=== PATIENT | male | born 1950 | race Caucasian/White ===

== ENCOUNTER 2017-10-10 12:25 | Outpatient (RCR) | payer MEDICARE, OTHER, SELFPAY | END 2017-10-27 23:59 | LOC: DC 12:25 | PROVIDERS: Family Provider Family Medicine; PCP Family Medicine; Visit Provider Family Medicine | DX: E11.9 Type 2 diabetes mellitus without complications (principal); R63.4 Abnormal weight loss; Z71.3 Dietary counseling and surveillance | CPT/HCPCS: 97802; G0108 ==

== ENCOUNTER 2017-10-11 15:00 | Outpatient (RCR) | payer OTHER, SELFPAY ==
--- NOTE | 2017-09-18 19:00 | HP.OTEVAL ---
Patient's Visit Information CRISTINO CHINCHILLA is a 66 year old M, referred to Occupational Therapy by Out of Town Doctor,VENTURA HUGO, with a diagnosis of Closed Colles Fx of L Radius. Date of Evaluation: 09/18/17 Occupational Therapist: Nighat Peres - Subjective Subjective: Pt seen for initial occupational therapy evaluation after accidental fall on cement tripping over bolt in floor while at work on 07/21/17. Pt has closed colles fx of left radius. Pt had sx 08/03/17 L wrist ORIF with 1 plate and 10 screws. Pt lives w/ spouse 1 story house with 12 steps to enter with handrail. Indep w/ BADL's/IADLs prior. Pt states he is still independent with all BADL's/IADLs and drives. 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 - Pain L wrist 2 Pain Intensity Range: 0, 5 - Objective Objective/Observation: decreased functional use of L hand/wrist, decreased L wrist ROM and strength. - ROM Shoulder: WFL Elbow: WFL Wrist: WFL CMC: WFL MP: WFL IP: WFL Radial Abduction: WFL Palmar Abduction: WFL Opposition: WFL MP: WFL PIP: WFL DIP: WFL ROM Comments: R Wrist AROM extension 75' flexion 85'. L Wrist AROM extension 10' flexion 50', PROM extension 15', flexion 55' - Strength Shoulder: R 4/5, L 4/5 Elbow: R 4/5, L 4/5 Director Of Student Affairs: R 60#, L 20# Tripod Pinch: R 14#, L 8# - Edema Other: No edema noted - Sensation Sensation Comments: Pt states burning at incision when takes brace off. No numbness/tingling noted. - DASH-Disabilities of Arm, Shoulder& Hand DASH Sum: 49 - Goals Goal:: Pt will progress w/ L yard spotter strength by 40# to increase independence with BADLs/IADLs. Goal:: Pt will progress w/ L wrist AROM flexion/extension 40 degrees to increase functional use of L wrist for IADLS and hobbies. Goal:: Pt will demo L wrist pain no greater than 1/10 by d/c with movement. Goal:: Pt will be educated on scar mngmt tech with good understanding and demo 100%x. Goal:: Pt will demo increased L hand pinch strength by 6# at d/c to assist w/ IADLs. Goal:: Pt will be educated on L UE HEP ROM and strengthening exercises to increase independence with IADLs and hobbies with good understanding and demo 100%x. - Rehabilitation General Assessment: Pt demo decreased L wrist strength and ROM after L wrist sx from accidental fall. Rehabilitation Potential: Good - Anticipated Interventions Anticipated Interventions: A/AAROM/PROM, Strengthening, Scar Care, Massage, Modalities, Fine Motor Coord/En, ADL Training, Caregiver Training, Home Program - Visit Plan Frequency: 2-3x /Week Duration: 4-6 Weeks General Plan: Increase L wrist ROM and strength. Decrease L wrist pain, educate on scar mngmt tech. TEXT: Thank you for the opportunity to evaluate your patient. For Medicare and Medicare HMO plans, please review the plan of care and approve it. It will need to be FAXED BACK to us at [phone] for Medicare purposes. Please let me know if there are questions or concerns regarding this plan of care. Physician Signature: Date:
--- NOTE | 2017-09-27 10:05 | HP.OTCOM ---
OT Communication Note 09/27/17 Dear VENTURA Graff Completing L wrist ROM and strengthening exercises . Educated pt on HEP for AROM/AAROM exercises at home and strengthening exercises for L wrist. Pt demonstrated 55 degress L wrist flexion and 30 degrees L wrist extension last session. Pt progressing with L wrist ROM at this time. Sincerely, Nighat Davis Viar Contact Information
--- NOTE | 2017-09-27 10:09 | HP.OTCOM_ITS ---
OT Communication Note 09/27/17 Dear VENTURA Graff Completing L wrist ROM and strengthening exercises . Educated pt on HEP for AROM /AAROM exercises at home and strengthening exercises for L wrist. Pt demonstrated 55 degress L wrist flexion and 30 degrees L wrist extension last session. Pt progressing with L wrist ROM at this time. Sincerely, Nighat Davis Viar Contact Information
--- NOTE | 2017-12-26 11:57 | HP.OT.NRP ---
HP - Discharge Summary - Patient Information CRISTINO CHINCHILLA was seen in my office for initial evaluation on 09/18/17. The following Plan of Care was established for this patient: Initial Frequency: 2-3x /Week Initial Duration: 4-6 Weeks Plan: cont POC - Anticipated Interventions Anticipated Interventions: A/AAROM/PROM, Strengthening, Scar Care, Massage, Modalities, Fine Motor Coord/En, ADL Training, Caregiver Training, Home Program This patient was last seen in our office 10/11/17. Pertinent comments regarding their Occupational therapy will appear below: D/C OT services secondary to pt non-returning. Pt was progressing with L wrist strength using 1# free weight, red flex bands and BTE machine. He was completing paraffin bath to decrease pain and stiffness of L wrist after exercises. Pt did not meet all goals secondary to non-returning. At this point I will be discontinuing this patient from occupational therapy. I would be happy to see this patient again in the future if found appropriate by the physician. Thank you! Nighat Peres
== END 2017-10-11 19:00 | disposition home or self-care (01) ==
LOC: OT 15:00
PROVIDERS: Family Provider Family Medicine; PCP Family Medicine
DX: S52.532D Colles' fracture of left radius, subsequent encounter for closed fracture with routine healing (principal)
CPT/HCPCS: 97110; 97165

== ENCOUNTER 2018-04-20 17:02 | Emergency (ER) | payer MEDICARE, OTHER, SELFPAY ==
[2018-04-20 17:03] VITALS: BP 168/76; PULSE 74; RESP 18; TEMP 37.1; O2SAT 99; BMI 20.8
--- NOTE | 2018-04-20 19:01 | EKG12_ITS ---
Test Reason : GENERAL ILLNESS Blood Pressure : / mmHG Vent. Rate : 068 BPM Atrial Rate : 068 BPM P-R Int : 148 ms QRS Dur : 080 ms QT Int : 392 ms P-R-T Axes : 063 014 043 degrees QTc Int : 416 ms Normal sinus rhythm Normal ECG Confirmed by DOMENICO SALAS MD ([id number]), editor & co founder JONATHAN MOORE ([id number]) on 04/24/2018 8:52:59 AM Referred By: Confirmed By:DOMENICO SALAS MD
--- NOTE | 2018-04-20 19:02 | CT_ITS ---
STUDY: CT BRAIN WITHOUT CONTRAST REASON FOR EXAM: Male, 67 years old. Headache, nausea and elevated blood pressure. RADIATION DOSAGE (If Supplied By Facility): CTDIvol = ( 44.99 ) mGy, DLP = ( 812.98 ) mGycm TECHNIQUE: Transaxial CT imaging of the brain was performed without administration of intravenous contrast material. Individualized dose optimization techniques were used for this CT. COMPARISON: None. FINDINGS: Normal soft tissue structures. Normal calvarium. Normal size ventricles and extra-axial spaces for the patient's age. Normal white matter tracts of the cerebral hemispheres. Normal basal ganglia and thalami. Normal brainstem. Normal cerebellum. There is no intracranial hemorrhage. There are no findings of an acute ischemic infarction. Normal visualized paranasal sinuses CT/Brain/Head without Contrast IMPRESSION: Normal unenhanced CT scan of the brain. Electronically Signed: Lisa Garcia MD at 19:47 EDT , Service support ,
[2018-04-20] MEDS: Ketorolac 30 MG/ML Syringe IV (19:09)
--- NOTE | 2018-04-20 19:42 | RAD_ITS ---
STUDY: X-RAY CHEST REASON FOR EXAM: Male, 67 years old. Dizziness, nausea and shortness of breath. TECHNIQUE: Frontal and lateral views of the chest. COMPARISON: July 24, 2016 FINDINGS: There is hyperexpansion unchanged. There is no demonstrated pleural abnormality. Normal size heart. Normal mediastinum and lisette. Normal visualized pulmonary arteries. Normal visualized aortic arch and descending thoracic aorta. Normal visualized thoracic spine. Normal visualized ribs, clavicles, and shoulders. There is no demonstrated abnormality of the visualized soft tissue structures of the upper abdomen. RAD/Chest PA and Lateral IMPRESSION: Stable hyperexpansion. No acute pathology. Electronically Signed: Fidel Stone MD at 20:14 EDT , Service support ,
[2018-04-20 20:21] VITALS: BP 151/74; BP 153/76; BP 168/71; PULSE 70; PULSE 72; PULSE 76
[2018-04-20 20:28] LABS: Bacteria 0 SEEN /hpf (None Seen); Squamous Epithelial Cells - UA 0 SEEN /hpf (0-5)
[2018-04-20 20:29] LABS: Color, Urine Yellow (Yellow); Glucose, Dipstick Normal (Normal); Ketone-Dipstick Negative (Negative); Leukocyte Esterase-Dipstick Negative /ul (Negative); Nitrite-Dipstick Negative (Negative); Occult Blood-Urine Negative /ul (Negative); Protein-Dipstick 15 mg/dl (Negative); Specific Gravity, Urine 1.015 (1.002-1.030); Urine Bilirubin Dipstick Negative (Negative); Urine Clarity Clear (Clear); Urine Urobilinogen 1 mg/dl (Normal); Urine pH 6.5 (5.0 - 8.0)
[2018-04-20 20:30] LABS: Absolute Neutrophil Count 4.3 X10^3/uL (2.0-7.7); Basophil# 0.02 X10^3/uL; Basophil% 0.3 % (0-1); Eosinophils% 1.5 % (0-5); Hematocrit 37.6 % (40-54); Hemoglobin 12.8 g/dl (13.0-16.5); Lymphocyte % 19.5 % (19-41); Mean Corpuscular Hgb 32.7 pg (27.0-32.0); Mean Corpuscular Volume 95.9 fL (80-94); Mean Platelet Vol. 9.7 fl (6.2-12.0); Monocyte# 0.95 X10^3/uL; Monocyte% 14.3 % (0-10); Neutrophil # 4.27 X10^3/uL (2.7-7.7); Neutrophil % 64.2 % (47-70); POSITIVE COUNT NO; POSITIVE DIFFERENTIAL NO; POSITIVE MORPHOLOGY NO; Platelet Count 337 K/mm3 (150-450); RBC Distribution Width CV 13.1 % (11.6-14.6); RBC Distribution Width SD 45.2 fl (35.1-43.9); Red Blood Count 3.92 M/mm3 (4.6-6.2); White Blood Count 6.7 K/mm3 (4.4-11.0)
[2018-04-20 20:38] LABS: Hyaline Cast 0-5 SEEN /lpf (0-5); Mucous, Urine RARE /hpf (<or=2+)
[2018-04-20 20:39] LABS: Red Blood Cells-Urine 0-5 SEEN /hpf (0-5); White Blood Cells 0-5 SEEN /hpf (0-5)
[2018-04-20 20:44] LABS: ALB/GLOB Ratio 1.1 RATIO (0.9-2.4); AST(SGOT) 25 U/L (15-37); Alanine Aminotransfer ALT/SGPT 29 U/L (16-61); Albumin, Serum 3.5 g/dL (3.2-5.0); Alkaline Phosphatase 75 U/L (45-117); Anion Gap 7 (5-15); BUN 12 mg/dL (7-18); BUN/Creat Ratio 12.4 RATIO (10-20); Calcium,Total 8.7 mg/dL (8.5-10.1); Chloride 100 mmol/L (98-107); Creatinine, Serum 0.97 mg/dL (0.70-1.30); EST Glomerular Filtration Rate 82 mL/min (>60); Est Glom Filt Rate - Afr Amer 99 mL/min (>60); Globulin 3.2 g/dL (2.2-4.2); Glucose 83 mg/dL (74-106); Lipase 222 U/L (73-393); Potassium 4.1 mmol/L (3.5-5.1); Protein, Total 6.7 g/dL (6.4-8.2); Sodium Level 132 mmol/L (136-145)
--- NOTE | 2018-04-20 21:10 | ED.VISSUMM ---
- ER Visit Summary Date of Service: 04/20/18 Chief Complaint: Headache and weakness History of Present Illness: The patient is a 67 M who states he is trying to quit smoking. He started 4 days ago. He is also started using a patch of nicotine 21 mg per 24hr. he states that he typically will have 7 or 8 pipes per day. He states that he has had nausea headache dizziness some chills and some arm pain earlier all these symptoms caused him to worry came to the hospital with his . He has a history of prior ME and that really concerned him with the arm pain. Physical Examination: Afebrile vital signs are stable orthostatics negative. Gen: Well-nourished well-developed Head: Normocephalic atraumatic Eyes: Perrl EOMI ENT: TMs clear no rhinorrhea moist mucous membranes Neck: Supple no lymphadenopathy no JVD nontender CVS: Regular rate rhythm no murmurs normal S1-S2 Respiratory: No distress clear to auscultation bilaterally chest nontender Abdomen: Soft nontender nondistended normal bowel sounds no masses Back: Nontender Extremity: Nontender no edema Skin: Normal color no rash Neuro: alert orientated ?3 CN II-XII intact normal strength sensation reflexes gait cerebellar Psych: Normal affect normal mood Test Results: CBC CMP lipase troponin negative EKG sinus at rate [address] concerning features. Chest x-ray negative. CT of the brain was negative. Emergency Department Course and Treatment: Ez received a dose of Toradol. I think the patient could be experiencing nicotine toxicity. Perhaps the 21 mg patch is too high for him. This would make sense with his headaches and nausea. He was instructed to either discontinue the patch or cut down to the 7 or 14 mg and see that helps. If he is not improving please follow-up with family doctor. Impression: 1. Nicotine side effects This note was generated with [employer] dictation software. It may contain incorrect words, spelling, and punctuation that were not noted in review of the chart prior to signing ED Disposition - Plan for ED Patient: Disposition: Home or Assisted Living Chief Complaint: General Illness Instructions: Nicotine Transdermal patch - 24 hour, ED Smoking Cessation Referrals: Alycia Valencia MD [Primary Care Provider] - 3-5 Days if not improving
[2018-04-20 21:21] VITALS: BP 166/70; PULSE 68; RESP 16; O2SAT 98
[2018-04-20 21:22] VITALS: BP 166/70; PULSE 67; RESP 17; O2SAT 99
== END 2018-04-20 21:30 | disposition home or self-care (01) ==
PROVIDERS: Emergency Provider Emergency Medicine; Family Provider Family Medicine; PCP Family Medicine
DX: T78.8XXA Other adverse effects, not elsewhere classified, initial encounter (principal); X58.XXXA Exposure to other specified factors, initial encounter; E11.9 Type 2 diabetes mellitus without complications; K21.9 Gastro-esophageal reflux disease without esophagitis; E78.00 Pure hypercholesterolemia, unspecified; I10 Essential (primary) hypertension; I25.2 Old myocardial infarction; Z72.0 Tobacco use
CPT/HCPCS: 70450; 71046; 80053; 81001; 83690; 84484; 85025; 93005; 96374; 99285; A4216

== ENCOUNTER → 2018-07-31 12:35 | Outpatient (CLI) | payer MEDICARE, OTHER, SELFPAY ==
--- NOTE | 2018-07-31 13:37 | NEURO ---
NCS and/or EMG Patient Report Ordering Doctor: Alycia Valencia DATE OF SERVICE: 07/31/18 Ez Ryan is a 67-year-old male presents for electrodiagnostic testing of the right upper limb. He reports numbness and tingling in the right hand for the past 2 months. Next Electrodiagnostic findings: Right median motor nerve demonstrates normal distal latency, amplitude and conduction velocity. Normal right ulnar motor response, including conduction across the elbow. Normal right median and ulnar F waves. Sensory responses are within normal limits. Needle EMG testing shows no evidence of denervation A muscles tested. Motor unit action potentials are of normal amplitude and duration. Electrodiagnostic impression: This is a normal electrodiagnostic study of the left upper limb. There is no electrodiagnostic evidence for peripheral neuropathy, including carpal tunnel or cubital tunnel syndrome. If any further questions, please not hesitate to contact me.
== END ==
PROVIDERS: Family Provider Family Medicine; PCP Family Medicine; Referring Provider Family Medicine; Visit Provider Family Medicine
DX: G56.91 Unspecified mononeuropathy of right upper limb (principal)
CPT/HCPCS: 95886; 95909; 95910

== ENCOUNTER → 2018-10-07 13:50 | Outpatient (CLI) | payer MEDICARE, OTHER, SELFPAY ==
--- NOTE | 2018-10-07 13:55 | CT_ITS ---
STUDY: CT ABDOMEN AND PELVIS WITH CONTRAST REASON FOR EXAM: Male, 67 years old. Right lower quadrant pain. History of prior hernia repair. RADIATION DOSAGE (If Supplied By Facility): CTDIvol = ( 9.19 ) mGy, DLP = ( 416.98 ) mGycm TECHNIQUE: Transaxial images were obtained from the dome of the diaphragm to the symphysis pubis with oral contrast. Isovue 300 100 IV/Oral was administered. Sagittal and coronal images were reconstructed. Individualized dose optimization techniques were used for this CT. COMPARISON: Comparison is made with prior study dated July 17, 2017. FINDINGS: The visualized lung bases are unremarkable. The visualized portions of the heart are within normal limits. There is decreased attenuation of the liver consistent with steatosis. Stable 1.2 cm cyst in the left lobe of the liver. Stable tiny subcentimeters cyst in the superior aspect of the left lobe of the liver. Normal gallbladder and extrahepatic biliary system. Arising from the inferior aspect of the spleen, there is a 3.6 cm x 4.4 cm hypodense nodule. This is unchanged from prior study may represent a complicated cyst. Correlation with ultrasound of the spleen is recommended for further evaluation. Normal pancreas. Normal bilateral adrenal glands. Stable 7.5 mm cyst in the upper pole of the right kidney. Stable 1 cm cyst in the mid anterior aspect of the right kidney as well as in the lower pole of the right kidney. Stable 2 cm cyst in the upper medial portion of the left kidney as well as a tiny cyst in the lower pole. Normal visualized stomach. Normal small intestine. Normal colon. The appendix is visualized and appears normal. There is diffuse atherosclerotic calcification of the abdominal aorta, without a demonstrated aneurysm. Normal inferior vena cava. Normal retroperitoneum. Normal urinary bladder. There are prostatic calcifications. Normal abdominal wall. There are diffuse degenerative changes of the visualized lumbar spine. Stable dextroscoliosis of the lumbar spine. Loss of the normal lumbar lordosis. CT/Abdomen/Pelvis WITH Contrast IMPRESSION: Fatty infiltration of the liver. Findings suggesting complicated cyst arising from the inferior aspect of the spleen. Correlation with ultrasound is recommended. Stable bilateral renal cysts are Electronically Signed: Jimmy Wilder, at 9:38 EDT , Service support ,
== END ==
PROVIDERS: Family Provider Family Medicine; PCP Family Medicine; Referring Provider Family Medicine; Visit Provider Family Medicine
DX: R10.31 Right lower quadrant pain (principal)
CPT/HCPCS: 74177; Q9967

== ENCOUNTER → 2020-03-04 12:54 | Outpatient (CLI) | payer MEDICARE, OTHER, SELFPAY ==
[2020-03-03 11:28] VITALS: BMI 17.5
--- NOTE | 2020-03-04 12:58 | ECHOCS_ITS ---
Reason For Study: CAD/ASHD, Preop Procedure This was a 2D Doppler, Color Flow transthoracic echocardiogram. The study was technically difficult. Contrast injection was performed. Exam performed in department. Left Ventricle Normal LV size. The estimated ejection fraction is 53 %. Left ventricular systolic function is lower limits of normal. No regional wall motion abnormalities noted. Right Ventricle Normal RV size. Normal systolic function. Atria Normal left atrium. Normal right atrium. Mitral Valve Mitral valve not well visualized. Tricuspid Valve The tricuspid valve is not well visualized. Mild (1+) tricuspid valve insufficiency. Pulmonary artery systolic pressure is 28 mmHg. Aortic Valve The aortic valve is not well visualized. Pulmonic Valve Normal pulmonic valve. Great Vessels Normal aortic root. The pulmonary artery is normal size. Normal inferior vena cava. Pericardium/Pleural No pericardial effusion. Medication 22 gauge I.V. with prn adaptor inserted into right arm. Diluted definity 3ml given slow IV push to enhance endocardial definition. MMode/2D Measurements & Calculations LVIDd: 3.4 cm IVSd: 1.00 cm Ao root diam: 2.8 cm LVIDs: 2.2 cm LVPWd: 0.98 cm FS: 35.1 % LAV(MOD-sp4): 6.8 ml LA A4 area: 5.0 cm2 RA A4 area: 6.6 cm2 Doppler Measurements & Calculations MV E max alin: 53.1 cm/sec Lat Peak E' Alin: 5.0 cm/sec Med Peak E' Alin: 6.2 cm/sec MV A max alin: 84.6 cm/sec E/E' lat: 10.5 E/E' med: 8.6 MV E/A: 0.63 Ao V2 max: 82.2 cm/sec LV V1 max: 74.2 cm/sec PA V2 max: 85.7 cm/sec Ao max P.7 mmHg LV V1 max P.2 mmHg Ao V2 mean: 57.6 cm/sec Ao mean P.4 mmHg Ao V2 VTI: 15.2 cm TR max alin: 249.9 cm/sec TR max P.0 mmHg Interpretation Summary Normal LV size. The estimated ejection fraction is 53 %. Left ventricular systolic function is lower limits of normal. The study was technically difficult. Contrast injection was performed. Ordering Physician: Daren Quinteros Referring Physician: Alycia Valencia Performed By: Feli Cole, SARA, RVT
== END ==
PROVIDERS: PCP Family Medicine; Referring Provider Internal Medicine Cardiovascular Disease; Visit Provider Internal Medicine Cardiovascular Disease
DX: I25.10 Atherosclerotic heart disease of native coronary artery without angina pectoris (principal); Z95.5 Presence of coronary angioplasty implant and graft; I10 Essential (primary) hypertension; R00.2 Palpitations; R06.00 Dyspnea, unspecified
CPT/HCPCS: 93306; Q9957; A4216; C8929

== ENCOUNTER 2020-03-17 14:30 | Outpatient (RCR) | payer MEDICARE, OTHER, SELFPAY ==
[2019-09-16 10:01] VITALS: BMI 19.1
[2020-03-03 11:28] VITALS: BMI 17.5
== END 2020-03-17 23:59 | disposition home or self-care (01) ==
LOC: DC 14:30
PROVIDERS: PCP Family Medicine; Visit Provider Nurse Practitioner Family
DX: Z71.3 Dietary counseling and surveillance (principal); E11.9 Type 2 diabetes mellitus without complications; E44.0 Moderate protein-calorie malnutrition; R63.4 Abnormal weight loss
CPT/HCPCS: 97802; G0108

== ENCOUNTER → 2020-04-21 14:10 | Outpatient (CLI) | payer MEDICARE, OTHER, SELFPAY ==
[2020-04-14 11:51] VITALS: BMI 17.5
--- NOTE | 2020-04-21 14:11 | MRI_ITS ---
STUDY: MRI LUMBAR SPINE WITHOUT CONTRAST REASON FOR EXAM: Male, 69 years old. low back and rt leg pain -- recent ablation lumbar TECHNIQUE: Standardized fat and water weighted pulse sequences were obtained in the sagittal and axial planes. COMPARISON: X-ray 04/14/2020. FINDINGS: T12-L1: Normal endplates. Normal disc height, hydration and morphology. Normal bilateral facet joints. Normal central canal and bilateral lateral recesses. Normal bilateral intervertebral neural foramina. There is straightening of the normal lumbar lordosis. Mild lumbar dextroscoliosis. Normal conus medullaris that terminates at the L1 level. L1-2: Normal endplates. Disc dehydration and moderate disc space narrowing, with vacuum phenomenon. Mild canal stenosis due to a mild spondylotic bar and short pedicles. Mild bilateral foraminal stenosis due to spurring. L2-3: Normal endplates. Marked disc space narrowing with fatty endplate changes. Borderline canal stenosis due to a mild spondylotic bar, greater on the left, and shortened pedicles. There is effacement of the left lateral recess due to spondylosis and mild facet hypertrophy. Moderate left foraminal stenosis due to spurring. L3-4: Normal endplates. Marked disc space narrowing. Mild canal stenosis due to a moderate spondylotic bar, shortened pedicles, and mild facet hypertrophy. There is effacement of the right lateral recess due to spurring and facet hypertrophy. Foraminal stenosis is moderate bilaterally due to spurring. L4-5: Normal endplates. Marked disc space narrowing. 4 mm degenerative retrolisthesis. Moderate spondylotic bar due to retrolisthesis, causing effacement of the right lateral recess and borderline canal stenosis. Foraminal stenosis is mild on the left and severe on the right due to spurring. L5-S1: Normal endplates. Marked disc space narrowing with vacuum phenomenon. Mild, noncompressive disc bulge. No canal stenosis. Mild facet hypertrophy. Severe bilateral foraminal stenosis due to spurring. Normal visualized sacral ala. Normal visualized paraspinous soft tissue structures. MRI/Spine Lumbar (Routine) IMPRESSION: 1. Mild canal stenosis at L1-L2 and L3-L4. Borderline stenosis at L2-L3 and L4-L5. 2. Noncompressive disc bulge at L5-S1. 3. Mild L4-L5 retrolisthesis. 4. Moderate to severe foraminal stenosis from L2-L3 through L5-S1. 5. Mild scoliosis. 6. Degenerative changes are detailed above. Electronically Signed: Mendy Limon MD at 23:51 EDT Tel , Service support ,
== END ==
PROVIDERS: PCP Family Medicine; Referring Provider Orthopaedic Surgery; Visit Provider Orthopaedic Surgery
DX: M54.5 Low back pain (principal)
CPT/HCPCS: 72148

== ENCOUNTER → 2020-05-25 14:36 | Outpatient (CLI) | payer MEDICARE, OTHER, SELFPAY ==
[2020-04-30 11:10] VITALS: BMI 17.5
[2020-05-25 18:07] LABS: AST(SGOT) 30 U/L (15-37); Alanine Aminotransfer ALT/SGPT 35 U/L (16-61); Albumin, Serum 3.6 g/dL (3.2-5.0); Alkaline Phosphatase 72 U/L (45-117); BUN 8 mg/dL (7-18); Bilirubin, Direct 0.31 mg/dL (0.00-0.30); Calcium,Total 8.6 mg/dL (8.5-10.1); Cholesterol 107 mg/dL (200); EST Glomerular Filtration Rate 79 mL/min (>60); Est Glom Filt Rate - Afr Amer 95 mL/min (>60); Glucose 101 mg/dL (74-106); Protein, Total 6.6 g/dL (6.4-8.2); Triglycerides 45 mg/dL
[2020-05-25 18:08] LABS: Anion Gap 7 (5-15); Chloride 97 mmol/L (98-107); High Density Lipoprotein 66 mg/dL; Potassium 3.8 mmol/L (3.5-5.1); Sodium Level 130 mmol/L (136-145); Very Low Density Lipoprotein 9 mg/dL (5-40)
[2020-05-25 18:30] LABS: Microalbumin,Random Urine 10.8 mg/L (NO RANGE EST.); Microalbumin:Creatinine Ratio 19.8 mg/g CRE (<30 mg/g CRE)
== END ==
PROVIDERS: PCP Family Medicine; Referring Provider Family Medicine; Visit Provider Family Medicine
DX: E11.9 Type 2 diabetes mellitus without complications (principal)
CPT/HCPCS: 36415; 80048; 80061; 80076; 82043; 82570

== ENCOUNTER 2020-08-10 10:17 | Outpatient (RCR) | payer MEDICARE, OTHER, SELFPAY ==
[2020-04-30 11:10] VITALS: BMI 17.5
--- NOTE | 2020-08-12 07:46 | HP.OTFCE_ITS ---
Floor (Occasional 1-33% of Day): 15# Floor (Frequent 34-66% of Day): 8# Floor (Constant 67-100% of Day): NA Floor PDL: Sedentary-Light Knee (Occasional 1-33% of Day): 15# Knee (Frequent 34-66% of Day): 8# Knee (Constant 67-100% of Day): NA Knee PDL: Sedentary-Light Waist (Occasional 1-33% of Day): 15# Waist (Frequent 34-66% of Day): 8# Waist (Constant 67-100% of Day): NA Waist PDL: Sedentary-Light Shoulder (Occasional 1-33% of Day): 15# Shoulder (Frequent 34-66% of Day): 8# Shoulder (Constant 67-100% of Day): NA Overhead (Occasional 1-33% of Day): 5# Overhead (Frequent 34-66% of Day): NA Overhead (Constant 67-100% of Day): NA Overhead PDL: Sedentary Comments: pt demo with ability to lift 15# maximally from the above listed levels. Pt had increase in low back pain to 5/10. Pt c/o light headedness throughout the session. Bending: Occasional Ability (1-33% of day) Comments: low occasional ability with use of external support Squatting: Occasional Ability (1-33% of day) Comments: low occasional ability with use of external support Kneeling: No Ablility (0% of day) Reaching out: Occasional Ability (1-33% of day) Comments: performed while sitting Reaching up: Occasional Ability (1-33% of day) Comments: performed while sitting Sitting: Occasional Ability (1-33% of day) Walking: Occasional Ability (1-33% of day) Standing: Occasional Ability (1-33% of day) Duration Sedentary Sedentary Light Light Light Medium Medium Medium Heavy Very Heavy Heavy Occasional (0-33% of day) Frequent (34-66% of day) Constant (67-100% of day) 10 # Negligible Negligible 15 # 8 # Negligible 20 # 10# Negli. 35 # 18 # 7 # 50 # 25 # 10 # 75 # 100 # >100 # 38 # 50 # >50 # 15 # 20 # >20 # Height: 1.7 m Weight:: 49.895 kg Hand Dominance: Right Medical History Including Restrictions: Pt states he has struggled with pain in is low back for some time. pt states he recalls in 1989' he began having back issues. pt states he was mtg his back pain on his own with prone position and h eating pad. Pt states he started seeing Pain mtg. over a year ago. Pt states he had three cortisone injections on bilateral sides x 3, ablations have been better result. pt states he did see a mass spectrometry specialist but did not feel sx was not good-. pt states he rec'd a back brace, but the one spine sx rec'd was to large. pt states he has found a shorter brace with good results. pt states his pain mtg is working on possible nerve stimulator. pt reports he is not on lifting restrictions. pt smokes cigarettes for 40+ years. pt does not exercise on a regular basis. Diagnoses: stents x2 2014. heart attack x 5. Degeneration of lumbosacral intervertebral Disc. dx 2018. Lumbosacral spondylosis. Lumbosacral stenosis. hx of left radius fx with ORIF. Arthropathy of lumbar facet. right knee arthritis. Diabetic. Depression dx in 2016 Symptoms: Decreased sleep pattern. Low back pain. right knee pain. Pain radiated down to right leg Pain: Pt reports his back pain is 3-4/10 currently. No pain medication taken today prior to apt. States he will use heat pack and lay down on his stomach to decrease his pain. Work History: PT states he works for [employer] and has worked for two years. 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 Pt states has been on furlough since pandemic last worked in September. Pt has concerns with increase back pain and issues that he will be unable to return to his position. 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 pt was career spent 20 years in [employer]. Behavioral: pt cooperative throughout session and demo good effort. ADLS: Pt lives with in ranch home with basement. (?s son lives on main floor -does not help with home mtg) Pt and his live in basement apt. Pt states he has a full flight 14 steps to main level. Pt states does have walk outdoor from basement level but doesn?t use it. Once in basement does not need to climb stairs again until he is leaving. Has bedrooms, bathroom, kitchen and laundry on one their living floor. pt states has walk in shower with a shower chair. pt states he does shower with shower chair. pt has cane but uses for balance due to pain level. pt states he does all the cleaning, cooking, and yard work. pt drives and does grocery shopping. Pt states they hope to get house ready to sell and move into an assisted living facility this year due to the difficulty pt has with the yard work and home mtg. tasks. Physical Examination: heart rate is 64. spO2 98 ROM: pt demo bilateral UE ROM. pt demo all ROM WFL. slight limitations with lumbar extension Strength: pt demo with BUE MMT at 4/5. pt demo bilateral hip flex at 4-/5. pt demo with quat/hamstrings at 4/5. pt demo with functional strength. pt demo with generalized weakness Right Felt Hat Pouncing Operator Hand Strength Average: 45.00 Right Felt Hat Pouncing Operator Hand Strength Percentile: do not have average percentile for pts age. norms are for ages 20-64 Left Felt Hat Pouncing Operator Hand Strength Average: 23.33 Left Felt Hat Pouncing Operator Hand Strength Percentile: do not have average percentile for pts age. norms are for ages 20-64 Right Lateral Pinch Average: 7.33 Right Lateral Pinch Percentile: <10% Left Lateral Pinch Average: 6.00 Left Lateral Pinch Percentile: <10% Right Tripod Pinch Average: 8.66 Right Tripod Pinch Percentile: <10% Left Tripod Pinch Average: 4.00 Left Tripod Pinch Percentile: <10% Comments: do not have average percentile for pts age. norms are for ages 20-64 Sensation: denies Fine Motor: 9 hole peg test. right 22.9 sec =75%. left 24.78 sec. = 75%. pt demo fine motor skills are WNL Balance: pt sit to stand reported light headedness. no loss of balanced noted during assessment. Bending: pt demo the ability to bend forward three times and 7 times with external support. pt reported light headedness and an increase in low back pain 5/10. pt unable to complete 10 times rapidly. pt can bend forward on a low occ asional ability. heart rate is 67 Squatting: pt demo the ability to squat with external support three times. pt reported back pain 5/10. pt can squat on a low occasional ability. heart rate 67 Kneeling: unable Reaching out/up: pt demo the ability to stand and reach up three time and ten times- pt stated he became lightheaded with task and sat. pt completed reaching up ten times fast while sitting. pt demo reaching out three times, ten times and ten times rapidly sitting. pt states he is struggling with little light headedness every now and then. heart rate 67. pt states back pain is 4/10. pt can reach out/up on a occasional ability when sitting Walking: Pt demonstrated the ability to ambulate for 7.5 min. pt reported low back pain at 5/10. Pt ambulates with a reciprocal gait pattern. Pt did not use assistive devices with ambulation but did states he will use a cane at times. Pt can ambulate on a occasional ability. Standing: Pt demo the ability to stand for 4.5 min with expressed weight shifting to limit low back pain. Pt can stand on a occasional ability with given the opportunity to shift his body weight. Sitting: pt demo the ability to sit for 40 min with shifting body weight and request to stand during this time. Pt can sit on an occasional ability. Climbing Stairs: pt demonstrated the ability to ascend and descend ten steps with a reciprocal step pattern and use of bilateral handrails. Floor Lift: Pt demo the ability to lift 15# maximally from this level with good lifting mechanics. Knee Lift: Pt demo the ability to lift 15# maximally from this level with good lifting mechanics. Waist Lift: Pt demo the ability to lift 15# maximally from this level with good lifting mechanics. Shoulder Lift: Pt demo the ability to lift 15# maximally from this level with good lifting mechanics. Overhead Lift: pt demo the ability to lift 5# at this level. A less than sedenta ry lift ability Carryin# for 25 feet with good ability pt keeping weight close to his body Comments: pt put good effort into assessment. pts pain and light headedness limited pts ability to perform tasks or required therapist to stop activity.
--- NOTE | 2020-11-08 16:45 | HP.OTFCE.D ---
FCE D/C Summary - Discharge CRISTINO Henry AMOR was seen for a one time visit for an FCE on 08/10/20 and is discharged.
== END 2020-08-10 19:00 | disposition home or self-care (01) ==
LOC: OT 10:17
PROVIDERS: PCP Family Medicine; Referring Provider Nurse Practitioner Family; Visit Provider Nurse Practitioner Family
DX: M51.17 Intervertebral disc disorders with radiculopathy, lumbosacral region (principal); M47.27 Other spondylosis with radiculopathy, lumbosacral region; M46.96 Unspecified inflammatory spondylopathy, lumbar region; M48.07 Spinal stenosis, lumbosacral region
CPT/HCPCS: 97750

== ENCOUNTER 2020-09-13 11:34 | Day surgery (SDC) | payer MEDICARE, OTHER, SELFPAY ==
[2020-04-30 11:10] VITALS: BMI 17.5
[2020-09-13] VITALS (8 sets, daily range): BP systolic 120–137; BP diastolic 55–64; PULSE 63–80; RESP 16–18; TEMP 36.3–36.8; O2SAT 96–100; BMI 17.3
[2020-09-13 12:25] LABS: Bedside Glucose 83 mg/dL (70-110)
--- NOTE | 2020-09-13 12:26 | RAD_ITS ---
PROCEDURE: Spinal cord stimulator placement. DATE OF EXAMINATION: 09/13/2020 INDICATION: Male, 69 years old. Chronic back pain. FLUOROSCOPY TIME (if supplied): (2 minutes and 29 seconds.) minutes/seconds. 9 intraoperative images were obtained. Intraoperative imaging provided for spinal cord stimulator placement. RAD/Lumbar Spine 2 or 3 Views IMPRESSION: Intraoperative imaging provided for spinal cord stimulator placement. Electronically Signed: Jimmy Wilder MD at 16:07 EST , Service support ,
[2020-09-13] MEDS: Cefazolin 2 GM in 0.9% Normal Saline 100 ML IV (12:46)
[2020-09-13] MEDS: Lidocaine 2% (20 ml mdv) 20 ML Vial OPERA.SITE (14:00)
[2020-09-13] MEDS: Bupivacaine 0.25% 30 ML Vial (14:01)
--- NOTE | 2020-09-13 16:19 | OP.PCM_ITS ---
Report of Operation Date of Procedure: 09/13/20 Description of Surgical Findings:: Pre-Operative Diagnosis: Lumbosacral radiculopathy, lumbosacral degenerative disc disease, lumbosacral spinal stenosis Post-Operative Diagnosis: Lumbosacral radiculopathy, lumbosacral degenerative disc disease, lumbosacral spinal stenosis Surgery/Procedure Performed:: 1. Spinal cord stimulator thoracolumbar sure scan MRI leads placement x2 #2 spinal cord stimulator Medtronic intellis adaptive stimulator generator placement #3 spinal cord stimulator generator pocket creation at the left gluteal region #4 spinal cord stimulator simple programming, 5-intraoperative fluoroscopic interpretation Description of Surgical Findings:: PROCEDURES: 1. Spinal cord stimulator thoracolumbar sure scan MRI leads placement x2 #2 spinal cord stimulator Medtronic intellis generator placement #3 spinal cord stimulator generator pocket creation at the left gluteal region #4 spinal cord stimulator simple programming 5-intraoperative fluoroscopic interpretation PREOPERATIVE DIAGNOSES: Lumbosacral radiculopathy, lumbosacral degenerative disc disease, lumbosacral spinal stenosis POSTOPERATIVE DIAGNOSES: Lumbosacral radiculopathy, lumbosacral degenerative disc disease, lumbosacral spinal stenosis ANESTHESIA: MAC COMPLICATIONS: None BLOOD LOSS: Minimal Implanted device: Spinal cord stimulator lead [id number] lot number [id number], lead #2 [id number] lot number [id number] Medtronic spinal cord stimulator generator intellis adaptive stim serial number [id number] PROCEDURE IN DETAIL: History and physical today was reviewed. Risks and benefits of procedure explained. The patient understood, agreed to procedure, informed consent was obtained. IV inserted per routine protocol. The patient was taken to the operating room, placed in the prone position with a pillow positioned underneath the abdomen. A 2 g of Ancef IV piggyback was infused per anesthesia. The lower back and right gluteal area was prepped and draped in a sterile fashion using iodine x3 Ioban was placed. The C-arm was brought in position for AP view at the L1-2 vertebral bodies under direct visualization fluoroscopy on a true AP view the L1-2 interlaminar space was identified skin and subcutaneous tissue and size approximately 10 cc of a mix of 2% lidocaine and 0.25% Marcaine using a 25-gauge regular needle followed by a 25-gauge 3-1/2 inch spinal needle towards the interlaminar space at L2-3, the skin and subcutaneous tissue were then anesthetized and using an 11-gauge blade was then taken down to the skin and subcutaneous tissue using a 14-gauge 3-1/2 inch Touhy needle provided by the [employer] kit the needle was passed through the skin towards the interlaminar space at L1-2 and a paramedian approach the needle was then advanced under direct visualization fluoroscopy towards the interlaminar space at L1-2 [id number] technique was then carried to air towards the interlaminar space at L1-2 once the tip of the needle was in the epidural space and loss of resistance was encountered to air and after confirmation of AP as well as oblique view of the spinal cord stimulator lead was then advanced under direct visualization fluoroscopy to be at the tip of the lead at top of T8 and the bottom of the lead around mid T10 after confirmation of AP as well as lateral view to confirm correct placement of the lead in the posterior compartment of the epidural space the previous procedure was then repeated to the right paraspinal area at T12-L1 interlaminar space the second lead was then inserted under direct visualization with fluoroscopy to be at the top of T8 and mid T10 area the leads were were then connected to the external neurostimulator and patient was then awakened to confirm satisfactory coverage of the painful area once satisfactory coverage was then achieved the stylette of each needle was then removed and the skin and subcutaneous tissue on to the left of the paramedian needles was then taken anesthetized with a total of 10 cc of the previous mixture of 0.25% Marcaine and 2% lidocaine using a 25-gauge regular needle the incision was then taken down through the skin and subcutaneous tissue towards the fascia making sure hemostasis was then maintained via cautery, the spinal cord stimulator leads were then passed through the above incision and secured using the anchor and sutured down with a 2-0 silk to the fascia at that level the spinal cord stimulator leads were then tunneled via a tunneler provided by the [employer] kit towards the previously incised spinal cord stimulator battery at the left gluteal region skin and subcutaneous tissue were anesthetized with approximately 10 cc of a mix of 2% lidocaine and 0.25% Marcaine using a 25 gauge regular needle, skin and subcutaneous tissue was then taken down with the 11-gauge blade hemostasis was maintained with Bovie and direct pressure the incision was then taken down to the fascia and the battery was then secured with the 2-0 silk sutures that were the spinal cord stimulator leads the upper lead was then marked the new until spinal cord stimulator battery was then provided Via [employer] kit the battery was then reattached of the spinal cord stimulator make ensure that the top lead is attached to the top position from 0-7 electrodes and the bottom from 8-15 electrodes once impedance was then checked to be in the proper average number the intellis adaptive stim battery was then inserted into the pocket and impedance with when checked again the pocket was then inspected to confirm hemostasis in place, the intellus battery was then secured to the fascia using a 2-0 silk to the upper eyes of the battery confirming an upward writing of the intellis facing posterior, once complete confirmation the battery was then placed in the position and the the mid paramedian and the gluteal incisions were then closed primarily through a 3- 0 Vicryl in a running fashion followed by a 4-0 Vicryl to the skin, hemostasis was then maintained during the procedure the skin was then covered with a Steri- Strips and bacitracin patient was then returned into the supine position in a stable condition and returned to recovery in a stable condition patient experienced no signs or symptoms of intrathecal or intravascular injection patient experienced no paresthesia the procedure was completed without any apparent difficulty any complication the patient appeared to tolerate well, motor as well as sensory function was unchanged from prior to the procedure ESTIMATED BLOOD LOSS: Minimal less than 25 mL ASSESSMENT AND PLAN: This is a 69-year-old male with lumbosacral radiculopathy lumbosacral degenerative disc disease lumbosacral spinal stenosis status post 1. Spinal cord stimulator thoracolumbar leads placement x2 #2 spinal cord stimulator Medtronic intellis adaptive stimulator generator placement #3 spinal cord stimulator generator pocket creation at the right gluteal region #4 spinal cord stimulator simple programming, 5-intraoperative fluoroscopic interpretation patient will continue his current medications, a prescription was provided to the patient Keflex 500 mg 1 p.o. every 8 hours for 7 days, postop instruction were given in writing to the patient and his as well as verbally and in writing, patient will follow approximately 1 week for reevaluation.
== END 2020-09-13 15:51 | disposition home or self-care (01) ==
LOC: SDC 11:35 → AC 11:37
PROVIDERS: PCP Family Medicine; Referring Provider Anesthesiology Pain Medicine; Visit Provider Anesthesiology Pain Medicine
PROC: (CPT 63685; principal; 2020-09-13 12:45)
DX: M51.17 Intervertebral disc disorders with radiculopathy, lumbosacral region (principal); M48.07 Spinal stenosis, lumbosacral region; I25.10 Atherosclerotic heart disease of native coronary artery without angina pectoris; E11.9 Type 2 diabetes mellitus without complications; I25.2 Old myocardial infarction; Z95.5 Presence of coronary angioplasty implant and graft; F17.210 Nicotine dependence, cigarettes, uncomplicated
CPT/HCPCS: 63650; 63685; 72100; 76000; 82962; 87426; C1778; C1820; C9803; J7120; J2405

== ENCOUNTER → 2020-10-22 10:53 | Outpatient (CLI) | payer MEDICARE, OTHER, SELFPAY ==
[2020-10-21 14:39] VITALS: BMI 16.7
--- NOTE | 2020-10-22 10:55 | RAD_ITS ---
INDICATION: abnormal breath sounds EXAMINATION/TECHNIQUE: X-RAY - XR Chest 2 Views COMPARISON: None. FINDINGS: Nerve stimulator in place. Hyperinflated lungs. The lungs are otherwise clear. Tortuous and calcified thoracic aorta. The heart is not enlarged. No pleural effusion or pneumothorax. No acute osseous abnormalities. RAD/Chest PA and Lateral IMPRESSION: No acute radiographic abnormalities. Hyperinflated lungs which can be seen in asthma or COPD. Electronically Signed: Chilango Talley MD at 19:24 EDT Tel , Service support ,
[2020-10-22 12:04] LABS: Absolute Lymphocyte Count 2.39 X10^3/uL (0.83-4.51); Absolute Neutrophil Count 2.3 X10^3/uL (2.0-7.7); Basophil# 0.03 X10^3/uL; Basophil% 0.5 % (0-1); Eosinophil# 0.22 X10^3/uL; Eosinophils% 3.8 % (0-5); Hematocrit 38.7 % (40-54); Hemoglobin 12.8 g/dL (13.0-16.5); Lymphocyte # 2.39 X10^3/ul (4.0); Lymphocyte % 41.6 % (19-41); Mean Corp Hgb Conc 33.1 g/dL (32-36); Mean Corpuscular Hgb 32.7 pg (27.0-32.0); Mean Platelet Vol. 9.6 fl (6.2-12.0); Monocyte# 0.81 X10^3/uL; Monocyte% 14.1 % (0-10); NRBC Flagged by Analyzer 0 % (0-5); Neutrophil # 2.28 X10^3/uL (2.7-7.7); Neutrophil % 39.8 % (47-70); Platelet Count 282 K/mm3 (150-450); RBC Distribution Width CV 12.9 % (11.6-14.6); RBC Distribution Width SD 47.3 fl (35.1-43.9); Red Blood Count 3.91 M/mm3 (4.6-6.2); White Blood Count 5.7 K/mm3 (4.4-11.0)
[2020-10-22 12:28] LABS: Hemoglobin A1c 5.4 % (3.8-5.6)
[2020-10-22 12:38] LABS: Vitamin D,25 Hydroxy 20.3 ng/mL
[2020-10-22 12:44] LABS: ALB/GLOB Ratio 1.2 RATIO (0.9-2.4); AST(SGOT) 23 U/L (15-37); Alanine Aminotransfer ALT/SGPT 31 U/L (16-61); Albumin, Serum 3.5 g/dL (3.2-5.0); Alkaline Phosphatase 77 U/L (45-117); Anion Gap 6 (5-15); BUN 14 mg/dL (7-18); BUN/Creat Ratio 12.5 RATIO (10-20); Calcium,Total 8.8 mg/dL (8.5-10.1); Chloride 96 mmol/L (98-107); Cholesterol 116 mg/dL (200); Creatinine, Serum 1.12 mg/dL (0.70-1.30); EST Glomerular Filtration Rate 69 mL/min (>60); Est Glom Filt Rate - Afr Amer 84 mL/min (>60); Glucose 109 mg/dL (74-106); High Density Lipoprotein 62 mg/dL; PSA,Total - Annual Screen 1.12 ng/mL (0.00-4.00); Potassium 3.6 mmol/L (3.5-5.1); Protein, Total 6.5 g/dL (6.4-8.2); Sodium Level 133 mmol/L (136-145); Thyroid Stim Hormone (TSH) 1.34 uIU/mL (0.358-3.74); Triglycerides 64 mg/dL; Very Low Density Lipoprotein 13 mg/dL (5-40)
== END ==
PROVIDERS: PCP Family Medicine; Referring Provider Internal Medicine; Visit Provider Internal Medicine
DX: E11.9 Type 2 diabetes mellitus without complications (principal); I10 Essential (primary) hypertension; N13.8 Other obstructive and reflux uropathy; N40.1 Benign prostatic hyperplasia with lower urinary tract symptoms; E78.5 Hyperlipidemia, unspecified; I25.2 Old myocardial infarction; E55.9 Vitamin D deficiency, unspecified; Z12.5 Encounter for screening for malignant neoplasm of prostate
CPT/HCPCS: 36415; 71046; 80053; 80061; 82306; 83036; 84153; 84443; 85025; G0103

== ENCOUNTER → 2020-11-01 14:50 | Outpatient (CLI) | payer MEDICARE, OTHER, SELFPAY ==
[2020-10-21 14:39] VITALS: BMI 16.7
[2020-10-28 11:38] VITALS: BMI 17.0
--- NOTE | 2020-11-01 14:52 | CT_ITS ---
INDICATION: Bilateral lower abd pain, weight loss EXAMINATION: CT Abdomen And Pelvis W/ Contrast Injection TECHNIQUE: Helically acquired images were obtained of the abdomen and pelvis after IV contrast. A radiation dose optimization technique was used for this scan. IV Contrast dosage and agent: 100 cc ISOVUE-300 Oral contrast: Yes. COMPARISON: 10/07/2018. FINDINGS: Visualized lung bases: Unremarkable Liver: Multiple small hypodense lesions, most likely cysts. Gallbladder: Unremarkable Spleen: Stable 3.6 cm complex cystic lesion inferior to the spleen . Pancreas: Unremarkable Adrenal Glands: Unremarkable Kidneys: Multiple bilateral renal cysts, stable. GI Tract: Most of the jejunum is mildly dilated and demonstrates increased wall thickening and enhancement. Vasculature: Severe aortoiliac atherosclerotic calcifications. Lymphadenopathy: None Peritoneum: No ascites. Bladder: Unremarkable Reproductive organs: The prostate is mildly enlarged. Bones/Soft tissues: Severe degenerative changes of the visualized spine. Nerve stimulator seen in the left buttocks. CT/Abdomen/Pelvis WITH Contrast IMPRESSION: Most of the jejunum is mildly dilated and demonstrates increased wall thickening and enhancement. This could represent enteritis. Mild prostatomegaly. Recommend correlation with PSA levels. Stable 3.6 cm complex cystic lesion inferior to the spleen. 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 Electronically Signed: Chilango Talley MD at 19:48 EDT Tel , Service support ,
== END ==
PROVIDERS: PCP Internal Medicine; Referring Provider Internal Medicine; Visit Provider Internal Medicine
DX: R10.32 Left lower quadrant pain (principal); R10.31 Right lower quadrant pain
CPT/HCPCS: 74177; Q9967

== ENCOUNTER → 2020-11-08 16:58 | Outpatient (CLI) | payer MEDICARE, OTHER, SELFPAY ==
[2020-11-02 14:07] VITALS: BMI 17.0
--- NOTE | 2020-11-08 16:59 | CT_ITS ---
STUDY: CTA OF THE ABDOMINAL AORTA AND BILATERAL LOWER EXTREMITIES REASON FOR EXAM: Male, 70 years old. Weight loss, sm bowel thickening, vascular ischemi RADIATION DOSAGE (If Supplied By Facility): CTDIvol = ( 20.7 ) mGy, DLP = ( 225.80 ) mGycm TECHNIQUE: Axial CT angiography multi-detector data acquisition was obtained from the lung bases to the iliac crest following intravenous administration of IV 100mL Isovue-300. Axial images and MIP images were reconstructed from the axial data set. Post-processing of the angiographic images was performed, with multiplanar reformation and 3D reconstruction. Individualized dose optimization techniques were used for this CT. TECHNICAL QUALITY: Good COMPARISON: None. Descriptors of Narrowing: None (0%) Mild (< 50%) Moderate (50-70%) Severe (70-90%) Subtotal/Total Occlusion (90-100%) Non-Evaluable (technically non-diagnostic FINDINGS: Abdominal aorta: Mild amount of peripheral calcified plaque and tortuosity but no aortic stenosis or abdominal aortic aneurysm. Celiac and superior mesenteric arteries: There is mild diffuse narrowing. Inferior mesenteric artery: No demonstrated narrowing. Right renal artery(arteries): There is mild diffuse narrowing. Left renal artery(arteries): There is moderate diffuse narrowing. Right common iliac artery: There is moderate diffuse narrowing. Right external iliac artery: No demonstrated narrowing. Right internal iliac artery: There is mild diffuse narrowing. Left common iliac artery: There is moderate diffuse narrowing. Left external iliac artery: No demonstrated narrowing. Left internal iliac artery: There is mild diffuse narrowing. CT/CTA Abdomen W/WO Contrast IMPRESSION: 1. No significant aortic stenosis or abdominal aortic aneurysm. 2. Mild amount calcified plaque in the origin of the superior mesenteric artery with a widely patent celiac axis and inferior mesenteric artery without evidence of chronic mesenteric ischemia. 3. Single right renal artery with a mild amount calcified plaque. Single left renal artery with a moderate amount calcified plaque proximally producing a moderate (60%) stenosis. 4. Moderate amount calcified plaque within the common iliac arteries producing a moderate (60%) stenosis bilaterally. Widely patent external iliac arteries. Electronically Signed: Mark Garcia MD at 10:55 EDT Tel , Service support ,
== END ==
PROVIDERS: PCP Internal Medicine; Referring Provider Internal Medicine; Visit Provider Internal Medicine
DX: K55.9 Vascular disorder of intestine, unspecified (principal)
CPT/HCPCS: 74175; Q9967

== ENCOUNTER → 2020-11-12 08:48 | Outpatient (CLI) | payer MEDICARE, OTHER, SELFPAY ==
[2020-11-02 14:07] VITALS: BMI 17.0
--- NOTE | 2020-11-12 08:49 | RAD_ITS ---
PROCEDURE: Upper GI with Small Bowel Follow Through DATE OF EXAMINATION: 11/12/2020. INDICATION: Male, 70 years old. Upper abdominal and epigastric pain. Weight loss. FLUOROSCOPY TIME (if supplied): (1:38) minutes/seconds. 19 images were obtained. TECHNIQUE: Radiographic and fluoroscopic images of the distal esophagus, stomach, and entire small intestine were obtained following the oral ingestion of barium. COMPARISON: None. FINDINGS: The nursing admin film of the abdomen demonstrates a normal bowel gas pattern. There are no abnormal calcifications or organomegaly demonstrated. The visualized osseous structures are normal. A TENS unit is seen. Multiple images of the esophagus were obtained. There is no evidence of esophageal obstruction. No evidence of gastroesophageal reflux. The stomach and duodenum are unremarkable. A single contrast small bowel follow through exam demonstrates the small bowel to have no evidence for stricture, ulceration or mass. The transit time is normal at 60 minutes. RAD/Upper GI/w Small Bowel IMPRESSION: 1. Normal double contrast upper GI and small bowel follow-through exam. Electronically Signed: Jimmy Wilder MD at 14:05 EDT , Service support , Fax
== END ==
PROVIDERS: PCP Internal Medicine; Referring Provider Internal Medicine; Visit Provider Internal Medicine
DX: R10.13 Epigastric pain (principal); R63.4 Abnormal weight loss
CPT/HCPCS: 74246; 74248

== ENCOUNTER → 2020-12-13 06:19 | Outpatient (CLI) | payer MEDICARE, OTHER, SELFPAY ==
[2020-10-28 11:38] VITALS: BMI 17.0
[2020-11-02 14:07] VITALS: BMI 17.0
--- NOTE | 2020-12-13 09:29 | STRESSREP ---
Stress Test Report Pharmacologic myocardial perfusion stress test. 70-year-old man with a history of stenting of the left anterior descending artery and paroxysmal atrial fibrillation. Stress protocol: Resting EKG demonstrates normal sinus rhythm with a rate of 60 bpm resting blood pressure is 146/68 mmHg. 0.4 mg of regadenoson was infused per usual protocol followed by rapid venous saline flush injection continuous EKG monitoring was performed. The maximum heart rate attained was 75 bpm which was 49% of maximum predicted heart rate the maximum workload was 1 metabolic equivalent. At rest and during peak infusion nonspecific ST changes were noted with did not meet the criteria for ischemia. Myocardial perfusion protocol. 11.1 mCi of technetium 99m sestamibi was injected at rest. 0.4 mg of regadenoson was infused per usual protocol. At peak infusion 33.4 mCi of technetium 99m sestamibi was injected stress images were obtained. Stress and rest images were reconstructed and compared in the short axis vertical long and horizontal long axis. Gated images were also obtained Perfusion SPECT analysis: Review of the stress images demonstrate normal uptake of tracer noted in all areas of the myocardium. The resting images similarly demonstrate normal uptake of tracer noted in all areas of the myocardium. No areas of reversibility are noted suggest ischemia no previous infarct is noted. Gated SPECT analysis: The gated ejection fraction is 64%. Conclusion: Normal pharmacologic myocardial perfusion stress test. Preserved ejection fraction.
== END ==
PROVIDERS: PCP Internal Medicine; Referring Provider Physician Assistant Medical; Visit Provider Physician Assistant Medical
DX: R07.9 Chest pain, unspecified (principal)
CPT/HCPCS: 78452; 93017; A9500; A4216; J2785

== ENCOUNTER 2021-01-27 23:01 | Emergency (ER) | payer MEDICARE, OTHER, SELFPAY ==
[2020-11-02 14:07] VITALS: BMI 17.0
[2021-01-27 23:02] VITALS: BP 144/80; PULSE 63; RESP 14; TEMP 36.6; O2SAT 98; BMI 17.9
[2021-01-27 23:43] LABS: Bacteria 0 SEEN /hpf (None Seen); Mucous, Urine 0 SEEN /hpf (<or=2+); Red Blood Cells-Urine 0 SEEN /hpf (0-5); Squamous Epithelial Cells - UA 0 SEEN /hpf (0-5); White Blood Cells 0 SEEN /hpf (0-5)
[2021-01-27 23:48] LABS: Color, Urine Yellow (Yellow); Glucose, Dipstick Normal (Normal); Ketone-Dipstick Negative (Negative); Leukocyte Esterase-Dipstick Negative /ul (Negative); Nitrite-Dipstick Negative (Negative); Occult Blood-Urine Negative /ul (Negative); Protein-Dipstick Negative (Negative); Urine Bilirubin Dipstick Negative (Negative); Urine Clarity Clear (Clear); Urine Urobilinogen 1 mg/dl (Normal); Urine pH 6.5 (5.0 - 8.0)
[2021-01-28 00:03] LABS: ALB/GLOB Ratio 1.2 RATIO (0.9-2.4); AST(SGOT) 25 U/L (15-37); Alanine Aminotransfer ALT/SGPT 30 U/L (16-61); Albumin, Serum 3.4 g/dL (3.2-5.0); Alkaline Phosphatase 69 U/L (45-117); Anion Gap 4 (5-15); BUN 11 mg/dL (7-18); BUN/Creat Ratio 10.9 RATIO (10-20); Calcium,Total 8.5 mg/dL (8.5-10.1); Chloride 99 mmol/L (98-107); Creatinine, Serum 1.01 mg/dL (0.70-1.30); EST Glomerular Filtration Rate 78 mL/min (>60); Est Glom Filt Rate - Afr Amer 94 mL/min (>60); Estimated Creatinine Clearance 47.83 ml/min; Globulin 2.8 g/dL (2.2-4.2); Glucose 71 mg/dL (74-106); Potassium 3.7 mmol/L (3.5-5.1); Protein, Total 6.2 g/dL (6.4-8.2); Sodium Level 131 mmol/L (136-145)
--- NOTE | 2021-01-28 00:05 | CT_ITS ---
STUDY: CT ABDOMEN AND PELVIS WITH CONTRAST REASON FOR EXAM: Male, 70 years old. abdominalpain RADIATION DOSAGE (If Supplied By Facility): CTDIvol = ( 11.52 ) mGy, DLP = ( 310.60 ) mGycm TECHNIQUE: Transaxial images were obtained from the dome of the diaphragm to the symphysis pubis without oral contrast. IV 100mL Isovue-370 was administered. Sagittal and coronal images were reconstructed. Individualized dose optimization techniques were used for this CT. COMPARISON: None. FINDINGS: The visualized lung bases are unremarkable. The visualized portions of the heart are within normal limits. Small low-attenuation lesions largest within the left liver lobe, measuring 1.2 x 1.1 cm and likely benign process such as cyst or hemangioma in the absence of known neoplasm. Otherwise normal liver. Normal gallbladder and extrahepatic biliary system. Normal spleen. Normal pancreas. Normal bilateral adrenal glands. Multiple low-attenuation structures within the right kidney largest measuring 1.1 cm most compatible with simple cysts, otherwise normal right kidney. Small left upper renal pole simple cyst measuring 4.2 x 2.2 cm, otherwise normal left kidney. Normal visualized stomach. Mild nonspecific distention of small bowel loops with borderline thickening of the wall, cannot exclude enteritis. Nonspecific fecal debris within the colon with mild distention of the rectosigmoid. There is non-visualization of the appendix. There is diffuse atherosclerotic calcification of the abdominal aorta, without a demonstrated aneurysm. Normal inferior vena cava. Normal retroperitoneum. Normal urinary bladder. Normal visualized prostate gland. Normal abdominal wall. There are diffuse degenerative changes of the visualized lumbar spine. CT/Abdomen/Pelvis W IV Cont ONLY IMPRESSION: Possible nonspecific enteritis. No distinct signs of bowel obstruction. A left renal cyst as described. Likely benign lesions like such as cyst or hemangioma within the liver in the absence of known neoplasm, clinical correlation recommended. Remainder of abdominal viscera are unremarkable. Electronically Signed: Vaishnavi Jaimes MD at 1:01 EDT , Service support ,
[2021-01-28 00:12] LABS: Absolute Lymphocyte Count 2.02 X10^3/uL (0.83-4.51); Absolute Neutrophil Count 2.7 X10^3/uL (2.0-7.7); Basophil# 0.05 X10^3/uL; Basophil% 0.8 % (0-1); Eosinophil# 0.14 X10^3/uL; Eosinophils% 2.3 % (0-5); Hematocrit 34.5 % (40-54); Hemoglobin 11.7 g/dL (13.0-16.5); Lymphocyte # 2.02 X10^3/ul (0.83-4.51); Lymphocyte % 33.7 % (19-41); Mean Corp Hgb Conc 33.9 g/dL (32-36); Mean Corpuscular Volume 97.2 fL (80-94); Mean Platelet Vol. 9.5 fl (6.2-12.0); Monocyte# 0.99 X10^3/uL; Monocyte% 16.5 % (0-10); NRBC Flagged by Analyzer 0 % (0-5); Neutrophil % 45.2 % (47-70); Platelet Count 305 K/mm3 (150-450); RBC Distribution Width CV 12.1 % (11.6-14.6); RBC Distribution Width SD 43.7 fl (35.1-43.9); Red Blood Count 3.55 M/mm3 (4.6-6.2)
--- NOTE | 2021-01-28 01:17 | EDS_ITS ---
HPI History of Present Illness Chief Complaint: Abd Pain Narrative Narrative: Patient presents with 1 week of right lower abdominal pain, no fever chills cough or congestion. Pain does not radiate to the back. He has no urinary symptoms. Pain is achy and constant. No flank pain. No left-sided abdominal pain. [facility] Medical History (Updated 01/28/21 @ 01:[address] Ivan Lewis MD) Acute bronchitis Anemia Arthritis Atherosclerosis of coronary artery of [place] heart without angina pectoris (05/25/14) Atrial flutter, paroxysmal COPD (chronic obstructive pulmonary disease) Depression with anxiety Diabetes Diabetes mellitus, type II Essential (primary) hypertension Fatigue Gastroenteritis H/o blood transfusion Hemorrhoids History of non-ST elevation myocardial infarction (NSTEMI) (05/23/14) Hyperlipidemia Knee pain Onychomycosis Orthostatic hypotension Osteoporosis Peripheral vascular occlusive disease Pre-syncope Scoliosis Seasonal allergies Weight loss Home Medications metoprolol succinate 25 mg PO DAILY 04/29/13 [History Last Taken 09/13/20 10:45 25 MG] aspirin 81 mg PO DAILY@0800 09/03/14 [History Last Taken 08/10/16] loratadine 10 mg PO DAILY 09/03/14 [History Last Taken 08/10/16] gabapentin 100 mg PO QHS 07/24/16 [History Last Taken 08/10/16] pantoprazole 40 mg PO BID #60 tab 07/26/16 [Rx Last Taken 09/13/20 10:45 40 MG] atorvastatin 80 mg tablet 80 mg PO QHS tab 03/03/20 [History Last Taken Unknown] buspirone 15 mg tablet 15 mg PO BID 03/03/20 [History Last Taken Unknown] tramadol 50 mg tablet 50 mg PO Q6H PRN tab 03/03/20 [History Last Taken Unknown] [facility] 10/21/20 [History Last Taken Unknown] lidocaine-prilocaine 2.5 %-2.5 % topical cream 1 applic TOPICAL ONCE #5 gm 10/25/20 [Rx Last Taken Unknown] metformin 1,000 mg tablet 1,000 mg PO DAILY tablet 10/28/20 [History Last Taken Unknown] citalopram 20 mg tablet 20 mg PO DAILY #90 tablet 11/04/20 [Rx Last Taken Unknown] albuterol sulfate 90 mcg/actuation aerosol inhaler 2 puff INHALATION Q6H PRN #18 gm 11/09/20 [Rx Last Taken Unknown] tiotropium bromide 2.5 mcg/actuation mist for inhalation 2 inh INHALATION QAM #4 gm 11/09/20 [Rx Last Taken Unknown] ramipril 5 mg capsule 5 mg PO DAILY #90 cap 01/27/21 [Rx Last Taken Unknown] Allergy/AdvReac Type Severity Reaction Status Date / Time Penicillins [PCN] Allergy Hives Verified 01/27/21 23:22 typhoid vaccine Allergy Other Verified 01/27/21 23:22 [Typhoid Vaccine] bupropion HCl AdvReac Other Verified 01/27/21 23:22 [From Wellbutrin] sildenafil [From Viagra] AdvReac Other Verified 01/27/21 23:22 Family History Father Cancer Mother Kidney failure Other Kidney disease Surgical History (Updated 10/28/20 @ 13:49 by Ekaterina PATEL, PA) History of coronary artery stent placement History of hernia repair History of left heart catheterization History of open reduction and internal fixation (ORIF) procedure (2018) History of surgery on left wrist Social History (Updated 11/02/20 @ 15:[address] Demetra Serrano MD) household members: spouse housing: house Smoking Status: Current every day smoker tobacco type: pipe other: 1 q2hrs Tobacco: How many years used: 40 alcohol intake: never what type of physical activity do you participate in: other details: house work, and yard work. do you feel safe at home: Yes ROS ROS ED ROS Narrative Past medical history: Reviewed Medications: Reviewed Social history: Noncontributory Review of systems: All systems negative except as indicated General: No fever Eyes: No visual changes ENT: No upper airway congestion, normal voice Neck: No neck pain Cardiovascular: No chest pain Respiratory: No shortness of breath or cough Gastrointestinal: Abdominal pain as in HPI Genitourinary: No dysuria Musculoskeletal: Denies myalgias no difficulty with ambulation Skin: No rash Neurological: No memory loss, confusion or any focal weakness Psych: No recent behavioral changes Hematologic: No easy bleeding or easy bruising EXAM Physical Exam Narrative Exam Narrative: Physical exam General: Well nourished, Well developed, No Acute Distress Head: Normocephalic, Atraumatic Eyes: Conjunctiva not pale ENT: Moist mucous membranes Neck: Supple, Nontender, No lymphadenopathy Cardiovascular: Regular rate, Regular rhythm Respiratory: No distress, CTA bilaterally Abdomen: Soft, Nontender, Nondistended Back: Nontender, Normal Inspection. Negative for: CVA tenderness Extremities: Nontender, No edema Skin: Normal color, No rash Neurological: Alert, Normal Strength, Normal Sensation Psychological: Normal affect Const Vital Signs: 01/27/21 23:02 Temperature 97.9 F Temperature Source Temporal Pulse Rate 63 Respiratory Rate 14 Blood Pressure 144/80 H Blood Pressure Mean 101 Pulse Ox 98 Oxygen Delivery Method Room Air MDM MDM MDM Narrative Medical decision making narrative: Patient has an unremarkable work-up, white count is normal he may have some slight enteritis, I will follow him up with GI otherwise patient appears well and I will discharge in stable condition. Lab Data Labs: Laboratory Results - last 24 hr 01/27/21 01/27/21 01/27/21 23:30 23:30 23:40 WBC 6.0 RBC 3.55 L Hgb 11.7 L Hct 34.5 L MCV 97.2 H MCH 33.0 H MCHC 33.9 RDW Std Deviation 43.7 RDW Coeff of Randa 12.1 Plt Count 305 MPV 9.5 Immature Gran % (Auto) 1.500 H Neut % (Auto) 45.2 L Lymph % (Auto) 33.7 [place] % (Auto) 16.5 H Eos % (Auto) 2.3 Baso % (Auto) 0.8 Absolute Neuts (auto) 2.7 Absolute Lymphs (auto) 2.02 Nucleated RBC % 0 Sodium 131 L Potassium 3.7 Chloride 99 Carbon Dioxide 28.0 Anion Gap 4 L BUN 11 Creatinine 1.01 Estim Creat Clear Calc 47.83 Est GFR (MDRD) Af Amer 94 Est GFR (MDRD) Non-Af 78 BUN/Creatinine Ratio 10.9 Glucose 71 L Calcium 8.5 Total Bilirubin 0.60 AST 25 ALT 30 Alkaline Phosphatase 69 Total Protein 6.2 L Albumin 3.4 Globulin 2.8 Albumin/Globulin Ratio 1.2 Urine Color Yellow Urine Clarity Clear Urine pH 6.5 Ur Specific [place] 1.010 Urine Protein Negative Urine Glucose (UA) Normal Urine Ketones Negative Urine Occult Blood Negative Urine Nitrite Negative Urine Bilirubin Negative Urine Urobilinogen 1 H Ur Leukocyte Esterase Negative Urine RBC 0 SEEN Urine WBC 0 SEEN Ur Squamous Epith Cells 0 SEEN Urine Bacteria 0 SEEN Urine Mucus 0 SEEN Radiography Diagnostic Testing: Radiology Impression Abdomen/Pelvis CT 01/28/21 00:05 IMPRESSION: Possible nonspecific enteritis. No distinct signs of bowel obstruction. A left renal cyst as described. Likely benign lesions like such as cyst or hemangioma within the liver in the absence of known neoplasm, clinical correlation recommended. Remainder of abdominal viscera are unremarkable. Electronically Signed: Vaishnavi Jaimes MD at 1:01 EDT , Service support , Discharge Plan Triage Chief Complaint: Abd Pain ED Provider: Ivan Lewis Dx/Rx/DC Orders Clinical Impression: Abdominal pain Instructions: Abdominal Pain Prescriptions: No Action buspirone 15 mg tablet 15 mg PO BID RF: 0 atorvastatin 80 mg tablet 80 mg PO QHS RF: 0 tramadol 50 mg tablet 50 mg PO Q6H PRN (Reason: Pain Score 1-10) RF: 0 metformin 1,000 mg tablet 1,000 mg PO DAILY RF: 0 [employer] RF: 0 metoprolol succinate 25 MG tablet 25 mg PO DAILY RF: 0 aspirin 81 MG tablet,chewable 81 mg PO DAILY@0800 RF: 0 loratadine 10 MG tablet 10 mg PO DAILY RF: 0 gabapentin 100 MG capsule 100 mg PO QHS RF: 0 pantoprazole 40 MG tablet 40 mg PO BID Qty: 60 RF: 0 lidocaine-prilocaine 2.5-2.5 % cream 1 applic TOPICAL ONCE Qty: 5 RF: 1 citalopram 20 mg tablet 20 mg PO DAILY Qty: 90 RF: 1 Spiriva Respimat 2.5 mcg/actuation mist 2 inh INHALATION QAM Qty: 4 RF: 3 albuterol sulfate 90 mcg/actuation HFA aerosol inhaler 2 puff INHALATION Q6H PRN (Reason: shortness of breath or wheezing) Qty: 18 RF: 1 ramipril 5 mg capsule 5 mg PO DAILY Qty: 90 RF: 0 Primary Care Provider: Demetra Serrano Referrals: Demetra Serrano MD [Primary Care Provider] - Girish Nair MD [NON-STAFF] - 2 Days Disposition Disposition: Home, Self Care
[2021-01-28 01:24] VITALS: BP 136/72; PULSE 68; RESP 16; O2SAT 99
== END 2021-01-28 01:25 | disposition home or self-care (01) ==
PROVIDERS: Emergency Provider Emergency Medicine; PCP Internal Medicine
DX: R10.9 Unspecified abdominal pain (principal); N28.1 Cyst of kidney, acquired; I25.10 Atherosclerotic heart disease of native coronary artery without angina pectoris; J44.9 Chronic obstructive pulmonary disease, unspecified; E11.9 Type 2 diabetes mellitus without complications; I10 Essential (primary) hypertension; I25.2 Old myocardial infarction; D64.9 Anemia, unspecified; E78.5 Hyperlipidemia, unspecified; F17.200 Nicotine dependence, unspecified, uncomplicated; Z79.82 Long term (current) use of aspirin; Z79.84 Long term (current) use of oral hypoglycemic drugs; Z79.899 Other long term (current) drug therapy; Z95.5 Presence of coronary angioplasty implant and graft
CPT/HCPCS: 74177; 80053; 81001; 85025; 99283; Q9967; A4216

== ENCOUNTER → 2021-04-01 12:36 | Outpatient (CLI) | payer MEDICARE, OTHER, SELFPAY ==
[2021-04-01 15:00] LABS: Absolute Lymphocyte Count 1.36 X10^3/uL (0.83-4.51); Absolute Neutrophil Count 2.3 X10^3/uL (2.0-7.7); Basophil# 0.03 X10^3/uL; Basophil% 0.7 % (0-1); Eosinophil# 0.15 X10^3/uL; Eosinophils% 3.3 % (0-5); Hematocrit 36.4 % (40-54); Hemoglobin 12.3 g/dL (13.0-16.5); Lymphocyte # 1.36 X10^3/ul (0.83-4.51); Lymphocyte % 29.5 % (19-41); Mean Corp Hgb Conc 33.8 g/dL (32-36); Mean Corpuscular Hgb 32.4 pg (27.0-32.0); Mean Corpuscular Volume 95.8 fL (80-94); Mean Platelet Vol. 9.6 fl (6.2-12.0); Monocyte# 0.72 X10^3/uL; Monocyte% 15.6 % (0-10); NRBC Flagged by Analyzer 0 % (0-5); Neutrophil # 2.33 X10^3/uL (2.7-7.7); Neutrophil % 50.5 % (47-70); Platelet Count 287 K/mm3 (150-450); RBC Distribution Width CV 12.6 % (11.6-14.6); RBC Distribution Width SD 44.6 fl (35.1-43.9); White Blood Count 4.6 K/mm3 (4.4-11.0)
[2021-04-01 15:02] LABS: Erythrocyte Sedimentation Rate < 1 mm/hr (0-20)
[2021-04-01 15:52] LABS: Hepatitis B Surface Antibody Non-Reactive; Hepatitis B Surface Antigen Non-Reactive (Nonreactive); Hepatitis C Antibody Non-Reactive (Nonreactive)
[2021-04-01 16:03] LABS: ALB/GLOB Ratio 1.3 RATIO (0.9-2.4); AST(SGOT) 25 U/L (15-37); Alanine Aminotransfer ALT/SGPT 34 U/L (16-61); Albumin, Serum 3.8 g/dL (3.2-5.0); Alkaline Phosphatase 68 U/L (45-117); Anion Gap 7 (5-15); BUN 12 mg/dL (7-18); BUN/Creat Ratio 9.9 RATIO (10-20); CRP < 2.90 mg/L (0.0-3.0); Calcium,Total 8.8 mg/dL (8.5-10.1); Chloride 100 mmol/L (98-107); Creatinine, Serum 1.21 mg/dL (0.70-1.30); EST Glomerular Filtration Rate 63 mL/min (>60); Est Glom Filt Rate - Afr Amer 76 mL/min (>60); Globulin 2.9 g/dL (2.2-4.2); Glucose 105 mg/dL (74-106); Potassium 4.1 mmol/L (3.5-5.1); Protein, Total 6.7 g/dL (6.4-8.2); Rheumatoid Factor < 10.0 IU/mL (<15); Sodium Level 131 mmol/L (136-145)
[2021-04-05 13:00] LABS: ANTINUCLEAR ANTIBODIES DIRECT Negative (Negative)
[2021-04-06 08:15] LABS: CCP IgG Antibodies 5 units (0-19)
== END ==
PROVIDERS: PCP Internal Medicine; Referring Provider Internal Medicine Rheumatology; Visit Provider Internal Medicine Rheumatology
DX: M06.4 Inflammatory polyarthropathy (principal); M19.041 Primary osteoarthritis, right hand; M47.897 Other spondylosis, lumbosacral region; M48.061 Spinal stenosis, lumbar region without neurogenic claudication; M41.9 Scoliosis, unspecified; I10 Essential (primary) hypertension; E11.9 Type 2 diabetes mellitus without complications; I25.10 Atherosclerotic heart disease of native coronary artery without angina pectoris
CPT/HCPCS: 36415; 80053; 85025; 85652; 86038; 86140; 86200; 86431; 86706; 86803; 87340

== ENCOUNTER → 2021-06-02 15:03 | Outpatient (CLI) | payer MEDICARE, OTHER, SELFPAY | PROVIDERS: PCP Internal Medicine; Visit Provider Physician Assistant | DX: J06.9 Acute upper respiratory infection, unspecified (principal); Z20.822 Contact with and (suspected) exposure to COVID-19 | CPT/HCPCS: 87635; U0005; U0003 ==

== ENCOUNTER 2022-03-08 15:07 | Emergency (ER) | payer MEDICARE, OTHER, SELFPAY ==
[2022-03-08 15:08] VITALS: PULSE 65; RESP 17; TEMP 36.6; O2SAT 99; BMI 17.4
--- NOTE | 2022-03-08 15:17 | EKG12_ITS ---
Test Reason : CHEST PAIN Blood Pressure : / mmHG Vent. Rate : 061 BPM Atrial Rate : 061 BPM P-R Int : 142 ms QRS Dur : 082 ms QT Int : 416 ms P-R-T Axes : -22 047 -04 degrees QTc Int : 418 ms Normal sinus rhythm Possible Inferior infarct , age undetermined Abnormal ECG Confirmed by CHRISTIANO HOLDER, ELAINE ([id number]), acquisitions editor CHRISTIANNE LOGAN ([id number]) on 03/10/2022 2:28:49 PM Referred By: TEAGAN Confirmed By:SONYA ALVARADO MD
--- NOTE | 2022-03-08 15:19 | EDS_ITS ---
HPI History of Present Illness Chief Complaint: Chest Pain Informant: patient and EMS Narrative Narrative: Brought in by EMS from home sudden sharp chest pain awakening him from a nap half an hour ago. Symptoms lasted approximate 10 minutes subsided upon EMS arri major. Denies radicular symptoms denies nausea shortness of breath or diaphoresis. History of MA with 2 stents in 2013. He states that in [place]. He does not currently follow cardiology. History of COPD with tobacco history. History of diabetes. Records no history of paroxysmal atrial flutter, he does not take any anticoagulation medicines. Denies previous similar in the past. He states his heart attack was burning pressure sensation. Currently symptom- free status post 324 aspirin by EMS. Prior Similar Symptoms: No CVD Risk Factors: Positive for Diabetes, Hypercholesterolemia and Smoking [facility] Medical History Acute bronchitis Anemia Arthritis Atherosclerosis of coronary artery of [place] heart without angina pectoris (05/25/14) Atrial flutter, paroxysmal COPD (chronic obstructive pulmonary disease) Depression with anxiety Diabetes Diabetes mellitus, type II Essential (primary) hypertension Fatigue Gastroenteritis H/o blood transfusion Hemorrhoids History of non-ST elevation myocardial infarction (NSTEMI) (05/23/14) Hyperlipidemia Knee pain Onychomycosis Orthostatic hypotension Osteoporosis Peripheral vascular occlusive disease Pipe smoker Pre-syncope Scoliosis Seasonal allergies Weight loss Home Medications aspirin 81 mg chewable tablet 81 mg PO DAILY@0800 09/03/14 [History Last Taken 08/10/16] loratadine 10 mg tablet 10 mg PO DAILY 09/03/14 [History Last Taken 08/10/16] tramadol 50 mg tablet 50 mg PO Q6H PRN Pain Score 1-10 03/03/20 [History Last Taken Unknown] [employer] miscellaneous 10/21/20 [History Last Taken Unknown] albuterol sulfate 90 mcg/actuation aerosol inhaler 2 puff inhalation Q6H PRN shortness of breath or wheezing #18 grams 11/09/20 [Rx Last Taken Unknown] citalopram 20 mg tablet 20 mg PO DAILY #90 tabs 05/23/21 [Rx Last Taken Unknown] pantoprazole 40 mg tablet,delayed release 40 mg PO BID #180 tabs 06/13/21 [Rx Last Taken Unknown] gabapentin 100 mg capsule 100 mg PO QHS #30 caps 08/01/21 [Rx Last Taken Unknown] atorvastatin 80 mg tablet 80 mg PO QHS #90 tabs 10/05/21 [Rx Last Taken Unknown] metoprolol succinate 25 mg tablet,extended release 24 hr 25 mg PO DAILY #90 tabs 10/05/21 [Rx Last Taken Unknown] metformin 500 mg tablet 500 mg PO DAILY #90 tabs 11/15/21 [Rx Last Taken Unknown] buspirone 15 mg tablet 15 mg PO BID #180 tabs 12/30/21 [Rx Last Taken Unknown] ramipril 5 mg capsule 5 mg PO DAILY #90 caps 12/30/21 [Rx Last Taken Unknown] tiotropium bromide 2.5 mcg/actuation mist for inhalation (Spiriva Respimat) 2 inh inhalation QAM #12 grams 01/10/22 [Rx Last Taken Unknown] Allergy/AdvReac Type Severity Reaction Status Date / Time Penicillins [PCN] Allergy Hives Verified 03/08/22 15:50 typhoid vaccine Allergy Other Verified 03/08/22 15:50 [Typhoid Vaccine] bupropion HCl AdvReac Other Verified 03/08/22 15:50 [From Wellbutrin] sildenafil [From Viagra] AdvReac Other Verified 03/08/22 15:50 Family History Father Cancer Mother Kidney failure Other Kidney disease Surgical History History of coronary artery stent placement History of hernia repair History of left heart catheterization History of open reduction and internal fixation (ORIF) procedure (2018) History of surgery on left wrist Social History household members: spouse housing: house Smoking Status: Current every day smoker tobacco type: pipe other: 1 q2hrs Tobacco: How many years used: 40 alcohol intake: never what type of physical activity do you participate in: other details: house work, and yard work. do you feel safe at home: Yes ROS ROS ED Constitutional Constitutional ED: Denies chills, fever(s) or sweats Eyes Eyes: Denies change in vision ENT ENT ED: Denies dysphagia or sore throat Cardiovascular Cardiovascular: Reports chest pain; Denies leg edema, palpitations or racing heartbeat Respiratory/Chest Respiratory/Chest: Denies cough, dyspnea or dyspnea on exertion Gastrointestinal Gastrointestinal: Denies abdominal pain, diarrhea, nausea or vomiting Genitourinary Genitourinary ED: Denies dysuria, hematuria or urinary frequency Musculoskeletal Musculoskeletal: Denies back pain, extremity pain or neck pain Integumentary Denies rash or wounds Neurologic Neurologic: Denies headache(s), paresthesias or weakness EXAM Physical Exam Const Vital Signs: 03/08/22 15:08 03/08/22 15:52 03/08/22 15:53 Temperature 97.8 F Temperature Source Oral Pulse Rate 65 58 L Respiratory Rate 17 18 Blood Pressure 165/66 H Blood Pressure Mean 99 Pulse Ox 99 99 98 Oxygen Delivery Method Room Air Room Air Room Air 03/08/22 17:00 03/08/22 18:00 03/08/22 19:32 Temperature Temperature Source Pulse Rate 57 L 59 L 55 L Respiratory Rate 13 17 17 Blood Pressure 162/68 H 163/73 H 169/74 H Blood Pressure Mean 99 103 Pulse Ox 99 99 Oxygen Delivery Method Room Air Room Air Positive well nourished and well developed General Appearance ED: well developed and NAD HEENT Reports moist mucous membranes normocephalic and atraumatic Eyes PERRL, EOMs intact bilaterally and conjunctivae normal General Eye ED: Yes normal appearance of both eyes Neck no lymphadenopathy and supple General: Negative for tenderness Chest Wall Chest: Negative for tenderness Resp normal respiratory effort and normal air movement Effort and Inspection: symmetric chest movement; Negative for respiratory distress Cardio regular rate, regular rhythm and no murmurs Peripheral Pulses: pulses 2+ throughout GI normal to inspection, nondistended, normoactive bowel sounds and non-tender Palpation: Negative for guarding or rebound tenderness present Back/Spine no CVA tenderness and no thoracic nor lumbar tenderness Extremity normal to inspection General Extremety ED: Negative for edema or tenderness General Extremity: Negative for edema Neuro oriented x3 and no sensory deficits noted Sensorium / Orientation: awake and alert Skin no rashes or lesions noted and no wounds Heart Score History: Slightly/Non-Suspicious ECG: Normal Age: >/= 65 years Risk Factors: >/= 3 Risk Factors or History of CAD Troponin: </= Normal Limit Score: 4 MDM MDM MDM Narrative Medical decision making narrative: Patient symptom-free on evaluation. EKG nonspecific findings. Work-up initiated to high since troponins were negative. Sodium 130. He is asymptomatic from this. Hemoglobin 13.1. Chest x-ray 2 views obtained reviewed by myself and read by radiology shows no acute process. Remained symptom-free on reevaluation. Discharged with outpatient follow-up with return precautions. All questions were answered. Lab Data Attestation: I reviewed the patient's lab results. Labs: Laboratory Results - last 24 hr 03/08/22 03/08/22 03/08/22 15:23 15:23 17:41 WBC 6.9 RBC 3.83 L Hgb 13.1 Hct 38.4 L MCV 100.3 H MCH 34.2 H MCHC 34.1 RDW Std Deviation 46.5 H RDW Coeff of Randa 12.5 Plt Count 259 MPV 9.6 Immature Gran % (Auto) 0.400 Neut % (Auto) 60.8 Lymph % (Auto) 17.8 L [place] % (Auto) 19.1 H Eos % (Auto) 1.5 Baso % (Auto) 0.4 Absolute Neuts (auto) 4.2 Absolute Lymphs (auto) 1.22 Nucleated RBC % 0 Sodium 130 L Potassium 4.1 Chloride 96 L Carbon Dioxide 29.0 Anion Gap 5 BUN 11 Creatinine 1.01 Estim Creat Clear Calc 45.72 Est GFR (MDRD) Af Amer 94 Est GFR (MDRD) Non-Af 78 BUN/Creatinine Ratio 10.9 Glucose 98 Calcium 9.3 Troponin I High Sens 14 15 Radiography Diagnostic Testing: Clinical Impression(s) from Imaging Studies Chest X-Ray 03/08/22 15:42 IMPRESSION: Mild hyperinflation. No acute cardiopulmonary pathology Electronically Signed: Miguel Flowers MD at 16:55 EDT , EKG Initial EKG: Attestation: I personally reviewed and interpreted this EKG as follows: Comments: Sinus rate of 61, no ST changes isolated T wave version leads III. Nonspecific. Discharge Plan Triage Chief Complaint: Chest Pain ED Provider: Vaughn Louis Dx/Rx/DC Orders Clinical Impression: Chest pain, History of coronary artery stent placement, Diabetes mellitus, type II Instructions: ED Chest Pain, Uncertain Cause Prescriptions: No Action tramadol 50 mg tablet 50 mg PO Q6H PRN (Reason: Pain Score 1-10) Label Comments: take 1 to 2 tablets by mouth every 6 hours if needed for pain [employer] Rx Instructions: for back pain citalopram 20 mg tablet 20 mg PO DAILY Qty: 90 3RF aspirin 81 MG tablet,chewable 81 mg PO DAILY@0800 Label Comments: blood thinner loratadine 10 MG tablet 10 mg PO DAILY Label Comments: allergies albuterol sulfate 90 mcg/actuation HFA aerosol inhaler 2 puff INHALATION Q6H PRN (Reason: shortness of breath or wheezing) Qty: 18 1RF Rx Instructions: With spacer pantoprazole 40 mg tablet,delayed release (DR/EC) 40 mg PO BID Qty: 180 1RF gabapentin 100 mg capsule 100 mg PO QHS Qty: 30 1RF atorvastatin 80 mg tablet 80 mg PO QHS Qty: 90 3RF metoprolol succinate 25 mg tablet extended release 24 hr 25 mg PO DAILY Qty: 90 3RF metformin 500 mg tablet 500 mg PO DAILY Qty: 90 3RF buspirone 15 mg tablet 15 mg PO BID Qty: 180 1RF ramipril 5 mg capsule 5 mg PO DAILY Qty: 90 1RF Spiriva Respimat 2.5 mcg/actuation mist 2 inh INHALATION QAM Qty: 12 3RF Primary Care Provider: Demetra Serrano Referrals: Demetra Serrano MD [Primary Care Provider] - 3-5 Days Activity Restrictions/Additional Instructions: Cardiac work-up negative today. Follow-up with your doctor for further testing as an outpatient. Return if any worsening symptoms. Disposition Disposition: Home, Self Care Discharge Date/Time: 03/08/22 19:33
[2022-03-08 15:35] LABS: Absolute Lymphocyte Count 1.22 X10^3/uL (0.83-4.51); Absolute Neutrophil Count 4.2 X10^3/uL (2.0-7.7); Basophil# 0.03 X10^3/uL; Basophil% 0.4 % (0-1); Eosinophils% 1.5 % (0-5); Hematocrit 38.4 % (40-54); Hemoglobin 13.1 g/dL (13.0-16.5); Lymphocyte # 1.22 X10^3/ul (0.83-4.51); Lymphocyte % 17.8 % (19-41); Mean Corp Hgb Conc 34.1 g/dL (32-36); Mean Corpuscular Hgb 34.2 pg (27.0-32.0); Mean Corpuscular Volume 100.3 fL (80-94); Mean Platelet Vol. 9.6 fl (6.2-12.0); Monocyte# 1.31 X10^3/uL; Monocyte% 19.1 % (0-10); NRBC Flagged by Analyzer 0 % (0-5); Neutrophil # 4.17 X10^3/uL (2.7-7.7); Neutrophil % 60.8 % (47-70); Platelet Count 259 K/mm3 (150-450); RBC Distribution Width CV 12.5 % (11.6-14.6); RBC Distribution Width SD 46.5 fl (35.1-43.9); Red Blood Count 3.83 M/mm3 (4.6-6.2); White Blood Count 6.9 K/mm3 (4.4-11.0)
--- NOTE | 2022-03-08 15:42 | RAD_ITS ---
STUDY: X-RAY CHEST REASON FOR EXAM: Male, 71 years old. chest pain TECHNIQUE: PA and lateral COMPARISON: 10/22/2020 FINDINGS: Lungs are mildly hyperinflated but clear.. There is no demonstrated pleural abnormality. Normal size heart. Normal mediastinum and lisette. Normal visualized pulmonary arteries. Mildly calcified aortic arch and descending thoracic aorta. Normal visualized thoracic spine. Normal visualized ribs, clavicles, and shoulders. Dorsal stimulator noted within the spinal canal There is no demonstrated abnormality of the visualized soft tissue structures of the upper abdomen. No significant change since prior exam RAD/Chest PA and Lateral IMPRESSION: Mild hyperinflation. No acute cardiopulmonary pathology Electronically Signed: Miguel Flowers MD at 16:55 EDT ,
[2022-03-08 15:51] LABS: Anion Gap 5 (5-15); BUN 11 mg/dL (7-18); BUN/Creat Ratio 10.9 RATIO (10-20); Calcium,Total 9.3 mg/dL (8.5-10.1); Chloride 96 mmol/L (98-107); Creatinine, Serum 1.01 mg/dL (0.70-1.30); EST Glomerular Filtration Rate 78 mL/min (>60); Est Glom Filt Rate - Afr Amer 94 mL/min (>60); Estimated Creatinine Clearance 45.72 ml/min; Glucose 98 mg/dL (74-106); Potassium 4.1 mmol/L (3.5-5.1); Sodium Level 130 mmol/L (136-145); Troponin-I HS (w/2H Reflex) 14 pg/mL (3.0-78.0)
[2022-03-08 15:52] VITALS: BP 165/66; PULSE 58; RESP 18; O2SAT 99
[2022-03-08 15:53] VITALS: O2SAT 98
[2022-03-08 17:00] VITALS: BP 162/68; PULSE 57; RESP 13; O2SAT 99
[2022-03-08 17:31] LABS: Reflex Troponin-HS? (from REC) Y
[2022-03-08 18:00] VITALS: BP 163/73; PULSE 59; RESP 17; O2SAT 99
[2022-03-08 18:09] LABS: Troponin-I HS 15 pg/mL (3.0-78.0)
[2022-03-08 19:32] VITALS: BP 169/74; PULSE 55; RESP 17
== END 2022-03-08 19:33 | disposition home or self-care (01) ==
PROVIDERS: Emergency Provider Emergency Medicine; PCP Internal Medicine; Visit Provider Emergency Medicine
DX: R07.9 Chest pain, unspecified (principal); J44.9 Chronic obstructive pulmonary disease, unspecified; E11.9 Type 2 diabetes mellitus without complications; I25.10 Atherosclerotic heart disease of native coronary artery without angina pectoris; E78.00 Pure hypercholesterolemia, unspecified; E78.5 Hyperlipidemia, unspecified; F17.200 Nicotine dependence, unspecified, uncomplicated; I10 Essential (primary) hypertension; Z95.5 Presence of coronary angioplasty implant and graft
CPT/HCPCS: 71046; 80048; 84484; 85025; 93005; 99285; A4216

== ENCOUNTER 2022-03-16 18:12 | Emergency (ER) | payer MEDICARE, OTHER, SELFPAY ==
[2022-03-16] VITALS (8 sets, daily range): BP systolic 151–171; BP diastolic 62–84; PULSE 92–110; RESP 15–20; TEMP 36.9–37.2; O2SAT 95–98; BMI 14.8
--- NOTE | 2022-03-16 18:31 | EKG12_ITS ---
Test Reason : SOB Blood Pressure : / mmHG Vent. Rate : 090 BPM Atrial Rate : 090 BPM P-R Int : 124 ms QRS Dur : 082 ms QT Int : 340 ms P-R-T Axes : 079 -03 071 degrees QTc Int : 415 ms Normal sinus rhythm Normal ECG Confirmed by LD HOLDER, DULCE ([id number]), newspaper editor managing CHRISTIANNE LOGAN ([id number]) on 03/17/2022 9:48:35 AM Referred By: Confirmed By:DULCE JAFFE MD
--- NOTE | 2022-03-16 18:33 | EDS_ITS ---
HPI History of Present Illness Chief Complaint: Shortness of Breath Informant: patient Narrative Narrative: Sent in from PCP office today. Nonproductive cough headaches myalgias starting yesterday. No sick contacts. She history of COPD no home oxygen, tobacco h istory. Nonvaccinated for COVID. Taking Tylenol or tramadol still has myalgias and headaches. Denies fevers. Reports wheezing at home. PCP office did not do any work-up, symptom here for concerns of COVID. Pulse ox 90% on room air on arrival. History of coronary disease, of note seen by myself 8 days for chest pains, has been chest pain-free since then. Patient is a diabetic, states sugars well controlled. Prior similar symptoms: Yes [facility] Medical History Acute bronchitis Anemia Arthritis Atherosclerosis of coronary artery of [place] heart without angina pectoris (05/25/14) Atrial flutter, paroxysmal COPD (chronic obstructive pulmonary disease) Depression with anxiety Diabetes Diabetes mellitus, type II Essential (primary) hypertension Fatigue Gastroenteritis H/o blood transfusion Hemorrhoids History of non-ST elevation myocardial infarction (NSTEMI) (05/23/14) Hyperlipidemia Knee pain Onychomycosis Orthostatic hypotension Osteoporosis Peripheral vascular occlusive disease Pipe smoker Pre-syncope Scoliosis Seasonal allergies Weight loss Home Medications loratadine 10 mg tablet 10 mg PO BID ALLERGIES 09/03/14 [History Last Taken 03/16/22] tramadol 50 mg tablet 50 mg PO Q6H PRN Pain Score 1-10 03/03/20 [History Last Taken 03/15/22] albuterol sulfate 90 mcg/actuation aerosol inhaler 2 puff inhalation Q6H PRN shortness of breath or wheezing #18 grams 11/09/20 [Rx Last Taken Unknown] citalopram 20 mg tablet 20 mg PO DAILY #90 tabs 05/23/21 [Rx Last Taken 1 Week Ago ~03/09/22] pantoprazole 40 mg tablet,delayed release 40 mg PO BID #180 tabs 06/13/21 [Rx Last Taken 03/15/22] metoprolol succinate 25 mg tablet,extended release 24 hr 25 mg PO DAILY #90 tabs 10/05/21 [Rx Last Taken 03/15/22] metformin 500 mg tablet 500 mg PO DAILY #90 tabs 11/15/21 [Rx Last Taken 02/27 02/17] buspirone 15 mg tablet 15 mg PO BID #180 tabs 12/30/21 [Rx Last Taken 03/16/22] ramipril 5 mg capsule 5 mg PO DAILY #90 caps 12/30/21 [Rx Last Taken 03/15/22] tiotropium bromide 2.5 mcg/actuation mist for inhalation (Spiriva Respimat) 2 inh inhalation QAM #12 grams 01/10/22 [Rx Last Taken 03/15/22] gabapentin 100 mg capsule 100 mg PO QHS #90 caps 03/10/22 [Rx Last Taken 03/15/22] acetaminophen 500 mg tablet 1,000 mg PO Q6H PRN Pain 03/16/22 [History Last Taken 03/15/22] albuterol sulfate 2.5 mg/3 mL (0.083 %) solution for nebulization 2.5 mg (3 mL) inhalation Q4H PRN #25 vials 03/16/22 [Rx Last Taken Unknown] atorvastatin 80 mg tablet 80 mg PO QHS CHOLESTEROL 03/16/22 [History Last Taken 03/15/22] prednisone 20 mg tablet 60 mg PO DAILY #15 tabs 03/16/22 [Rx Last Taken Unknown] Allergy/AdvReac Type Severity Reaction Status Date / Time Penicillins [PCN] Allergy Hives Verified 03/08/22 15:50 typhoid vaccine Allergy Other Verified 03/08/22 15:50 [Typhoid Vaccine] bupropion HCl AdvReac Other Verified 03/08/22 15:50 [From Wellbutrin] sildenafil [From Viagra] AdvReac Other Verified 03/08/22 15:50 Family History Father Cancer Mother Kidney failure Other Kidney disease Surgical History History of coronary artery stent placement History of hernia repair History of left heart catheterization History of open reduction and internal fixation (ORIF) procedure (2018) History of surgery on left wrist Social History household members: spouse housing: house Smoking Status: Current every day smoker tobacco type: pipe other: 1 q2hrs Tobacco: How many years used: 40 alcohol intake: never what type of physical activity do you participate in: other details: house work, and yard work. do you feel safe at home: Yes ROS ROS ED Constitutional Constitutional ED: Denies chills, fever(s) or sweats Eyes Eyes: Denies change in vision ENT ENT ED: Denies dysphagia or sore throat Cardiovascular Cardiovascular: Denies chest pain, leg edema, palpitations or racing heartbeat Respiratory/Chest Respiratory/Chest: Reports cough, dyspnea and dyspnea on exertion Gastrointestinal Gastrointestinal: Denies abdominal pain, diarrhea, nausea or vomiting Genitourinary Genitourinary ED: Denies dysuria, hematuria or urinary frequency Musculoskeletal Musculoskeletal: Reports myalgias; Denies back pain, extremity pain or neck pain Integumentary Denies rash or wounds Neurologic Neurologic: Reports headache(s); Denies paresthesias or weakness EXAM Physical Exam Const Vital Signs: 03/16/22 18:13 03/16/22 18:16 03/16/22 18:24 Temperature 98.9 F 98.9 F Temperature Source Temporal Temporal Pulse Rate 99 110 H Respiratory Rate 20 H 20 H Respiratory Effort Normal Respiratory Depth Normal Respiratory Pattern Normal Blood Pressure 151/84 H 151/84 H Blood Pressure Mean 106 106 Pulse Ox 98 98 Oxygen Delivery Method Room Air Room Air Room Air 03/16/22 18:47 03/16/22 18:15 03/16/22 19:15 Temperature 98.6 F 98.4 F Temperature Source Temporal Temporal Pulse Rate 94 97 94 Respiratory Rate 19 H 20 H 20 H Respiratory Effort Respiratory Depth Respiratory Pattern Blood Pressure 171/75 H 170/62 H Blood Pressure Mean 107 98 Pulse Ox 97 95 Oxygen Delivery Method Room Air Room Air 03/16/22 20:31 03/16/22 22:08 Temperature Temperature Source Pulse Rate 95 92 Respiratory Rate 18 15 Respiratory Effort Respiratory Depth Respiratory Pattern Blood Pressure 152/81 H 169/80 H Blood Pressure Mean 104 Pulse Ox 98 98 Oxygen Delivery Method Room Air Positive well nourished and well developed General Appearance ED: well developed and NAD HEENT Reports moist mucous membranes normocephalic and atraumatic Eyes PERRL, EOMs intact bilaterally and conjunctivae normal General Eye ED: Yes normal appearance of both eyes Neck no lymphadenopathy and supple General: Negative for tenderness Chest Wall Chest: Negative for tenderness Resp Resp Narrative: Expiratory wheezing lower lobes, no accessory muscle use. Effort and Inspection: symmetric chest movement; Negative for respiratory distress Cardio regular rhythm and no murmurs Rate: tachycardic Peripheral Pulses: pulses 2+ throughout GI normal to inspection, nondistended, normoactive bowel sounds and non-tender Palpation: Negative for guarding or rebound tenderness present Back/Spine no CVA tenderness and no thoracic nor lumbar tenderness Extremity normal to inspection General Extremety ED: Negative for edema or tenderness General Extremity: Negative for edema Neuro oriented x3 and no sensory deficits noted Sensorium / Orientation: awake and alert Skin no rashes or lesions noted and no wounds MDM MDM MDM Narrative Medical decision making narrative: Patient afebrile in the ED slight tachypnea on arrival. Was not hypoxic. Wheezing on exam no distress. Aerosol treatment steroids were given. Labs were obtained for evaluation White count returned at 21.78 days ago was normal. Sepsis labs a lactic acid blood cultures were obtained urine also obtained which was negative. Lactic acid 1.1. Sodium 128. His rapid COVID and influenza returned negative. Ordered for PCR along with respiratory panel. Chest x-ray 1 view reviewed by myself and read by radiology shows no infiltrates. Initial plan was for admission with his leukocytosis, however on rediscussion with the patient, he states he would like to go home. He is wheezing improved. He was ambulated with pulse ox down to 92% no respiratory distress. PCR respiratory panel still pending. With his COPD he will be placed on steroids. We will follow-up closely with his PCP with strict return precautions. He has nebulizer at home and medications were sent to his pharmacy. All questions were answered. Lab Data Attestation: I reviewed the patient's lab results. Labs: Laboratory Results - last 24 hr 03/16/22 03/16/22 03/16/22 18:50 18:50 19:45 WBC 21.7 H RBC 3.72 L Hgb 13.1 Hct 37.3 L MCV 100.3 H MCH 35.2 H MCHC 35.1 RDW Std Deviation 46.5 H RDW Coeff of Randa 12.5 Plt Count 241 MPV 9.0 Immature Gran % (Auto) 0.500 Neut % (Auto) 87.3 H Lymph % (Auto) 4.7 L Bryan % (Auto) 7.2 Eos % (Auto) 0.1 Baso % (Auto) 0.2 Absolute Neuts (auto) 19.0 H Absolute Lymphs (auto) 1.02 Nucleated RBC % 0 Differential Comment SEE COMMENT Diff Path Review May foll Platelet Estimate ADEQUATE RBC Morphology N CHROM Anisocytosis 1+ Macrocytosis 1+ Sodium 128 L Potassium 4.8 Chloride 97 L Carbon Dioxide 26.0 Anion Gap 5 BUN 13 Creatinine 1.05 Estim Creat Clear Calc 41.11 Est GFR (MDRD) Af Amer 90 Est GFR (MDRD) Non-Af 74 BUN/Creatinine Ratio 12.4 Glucose 95 Lactic Acid Calcium 9.3 Urine Color Urine Clarity Urine pH Ur Specific [place] Urine Protein Urine Glucose (UA) Urine Ketones Urine Occult Blood Urine Nitrite Urine Bilirubin Urine Urobilinogen Ur Leukocyte Esterase Urine RBC Urine WBC Ur Squamous Epith Cells Urine Bacteria Urine Mucus COVID-19 (PINO) Not Detected 03/16/22 03/16/22 20:00 20:28 WBC RBC Hgb Hct MCV MCH MCHC RDW Std Deviation RDW Coeff of Randa Plt Count MPV Immature Gran % (Auto) Neut % (Auto) Lymph % (Auto) Bryan % (Auto) Eos % (Auto) Baso % (Auto) Absolute Neuts (auto) Absolute Lymphs (auto) Nucleated RBC % Differential Comment Diff Path Review Platelet Estimate RBC Morphology Anisocytosis Macrocytosis Sodium Potassium Chloride Carbon Dioxide Anion Gap BUN Creatinine Estim Creat Clear Calc Est GFR (MDRD) Af Amer Est GFR (MDRD) Non-Af BUN/Creatinine Ratio Glucose Lactic Acid 1.1 Calcium Urine Color Yellow Urine Clarity Clear Urine pH 6.0 Ur Specific [place] 1.010 Urine Protein 15 H Urine Glucose (UA) Normal Urine Ketones Negative Urine Occult Blood 10 H Urine Nitrite Negative Urine Bilirubin Negative Urine Urobilinogen Normal Ur Leukocyte Esterase Negative Urine RBC 0-5 SEEN Urine WBC 0 SEEN Ur Squamous Epith Cells 0-5 SEEN Urine Bacteria RARE Urine Mucus 0 SEEN COVID-19 (PINO) Radiography Diagnostic Testing: Clinical Impression(s) from Imaging Studies Chest X-Ray 03/16/22 18:36 IMPRESSION: No acute cardiopulmonary disease. Mild over aeration consistent with strong inspiratory effort and/or mild COPD. Electronically Signed: Saturnino Duong MD, ROCKY at 18:53 EDT , EKG Initial EKG: Attestation: I personally reviewed and interpreted this EKG as follows: Comments: Sinus rate of 90, no ST or T wave changes Discharge Plan Triage Chief Complaint: Shortness of Breath ED Provider: Vaughn Louis Dx/Rx/DC Orders Clinical Impression: COPD exacerbation, Leukocytosis, Myalgia, Headache, Acute viral syndrome, Acute hyponatremia Instructions: ED COPD Flare, ED Viral Syndrome (Adult) Prescriptions: New albuterol sulfate 2.5 mg /3 mL (0.083 %) solution for nebulization 2.5 mg inhalation Q4H PRN Qty: 25 0RF Rx Instructions: Use q4 hours and PRN for wheezing prednisone 20 mg tablet 60 mg PO DAILY Qty: 15 0RF No Action tramadol 50 mg tablet 50 mg PO Q6H PRN (Reason: Pain Score 1-10) Label Comments: take 1 to 2 tablets by mouth every 6 hours if needed for pain citalopram 20 mg tablet 20 mg PO DAILY Qty: 90 3RF loratadine 10 MG tablet 10 mg PO BID Label Comments: allergies acetaminophen 500 mg Tablet 1,000 mg PO Q6H PRN (Reason: Pain) atorvastatin 80 mg tablet 80 mg PO QHS albuterol sulfate 90 mcg/actuation HFA aerosol inhaler 2 puff INHALATION Q6H PRN (Reason: shortness of breath or wheezing) Qty: 18 1RF Rx Instructions: With spacer pantoprazole 40 mg tablet,delayed release (DR/EC) 40 mg PO BID Qty: 180 1RF metoprolol succinate 25 mg tablet extended release 24 hr 25 mg PO DAILY Qty: 90 3RF metformin 500 mg tablet 500 mg PO DAILY Qty: 90 3RF buspirone 15 mg tablet 15 mg PO BID Qty: 180 1RF ramipril 5 mg capsule 5 mg PO DAILY Qty: 90 1RF Spiriva Respimat 2.5 mcg/actuation mist 2 inh INHALATION QAM Qty: 12 3RF gabapentin 100 mg capsule 100 mg PO QHS Qty: 90 3RF Primary Care Provider: Demetra Serrano Referrals: Demetra Serrano MD [Primary Care Provider] - 3-5 Days Activity Restrictions/Additional Instructions: Your rapid COVID-negative PCR sent and pending along with respiratory panel. Lab work noted white cells of 21,000. Blood culture sent. Chest x-ray urine negative for infection. Take steroids as provided for your COPD flare. Aerosol treatments as needed. Return if any worsening symptoms. Disposition Disposition: Home, Self Care Discharge Date/Time: 03/16/22 22:10
--- NOTE | 2022-03-16 18:36 | RAD_ITS ---
STUDY: X-RAY CHEST REASON FOR EXAM: Male, 71 years old. cough TECHNIQUE: Chest single view AP portable COMPARISON: 03/08/2022 FINDINGS: Spinal stimulator projects over the thoracic vertebral column with its upper aspect projecting at the T6-7 disc space. The lungs are clear and expanded. There is mild over aeration which could be due to strong inspiratory effort or mild COPD. There is no demonstrated pleural abnormality. Normal size heart. Normal mediastinum and lisette. Normal visualized pulmonary arteries. Normal visualized aortic arch and descending thoracic aorta. Normal visualized thoracic spine. Normal visualized ribs, clavicles, and shoulders. There is no demonstrated abnormality of the visualized soft tissue structures of the upper abdomen. RAD/Chest 1 View (Portable) IMPRESSION: No acute cardiopulmonary disease. Mild over aeration consistent with strong inspiratory effort and/or mild COPD. Electronically Signed: Saturnino Duong MD, ROCKY at 18:53 EDT ,
[2022-03-16] MEDS: Ipratropium/Albuterol Sulfate 3 ML AMPUL.NEB INHALATION (18:45)
[2022-03-16 18:55] LABS: Absolute Lymphocyte Count 1.02 X10^3/uL (0.83-4.51); Basophil# 0.04 X10^3/uL; Basophil% 0.2 % (0-1); Eosinophil# 0.02 X10^3/uL; Eosinophils% 0.1 % (0-5); Hematocrit 37.3 % (40-54); Hemoglobin 13.1 g/dL (13.0-16.5); Lymphocyte # 1.02 X10^3/ul (0.83-4.51); Lymphocyte % 4.7 % (19-41); Mean Corp Hgb Conc 35.1 g/dL (32-36); Mean Corpuscular Hgb 35.2 pg (27.0-32.0); Mean Corpuscular Volume 100.3 fL (80-94); Monocyte# 1.56 X10^3/uL; Monocyte% 7.2 % (0-10); NRBC Flagged by Analyzer 0 % (0-5); Neutrophil # 18.98 X10^3/uL (2.7-7.7); Neutrophil % 87.3 % (47-70); POSITIVE DIFFERENTIAL YES; Platelet Count 241 K/mm3 (150-450); RBC Distribution Width CV 12.5 % (11.6-14.6); RBC Distribution Width SD 46.5 fl (35.1-43.9); Red Blood Count 3.72 M/mm3 (4.6-6.2); White Blood Count 21.7 K/mm3 (4.4-11.0)
[2022-03-16 18:57] LABS: Differential Indicated SCAN CRITERIA MET
[2022-03-16] MEDS: Ketorolac 15 MG/ML Vial IV (18:58)
[2022-03-16] MEDS: MethylPREDNISolone 125 MG/2 ML Vial 60 MG IV (18:58)
[2022-03-16 19:12] LABS: Anion Gap 5 (5-15); BUN 13 mg/dL (7-18); BUN/Creat Ratio 12.4 RATIO (10-20); Calcium,Total 9.3 mg/dL (8.5-10.1); Chloride 97 mmol/L (98-107); Creatinine, Serum 1.05 mg/dL (0.70-1.30); EST Glomerular Filtration Rate 74 mL/min (>60); Est Glom Filt Rate - Afr Amer 90 mL/min (>60); Estimated Creatinine Clearance 41.11 ml/min; Glucose 95 mg/dL (74-106); Potassium 4.8 mmol/L (3.5-5.1); Sodium Level 128 mmol/L (136-145)
[2022-03-16 19:23] LABS: Platelet Estimate ADEQUATE (ADEQ); Red Cell Morphology N CHROM NORMAL (NORM C&C)
[2022-03-16 19:24] LABS: Anisocytosis 1+; Macrocytosis 1+
[2022-03-16 20:34] LABS: Mucous, Urine 0 SEEN /hpf (<or=2+); White Blood Cells 0 SEEN /hpf (0-5)
[2022-03-16 20:58] LABS: Lactic Acid 1.1 mmol/L (0.4-1.9)
[2022-03-16 21:10] LABS: Color, Urine Yellow (Yellow); Glucose, Dipstick Normal (Normal); Ketone-Dipstick Negative (Negative); Leukocyte Esterase-Dipstick Negative /ul (Negative); Nitrite-Dipstick Negative (Negative); Occult Blood-Urine 10 /ul (Negative); Protein-Dipstick 15 mg/dl (Negative); Urine Bilirubin Dipstick Negative (Negative); Urine Clarity Clear (Clear); Urine Urobilinogen Normal (Normal)
[2022-03-16 21:25] LABS: Red Blood Cells-Urine 0-5 SEEN /hpf (0-5)
[2022-03-16 21:26] LABS: Bacteria RARE /hpf (None Seen); Squamous Epithelial Cells - UA 0-5 SEEN /hpf (0-5)
[2022-03-17 14:18] LABS: Pathologist Review Reviewed
== END 2022-03-16 22:10 | disposition home or self-care (01) ==
PROVIDERS: Emergency Provider Emergency Medicine; PCP Internal Medicine; Visit Provider Emergency Medicine
DX: J44.1 Chronic obstructive pulmonary disease with (acute) exacerbation (principal); E11.51 Type 2 diabetes mellitus with diabetic peripheral angiopathy without gangrene; M79.10 Myalgia, unspecified site; B34.9 Viral infection, unspecified; I25.10 Atherosclerotic heart disease of native coronary artery without angina pectoris; F17.200 Nicotine dependence, unspecified, uncomplicated; R51.9 Headache, unspecified; I10 Essential (primary) hypertension; E87.1 Hypo-osmolality and hyponatremia; D72.829 Elevated white blood cell count, unspecified; E78.5 Hyperlipidemia, unspecified; R06.2 Wheezing; Z28.310 Unvaccinated for COVID-19; I25.2 Old myocardial infarction; Z95.5 Presence of coronary angioplasty implant and graft; Z79.899 Other long term (current) drug therapy; Z99.81 Dependence on supplemental oxygen
CPT/HCPCS: 71045; 80048; 81001; 83605; 85025; 87040; 87086; 87428; 87633; 87635; 93005; 94640; 96374; 96375; 99284; A4216; U0003; U0005

== ENCOUNTER → 2022-05-10 | Outpatient (CLI) | payer MEDICARE, OTHER, SELFPAY ==
--- NOTE | 2022-05-10 16:17 | CT_ITS ---
STUDY: CT ABDOMEN AND PELVIS WITH CONTRAST REASON FOR EXAM: Male, 71 years old. unintended weight loss, abd pain -- oral and iv RADIATION DOSAGE (If Supplied By Facility): CTDIvol = ( 11.11 ) mGy, DLP = ( 261.39 ) mGycm TECHNIQUE: Transaxial images were obtained from the dome of the diaphragm to the symphysis pubis without oral contrast. Oral and amp; IV Readi-CAT and amp; 100mL Isovue-300 was administered. Sagittal and coronal images were reconstructed. Individualized dose optimization techniques were used for this CT. COMPARISON: None. FINDINGS: The visualized lung bases are unremarkable. The visualized portions of the heart are within normal limits. Multiple simple cysts within the left lobe of the liver measuring up to 7 mm in diameter. Simple cyst anterior segment right lobe of liver 1.2 cm. Normal gallbladder and extrahepatic biliary system. Normal spleen. Normal pancreas. Normal bilateral adrenal glands. Nonsimple cyst extending off of the lateral midpole of the left kidney 3.3 cm and transverse dimension. This demonstrates attenuation coefficient of 57 Hounsfield units of calcification at its posterior aspect. This is most consistent with a Bosniak type II cyst. There are simple cysts seen within both kidneys. These are seen measuring up to 2.2 cm and the left upper pole, 0.9 cm in the posterior left mid pole and in the anterior right mid pole 7 and 5 mm. There is prompt bilateral renal function and excretion. Normal visualized stomach. There is mild small bladder distention in the mid abdomen extending into the upper pelvis consistent with mild ileus. Early or partial small bowel obstruction considered less likely. Moderate stool throughout the entire colon consistent with fecal stasis. The appendix is visualized and appears normal. Moderate atherosclerotic vascular calcification. There is aneurysm of the abdominal aorta at the level of the renal arteries 2.3 cm transverse by 2.6 cm AP. Normal inferior vena cava. Normal retroperitoneum. Normal urinary bladder. Mild enlargement of the prostate. Normal abdominal wall. Straightened of lumbar lordosis with severe degenerative disc disease L2-S1 moderate L1-2. Spinal stimulator is seen within the subcutaneous tissues of the buttock on the left with lead extending into the spinal canal at the T12-L1 level. CT/Abdomen/Pelvis WITH Contrast IMPRESSION: Multiple simple cysts within the liver and kidneys. 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 Fecal stasis. Small bowel ileus lower abdomen and upper pelvis. Mild enlargement of the prostate. Aneurysm of the abdominal aorta level of renal arteries 2.3 cm transverse by 2.6 cm AP. Straightening of lumbar lordosis with degenerative disc disease. Spinal stimulator. Electronically Signed: Saturnino Duong MD, ROCKY at 17:51 EDT ,
[2022-05-10 16:20] LABS: Absolute Lymphocyte Count 1.65 X10^3/uL (0.83-4.51); Absolute Neutrophil Count 3.6 X10^3/uL (2.0-7.7); Basophil# 0.06 X10^3/uL; Eosinophil# 0.09 X10^3/uL; Eosinophils% 1.5 % (0-5); Hematocrit 35.1 % (40-54); Hemoglobin 11.6 g/dL (13.0-16.5); Lymphocyte # 1.65 X10^3/ul (0.83-4.51); Lymphocyte % 26.7 % (19-41); Mean Corpuscular Hgb 33.1 pg (27.0-32.0); Mean Corpuscular Volume 100.3 fL (80-94); Mean Platelet Vol. 8.9 fl (6.2-12.0); Monocyte# 0.77 X10^3/uL; Monocyte% 12.5 % (0-10); NRBC Flagged by Analyzer 0 % (0-5); Neutrophil # 3.58 X10^3/uL (2.7-7.7); Platelet Count 394 K/mm3 (150-450); RBC Distribution Width CV 12.4 % (11.6-14.6); RBC Distribution Width SD 45.9 fl (35.1-43.9); White Blood Count 6.2 K/mm3 (4.4-11.0)
[2022-05-10 16:30] LABS: Erythrocyte Sedimentation Rate 3 mm/hr (0-20)
[2022-05-10 16:43] LABS: AST(SGOT) 21 U/L (15-37); Alanine Aminotransfer ALT/SGPT 24 U/L (16-61); Albumin, Serum 3.4 g/dL (3.2-5.0); Alkaline Phosphatase 67 U/L (45-117); Anion Gap 5 (5-15); BUN 19 mg/dL (7-18); BUN/Creat Ratio 17.3 RATIO (10-20); CRP < 2.90 mg/L (0.0-3.0); Calcium,Total 9.3 mg/dL (8.5-10.1); Chloride 100 mmol/L (98-107); EST Glomerular Filtration Rate 70 mL/min (>60); Est Glom Filt Rate - Afr Amer 85 mL/min (>60); Globulin 3.3 g/dL (2.2-4.2); Glucose 76 mg/dL (74-106); LDH 98 U/L (87-241); Potassium 3.6 mmol/L (3.5-5.1); Protein, Total 6.7 g/dL (6.4-8.2); Sodium Level 133 mmol/L (136-145)
[2022-05-14 11:51] LABS: Carbohydrate Ag 19-9 2261 22 U/mL (0-35); Gastrin, Serum 67 pg/mL (0-115)
== END | disposition home or self-care (01) ==
LOC: CT 15:55
PROVIDERS: PCP Internal Medicine; Visit Provider Nurse Practitioner Adult Health
DX: R63.4 Abnormal weight loss (principal); R10.9 Unspecified abdominal pain; R10.816 Epigastric abdominal tenderness; K21.9 Gastro-esophageal reflux disease without esophagitis; R13.10 Dysphagia, unspecified
CPT/HCPCS: 74177; 80053; 82941; 83615; 85025; 85652; 86140; 86301; Q9967

== ENCOUNTER 2022-07-11 12:49 | Day surgery (SDC) | payer MEDICARE, OTHER, SELFPAY ==
[2022-07-05 13:26] LABS: Absolute Lymphocyte Count 1.62 X10^3/uL (0.83-4.51); Absolute Neutrophil Count 1.8 X10^3/uL (2.0-7.7); Basophil# 0.04 X10^3/uL; Eosinophil# 0.17 X10^3/uL; Eosinophils% 4.1 % (0-5); Hematocrit 35.1 % (40-54); Lymphocyte # 1.62 X10^3/ul (0.83-4.51); Lymphocyte % 38.8 % (19-41); Mean Corp Hgb Conc 34.2 g/dL (32-36); Mean Corpuscular Hgb 34.1 pg (27.0-32.0); Mean Corpuscular Volume 99.7 fL (80-94); Mean Platelet Vol. 9.2 fl (6.2-12.0); Monocyte# 0.58 X10^3/uL; Monocyte% 13.9 % (0-10); NRBC Flagged by Analyzer 0 % (0-5); Neutrophil # 1.75 X10^3/uL (2.7-7.7); Platelet Count 291 K/mm3 (150-450); RBC Distribution Width CV 12.6 % (11.6-14.6); RBC Distribution Width SD 46.5 fl (35.1-43.9); Red Blood Count 3.52 M/mm3 (4.6-6.2); White Blood Count 4.2 K/mm3 (4.4-11.0)
[2022-07-05 13:54] LABS: Vitamin D,25 Hydroxy 20.5 ng/mL
[2022-07-05 13:56] LABS: Ferritin 20 ng/mL (26-388); Iron 83 ug/dL (65-175); Iron Binding Capacity,Total 344 ug/dL (250-450); PERCENT IRON SATURATION 24.1 % (15.0-55.0)
[2022-07-05 14:43] LABS: ALB/GLOB Ratio 1.2 RATIO (0.9-2.4); AST(SGOT) 26 U/L (15-37); Alanine Aminotransfer ALT/SGPT 25 U/L (16-61); Albumin, Serum 3.3 g/dL (3.2-5.0); Alkaline Phosphatase 60 U/L (45-117); Anion Gap 4 (5-15); BUN 15 mg/dL (7-18); BUN/Creat Ratio 13.5 RATIO (10-20); Calcium,Total 8.6 mg/dL (8.5-10.1); Chloride 102 mmol/L (98-107); Creatinine, Serum 1.11 mg/dL (0.70-1.30); EST Glomerular Filtration Rate 70 mL/min (>60); Est Glom Filt Rate - Afr Amer 84 mL/min (>60); Globulin 2.7 g/dL (2.2-4.2); Glucose 125 mg/dL (74-106); PSA,Total - Annual Screen 1.52 ng/mL (0.00-4.00); Potassium 3.4 mmol/L (3.5-5.1); Sodium Level 133 mmol/L (136-145); Thyroid Stim Hormone (TSH) 1.25 uIU/mL (0.358-3.74)
[2022-07-06 15:07] LABS: Endomysial Antibody IgA Negative (Negative)
[2022-07-06 16:08] LABS: Immunoglobulin A 156 mg/dL (61-437); t-Transglutaminase IgA <2 U/mL (0-3)
[2022-07-11] VITALS (7 sets, daily range): BP systolic 93–170; BP diastolic 47–69; PULSE 52–64; RESP 15–16; TEMP 36.3–36.6; O2SAT 96–100; BMI 15.7
--- NOTE | 2022-07-11 13:39 | PCM.HP.BLA ---
History and Physical Date of Admission: 07/11/22 CRISTINO CHINCHILLA, is a 71 M who presents to the office today accompanied by his for unintentional weight loss--normal weight for him is 130 lbs, today's weight is 99 lbs. He reports a poor appetite for over a year now.? He has to force himself to eat.? notes that he drinks coffee and smokes pipe all day.? It is not so much that he has early satiety, rather that he has no appetite.? He occasionally has some mild nausea, no vomiting.? He does have some acid reflux despite taking pantoprazole 40 mg twice daily.? He reports being on twice daily dose since having anemia several years ago.? Prior EGDs have shown gastritis.? He does have some difficulty swallowing.? He thinks he has adapted so that he cuts his food up small and chews it up very well. Pills have gotten stuck in his oropharynx--but notes he doesn't drink any fluids when taking pills. No difficulty with swallowing liquids. He gets what he calls gas pains, but says he does not have actual abdominal pain (he is quite tender on exam). BM once every 2-3 days, some burning from hemorrhoids.? He is on tramadol for back pain.? No hematochezia or melena. Review of records shows he had EGD by Dr Nair in 06/2019--reactive gastropathy on bx. EGD and colonoscopy done 08/[address] Reynoso--gastritis; hyperplastic rectal polyp. Had anemia. Has been on PPI BID since then. He sees Dr Vazquez for back pain, on tramadol prn, has spinal stimulator, and also gets injections and RL.? Comorbidities also include COPD, depression, diabetes, hypertension, hyperlipidemia, peripheral vascular disease, atrial fibrillation, coronary artery disease, scoliosis, osteoporosis His brother just from pancreatic cancer. 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 His will be having a knee replacement soon. ROS Const Constitutional: Positive for fatigue and weight change ENT ENT: Positive for difficulty swallowing Gastro GI: Positive for bloating, diarrhea, heartburn, difficulty swallowing and excessive flatus; No abdominal pain, belching, change in bowel habits, change in stool character, coffee ground emesis, constipation, cramping, feeling full early, incontinent of stools, Vomiting blood/hematemesis, Blood in stool, loose stools, Black,tarry stools, nausea/dyspepsia, pain with swallowing, vomiting or other Musc Musculoskeletal: Positive for joint pain, back pain, stiffness and Arthritis Skin Skin: No yellowing of the eye or itchy eyes Psych Psychiatric: No anxiety, Positive for depression and Positive for Temper Tantrums Endo Endocrine: Positive for fatigue and weight change Aller/Imm Allergy/Immunologic: No itchy eyes Eric/Lymp Hematologic/Lymphatic: No easy bleeding or easy bruising Exam Const General: cooperative and no acute distress Nutritional Appearance: underweight Orientation: alert, awake and oriented x3 Eyes General: appearance normal, both eyes and all related structures Resp Effort & Inspection: normal respiratory effort GI Inspection: normal to inspection Palpation: soft, no hepatosplenomegaly, no masses and tender in the epigastrum and in the RLQ Skin General: no jaundice Quality Reporting Tobacco Screening ([facility]) Smoking Status: Current every day smoker Assessment and Plan Assessment and Plan (1) Chronic GERD: ?Status:?Chronic ?Plan: 71-year-old male with poor appetite, weight loss, acid reflux, dysphagia, constipation exacerbated by therapeutic opioid use, abdominal tenderness He is scheduled for EGD and colonoscopy, with follow-up 2 weeks later in the office to review findings We will get a video swallowing study with [employer] He will try miralax daily to help with the bowels, notes they have MiraLAX at home Labs today to include insurance-allowed tumor markers CT abd pel w/ oral and IV contrast Consider gastric emptying study (2) Weight loss: ?Status:?Chronic ?Plan: See above (3) Constipation: ?Status:?Acute ?Plan: See above (4) Dysphagia: ?Status:?Acute ?Plan: See above (5) Epigastric abdominal tenderness: ?Status:?Acute ?Plan: See above ? ? ? Orders: Orders CA 19-9 Serial Monitor Today R10.816 - Epigastric abdominal tenderness, R63.4 - Abnormal weight loss ? Gastrin, Serum Today R10.816 - Epigastric abdominal tenderness, R63.4 - Abnormal weight loss ? LDH Today R10.816 - Epigastric abdominal tenderness, R63.4 - Abnormal weight loss ? Abdomen/Pelvis WITH Contrast Today R10.9 - Unspecified abdominal pain ? Comprehensive Metabolic Profil Today K21.9 - Gastro-esophageal reflux disease without esophagitis, R10.816 - Epigastric abdominal tenderness, R13.10 - Dysphagia, unspecified, R63.4 - Abnormal weight loss ? CBC W/Diff, Automated Today K21.9 - Gastro-esophageal reflux disease without esophagitis, R10.816 - Epigastric abdominal tenderness, R10.9 - Unspecified abdominal pain, R13.10 - Dysphagia, unspecified, R63.4 - Abnormal weight loss ? CRP Today K21.9 - Gastro-esophageal reflux disease without esophagitis, R10.816 - Epigastric abdominal tenderness, R63.4 - Abnormal weight loss ? Erythrocyte Sed Rate Today K21.9 - Gastro-esophageal reflux disease without esophagitis, R10.816 - Epigastric abdominal tenderness, R63.4 - Abnormal weight loss ? Referrals Speech Therapy Referral ? R13.10 - Dysphagia, unspecified ? I have examined the patient and the H&P has been reviewed. There are no clinical changes since date of exam.
[2022-07-11] MEDS: Lactated Ringers 1,000 ML 15 ML IV (13:56)
--- NOTE | 2022-07-11 14:00 | EGD_PTH ---
PATIENT: CRISTINO CHINCHILLA LOC: [facility] U#:[id number] AGE/SX: 71/M ROOM: RE07/11/[address]: Dr. Freedom Leyva DO : 1950 BED: DIS: 07/11/2022 SPEC #: [id number] RECD: 07/11/22 15:43 STATUS: NADEGE REKandy #: [id number] TRINIDAD: 07/11/22 14:[address]: Freedom Leyva DEPT: SURGICAL PATHOLOGY RECD BY: Treva Glass ENTERED: 07/12/22 10:15 SP TYPE: EGD BIOPSY JÚNIOR DR: Dr. Demetra Serrano, MD Nadira Coto, [employer] DEVELOPER-C Tissues: A - Duodenum, NOS B - Esophagus, NOS Procedures: Surgery Specimen Level IV HEADER OPERATION: EGD ([facility] [place]), biopsy, electrohemostasis PRE-OP DIAGNOSIS: Chronic GERD, constipation, weight loss, dysphagia, epigastric abdominal tenderness TISSUE SUBMITTED: A ? Duodenum biopsy, B ? Random esophagus biopsy MICROSCOPIC DIAGNOSIS A. Duodenum, biopsy: Fragments of duodenal mucosa, no pathologic diagnosis. B. Esophagus, random biopsy: Fragments of benign squamous mucosa with mild chronic inflammation. LUIS:lalo 07/13/2022 COMMENT Correlation with clinical, endoscopic findings and appropriate follow up are necessary. MICROSCOPIC DESCRIPTION Slides are reviewed. GROSS DESCRIPTION A - Received in fixative is one container labeled with the patient's name and designated duodenum biopsy. The specimen consists of multiple irregular fragments of light field soft tissue that in aggregate measure 0.6 x 0.6 x 0.1 cm. The specimen is totally submitted in one cassette. B - Received in fixative is one container labeled with the patient's name and designated random esophagus biopsy. The specimen consists of two irregular fragments of light field soft tissue that in aggregate measure 0.8 x 0.5 x <0.1 cm. The specimen is totally submitted in one cassette. / AM:lalo 07/12/2022 TC:3 CPT: 40944 x2
[2022-07-11 14:16] LABS: Bedside Glucose 75 mg/dL (74-106)
--- NOTE | 2022-07-11 14:35 | OP.CCLET_ITS ---
07/11/2022 Demetra Serrano [facility] [address] [place] [address] Re : Upper GI endoscopy procedure for Ez Ryan Dear Dr. Serrano This procedure was performed on Monday, July 11, 2022. My impressions and recommendations are as follows: Impressions : - Esophageal plaques were found, consistent with candidiasis. Biopsied. - Benign-appearing esophageal stenosis. Dilated. 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 Treated with a heater probe. - Flattened mucosa was found in the duodenum, suspicious for celiac disease. Biopsied. Recommendations : - Discharge patient to home. - Resume previous diet. - Diflucan (fluconazole) 100 mg PO daily for 2 weeks. - Continue present medications. My findings are described in the full procedure note, which is enclosed. If I can be of further assistance, please feel free to contact me at . Sincerely, Freedom Leyva, 07/11/2022 2:34:33 PM This report has been signed electronically.
--- NOTE | 2022-07-11 14:35 | OP.EGD_ITS ---
Patient Name: Ez Ryan Procedure Date: 07/11/2022 2:06 PM Date of : 1950 Age: 71 Procedure: Upper GI endoscopy Indications: Dysphagia, Heartburn, Failure to respond to medical treatment Providers: Freedom Leyva DO Referring MD: Freedom Leyva DO Medicines: Monitored Anesthesia Care Patient Profile: This is a 71 year old male. Refer to note in patient chart for documentation of history and physical. Patient has symptoms of chronic epigastric abdominal pain, acute dysphagia, chronic heartburn and chronic nausea. Complications: No immediate complications. Procedure: Pre-Anesthesia Assessment: - Prior to the procedure, a History and Physical was performed, and patient medications and allergies were reviewed. The risks and benefits of the procedure and the sedation options and risks were discussed with the patient. All questions were answered and informed consent was obtained. Patient identification and proposed procedure were verified by the physician. Mental Status Examination: normal. Prophylactic Antibiotics: The patient does not require prophylactic antibiotics. Prior Anticoagulants: The patient has taken no previous anticoagulant or antiplatelet agents. After reviewing the risks and benefits, the patient was deemed in satisfactory condition to undergo the procedure. The anesthesia plan was to use monitored anesthesia care (MAC). Immediately prior to administration of medications, the patient was re-assessed for adequacy to receive sedatives. The heart rate, respiratory rate, oxygen saturations, blood pressure, adequacy of pulmonary ventilation, and response to care were monitored throughout the procedure. The physical status of the patient was re-assessed after the procedure. After obtaining informed consent, the endoscope was passed under direct vision. Throughout the procedure, the patient's blood pressure, pulse, and oxygen saturations were monitored continuously. The Endoscope was introduced through the mouth, and advanced to the second part of duodenum. The upper GI endoscopy was accomplished without difficulty. The patient tolerated the procedure well. Scope In: 2:13:53 PM Scope Out: 2:19:44 PM Total Procedure Duration Time 0 hours 5 minutes 51 seconds Findings: Diffuse, yellow plaques were found in the entire esophagus. Biopsies were taken with a cold forceps for histology. Verification of patient identification for the specimen was done. Estimated blood loss was minimal. One benign-appearing, intrinsic stenosis was found 20 to 22 cm from the incisors. This stenosis was moderately severe and. The stenosis was traversed. A guidewire was placed and the scope was withdrawn. Dilation was performed with a Savary dilator with no resistance at 42 Fr. The dilation site was examined following endoscope reinsertion and showed moderate improvement in luminal narrowing. Estimated blood loss was minimal. A single 5 mm bleeding angiodysplastic lesion was found in the gastric antrum. Coagulation for hemostasis using heater probe was successful. Estimated blood loss was minimal. Mucosal flattening was found in the duodenal bulb, in the first portion of the duodenum and in the second portion of the duodenum. Biopsies were taken with a cold forceps for histology. Verification of patient identification for the specimen was done. Estimated blood loss was minimal. Impression: - Esophageal plaques were found, consistent with candidiasis. Biopsied. - Benign-appearing esophageal stenosis. Dilated. 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 Treated with a heater probe. - Flattened mucosa was found in the duodenum, suspicious for celiac disease. Biopsied. Recommendation: - Discharge patient to home. - Resume previous diet. - Diflucan (fluconazole) 100 mg PO daily for 2 weeks. - Continue present medications. Procedure Code(s): --- Professional --- 70472, 59, Esophagogastroduodenoscopy, flexible, transoral; with control of bleeding, any method 27323, 51, Esophagogastroduodenoscopy, flexible, transoral; with insertion of guide wire followed by passage of dilator(s) through esophagus over guide wire [id number], 59, Esophagogastroduodenoscopy, flexible, transoral; with biopsy, single or multiple CPT copyright 2017 [employer]. All rights reserved. The codes documented in this report are preliminary and upon java application developer review may be revised to meet current compliance requirements. Freedom Leyva DO 07/11/2022 2:34:33 PM This report has been signed electronically. Number of Addenda: 0 Note Initiated On: 07/11/2022 2:06 PM
== END 2022-07-11 15:15 | disposition home or self-care (01) ==
LOC: EN 12:50 → AC 12:52
PROVIDERS: Nurse Practitioner Adult Health; PCP Internal Medicine; Referring Provider Internal Medicine Gastroenterology; Visit Provider Internal Medicine Gastroenterology
PROC: 0DJD8ZZ Inspection of Lower Intestinal Tract, Via Natural or Artificial Opening Endoscopic (ICD-10-PCS; CPT 45378; principal; 2022-07-11 13:55)
DX: K21.00 Gastro-esophageal reflux disease with esophagitis, without bleeding (principal); E11.51 Type 2 diabetes mellitus with diabetic peripheral angiopathy without gangrene; J44.9 Chronic obstructive pulmonary disease, unspecified; I73.9 Peripheral vascular disease, unspecified; K22.2 Esophageal obstruction; R63.4 Abnormal weight loss; F17.200 Nicotine dependence, unspecified, uncomplicated; I25.2 Old myocardial infarction; E55.9 Vitamin D deficiency, unspecified; I25.10 Atherosclerotic heart disease of native coronary artery without angina pectoris; I10 Essential (primary) hypertension; E78.5 Hyperlipidemia, unspecified; F32.A Depression, unspecified; F41.9 Anxiety disorder, unspecified; Z79.899 Other long term (current) drug therapy; Z79.84 Long term (current) use of oral hypoglycemic drugs; Z12.5 Encounter for screening for malignant neoplasm of prostate; Z95.5 Presence of coronary angioplasty implant and graft; Z68.1 Body mass index [BMI] 19.9 or less, adult
CPT/HCPCS: 43248; 43239; 43255; 36415; 80053; 82306; 82728; 82784; 82962; 83516; 83540; 83550; 84153; 84443; 85025; 86255; 88305; J7120; G0103; J2405

== ENCOUNTER → 2022-08-04 | Outpatient (CLI) | payer MEDICARE, OTHER, SELFPAY ==
--- NOTE | 2022-08-04 12:50 | ST.MBS ---
Modified Barium Swallow - Patient Information Study Date: 08/04/22 Study Time: 13:00 Direct Billable Minutes: 75 Total Minutes procedure & reportin Diagnosis: dysphagia Referring Physician: Nadira Coto NP Reason for Referral: Patient reports an unintentional weight loss of ~39lbs over the past 2.5 years. Reports sensation of food sticking/not going down. Medical History: Acute bronchitis, Anemia, Arthritis, Atherosclerosis of coronary artery of [place] heart without angina pectoris (05/25/14), Atrial flutter, paroxysmal, COPD (chronic obstructive pulmonary disease), Depression with anxiety, Diabetes, Diabetes mellitus, type II, Essential (primary) hypertension, Fatigue, Gastroenteritis, H/o blood transfusion, Hemorrhoids, History of non-ST elevation myocardial infarction (NSTEMI) (05/23/14), Hyperlipidemia, Knee pain, Onychomycosis, Orthostatic hypotension, Osteoporosis, Peripheral vascular occlusive disease, Pipe smoker, Pre-syncope, Scoliosis, Seasonal allergies, Weight loss Dentition: Natural Teeth Respiratory Status: Oxygenating on Room Air - Penetration-Aspiration Scale Penetration-Aspiration Scale: OBJECTIVE ASSESSMENT OF SWALLOW FUNCTION (QUANTITATIVE ? PER TRIAL): PENETRATION / ASPIRATION SCALE (MUNGUIA): 1 = does not enter airway 2 = enters airway/above vocal folds/ejected 3 = enters airway/above vocal folds/not ejected 4 = enters airway/contacts vocal folds/ejected 5 = enters airway/contacts vocal folds/not ejected 6 = enters airway/below vocal folds/ejected 7 = enters airway/below vocal folds/not ejected despite effort 8 = enters airway/below vocal folds/no effort VIDEOFLOROSCOPIC SCALE SCORE (MUNGUIA): Grade I = aspiration of material that has penetrated into the laryngeal vestibule, intact cough reflex Grade II = aspiration < 10 % of the bolus, intact cough reflex Grade III = aspiration of < 10 % of the bolus, reduced cough reflex or aspiration of > 10 % of the bolus, intact cough reflex Grade IV = aspiration of > 10 % of the bolus, reduced cough reflex - Penetration-Aspiration Scale Score Thin Liquid via teaspoon Result: 1= does not enter airway Thin Liquid via teaspoon Trial 2 Result: 1= does not enter airway Thin Liquid via small single sip from cup Result: 1= does not enter airway Thin Liquid via sequential sips from cup Result: 2= enter airway/above vocal folds/ejected Thin Liquid via single sip from straw Result: 1= does not enter airway Pudding Result: 1= does not enter airway Cookie Result: 1= does not enter airway Thin Liquid via small single sip from cup Trial 2 Result: 1= does not enter airway - Oral Phase Labial Seal: Interlabial escape, no progression to anterior lip Tongue Control During Bolus Hold: Cohesive bolus between tongue to palatal seal Bolus Preparation/Mastication: Slow prolonged chewing/mashing with complete recollection Bolus Transport/Lingual Motion: Slowed tongue motion Oral Residue: Trace residue lining oral structures - Pharyngeal Phase Initiation of Pharyngeal Swallow: Bolus head at posterior angle of ramus at first hyoid excursion Soft Palate Elevation: No bolus between soft palate and pharyngeal wall Laryngeal Elevation: Comp. Superior move thyroid cart w/comp. apprx arytenoid cart-epig pet Anterior Hyoid Excursion: Partial anterior movement Epiglottic Movement: Partial inversion Laryngeal Vestibule Closure at Height of Swallow: Incomplete; narrow column of air/contrast in laryngeal vestibule Pharyngeal Stripping Wave: Present - diminished Pharyngoesophageal Segment Opening: Complete distension and complete duration; no obstruction of flow Tongue Base Retraction: No contrast between tongue base and posterior pharyngeal wall Pharyngeal Residue: Trace residue within or on pharyngeal structures - Esophageal Phase Esophageal Clearance: Esophageal retention w/ retrograde flow below pharyngoesophageal seg. - Diagnosis/Impression Diagnosis: mild pharyngeal dysphagia; significant esophageal dysphagia Impression: Oral phase is characterized by: -mildly prolonged mastication -slowed lingual motion for A-P transit Pharyngeal phase is characterized by: -timely swallow onset -mildly reduced anterior hyoid movement -incomplete epiglottic inversion resulting in trace-mild residue retention w/in the valleculae along the epiglottic surface -laryngeal vestibule penetration occurred w/ sequential swallows of thin liquid only, complete ejection w/ swallow completion -reduced lower 1/2 pharyngeal stripping wave, no impact on pharyngeal clearance -adequate pharyngoesophageal segment (PES) distention/duration Esophageal phase is characterized by: -CP bar/prominence noted at the C4-5 level -significant esophageal retention w/ retrograde bolus flow below the PES Oropharyngeal swallow was functional. Esophageal retention is likely to be the contributing factor to weight loss and discomfort w/ PO intake. - Recommendations Diet: Regular Textures, Thin Liquids Compensatory Strategies: Small Sips, Slow Rate, Remain sitting upright for 30 minutes after PO intake Recommend Repeat Modified Barium Swallow: No Need for Skilled Speech Therapy Services: No - Comment: ?Patient able to comprehend and express recommended intake precautions detailed above with sufficient detail to suggest high likelihood of compliance. No further dysphagia intervention recommended. Further GI follow up recommended. Recommended Referrals: GI Consult Education Completed: 1. Described result of evaluation., 2. Pt understands evaluation & agrees with goals and treatment plan. - Status Active ST Patient: Active - Contact Information [facility] Speech Therapy:: Vero Houser M.A., CCC-OPHTHALMIC TECHNICIAN APPRENTICE [facility] [address] [place] [address] [phone] [email or web address]
== END | disposition home or self-care (01) ==
LOC: RAD 12:55
PROVIDERS: PCP Internal Medicine; Referring Provider Nurse Practitioner Adult Health; Visit Provider Nurse Practitioner Adult Health
DX: K52.9 Noninfective gastroenteritis and colitis, unspecified (principal); E11.51 Type 2 diabetes mellitus with diabetic peripheral angiopathy without gangrene; J44.9 Chronic obstructive pulmonary disease, unspecified; B35.1 Tinea unguium; R13.13 Dysphagia, pharyngeal phase; J20.9 Acute bronchitis, unspecified; J30.2 Other seasonal allergic rhinitis; I25.10 Atherosclerotic heart disease of native coronary artery without angina pectoris; I95.1 Orthostatic hypotension; M25.569 Pain in unspecified knee; D63.8 Anemia in other chronic diseases classified elsewhere; M81.0 Age-related osteoporosis without current pathological fracture; M41.9 Scoliosis, unspecified; E78.5 Hyperlipidemia, unspecified; I10 Essential (primary) hypertension
CPT/HCPCS: 74230; 92611

== ENCOUNTER → 2022-08-09 | Outpatient (CLI) | payer MEDICARE, OTHER, SELFPAY ==
--- NOTE | 2022-08-09 09:50 | RAD_ITS ---
INDICATION: STENOSIS EXAMINATION/TECHNIQUE: X-RAY - XR Spine Thoracic 3 Views COMPARISON: March 16, 2022 AP chest FINDINGS: VERTEBRAE: Preserved vertebral body height. No fracture. No spondylolisthesis. Preservation of the normal thoracic kyphosis. No significant facet arthropathy. DISCS: Disc spaces are maintained. Previously noted spinal cord stimulator again demonstrated with the lead unchanged in position since previous exam INCLUDED CHEST/ABDOMEN: No acute abnormalities. RAD/Thoracic Spine 3 Views IMPRESSION: No evidence of thoracic spinal fracture or spondylolisthesis. Stimulator noted with lead unchanged in position since previous study Electronically Signed: Miguel Flowers MD at 17:45 EST ,
== END | disposition home or self-care (01) ==
PROVIDERS: PCP Internal Medicine; Visit Provider Nurse Practitioner Family
DX: M46.96 Unspecified inflammatory spondylopathy, lumbar region (principal); M51.37 Other intervertebral disc degeneration, lumbosacral region; M54.17 Radiculopathy, lumbosacral region; M47.817 Spondylosis without myelopathy or radiculopathy, lumbosacral region; M48.07 Spinal stenosis, lumbosacral region
CPT/HCPCS: 72072

== ENCOUNTER 2022-09-04 15:42 | Emergency (ER) | payer MEDICARE, OTHER, SELFPAY ==
[2022-09-04 15:44] VITALS: BP 159/63; PULSE 69; RESP 14; TEMP 36.1; O2SAT 99; BMI 17.1
== END 2022-09-04 17:42 | disposition left against medical advice (07) ==
LOC: ED 17:42
PROVIDERS: PCP Internal Medicine
DX: T14.8XXA Other injury of unspecified body region, initial encounter (principal); W55.01XA Bitten by cat, initial encounter; Z53.21 Procedure and treatment not carried out due to patient leaving prior to being seen by health care provider

== ENCOUNTER 2022-09-30 02:01 | Emergency (ER) | payer MEDICARE, OTHER, SELFPAY ==
[2022-09-30 02:02] VITALS: O2SAT 97
[2022-09-30 02:03] VITALS: BP 180/90; PULSE 95; RESP 18; TEMP 36.1; O2SAT 97; BMI 15.5
--- NOTE | 2022-09-30 02:07 | CT_ITS ---
STUDY: CTA CHEST REASON FOR EXAM: Male, 71 years old. Left pleuritic chest pain RADIATION DOSAGE (If Supplied By Facility): CTDIvol = ( 2.86 ) mGy, DLP = ( 121.50 ) mGycm TECHNIQUE: The examination was performed with the intravenous administration of IV 100mL Isovue-370. Post-processing of the angiographic images was performed, with multiplanar reformation and 3D reconstruction. Individualized dose optimization techniques were used for this CT. COMPARISON: None. FINDINGS: Normal enhancement of the main pulmonary artery and right and left pulmonary arteries. Normal enhancement of the bilateral peripheral pulmonary arteries. There is no demonstrated pulmonary embolism. Normal thoracic aorta and visualized great vessels. There is no demonstrated aortic dissection. Normal heart and pericardium. Normal mediastinum. Normal hilar regions. Normal visualized trachea and bronchi. Hyperinflation and centrilobular emphysema in both lungs more prominent in the upper lobes. Subpleural wedge-shaped opacity in the left upper lobes suggesting pneumonia. Nonspecific nodules in the left lung lower lobe, the largest measures 7 mm in the superior segment of the left lower lobe axial image #138, may represent metastatic lesion. Normal chest wall structures. Normal osseous structures. Normal visualized upper abdomen. CT/CTA Chest W/WO Contrast IMPRESSION: Left upper lobe pneumonia. Nonspecific nodules in the left lung lower lobe, the largest measures 7 mm in the superior segment of the left lower lobe axial image #138, may represent metastatic lesion. No demonstrated pulmonary embolism or arterial dissection. Electronically Signed: Jigar Cleaning MD at 3:52 EST ,
--- NOTE | 2022-09-30 02:07 | EKG12_ITS ---
Test Reason : DYSRHYTHMIA Blood Pressure : / mmHG Vent. Rate : 086 BPM Atrial Rate : 086 BPM P-R Int : 124 ms QRS Dur : 078 ms QT Int : 364 ms P-R-T Axes : 077 007 054 degrees QTc Int : 435 ms Sinus rhythm with occasional Premature ventricular complexes and Premature atrial complexes Otherwise normal ECG Confirmed by LD HOLDER, DULCE ([id number]), material expeditor CHRISTIANNE LOGAN ([id number]) on 10/02/2022 11:25:04 AM Referred By: SELINA Confirmed By:DULCE JAFFE MD
--- NOTE | 2022-09-30 02:09 | ED.VIS.CHEST ---
HPI History of Present Illness Chief Complaint: Chest Pain Narrative Narrative: 71-year-old male past medical history of COPD, atrial flutter, depression, smokes a pipe, presents with left pleuritic chest pain that he has had for approximately 1 week. Was reported by EMS that his has been sick with COVID for the last 2 weeks. He complains of left-sided pleuritic chest pain that began approximately 1 week ago. He started not feeling well 2 weeks ago, about the same time that his became ill. He states he does not want to be tested for COVID. He presents to the emergency department today because he states he went with his to her breast examination yesterday morning. They came home and he went right to bed at around 2 PM. He slept for 8 hours until 10 PM and got up and his left-sided chest pain became worse. He denies any nausea or vomiting. No diaphoresis. He takes for his chronic pain. He presents because of the left-sided pleuritic chest pain because he feels like he cannot take a deep breath without it hurting. [facility] Medical History Acute bronchitis Anemia Anxiety Arthritis Atherosclerosis of coronary artery of [place] heart without angina pectoris (05/25/14) Atrial flutter, paroxysmal Back pain Cardiology follow-up encounter COPD (chronic obstructive pulmonary disease) Depression Depression with anxiety Diabetes Diabetes mellitus, type II Dietary restriction Essential (primary) hypertension Fatigue Gastric reflux Gastroenteritis H/o blood transfusion Hemorrhoids History of echocardiogram History of hiatal hernia History of non-ST elevation myocardial infarction (NSTEMI) (05/23/14) History of stress test Hyperlipidemia Hypertension Knee pain Loss of hearing Onychomycosis Orthostatic hypotension Osteoporosis Peripheral vascular occlusive disease Pipe smoker Pre-syncope Scoliosis Seasonal allergies Smoker Wears dentures Wears glasses Weight loss Home Medications loratadine 10 mg tablet 10 mg PO BID ALLERGIES 09/03/14 [History Last Taken 03/16/22] tramadol 50 mg tablet 50 mg PO Q6H PRN Pain Score 1-10 03/03/20 [History Last Taken 03/15/22] albuterol sulfate 90 mcg/actuation aerosol inhaler 2 puff inhalation Q6H PRN shortness of breath or wheezing #18 grams 11/09/20 [Rx Last Taken Unknown] metoprolol succinate 25 mg tablet,extended release 24 hr 25 mg PO DAILY #90 tabs 10/05/21 [Rx Last Taken 07/11/22] tiotropium bromide 2.5 mcg/actuation mist for inhalation (Spiriva Respimat) 2 inh inhalation QAM #12 grams 01/10/22 [Rx Last Taken 03/15/22] acetaminophen 500 mg tablet 1,000 mg PO Q6H PRN Pain 03/16/22 [History Last Taken 03/15/22] atorvastatin 80 mg tablet 80 mg PO QHS CHOLESTEROL 03/16/22 [History Last Taken 03/15/22] benzonatate 200 mg capsule 200 mg PO TID PRN cough #60 caps 03/24/22 [Rx Last Taken Unknown] pantoprazole 40 mg tablet,delayed release 40 mg PO BID #180 tabs 04/10/22 [Rx Last Taken 07/11/22] gabapentin 100 mg capsule 100 mg PO QHS #90 caps 04/26/22 [Rx Last Taken Unknown] metformin 500 mg tablet 500 mg PO DAILY #90 tabs 04/26/22 [Rx Last Taken Unknown] albuterol sulfate 2.5 mg/3 mL (0.083 %) solution for nebulization 2.5 mg inhalation PRN PRN SOB 05/18/22 [History Last Taken Unknown] citalopram 20 mg tablet 20 mg PO DAILY #90 tabs 07/12/22 [Rx Last Taken Unknown] buspirone 15 mg tablet 15 mg PO BID #180 tabs 08/09/22 [Rx Last Taken Unknown] peg 3350-electrolytes 236 gram-22.74 gram-6.74 gram-5.86 gram solution (Golytely) 240 ml PO Q10M #4,000 mL 08/17/22 [Rx Last Taken Unknown] naloxegol 25 mg tablet (Movantik) 25 mg PO QAM #30 tabs 08/23/22 [Rx Last Taken Unknown] ramipril 5 mg capsule 5 mg PO DAILY #90 caps 09/08/22 [Rx Last Taken Unknown] albuterol sulfate 90 mcg/actuation aerosol inhaler (Ventolin HFA) 1 - 2 puff inhalation Q4H PRN PRN Wheezing #1 ea 09/30/22 [Rx Last Taken Unknown] levofloxacin 750 mg tablet 750 mg PO DAILY 7 days #7 tabs 09/30/22 [Rx Last Taken Unknown] Allergy/AdvReac Type Severity Reaction Status Date / Time Penicillins [PCN] Allergy Hives Verified 09/30/22 02:06 typhoid vaccine Allergy Other Verified 09/30/22 02:06 [Typhoid Vaccine] bupropion HCl AdvReac Other Verified 09/30/22 02:06 [From Wellbutrin] sildenafil [From Viagra] AdvReac Other Verified 09/30/22 02:06 Family History Father Cancer Mother Kidney failure Other Kidney disease Surgical History History of coronary artery stent placement History of hernia repair History of left heart catheterization History of open reduction and internal fixation (ORIF) procedure (2018) History of radiofrequency ablation (RFA) of nerve of cervical spine History of surgery on left wrist Hx of spinal surgery Social History household members: spouse housing: house Smoking Status: Current every day smoker tobacco type: pipe other: 1 q2hrs Tobacco: How many years used: 40 alcohol intake: never what type of physical activity do you participate in: other details: house work, and yard work. do you feel safe at home: Yes ROS ROS ED ROS Narrative Constitutional: No fever, no chills. HEENT: No sore throat. No neck pain. No loss of vision. No rhinorrhea. Cardiovascular: Left-sided, pleuritic chest pain. No palpitations. No pedal edema. Respiratory: Positive cough, no shortness of breath. Abdominal: No abdominal pain. No nausea. No vomiting. Genitourinary: No dysuria. No hematuria. Musculoskeletal: No myalgias. No arthralgias. Neurologic: No headaches. No dizziness. No lightheadedness. Skin: No rash. No change in color. Psychiatric: No depression. No anxiety. EXAM Physical Exam Narrative Exam Narrative: Afebrile. Vital signs noted. Mild cachexia. HEENT: Normocephalic. Atraumatic. PERRL, EOMI. Neck soft and supple. No point tenderness or step off. Cardiovascular: Regular rate and rhythm. No murmurs, rubs, or gallops appreciated. Respiratory: No tachypnea. Occasional rhonchi lateral bases. Gastrointestinal: Abdomen soft, nontender, with normoactive bowel sounds. No rebound or guarding. Neurological: Awake. Alert. Nonfocal, nonlateralizing. Skin: No rash. Normal color. No pallor. Musculoskeletal: No pedal edema. Full range of motion extremities. Const Vital Signs: 09/30/22 02:02 09/30/22 02:03 09/30/22 02:26 Temperature 97.0 F L Temperature Source Temporal Pulse Rate 95 Respiratory Rate 18 Blood Pressure 180/90 H Blood Pressure Mean 120 Pulse Ox 97 97 99 Oxygen Delivery Method Room Air Room Air Room Air 09/30/22 04:24 Temperature Temperature Source Pulse Rate 68 Respiratory Rate 18 Blood Pressure 168/69 H Blood Pressure Mean 102 Pulse Ox 94 Oxygen Delivery Method Room Air Heart Score History: Slightly/Non-Suspicious ECG: Normal Age: >/= 65 years Risk Factors: 1 or 2 Risk Factors Score: 3 MDM MDM MDM Narrative Medical decision making narrative: Given his pleuritic chest pain, concern is for pulmonary embolism. Additionally, in the differential diagnosis is COVID-pneumonia versus pleurisy versus bacterial pneumonia. Patient refuses swab for COVID-19 currently. EKG was obtained and interpreted by myself. It demonstrates normal sinus rhythm with PVCs and occasional PACs at [address] changes. No STEMI. I reviewed his laboratory work. His initial high-sensitivity troponin is 11. In review of his other laboratory work, he has a normal white count of 6.4, hemoglobin stable at 12.2, hematocrit 36.7. Platelet count normal at 232. Sodium slightly low at 130 with chloride 96 consistent with mild dehydration. He was bolused normal saline 1 L intravenously. Potassium is normal at 4.4. He has a BUN of 15 and a normal creatinine of 1.06. Given his pleuritic chest pain, I reviewed his CTA results of his chest. I thought this would be a better option to rule out pulmonary embolism given his left pleuritic chest pain. He does have a left upper lobe pneumonia, and various pulmonary nodules in the left lower lung lobe, the largest being 7 mm. There is no evidence of pulmonary embolism or aortic dissection. I will repeat his troponin to make sure that the delta is not increasing. In discussion with the patient, he would like to be treated as an outpatient. I do feel that Levaquin would be a better choice than azithromycin, and he does have a penicillin allergy that is severe (hives). He will continue his pain medications of Tylenol and tramadol. He does have a low curb 65 score. I had discussed admission with him, and he prefers outpatient treatment. However, he will be ambulated on pulse ox to ensure that he does not become hypoxic. He was able to pass his ambulatory pulse ox check. While he did dip down to 90% on room air, I do feel that this may be his baseline on exertion as he has past medical history of COPD and smokes a pipe. He was written a prescription for an albuterol inhaler to use 1 to 2 puffs every 4-6 hours as needed for shortness of breath, and additionally a prescription for Levaquin. He was warned of the risk of tendon rupture. He acknowledged an understanding. He will follow-up with his primary care physician regarding the pulmonary nodules. I feel he can be discharged safely home with follow-up. Return instructions to the emergency department were reviewed. I did review his repeat troponin and it is 14 for a delta less than 7. Disposition is discharged home in stable condition. History & Record Review Discussion w/independent historian: Patient Lab Data Attestation: I reviewed the patient's lab results. Labs: Laboratory Results - last 24 hr 09/30/22 09/30/22 09/30/22 02:20 02:20 04:50 WBC 6.4 RBC 3.75 L Hgb 12.2 L Hct 36.7 L MCV 97.9 H MCH 32.5 H MCHC 33.2 RDW Std Deviation 46.9 H RDW Coeff of [place]anda 13.0 Plt Count 232 MPV 9.0 Immature Gran % (Auto) 0.800 Neut % (Auto) 66.0 Lymph % (Auto) 14.8 L [place] % (Auto) 17.9 H Eos % (Auto) 0.3 Baso % (Auto) 0.2 Absolute Neuts (auto) 4.2 Absolute Lymphs (auto) 0.94 Nucleated RBC % 0 Sodium 130 L Potassium 4.4 Chloride 96 L Carbon Dioxide 26.0 Anion Gap 8 BUN 15 Creatinine 1.03 Estim Creat Clear Calc 42.48 Est GFR (MDRD) Af Amer 92 Est GFR (MDRD) Non-Af 76 BUN/Creatinine Ratio 14.6 Glucose 119 H Calcium 9.1 Troponin I High Sens 11 14 Radiography Diagnostic Testing: Clinical Impression(s) from Imaging Studies Chest CTA 09/30/22 02:07 IMPRESSION: Left upper lobe pneumonia. Nonspecific nodules in the left lung lower lobe, the largest measures 7 mm in the superior segment of the left lower lobe axial image #138, may represent metastatic lesion. No demonstrated pulmonary embolism or arterial dissection. Electronically Signed: Jigar Cleaning MD at 3:52 EST , Discharge Plan Triage Chief Complaint: Chest Pain ED Provider: Shawn Valdez Dx/Rx/DC Orders Clinical Impression: Left upper lobe pneumonia, Pleuritic chest pain, Multiple pulmonary nodules, Dehydration Instructions: ED Chest Pain, Noncardiac, ED Dehydration (Adult), ED Pneumonia (Adult) Prescriptions: New albuterol sulfate [Ventolin HFA] 90 mcg/actuation HFA aerosol inhaler 1 - 2 puff inhalation Q4H PRN PRN (Reason: Wheezing) Qty: 1 0RF levofloxacin 750 mg tablet 750 mg PO DAILY 7 Days Qty: 7 0RF No Action tramadol 50 mg tablet 50 mg PO Q6H PRN (Reason: Pain Score 1-10) Label Comments: take 1 to 2 tablets by mouth every 6 hours if needed for pain benzonatate 200 mg capsule 200 mg PO TID PRN (Reason: cough) Qty: 60 1RF peg 3350-electrolytes [Golytely] 236-22.74-6.74 -5.86 gram recon soln 240 ml PO Q10M Qty: 4000 0RF Rx Instructions: until fecal effluent is clear loratadine 10 MG tablet 10 mg PO BID Label Comments: allergies acetaminophen 500 mg Tablet 1,000 mg PO Q6H PRN (Reason: Pain) atorvastatin 80 mg tablet 80 mg PO QHS albuterol sulfate 2.5 mg /3 mL (0.083 %) solution for nebulization 2.5 mg inhalation PRN PRN (Reason: SOB) Rx Instructions: Use q4 hours and PRN for wheezing albuterol sulfate 90 mcg/actuation HFA aerosol inhaler 2 puff INHALATION Q6H PRN (Reason: shortness of breath or wheezing) Qty: 18 1RF Rx Instructions: With spacer metoprolol succinate 25 mg tablet extended release 24 hr 25 mg PO DAILY Qty: 90 3RF Spiriva Respimat 2.5 mcg/actuation mist 2 inh INHALATION QAM Qty: 12 3RF Hold Instructions: Home Medication placed on hold at Doctor's office pantoprazole 40 mg tablet,delayed release (DR/EC) 40 mg PO BID Qty: 180 1RF gabapentin 100 mg capsule 100 mg PO QHS Qty: 90 3RF metformin 500 mg tablet 500 mg PO DAILY Qty: 90 3RF citalopram 20 mg tablet 20 mg PO DAILY Qty: 90 3RF buspirone 15 mg tablet 15 mg PO BID Qty: 180 1RF Movantik 25 mg tablet 25 mg PO QAM Qty: 30 5RF Rx Instructions: must be taken on empty stomach; no food 1 hr after or 2-3 hrs before dose ramipril 5 mg capsule 5 mg PO DAILY Qty: 90 1RF Primary Care Provider: Demetra Serrano Referrals: Demetra Serrano MD [Primary Care Provider] - 3-5 Days Activity Restrictions/Additional Instructions: Take your antibiotics as directed. Return with increased difficulty breathing, new or worsening symptoms. You did have an abnormal CT scan where there were pulmonary nodules found in the left lower lobe of your lung. You need to follow-up with your primary care physician regarding this for further work-up. Disposition Disposition: Home, Self Care
[2022-09-30 02:26] VITALS: O2SAT 99
[2022-09-30 02:26] LABS: Absolute Lymphocyte Count 0.94 X10^3/uL (0.83-4.51); Absolute Neutrophil Count 4.2 X10^3/uL (2.0-7.7); Basophil# 0.01 X10^3/uL; Basophil% 0.2 % (0-1); Eosinophil# 0.02 X10^3/uL; Eosinophils% 0.3 % (0-5); Hematocrit 36.7 % (40-54); Hemoglobin 12.2 g/dL (13.0-16.5); Lymphocyte # 0.94 X10^3/ul (0.83-4.51); Lymphocyte % 14.8 % (19-41); Mean Corp Hgb Conc 33.2 g/dL (32-36); Mean Corpuscular Hgb 32.5 pg (27.0-32.0); Mean Corpuscular Volume 97.9 fL (80-94); Monocyte# 1.14 X10^3/uL; Monocyte% 17.9 % (0-10); NRBC Flagged by Analyzer 0 % (0-5); Platelet Count 232 K/mm3 (150-450); RBC Distribution Width SD 46.9 fl (35.1-43.9); Red Blood Count 3.75 M/mm3 (4.6-6.2); White Blood Count 6.4 K/mm3 (4.4-11.0)
[2022-09-30] MEDS: 0.9% Normal Saline 1,000 ML 1000 ML IV (02:56)
[2022-09-30] MEDS: Aspirin 81 MG TAB.CHEW 324 MG PO (02:56)
[2022-09-30 02:57] LABS: Anion Gap 8 (5-15); BUN 15 mg/dL (7-18); BUN/Creat Ratio 14.6 RATIO (10-20); Calcium,Total 9.1 mg/dL (8.5-10.1); Chloride 96 mmol/L (98-107); Creatinine, Serum 1.03 mg/dL (0.70-1.30); EST Glomerular Filtration Rate 76 mL/min (>60); Est Glom Filt Rate - Afr Amer 92 mL/min (>60); Estimated Creatinine Clearance 42.48 ml/min; Glucose 119 mg/dL (74-106); Potassium 4.4 mmol/L (3.5-5.1); Sodium Level 130 mmol/L (136-145); Troponin-I HS (w/2H Reflex) 11 pg/mL (3.0-78.0)
[2022-09-30 04:23] LABS: Reflex Troponin-HS? (from REC) Y
[2022-09-30 04:24] VITALS: BP 168/69; PULSE 68; RESP 18; O2SAT 94
[2022-09-30] MEDS: levoFLOXacin 750 MG Tablet PO (04:33)
[2022-09-30 04:42] VITALS: O2SAT 97
[2022-09-30 05:11] LABS: Troponin-I HS 14 pg/mL (3.0-78.0)
== END 2022-09-30 06:06 | disposition home or self-care (01) ==
PROVIDERS: Emergency Provider Emergency Medicine; PCP Internal Medicine; Visit Provider Emergency Medicine
DX: J18.9 Pneumonia, unspecified organism (principal); J44.9 Chronic obstructive pulmonary disease, unspecified; E11.9 Type 2 diabetes mellitus without complications; F17.200 Nicotine dependence, unspecified, uncomplicated; E86.0 Dehydration; G89.29 Other chronic pain; I10 Essential (primary) hypertension; I49.3 Ventricular premature depolarization; E78.5 Hyperlipidemia, unspecified; I25.10 Atherosclerotic heart disease of native coronary artery without angina pectoris; Z20.822 Contact with and (suspected) exposure to COVID-19; R07.81 Pleurodynia; R91.8 Other nonspecific abnormal finding of lung field; I25.2 Old myocardial infarction
CPT/HCPCS: 71275; 80048; 84484; 85025; 93005; 96374; 99285; J7030; Q9967; A4216

== ENCOUNTER 2023-04-22 15:17 | Emergency (ER) | payer MEDICARE, OTHER, SELFPAY ==
[2023-04-22 15:18] VITALS: BP 138/78; PULSE 92; RESP 14; TEMP 36.4; O2SAT 96; BMI 16.5
--- NOTE | 2023-04-22 15:56 | EX.ED.DYSGE1 ---
HPI History of Present Illness Chief Complaint: Weakness Informant: patient Onset/Context/Timing Onset: Days Context: Gradual Onset Timing: Continuous Current Severity: Mild Maximum Severity: Mild Narrative Narrative: 72-year-old male complaining of dysuria and generalized weakness. Had chills today. Denies vomiting or diarrhea. No cough or shortness of breath. No abdominal or chest pain. Lives at home with his . Prior similar symptoms: Yes Recent Illness/Hospitalization: No PFSH PFSH Medical History Acute bronchitis Anemia Anxiety Arthritis Atherosclerosis of coronary artery of [place] heart without angina pectoris (05/25/14) Atrial flutter, paroxysmal Back pain Cardiology follow-up encounter COPD (chronic obstructive pulmonary disease) Depression Depression with anxiety Diabetes Diabetes mellitus, type II Dietary restriction Essential (primary) hypertension Fatigue Gastric reflux Gastroenteritis H/o blood transfusion Hemorrhoids History of echocardiogram History of hiatal hernia History of non-ST elevation myocardial infarction (NSTEMI) (05/23/14) History of stress test Hyperlipidemia Hypertension Knee pain Loss of hearing Onychomycosis Orthostatic hypotension Osteoporosis Peripheral vascular occlusive disease Pipe smoker Pre-syncope Scoliosis Seasonal allergies Smoker Wears dentures Wears glasses Weight loss Home Medications loratadine 10 mg tablet 10 mg PO BID ALLERGIES 09/03/14 [History Last Taken 03/16/22] tramadol 50 mg tablet 50 mg PO Q6H PRN Pain Score 1-10 03/03/20 [History Last Taken 03/15/22] acetaminophen 500 mg tablet 1,000 mg PO Q6H PRN Pain 03/16/22 [History Last Taken 03/15/22] benzonatate 200 mg capsule 200 mg PO TID PRN cough #60 caps 03/24/22 [Rx Last Taken Unknown] gabapentin 100 mg capsule 100 mg PO QHS #90 caps 04/26/22 [Rx Last Taken Unknown] citalopram 20 mg tablet 20 mg PO DAILY #90 tabs 07/12/22 [Rx Last Taken Unknown] peg 3350-electrolytes 236 gram-22.74 gram-6.74 gram-5.86 gram solution (Golytely) 240 ml PO Q10M #4,000 mL 08/17/22 [Rx Last Taken Unknown] naloxegol 25 mg tablet (Movantik) 25 mg PO QAM #30 tabs 08/23/22 [Rx Last Taken Unknown] albuterol sulfate 90 mcg/actuation aerosol inhaler (Ventolin HFA) 1 - 2 puff inhalation Q4H PRN PRN Wheezing #1 ea 09/30/22 [Rx Last Taken Unknown] albuterol sulfate 2.5 mg/3 mL (0.083 %) solution for nebulization 2.5 mg (3 mL) inhalation Q6H PRN SOB #180 mL 10/30/22 [Rx Last Taken Unknown] nebulizer tubing and masks 10/31/22 [History Last Taken Unknown] lidocaine-prilocaine 2.5 %-2.5 % topical cream 1 applic topical ONCE #30 grams 11/13/22 [Rx Last Taken Unknown] atorvastatin 80 mg tablet 80 mg PO QHS CHOLESTEROL #90 tabs 11/22/22 [Rx Last Taken Unknown] buspirone 15 mg tablet 15 mg PO BID #180 tabs 11/22/22 [Rx Last Taken Unknown] metformin 500 mg tablet 500 mg PO DAILY #90 tabs 11/22/22 [Rx Last Taken Unknown] metoprolol succinate 25 mg tablet,extended release 24 hr 25 mg PO DAILY #90 tabs 11/22/22 [Rx Last Taken Unknown] pantoprazole 40 mg tablet,delayed release 40 mg PO BID #180 tabs 03/26/23 [Rx Last Taken Unknown] ramipril 5 mg capsule 5 mg PO DAILY #90 caps 03/26/23 [Rx Last Taken Unknown] tiotropium bromide 2.5 mcg/actuation mist for inhalation (Spiriva Respimat) 2 inh inhalation QAM #12 grams 03/26/23 [Rx Last Taken Unknown] ciprofloxacin HCl 500 mg tablet (Cipro) 500 mg PO BID 10 days #20 tabs 04/22/23 [Rx Last Taken Unknown] Allergy/AdvReac Type Severity Reaction Status Date / Time Penicillins [PCN] Allergy Hives Verified 04/22/23 15:18 typhoid vaccine Allergy Other Verified 04/22/23 15:18 [Typhoid Vaccine] bupropion HCl AdvReac Other Verified 04/22/23 15:18 [From Wellbutrin] sildenafil [From Viagra] AdvReac Other Verified 04/22/23 15:18 Family History Father Cancer Mother Kidney failure Other Kidney disease Surgical History History of coronary artery stent placement History of hernia repair History of left heart catheterization History of open reduction and internal fixation (ORIF) procedure (2018) History of radiofrequency ablation (RFA) of nerve of cervical spine History of surgery on left wrist Hx of spinal surgery Social History household members: spouse housing: house Smoking Status: Current every day smoker tobacco type: pipe other: 1 q2hrs Tobacco: How many years used: 40 alcohol intake: never what type of physical activity do you participate in: other details: house work, and yard work. do you feel safe at home: Yes ROS ROS ED ROS Narrative Dysuria. Chills. Review of Systems ROS Unobtainable: Denies due to encephalopathy Constitutional Constitutional ED: Reports chills; Denies fever(s) Eyes Eyes: Denies blurry vision ENT ENT ED: Denies ear pain Cardiovascular Cardiovascular: Denies chest pain Respiratory/Chest Respiratory/Chest: Denies cough or dyspnea Gastrointestinal Gastrointestinal: Denies abdominal pain, constipation, diarrhea, melena, nausea or vomiting Genitourinary Genitourinary ED: Reports dysuria; Denies hematuria Musculoskeletal Musculoskeletal: Denies arthralgias or back pain Integumentary Denies abscess or Abrasions Neurologic Neurologic: Denies headache(s) Psychiatric Psychiatric: Denies anxiety or depression Endocrine Endocrinology: Denies cold intolerance Hematologic/Lymphatic Hematologic/Lymphatic: Denies systems reviewed and no addt'l complaints, except as documented Allergic/Immunologic Allergic/Immunologic ED: Denies mouth swelling, tongue swelling or urticaria EXAM Physical Exam Narrative Exam Narrative: 72-year-old male no acute distress. Vital signs stable afebrile. HEENT exam unremarkable. Neck nontender. Lungs clear to auscultation bilateral. Heart regular rhythm rate about 90 no murmur. Chest wall and ribs nontender. Abdomen soft nontender. Moving all 4 extremities. Nontender no edema. Normal production control pegboard clerk strength. Normal dorsi plantarflexion. Neurologically he is awake alert with no focal motor deficits. Const Vital Signs: 04/22/23 15:18 04/22/23 15:18 04/22/23 17:18 Temperature 97.6 F L Temperature Source Temporal Pulse Rate 92 70 Respiratory Rate 14 14 Respiratory Effort Normal Non-Labored Respiratory Pattern Normal Blood Pressure 138/78 H 100/72 Blood Pressure Mean 98 81 Pulse Ox 96 96 Oxygen Delivery Method Room Air Room Air Positive well nourished and well developed; Negative for obese, cachectic, contractures or unkempt General Appearance ED: well developed and NAD; Negative for unkempt, cachectic, contractures, cyanotic, diaphoretic or pallor Nutritional Appearance: Negative for cachectic or obese HEENT Reports moist mucous membranes Negative for trauma or tenderness Eyes PERRL and EOMs intact bilaterally General Eye ED: Negative for pale conjunctiva or scleral icterus Neck no lymphadenopathy, supple and no JVD General: Negative for tenderness Lymph Lymphatic: Negative for other Chest Wall inspection of chest normal and palpation of chest normal Chest: Negative for other Resp normal respiratory effort and clear to auscultation bilaterally Effort and Inspection: Negative for retractions Auscultation: Negative for rales, rhonchi or wheezes Cardio regular rate, regular rhythm, S1 normal heart sound, S2 normal heart sound and no murmurs Palpation: Negative for palpable S3 or palpable S4 Rate: Negative for bradycardia Rhythm: Negative for abnormal rhythm GI normal to inspection, nondistended, normoactive bowel sounds, non-tender, non-distended and no masses Inspection: Negative for abdominal distention Auscultation: normoactive bowel sounds Palpation: soft; Negative for tender or guarding Back/Spine no CVA tenderness General Back: Negative for CVA tenderness Cervical Spine: Negative for cervical spine tenderness Thoracic Spine / Upper Back: Negative for thoracic spinal tenderness Lumbar Spine / Lower Back: Negative for lumbar spinal tenderness Extremity normal to inspection General Extremety ED: Negative for edema or tenderness General Extremity: Negative for edema Neuro oriented x3 and CN's II-XII intact bilaterally Sensorium / Orientation: alert; Negative for orientation impaired Motor Exam: strength 5/5 throughout Psych mental status grossly normal Appearance: Negative for unkempt Attitude: No agitated Mood & Affect: Negative for depressed, anxious or tearful Skin no rashes or lesions noted, no wounds and skin turgor normal General Skin Exam: Negative for jaundice or pallor Lesions: No lesion noted Rashes: No rashes noted Trauma: Negative for abrasion Wounds: Negative for wounds noted MDM MDM MDM Narrative Medical decision making narrative: 72-year-old male with generalized weakness and dysuria. Screening labs, urinalysis and IV fluids. Repeat exam patient is doing well at 8:10 PM. He feels comfortable being discharged home. He will be started on Cipro given first dose here. 500 twice daily for 10 days 20 no refill. Urine culture sent. Follow-up with his primary care physician. Lab Data Attestation: I reviewed the patient's lab results. Lab results narrative: CBC shows a white count of 7. H&H 11.2 and 34.2 and the patient has a history of chronic anemia. This is his baseline. Platelets 193. Lites show sodium of 130. Gap of 7. BUN and creatinine 22 and 1.2. Glucose 94. History also of chronic hyponatremia. Alysis is consistent with a UTI with 25-50 white cells, positive nitrates and 2+ bacteria. A culture will be sent. Labs: Laboratory Results - last 24 hr 04/22/23 04/22/23 15:28 17:20 WBC 7.0 RBC 3.35 L Hgb 11.2 L Hct 34.2 L MCV 102.1 H MCH 33.4 H MCHC 32.7 RDW Std Deviation 47.7 H RDW Coeff of Randa 12.7 Plt Count 193 MPV 9.9 Immature Gran % (Auto) 0.300 Neut % (Auto) 91.6 H Lymph % (Auto) 4.5 L [place] % (Auto) 2.7 Eos % (Auto) 0.6 Baso % (Auto) 0.3 Absolute Neuts (auto) 6.4 Absolute Lymphs (auto) 0.31 L Nucleated RBC % 0 Differential Comment SCANNED Sodium 130 L Potassium 4.2 Chloride 97 L Carbon Dioxide 26.0 Anion Gap 7 BUN 22 H Creatinine 1.24 Estim Creat Clear Calc 36.94 Est GFR (MDRD) Af Amer 74 Est GFR (MDRD) Non-Af 61 BUN/Creatinine Ratio 17.7 Glucose 94 Calcium 8.6 Urine Color Yellow Urine Clarity Sl. Cloudy Urine pH 5.0 Ur Specific New Site 1.020 Urine Protein 30 H Urine Glucose (UA) Normal Urine Ketones 5 H Urine Occult Blood 50 H Urine Nitrite Positive H Urine Bilirubin Negative Urine Urobilinogen 4 H Ur Leukocyte Esterase 500 H Urine RBC 0-5 SEEN Urine WBC 25-50 SEEN Ur Squamous Epith Cells 0 SEEN Ur Transition Epith Cell 0-5 SEEN Urine Bacteria 2+ Urine Mucus 0 SEEN Discharge Plan Triage Chief Complaint: Weakness ED Provider: Wiliam Carmen Dx/Rx/DC Orders Clinical Impression: Urinary tract infection, History of COPD, History of atrial flutter Instructions: ED Bladder Infection, Male (Adult) Prescriptions: New ciprofloxacin HCl [Cipro] 500 mg tablet 500 mg PO BID 10 Days Qty: 20 0RF No Action tramadol 50 mg tablet 50 mg PO Q6H PRN (Reason: Pain Score 1-10) Patient Comments: take 1 to 2 tablets by mouth every 6 hours if needed for pain benzonatate 200 mg capsule 200 mg PO TID PRN (Reason: cough) Qty: 60 1RF peg 3350-electrolytes [Golytely] 236-22.74-6.74 -5.86 gram recon soln 240 ml PO Q10M Qty: 4000 0RF Rx Instructions: until fecal effluent is clear albuterol sulfate 2.5 mg /3 mL (0.083 %) solution for nebulization 2.5 mg inhalation Q6H PRN (Reason: SOB) Qty: 180 1RF Rx Instructions: Use q4 hours and PRN for wheezing (DME) nebulizer tubing and masks See Rx Instructions .Route .MEDSUPPLY Rx Instructions: use as directed loratadine 10 MG tablet 10 mg PO BID Patient Comments: allergies acetaminophen 500 mg Tablet 1,000 mg PO Q6H PRN (Reason: Pain) albuterol sulfate [Ventolin HFA] 90 mcg/actuation HFA aerosol inhaler 1 - 2 puff inhalation Q4H PRN PRN (Reason: Wheezing) Qty: 1 0RF gabapentin 100 mg capsule 100 mg PO QHS Qty: 90 3RF citalopram 20 mg tablet 20 mg PO DAILY Qty: 90 3RF Movantik 25 mg tablet 25 mg PO QAM Qty: 30 5RF Rx Instructions: must be taken on empty stomach; no food 1 hr after or 2-3 hrs before dose lidocaine-prilocaine 2.5-2.5 % cream 1 applic topical ONCE Qty: 30 0RF Rx Instructions: Apply small amount to skin, prior to blood draw or IV. atorvastatin 80 mg tablet 80 mg PO QHS Qty: 90 3RF buspirone 15 mg tablet 15 mg PO BID Qty: 180 3RF metformin 500 mg tablet 500 mg PO DAILY Qty: 90 3RF metoprolol succinate 25 mg tablet extended release 24 hr 25 mg PO DAILY Qty: 90 3RF ramipril 5 mg capsule 5 mg PO DAILY Qty: 90 3RF pantoprazole 40 mg tablet,delayed release (DR/EC) 40 mg PO BID Qty: 180 3RF Spiriva Respimat 2.5 mcg/actuation mist 2 inh INHALATION QAM Qty: 12 3RF Hold Instructions: Home Medication placed on hold at Doctor's office Primary Care Provider: Demetra Serrano Referrals: Demetra Serrano MD [Primary Care Provider] - 3-5 Days Activity Restrictions/Additional Instructions: You have a urinary tract infection. You will be started on antibiotics Cipro 1 pill twice a day for 10 days. We sent a urine culture if that does not match your antibiotic we will call you. Call and follow-up with your primary care physician to ensure you are improving. Return if feeling worse. Disposition Disposition: Home, Self Care
[2023-04-22 16:11] LABS: Absolute Lymphocyte Count 0.31 X10^3/uL (0.83-4.51); Absolute Neutrophil Count 6.4 X10^3/uL (2.0-7.7); Basophil# 0.02 X10^3/uL; Basophil% 0.3 % (0-1); Eosinophil# 0.04 X10^3/uL; Eosinophils% 0.6 % (0-5); Hematocrit 34.2 % (40-54); Hemoglobin 11.2 g/dL (13.0-16.5); Lymphocyte # 0.31 X10^3/ul (0.83-4.51); Lymphocyte % 4.5 % (19-41); Mean Corp Hgb Conc 32.7 g/dL (32-36); Mean Corpuscular Hgb 33.4 pg (27.0-32.0); Mean Corpuscular Volume 102.1 fL (80-94); Mean Platelet Vol. 9.9 fl (6.2-12.0); Monocyte# 0.19 X10^3/uL; Monocyte% 2.7 % (0-10); NRBC Flagged by Analyzer 0 % (0-5); Neutrophil # 6.37 X10^3/uL (2.7-7.7); Neutrophil % 91.6 % (47-70); POSITIVE DIFFERENTIAL YES; Platelet Count 193 K/mm3 (150-450); RBC Distribution Width CV 12.7 % (11.6-14.6); RBC Distribution Width SD 47.7 fl (35.1-43.9); Red Blood Count 3.35 M/mm3 (4.6-6.2)
[2023-04-22 16:14] LABS: Differential Indicated SCAN CRITERIA MET
[2023-04-22] MEDS: 0.9% Normal Saline (1000mL) 1,000 ML 1000 ML IV (16:21)
[2023-04-22 16:28] LABS: Anion Gap 7 (5-15); BUN 22 mg/dL (7-18); BUN/Creat Ratio 17.7 RATIO (10-20); Calcium,Total 8.6 mg/dL (8.5-10.1); Chloride 97 mmol/L (98-107); Creatinine, Serum 1.24 mg/dL (0.70-1.30); EST Glomerular Filtration Rate 61 mL/min (>60); Est Glom Filt Rate - Afr Amer 74 mL/min (>60); Estimated Creatinine Clearance 36.94 ml/min; Glucose 94 mg/dL (74-106); Potassium 4.2 mmol/L (3.5-5.1); Sodium Level 130 mmol/L (136-145)
[2023-04-22 16:36] LABS: Differential Comment SCANNED
[2023-04-22 17:18] VITALS: BP 100/72; PULSE 70; RESP 14; O2SAT 96
[2023-04-22 17:37] LABS: Mucous, Urine 0 SEEN /hpf (<or=2+); Squamous Epithelial Cells - UA 0 SEEN /hpf (0-5)
[2023-04-22 17:42] LABS: Color, Urine Yellow (Yellow); Glucose, Dipstick Normal (Normal); Ketone-Dipstick 5 mg/dl (Negative); Leukocyte Esterase-Dipstick 500 /ul (Negative); Nitrite-Dipstick Positive (Negative); Occult Blood-Urine 50 /ul (Negative); Protein-Dipstick 30 mg/dl (Negative); Urine Bilirubin Dipstick Negative (Negative); Urine Clarity Sl. Cloudy (Clear); Urine Urobilinogen 4 mg/dl (Normal)
[2023-04-22 18:21] LABS: Bacteria 2+ /hpf (None Seen); Red Blood Cells-Urine 0-5 SEEN /hpf (0-5); Transitional Epithelial - Ur 0-5 SEEN /hpf (0-5); White Blood Cells 25-50 SEEN /hpf (0-5)
[2023-04-22] MEDS: Ciprofloxacin 500 MG Tablet PO (20:50)
[2023-04-22 20:52] VITALS: BP 124/68; PULSE 74; RESP 16; O2SAT 97
== END 2023-04-22 20:55 | disposition home or self-care (01) ==
PROVIDERS: Emergency Provider Emergency Medicine; PCP Internal Medicine; Visit Provider Emergency Medicine
DX: R53.1 Weakness (principal); J44.9 Chronic obstructive pulmonary disease, unspecified; I48.92 Unspecified atrial flutter; E11.9 Type 2 diabetes mellitus without complications; N39.0 Urinary tract infection, site not specified; I25.10 Atherosclerotic heart disease of native coronary artery without angina pectoris; F17.200 Nicotine dependence, unspecified, uncomplicated; I10 Essential (primary) hypertension; E78.5 Hyperlipidemia, unspecified; I25.2 Old myocardial infarction; I5A Non-ischemic myocardial injury (non-traumatic); F41.8 Other specified anxiety disorders; K21.9 Gastro-esophageal reflux disease without esophagitis; Z79.899 Other long term (current) drug therapy; Z95.5 Presence of coronary angioplasty implant and graft
CPT/HCPCS: 80048; 81001; 85025; 96360; 96361; 99285; J7030; A4216

== ENCOUNTER → 2023-05-28 | Outpatient (CLI) | payer MEDICARE, OTHER, SELFPAY ==
[2023-05-28 08:17] LABS: Mucous, Urine 0 SEEN /hpf (<or=2+); Squamous Epithelial Cells - UA 0 SEEN /hpf (0-5)
[2023-05-28 08:46] LABS: Color, Urine Yellow (Yellow); Glucose, Dipstick Normal (Normal); Ketone-Dipstick 5 mg/dl (Negative); Leukocyte Esterase-Dipstick 500 /ul (Negative); Nitrite-Dipstick Negative (Negative); Occult Blood-Urine 50 /ul (Negative); Protein-Dipstick 30 mg/dl (Negative); Specific Gravity, Urine 1.015 (1.002-1.030); Urine Bilirubin Dipstick Negative (Negative); Urine Clarity Sl. Cloudy (Clear); Urine Urobilinogen 4 mg/dl (Normal)
[2023-05-28 08:52] LABS: Red Blood Cells-Urine 0-5 SEEN /hpf (0-5)
[2023-05-28 08:53] LABS: Bacteria 3+ /hpf (None Seen); White Blood Cells 25-50 SEEN /hpf (0-5)
== END | disposition home or self-care (01) ==
LOC: LAB 08:14
PROVIDERS: PCP Internal Medicine; Referring Provider Internal Medicine; Visit Provider Internal Medicine
DX: R31.9 Hematuria, unspecified (principal); N39.0 Urinary tract infection, site not specified
CPT/HCPCS: 81001; 87077; 87086; 87088; 87186

== ENCOUNTER 2023-07-13 05:26 | Day surgery (SDC) | payer MEDICARE, OTHER, SELFPAY ==
[2023-07-13] MEDS: Lactated Ringers 1,000 ML 15 ML IV (05:57)
[2023-07-13 05:59] VITALS: BP 160/67; PULSE 65; RESP 18; TEMP 36; O2SAT 100; BMI 14.1
--- NOTE | 2023-07-13 06:30 | IMM_PTH ---
PATIENT: CRISTINO CHINCHILLA LOC: EN U#:[id number] AGE/SX: 72/M ROOM: RE07/13/[address]: Dr. Freedom Leyva DO : 1950 BED: DIS: 07/13/2023 SPEC #: [id number] RECD: 07/13/23 13:46 STATUS: NADEGE REQ #: [id number] TRINIDAD: 07/13/23 06:[address]: Freedom Leyva DEPT: IMMUNOHISTOCHEMISTRY RECD BY: Lili Hawk ENTERED: 07/13/23 13:47 SP TYPE: IMMUNO OTHR DR: Dr. Demetra Serrano MD Tissues: B - Stomach, NOS Procedures: H Pylori (initial) PHYSICIAN & INSTITUTION [place] [id number] SPECIMEN INFORMATION: Tissue Source: B - Antral ulcer Clinical Info: Anemia, constipation Specimen Number: [id number] Rk CPT code: 41614 METHODOLOGY: Deparaffinized sections of prefer/formalin-fixed tissue or PAP/DQ stained slides are incubated with monoclonal/polyclonal antibodies/oligonucleotide probes. Localization is made via biotin free immunoperoxidase method. Appropriate controls are performed and reacted as expected. Results on target cell population are indicated in the following table: RESULTS: ANTIBODY / CLONE RESULT Block B H Pylori (polyclonal) negative These tests were developed and their performance characteristics determined by [facility]. They may not have been cleared or approved by the U.S. Food and Drug Administration. The FDA has determined that such clearance or approval is not necessary. The above immunohistochemical/dualISH markers are ordered and reviewed by the Pathologist. INTERPRETATION: B. Antral ulcer, biopsy: Negative for H pylori organisms. LUIS/clayton 07/16/2023
--- NOTE | 2023-07-13 06:30 | EGD_PTH ---
PATIENT: CRISTINO CHINCHILLA LOC: EN U#:[id number] AGE/SX: 72/M ROOM: RE07/13/[address]: Dr. Freedom Leyva DO : 1950 BED: DIS: 07/13/2023 SPEC #: [id number] RECD: 07/13/23 11:06 STATUS: NADEGE REKandy #: [id number] TRINIDAD: 07/13/23 06:[address]: Freedom Leyva DEPT: SURGICAL PATHOLOGY RECD BY: Keena Cope ENTERED: 07/13/23 11:51 SP TYPE: EGD BIOPSY TREE DR: Dr. Demetra Serrano MD Tissues: A - Duodenum, NOS B - Gastric mucous membrane Procedures: Surgery Specimen Level IV HEADER OPERATION: Colonoscopy, EGD with biopsy PRE-OP DIAGNOSIS: Anemia, constipation TISSUE SUBMITTED: A - Duodenum, B - Antral ulcer MICROSCOPIC DIAGNOSIS A. Duodenum, biopsy: Fragments of duodenal mucosa, no pathologic diagnosis. B. Antral ulcer, biopsy: Fragments of gastric mucosa with ulceration, fibrinous exudation and chronic inflammation. See comment. LUIS:lalo 07/18/2023 COMMENT B. The results of immunohistochemistry for Helicobacter pylori will be reported separately ([id number]). MICROSCOPIC DESCRIPTION Slides are reviewed. GROSS DESCRIPTION A - Received in fixative is one container labeled with the patient's name and designated duodenum biopsy. The specimen consists of multiple irregular fragments of light field soft tissue that in aggregate measure 1.0 x 0.5 x 0.1 cm. The specimen is totally submitted in one cassette. B - Received in fixative is one container labeled with the patient's name and designated antrum biopsy. The specimen consists of multiple irregular fragments of light field soft tissue that in aggregate measure 0.6 x 0.3 x 0.1 cm. The specimen is totally submitted in one cassette. / AM:lalo 07/13/2023 TC:2 CPT: 87266 x2
[2023-07-13 06:32] LABS: Bedside Glucose 103 mg/dL (74-106)
--- NOTE | 2023-07-13 06:44 | HP.PCM_ITS ---
History and Physical Date of Admission: 07/13/23 71 M who presents to the office today for poor appetite, weight loss, acid reflux, dysphagia, constipation exacerbated by therapeutic opioid use, abdominal tenderness. He is here today to review EGD findings. Colonoscopy had to be rescheduled since prep was ineffective, it is scheduled for 09/25/2022. EGD revealed esophageal plaques consistent with candidiasis, treated with Diflucan. Benign-appearing esophageal stenosis was dilated, biopsies from the esophagus showed mild chronic inflammation. There was a single bleeding angiodysplastic lesion in the stomach which was treated with a heater probe. Flattened mucosa in the duodenum was suspicious for celiac disease, biopsies found no pathologic diagnosis. On 07/05/22 his celiac disease panel was negative. Constipation -- no relief with miralax. GERD --on twice daily dosing of PPI therapy since at least 2016. Anemia -- hgb in the 12 range, low ferritin, normal iron, negative celiac. Bleeding angiodysplastic lesion in the stomach was treated in June 2022. In August 2022 he will be evaluated for any lower GI bleeding with colonoscopy. 04/2022 gastrin normal, Ca 19-9 negative I mean he was suffering was a cantankerous gianfranco it sounds like 08/04/2022 modified barium swallow study: Esophageal retention 05/10/2022 CT abd pel w/ oral and IV contrast: Small bowel ileus, fecal stasis He established with us on 05/04/2022 for unintentional weight loss--normal weight for him is 130 lbs, weight at that visit was 99 pounds. He reports a poor appetite for over a year now.? He has to force himself to eat.? notes that he drinks coffee and smokes pipe all day.? It is not so much that he has early satiety, rather that he has no appetite.? He occasionally has some mild nausea, no vomiting.? He does have some acid reflux despite taking pantoprazole 40 mg twice daily.? He reports being on twice daily dose since having anemia several years ago.? Prior EGDs have shown gastritis.? He does have some difficulty swallowing.? He thinks he has adapted so that he cuts his food up small and chews it up very well. Pills have gotten stuck in his oropharynx--but notes he doesn't drink any fluids when taking pills. No difficulty with swallowing liquids. He gets what he calls gas pains, but says he does not have actual abdominal pain (he is quite tender on exam). BM once every 2-3 days, some burning from hemorrhoids.? He is on tramadol for back pain.? No hematochezia or melena. Comorbidities include chronic back pain, COPD, depression, diabetes, hypertension, hyperlipidemia, peripheral vascular disease, atrial fibrillation, coronary artery disease, scoliosis, osteoporosis 07/11/22 EGD Impression: ? - Esophageal plaques were found, consistent ? with candidiasis. Biopsied. ? - Benign-appearing esophageal stenosis. Dilated. ? - A single bleeding angiodysplastic lesion in ? the stomach. Treated with a heater probe. ? - Flattened mucosa was found in the duodenum, ? suspicious for celiac disease. Biopsied. MICROSCOPIC DIAGNOSIS A. Duodenum, biopsy: Fragments of duodenal mucosa, no pathologic diagnosis. B. Esophagus, random biopsy: Fragments of benign squamous mucosa with mild chronic inflammation ROS Const Constitutional: Positive for fatigue, headache(s) and weight change ENT ENT: Positive for headache(s); No difficulty swallowing Gastro GI: Positive for bloating and excessive flatus; No abdominal pain, belching, change in bowel habits, change in stool character, coffee ground emesis, constipation, cramping, diarrhea, heartburn, difficulty swallowing, feeling full early, incontinent of stools, Vomiting blood/hematemesis, Blood in stool, loose stools, Black,tarry stools, nausea/dyspepsia, pain with swallowing, vomiting or other Musc Musculoskeletal: Positive for back pain; No joint pain Skin Skin: No yellowing of the eye or itchy eyes Neuro Neurology: Positive for headache(s) Psych Psychiatric: No anxiety and No depression Endo Endocrine: Positive for fatigue and weight change Aller/Imm Allergy/Immunologic: No itchy eyes Eric/Lymp Hematologic/Lymphatic: No easy bleeding or easy bruising Exam Const General: cooperative and no acute distress Nutritional Appearance: thin Orientation: alert, awake and oriented x3 Quality Reporting Tobacco Screening ([facility] 138) Smoking Status: Current every day smoker Assessment and Plan Assessment and Plan (1) Anemia: Status: Chronic Plan: We reviewed findings from his EGD. He was treated for candidiasis in the esophagus with Diflucan. There was a single bleeding angiodysplastic lesion in the stomach which was treated with heater probe. Flat mucosa in the duodenum was suspicious for celiac disease however biopsies were benign, and blood test was negative for celiac disease. Colon prep was ineffective therefore he has been rescheduled for colonoscopy with a different prep. He will have follow-up in the office after that to review results. (2) Constipation: Status: Chronic Plan: Exacerbated by chronic therapeutic opioid use. Samples today of Linzess 72 mcg QAM, may need higher dose or different prescription medication. Medications: New I have examined the patient and the H&P has been reviewed. There are no clinical changes since date of exam.
[2023-07-13 07:11] VITALS: BP 103/57; BP 160/67; PULSE 54; RESP 14; TEMP 35.6; O2SAT 100
[2023-07-13 07:15] VITALS: BP 103/51; BP 160/67; PULSE 52; RESP 14; O2SAT 100
[2023-07-13 07:21] VITALS: BP 126/59; BP 160/67; PULSE 59; RESP 14; O2SAT 100
--- NOTE | 2023-07-13 07:22 | OP.CCLET_ITS ---
07/13/2023 Demetra Serrano [facility] [address] [place] [address] Re : Upper GI endoscopy procedure for Ez Rayn Dear Dr. Serrano This procedure was performed on Thursday, July 13, 2023. My impressions and recommendations are as follows: Impressions : - Benign-appearing esophageal stenosis. Dilated. - Non-bleeding gastric ulcers with no stigmata of bleeding. Biopsied. - Erythematous duodenopathy. Biopsied. Recommendations : - Discharge patient to home. - Resume previous diet. - Continue present medications. - Await pathology results. - Repeat upper endoscopy in 3 months to check healing. My findings are described in the full procedure note, which is enclosed. If I can be of further assistance, please feel free to contact me at . Sincerely, Freedom Leyva, 07/13/2023 7:21:16 AM This report has been signed electronically.
--- NOTE | 2023-07-13 07:22 | OP.EGD_ITS ---
Patient Name: Ez Ryan Procedure Date: 07/13/2023 6:19 AM Date of : 1950 Age: 72 Procedure: Upper GI endoscopy Indications: Epigastric abdominal pain, Dysphagia Providers: Freedom Leyva DO Referring MD: Freedom Leyva DO Medicines: Monitored Anesthesia Care Patient Profile: This is a 72 year old male. Refer to note in patient chart for documentation of history and physical. Patient has symptoms. Patient has symptoms of chronic epigastric abdominal pain and chronic dysphagia. Complications: No immediate complications. Procedure: Pre-Anesthesia Assessment: - Prior to the procedure, a History and Physical was performed, and patient medications and allergies were reviewed. The risks and benefits of the procedure and the sedation options and risks were discussed with the patient. All questions were answered and informed consent was obtained. Patient identification and proposed procedure were verified by the physician in the pre-procedure area. Mental Status Examination: alert and oriented. Airway Examination: normal oropharyngeal airway and neck mobility. Respiratory Examination: clear to auscultation. CV Examination: normal. Prophylactic Antibiotics: The patient does not require prophylactic antibiotics. Prior Anticoagulants: The patient has taken no anticoagulant or antiplatelet agents. After reviewing the risks and benefits, the patient was deemed in satisfactory condition to undergo the procedure. The anesthesia plan was to use monitored anesthesia care (MAC). Immediately prior to administration of medications, the patient was re-assessed for adequacy to receive sedatives. The heart rate, respiratory rate, oxygen saturations, blood pressure, adequacy of pulmonary ventilation, and response to care were monitored throughout the procedure. The physical status of the patient was re-assessed after the procedure. After obtaining informed consent, the endoscope was passed under direct vision. Throughout the procedure, the patient's blood pressure, pulse, and oxygen saturations were monitored continuously. The Colonoscope was introduced through the mouth, and advanced to the second part of duodenum. The upper GI endoscopy was accomplished without difficulty. The patient tolerated the procedure well. Scope In: 6:48:45 AM Scope Out: 6:52:59 AM Total Procedure Duration Time 0 hours 4 minutes 14 seconds Findings: One benign-appearing, intrinsic moderate (circumferential scarring or stenosis; an endoscope may pass) stenosis was found 19 to 22 cm from the incisors. The stenosis was traversed. A guidewire was placed and the scope was withdrawn. Dilation was performed with a Savary dilator with no resistance at 42 Fr. The dilation site was examined and showed mild mucosal disruption. Estimated blood loss was minimal. Two non-bleeding cratered gastric ulcers with no stigmata of bleeding were found in the gastric antrum. The largest lesion was 6 mm in largest dimension. Biopsies were taken with a cold forceps for histology. Verification of patient identification for the specimen was done. Estimated blood loss was minimal. Biopsies were taken with a cold forceps for Helicobacter pylori testing. Verification of patient identification for the specimen was done. Estimated blood loss was minimal. Patchy mildly erythematous mucosa without active bleeding and with no stigmata of bleeding was found in the duodenal bulb and in the first portion of the duodenum. Biopsies were taken with a cold forceps for histology. Verification of patient identification for the specimen was done. Estimated blood loss was minimal. Impression: - Benign-appearing esophageal stenosis. Dilated. - Non-bleeding gastric ulcers with no stigmata of bleeding. Biopsied. - Erythematous duodenopathy. Biopsied. Recommendation: - Discharge patient to home. - Resume previous diet. - Continue present medications. - Await pathology results. - Repeat upper endoscopy in 3 months to check healing. Procedure Code(s): --- Professional --- 09972, Esophagogastroduodenoscopy, flexible, transoral; with insertion of guide wire followed by passage of dilator(s) through esophagus over guide wire 10691, 59,51, Esophagogastroduodenoscopy, flexible, transoral; with biopsy, single or multiple CPT copyright 2021 [employer]. All rights reserved. The codes documented in this report are preliminary and upon front counter clerk review may be revised to meet current compliance requirements. Freedom Leyva DO 07/13/2023 7:21:16 AM This report has been signed electronically. Number of Addenda: 0 Note Initiated On: 07/13/2023 6:19 AM
--- NOTE | 2023-07-13 07:24 | OP.COLON_ITS ---
Patient Name: Ez Ryan Procedure Date: 07/13/2023 6:53 AM Date of : 1950 Age: 72 Procedure: Colonoscopy Indications: Screening for colorectal malignant neoplasm Providers: Freedom Leyva DO Referring MD: Freedom Leyva DO Medicines: Monitored Anesthesia Care Patient Profile: This is a 72 year old male. Refer to note in patient chart for documentation of history and physical. Patient has symptoms. Patient has symptoms of chronic epigastric abdominal pain and chronic dysphagia. Last Colonoscopy: date unknown. Unable to locate last colonoscopy report. Complications: No immediate complications. Procedure: Pre-Anesthesia Assessment: - Prior to the procedure, a History and Physical was performed, and patient medications and allergies were reviewed. The risks and benefits of the procedure and the sedation options and risks were discussed with the patient. All questions were answered and informed consent was obtained. Patient identification and proposed procedure were verified by the physician in the pre-procedure area. Mental Status Examination: alert and oriented. Airway Examination: normal oropharyngeal airway and neck mobility. Respiratory Examination: clear to auscultation. CV Examination: normal. Prophylactic Antibiotics: The patient does not require prophylactic antibiotics. Prior Anticoagulants: The patient has taken no anticoagulant or antiplatelet agents. After reviewing the risks and benefits, the patient was deemed in satisfactory condition to undergo the procedure. The anesthesia plan was to use monitored anesthesia care (MAC). Immediately prior to administration of medications, the patient was re-assessed for adequacy to receive sedatives. The heart rate, respiratory rate, oxygen saturations, blood pressure, adequacy of pulmonary ventilation, and response to care were monitored throughout the procedure. The physical status of the patient was re-assessed after the procedure. After I obtained informed consent, the scope was passed under direct vision. Throughout the procedure, the patient's blood pressure, pulse, and oxygen saturations were monitored continuously. The Colonoscope was introduced through the anus and advanced to the transverse colon. The colonoscopy was performed without difficulty. The patient tolerated the procedure well. The quality of the bowel preparation was unsatisfactory. The rectum was photographed. Scope In: 6:54:58 AM Scope Out: 7:06:12 AM Total Procedure Duration Time 0 hours 11 minutes 14 seconds Findings: The perianal and digital rectal examinations were normal. Extensive amounts of stool was found in the entire colon, precluding visualization. Lavage of the area was performed using copious amounts of sterile water, resulting in incomplete clearance with continued poor visualization. Impression: - Preparation of the colon was unsatisfactory. - Stool in the entire examined colon. - No specimens collected. Recommendation: - Discharge patient to home. - Resume previous diet. - Continue present medications. - Repeat colonoscopy because the bowel preparation was poor. Procedure Code(s): --- Professional --- 22371, 53, Colonoscopy, flexible; diagnostic, including collection of specimen(s) by brushing or washing, when performed (separate procedure) CPT copyright 2021 [employer]. All rights reserved. The codes documented in this report are preliminary and upon air control electronics operator review may be revised to meet current compliance requirements. Freedom Leyva DO 07/13/2023 7:24:10 AM This report has been signed electronically. Number of Addenda: 0 Note Initiated On: 07/13/2023 6:53 AM
--- NOTE | 2023-07-13 07:25 | OP.CCLET_ITS ---
07/13/2023 Demetra Serrano [facility] [address] [place] [address] Re : Colonoscopy procedure for Ez Ryan Dear Dr. Serrano This procedure was performed on Thursday, July 13, 2023. My impressions and recommendations are as follows: Impressions : - Preparation of the colon was unsatisfactory. - Stool in the entire examined colon. - No specimens collected. Recommendations : - Discharge patient to home. - Resume previous diet. - Continue present medications. - Repeat colonoscopy because the bowel preparation was poor. My findings are described in the full procedure note, which is enclosed. If I can be of further assistance, please feel free to contact me at . Sincerely, Freedom Leyva, 07/13/2023 7:24:10 AM This report has been signed electronically.
[2023-07-13 07:30] VITALS: BP 139/60; BP 160/67; PULSE 66; RESP 14; TEMP 36.1; O2SAT 100
[2023-07-13 07:58] VITALS: BP 160/67
--- NOTE | 2023-07-13 09:56 | SUR.PHASEII ---
pt called into hospital stating he has been trying to contacat dr cohen's office. He is concerned because he tried to eat and feels like it's getting stuck like i have an obstruction. I instructed pt that i will contact dr cohen's office and have them contact him. Pt is okay with that and will wait to hear from them. I then called dr cohen's office and spoke with his office staff informing them of pt's complaint and they will contact pt.
--- NOTE | 2023-07-13 10:01 | SUR.PHASEII ---
phone call to pt- dr cohen's office did call him and gave him instructions for today to help with his swallowing issue. I reassured pt and encouraged him to give us a call if anything changes or he has no relief in the next 2 days. He stated understanding
== END 2023-07-13 08:22 | disposition home or self-care (01) ==
LOC: EN 05:26 → AC 05:27
PROVIDERS: PCP Internal Medicine; Referring Provider Internal Medicine Gastroenterology; Visit Provider Internal Medicine Gastroenterology
PROC: 0DJD8ZZ Inspection of Lower Intestinal Tract, Via Natural or Artificial Opening Endoscopic (ICD-10-PCS; CPT 45378; principal; 2023-07-13 06:25)
DX: Z12.11 Encounter for screening for malignant neoplasm of colon (principal); E11.51 Type 2 diabetes mellitus with diabetic peripheral angiopathy without gangrene; J44.9 Chronic obstructive pulmonary disease, unspecified; I48.91 Unspecified atrial fibrillation; K25.7 Chronic gastric ulcer without hemorrhage or perforation; K59.03 Drug induced constipation; T40.2X5A Adverse effect of other opioids, initial encounter; K22.2 Esophageal obstruction; I25.10 Atherosclerotic heart disease of native coronary artery without angina pectoris; I10 Essential (primary) hypertension; E78.5 Hyperlipidemia, unspecified; G89.29 Other chronic pain; M54.9 Dorsalgia, unspecified; F32.A Depression, unspecified; M41.9 Scoliosis, unspecified; M81.0 Age-related osteoporosis without current pathological fracture; F17.210 Nicotine dependence, cigarettes, uncomplicated; Z79.899 Other long term (current) drug therapy; Z79.84 Long term (current) use of oral hypoglycemic drugs
CPT/HCPCS: G0121; 43248; 43239; 82962; 88305; 88342; J7120; J2405

== ENCOUNTER 2024-02-05 12:06 | Day surgery (SDC) | payer MEDICARE, OTHER, SELFPAY ==
[2024-02-05] VITALS (8 sets, daily range): BP systolic 89–153; BP diastolic 45–73; PULSE 57–75; RESP 16; TEMP 36.2–36.3; O2SAT 95–100; BMI 14.3
[2024-02-05] MEDS: Lactated Ringers 1,000 ML 15 ML IV (12:36)
[2024-02-05 12:55] LABS: Bedside Glucose 81 mg/dL (74-106)
--- NOTE | 2024-02-05 13:15 | COLBX_PTH ---
PATIENT: CRISTINO CHINCHILLA LOC: EN U#:[id number] AGE/SX: 73/M ROOM: RE02/05/[address]: Dr. Freedom Leyva DO : 1950 BED: DIS: 02/05/2024 SPEC #: [id number] RECD: 02/05/24 16:10 STATUS: NADEGE DONNA #: [id number] TRINIDAD: 02/05/24 13:[address]: Freedom Leyva DEPT: SURGICAL PATHOLOGY RECD BY: Treva Glass ENTERED: 02/06/24 09:30 SP TYPE: COLON BX OT DR: Dr. Demetra Serrano MD Tissues: A - Esophagus, NOS B - Duodenum, NOS Procedures: Surgery Specimen Level IV HEADER OPERATION: Colonoscopy, EGD with biopsy PRE-OP DIAGNOSIS: Anemia, constipation TISSUE SUBMITTED: A- Random esophagus biopsy, B- Duodenum biopsy MICROSCOPIC DIAGNOSIS A. Esophagus, random biopsy: Fragments of squamous of epithelium with acute inflammation. See comment. B. Duodenum, biopsy: Fragments of duodenal mucosa, no pathologic diagnosis. [facility] 02/07/2024 COMMENT A. Extensive superficial bacterial colonization is noted. Special stain for fungi is positive for numerous organisms (yeast and pseudohyphae) consists of a Jeni species; matched control is appropriate. Clinical correlation and appropriate follow up are necessary. MICROSCOPIC DESCRIPTION Slides are reviewed. GROSS DESCRIPTION A. Received in fixative is one container labeled with the patient's name and designated Random esophagus biopsy. The specimen consists of multiple irregular fragments of light field soft tissue that in aggregate measure 0.6 x 0.3 x 0.1 cm. The specimen is totally submitted in one cassette. B. Received in fixative is one container labeled with the patient's name and designated Duodenum biopsy. The specimen consists of multiple irregular fragments of light field soft tissue that in aggregate measure 0.6 x 0.3 x 0.1 cm. The specimen is totally submitted in one cassette. [facility] 02/06/2024 TC:2 CPT:41649m1,68138
--- NOTE | 2024-02-05 13:25 | PCM.PRE.AN2 ---
ASA Classification* ASA Classification ASA Classification: 3 Assessment & Plan Anesthesia* Anesthesia Assessment Anesthesia Assessment: Discussed sedation and/or anesthesia options, risks, benefits, and alternatives with patient/parents/legal guardian/POA. Questions invited. The patient/parents/legal guardian/POA seems to understand and agrees to proceed with anesthesia plan. Reviewed the physical assessment, medical history, allergy history and patient home medications list prior to surgery/procedure/anesthetic and documented any changes. Performed airway and anesthesia risk assessments. Anesthesia Type Anesthesia Type: MAC History Source History Obtained from:: Patient and Chart Anesthesia Focused Assessment* Temperature: 97.2 F Pulse Rate: 75 Blood Pressure: 153/73 Respiratory Rate: 16 Pulse Ox: 100 Oxygen Delivery Method: Room Air Airway Assessment Mouth opens: >3 cm Mallampati Score: I Teeth Condition: Dentures and Full Neck Range of motion (ROM): Full ROM Pertinent Findings EKG Pertinent Findings:: September 30, 2022. Sinus rhythm with occasional PVCs and PACs. Stress Test Pertinent Findings:: December 13, 2021. Ejection fraction is 64%. ECHO Pertinent Findings:: March 04, 2020. Ejection fraction is 53%. Consults Pertinent Findings:: February 17, 2021. Seen by Dr. Quinteros Coronary artery disease - status post stent in 2013. Currently stable. Focused Labs Anesthesia Preop lab: CBC WBC 7.0 K/mm3 (4.4-11.0) 04/22/23 15:28 RBC 3.35 M/mm3 (4.6-6.2) L 04/22/23 15:28 Hgb 11.2 g/dL (13.0-16.5) L 04/22/23 15:28 Hct 34.2 % (40-54) L 04/22/23 15:28 Plt Count 193 K/mm3 (150-450) 04/22/23 15:28 CHEMISTRY Potassium 4.2 mmol/L (3.5-5.1) 04/22/23 15:28 Sodium 130 mmol/L (136-145) L 04/22/23 15:28 BUN 22 mg/dL (7-18) H 04/22/23 15:28 Creatinine 1.24 mg/dL (0.70-1.30) 04/22/23 15:28 Glucose 94 mg/dL (74-106) 04/22/23 15:28 POC Glucose 81 mg/dL (74-106) 02/05/24 12:31 TSH 1.25 uIU/mL (0.358-3.74) 07/05/22 12:50 COAG PT 14.0 SECONDS (11.7-14.9) 07/24/16 13:30 Pre-Assessment Diagnosis/Proposed Procedure Planned Operative Procedure(s): EGD and Colonoscopy Anesthesia History 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 When Was Last Pacemaker Check QUESTION #4 FULL TEXT: You/Your Family Experience fever (hyperthermia) with Anesthesia Last Oral Intake Last Oral intake: Last Oral Intake NPO since 04:00 02/05/24 12:25 Meds taken in AM with sips of Yes 02/05/24 12:25 water? Meds patient instructed to see mar 02/05/24 12:25 take am of surgery PONV PONV - house carpenter helper: PONV - house carpenter helper Female HX of Motion Sickness HX of N/V After Surgery Non-Smoker Duration of Surgery greater than 60 minutes Number of Risk Factors PONV Score Height & Weight Height & Weight: Anesthesia: Height & Weight Height 5 ft 8 in 02/05/24 12:25 Weight: 42.638 kg 02/05/24 12:25 Body Mass Index (BMI) 14.3 02/05/24 12:25 Respiratory Assessment Respiratory Assessment - house carpenter helper: Respiratory Tract Infection Hx - house carpenter helper Hx Respiratory Tract Infection No 07/09/23 09:42 STOP Sleep Apnea STOP Sleep Apnea - house carpenter helper: STOP Sleep Apnea - house carpenter helper Hx Hypertension Yes 07/09/23 09:42 Hx Sleep Apnea No 07/13/23 07:30 CPAP No 07/13/23 07:11 BIPAP No 07/10/22 12:26 Do you snore loudly (louder than talking or can be heard Do you often feel tired/ fatigued/ sleepy during daytime? Has anyone observed you stop breathing during sleep? STOP Results QUESTION #5 FULL TEXT : Do you snore loudly (louder than talking or can be heard through closed doors)? 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 Specify any problems Hx of Preganancy in last 3 Months Nurse Filling Out Transfusion & Questions: Date: Time: Patient unable to answer at this time (ie. confused, unrespo /Reproduction History /Reproductive History - house carpenter helper: /Reproductive Hx- house carpenter helper Hx Now Gestational Age (in weeks): EDC: Hx Hx Para Hx Section SAB No 07/10/22 12:26 Active Medications Active Medications: Current Medications Generic Name Dose Route Start Last Admin Trade Name Freq PRN Reason Stop Dose Admin Lactated Ringer's 1,000 mls @ 15 mls/hr 02/05/24 12:15 02/05/24 12:36 IV 15 mls/hr .Q48H JUDSON Administration PFSH Medical History History of edema Loss of hearing Wears glasses Wears dentures Depression Anxiety Back pain Dietary restriction History of hiatal hernia Gastric reflux Smoker Hypertension History of echocardiogram History of stress test Cardiology follow-up encounter Pipe smoker COPD (chronic obstructive pulmonary disease) Osteoporosis Diabetes Seasonal allergies H/o blood transfusion Peripheral vascular occlusive disease History of non-ST elevation myocardial infarction (NSTEMI) (05/23/14) Onychomycosis Atherosclerosis of coronary artery of [place] heart without angina pectoris (05/25/14) Essential (primary) hypertension Gastroenteritis Acute bronchitis Scoliosis Knee pain Fatigue Hemorrhoids Weight loss Arthritis Anemia Orthostatic hypotension Pre-syncope Hyperlipidemia Diabetes mellitus, type II Depression with anxiety Atrial flutter, paroxysmal Home Medications ?Medication ?Instructions ?Recorded ?Last Taken ?Type loratadine 10 mg tablet 10 mg PO DAILY ALLERGIES 09/03/14 03/16/22 History tramadol 50 mg tablet 50 mg PO Q6H PRN Pain Score 1-10 03/03/20 02/05/24 04:00 History acetaminophen 500 mg tablet 1,000 mg PO Q6H PRN Pain 03/16/22 03/15/22 History albuterol sulfate 2.5 mg/3 mL 2.5 mg (3 mL) inhalation Q6H PRN 10/30/22 Unknown Rx (0.083 %) solution for nebulization SOB #180 mL nebulizer tubing and masks 10/31/22 Unknown History lidocaine-prilocaine 2.5 %-2.5 % 1 applic topical ONCE #30 grams 11/13/22 Unknown Rx topical cream atorvastatin 80 mg tablet 80 mg PO QHS CHOLESTEROL #90 tabs 11/22/22 Unknown Rx pantoprazole 40 mg tablet,delayed 40 mg PO BID #180 tabs 03/26/23 02/05/24 10:00 Rx release gabapentin 100 mg capsule 100 mg PO QHS #90 caps 06/05/23 Unknown Rx citalopram 20 mg tablet 20 mg PO DAILY #90 tabs 08/20/23 Unknown Rx albuterol sulfate 90 mcg/actuation 1 - 2 puff inhalation Q4H PRN PRN 09/12/23 Unknown Rx aerosol inhaler (Ventolin HFA) Wheezing #1 ea metformin 500 mg tablet 500 mg PO DAILY #90 tabs 09/12/23 Unknown Rx fluticasone fur. 100 mcg-umeclid 1 inh inhalation DAILY #28 ea 09/19/23 02/05/24 10:00 Rx 62.5 mcg-vilant 25 mcg inhalat.powder (Trelegy Ellipta) buspirone 15 mg tablet 15 mg PO BID #180 tabs 12/20/23 02/05/24 10:00 Rx metoprolol succinate 25 mg 25 mg PO DAILY #90 tabs 12/20/23 02/05/24 10:00 Rx tablet,extended release 24 hr peg 3350-electrolytes 236 240 ml PO Q10M #4,000 mL 01/18/24 Unknown Rx gram-22.74 gram-6.74 gram-5.86 gram solution (Golytely) ramipril 5 mg capsule 5 mg PO QHS 02/01/24 Unknown History Allergy/AdvReac Type Severity Reaction Status Date / Time Penicillins (PCN) Allergy Hives Verified 02/05/24 12:23 typhoid vaccine (Typhoid Allergy Other Verified 02/05/24 12:23 Vaccine) bupropion HCl (From AdvReac Other Verified 02/05/24 12:23 Wellbutrin) sildenafil (From Viagra) AdvReac Other Verified 02/05/24 12:23 Family History Father Cancer Mother Kidney failure Other Kidney disease Surgical History Hx of spinal surgery History of radiofrequency ablation (RFA) of nerve of cervical spine History of surgery on left wrist History of hernia repair History of open reduction and internal fixation (ORIF) procedure (2018) History of left heart catheterization History of coronary artery stent placement Social History household members: spouse housing: house Smoking Status: Current every day smoker tobacco type: pipe other: 1 q2hrs Tobacco: How many years used: 40 alcohol intake: never what type of physical activity do you participate in: other details: house work, and yard work. do you feel safe at home: Yes Review of Systems (Anesthesia) ROS Narrative System reviewed and no additional complaints, except as documented.
--- NOTE | 2024-02-05 13:39 | PCM.HP.BLA ---
History and Physical Date of Admission: 02/05/24 73 M who presents to the office today for follow up. EGD and Colonoscopy 07.13.23 EGD Benign-appearing esophageal stenosis. Dilated. Non-bleeding gastric ulcers with no stigmata of bleeding. Biopsied. Erythematous duodenopathy. Biopsied. Colonoscopy Preparation of the colon was unsatisfactory. Stool in the entire examined colon. No specimens collected. OV 01.18.24 pt reports that he is doing well overall. Notes that he has a bm everyday, sometimes hard to pass; denies blood in the stool. ROS Const Constitutional: Positive for fatigue, headache(s) and weight change (weight loss); No fever(s) ENT ENT: Positive for headache(s); No difficulty swallowing Gastro GI: Positive for bloating and excessive flatus; No abdominal pain, belching, change in bowel habits, change in stool character, coffee ground emesis, constipation, cramping, diarrhea, heartburn, difficulty swallowing, feeling full early, incontinent of stools, Vomiting blood/hematemesis, Blood in stool, loose stools, Black,tarry stools, nausea/dyspepsia, pain with swallowing, vomiting or other Musc Musculoskeletal: Positive for joint pain and Arthritis Skin Skin: No yellowing of the eye or itchy eyes Neuro Neurology: Positive for headache(s) Psych Psychiatric: No anxiety and No depression Endo Endocrine: Positive for fatigue and weight change (weight loss) Aller/Imm Allergy/Immunologic: No itchy eyes Eric/Lymp Hematologic/Lymphatic: No easy bleeding or easy bruising Exam Const General: cooperative and no acute distress Nutritional Appearance: thin Orientation: alert, awake and oriented x3 Assessment and Plan Assessment and Plan (1) Anemia: Status: Chronic Plan: We reviewed findings from his EGD. He was treated for candidiasis in the esophagus with Diflucan. There was a single bleeding angiodysplastic lesion in the stomach which was treated with heater probe. Flat mucosa in the duodenum was suspicious for celiac disease however biopsies were benign, and blood test was negative for celiac disease. Colon prep was ineffective therefore he has been rescheduled for colonoscopy with a different prep. He will have follow-up in the office after that to review results. (2) Constipation: Status: Chronic Plan: Exacerbated by chronic therapeutic opioid use. Samples today of Linzess 72 mcg QAM, may need higher dose or different prescription medication. Since he had a really poor prep during his last colonoscopy we will reschedule his colonoscopy. We will also repeat his upper endoscopy due to his persistent anemia. Orders: Orders EGD 02/05/24 K21.9 - Gastro-esophageal reflux disease without esophagitis Colonoscopy 02/05/24 K59.00 - Constipation, unspecified I have examined the patient and the H&P has been reviewed. There are no clinical changes since date of exam.
--- NOTE | 2024-02-05 14:04 | OP.COLON_ITS ---
Patient Name: Ez Ryan Procedure Date: 02/05/2024 1:54 PM Date of : 1950 Age: 73 Procedure: Colonoscopy Indications: Screening for colorectal malignant neoplasm Providers: Freedom Leyva DO Medicines: Monitored Anesthesia Care Patient Profile: This is a 73 year old male. Refer to note in patient chart for documentation of history and physical. Last Colonoscopy: date unknown. Unable to locate last colonoscopy report. Complications: No immediate complications. Procedure: Pre-Anesthesia Assessment: - Prior to the procedure, a History and Physical was performed, and patient medications and allergies were reviewed. The patient is competent. The risks and benefits of the procedure and the sedation options and risks were discussed with the patient. All questions were answered and informed consent was obtained. Patient identification and proposed procedure were verified by the physician in the pre-procedure area. Mental Status Examination: alert and oriented. Airway Examination: normal oropharyngeal airway and neck mobility. Respiratory Examination: clear to auscultation. CV Examination: normal. Prophylactic Antibiotics: The patient does not require prophylactic antibiotics. Prior Anticoagulants: The patient has taken no anticoagulant or antiplatelet agents except for NSAID medication. ASA Grade Assessment: II - A patient with mild systemic disease. After reviewing the risks and benefits, the patient was deemed in satisfactory condition to undergo the procedure. The anesthesia plan was to use monitored anesthesia care (MAC). Immediately prior to administration of medications, the patient was re-assessed for adequacy to receive sedatives. The heart rate, respiratory rate, oxygen saturations, blood pressure, adequacy of pulmonary ventilation, and response to care were monitored throughout the procedure. The physical status of the patient was re-assessed after the procedure. After I obtained informed consent, the scope was passed under direct vision. Throughout the procedure, the patient's blood pressure, pulse, and oxygen saturations were monitored continuously. The Colonoscope was introduced through the anus and advanced to the hepatic flexure. The colonoscopy was performed without difficulty. The patient tolerated the procedure well. The quality of the bowel preparation was poor. Scope In: 1:56:55 PM Scope Out: 1:59:55 PM Total Procedure Duration Time 0 hours 3 minutes 0 seconds Findings: The perianal and digital rectal examinations were normal. Extensive amounts of stool was found in the entire colon, interfering with visualization. Impression: - Preparation of the colon was poor. - Stool in the entire examined colon. - No specimens collected. Recommendation: - Discharge patient to home. - Resume previous diet. - Continue present medications. - Repeat colonoscopy in 3 months because the bowel preparation was suboptimal. Procedure Code(s): --- Professional --- 89901, 53, Colonoscopy, flexible; diagnostic, including collection of specimen(s) by brushing or washing, when performed (separate procedure) CPT copyright 2021 [employer]. All rights reserved. The codes documented in this report are preliminary and upon field service technician review may be revised to meet current compliance requirements. Freedom Leyva DO 02/05/2024 2:04:32 PM This report has been signed electronically. Number of Addenda: 0 Note Initiated On: 02/05/2024 1:54 PM
--- NOTE | 2024-02-05 14:05 | PCM.POST.ANE ---
Anesthesia: Postop Eval I Current Vital Signs Temperature: 97.1 F Pulse Rate: 59 Blood Pressure: 89/48 Respiratory Rate: 16 Pulse Ox: 95 Oxygen Delivery Method: Room Air Assessment Airway patent: Yes Spontaneous unlabored respirations: Yes Mental status: Awake and Calm nausea: No Vomiting: No Anesthesia Complication: No Fluid Hydration Crystalloid volume administer (ml): 600 Total IV fluid infused: 600 Progress Note Anesthesia document: Postop Eval 1 completed: Yes
--- NOTE | 2024-02-05 14:05 | OP.CCLET_ITS ---
02/05/2024 Demetra Serrano [facility] [address] [place] [address] Re : Colonoscopy procedure for Ez Ryan Dear Dr. Serrano This procedure was performed on Monday, February 05, 2024. My impressions and recommendations are as follows: Impressions : - Preparation of the colon was poor. - Stool in the entire examined colon. - No specimens collected. Recommendations : - Discharge patient to home. - Resume previous diet. - Continue present medications. - Repeat colonoscopy in 3 months because the bowel preparation was suboptimal. My findings are described in the full procedure note, which is enclosed. If I can be of further assistance, please feel free to contact me at . Sincerely, Freedom Friend, 02/05/2024 2:04:32 PM This report has been signed electronically.
--- NOTE | 2024-02-05 14:08 | OP.EGD_ITS ---
Patient Name: Ez Ryan Procedure Date: 02/05/2024 1:37 PM Date of : 1950 Age: 73 Procedure: Upper GI endoscopy Indications: Odynophagia Providers: Freedom Leyva DO Medicines: Monitored Anesthesia Care Patient Profile: This is a 73 year old male. Refer to note in patient chart for documentation of history and physical. Patient has symptoms of chronic dysphagia and acute heartburn. Complications: No immediate complications. Procedure: Pre-Anesthesia Assessment: - Prior to the procedure, a History and Physical was performed, and patient medications and allergies were reviewed. The patient is competent. The risks and benefits of the procedure and the sedation options and risks were discussed with the patient. All questions were answered and informed consent was obtained. Patient identification and proposed procedure were verified by the physician in the pre-procedure area. Mental Status Examination: alert and oriented. Airway Examination: normal oropharyngeal airway and neck mobility. Respiratory Examination: clear to auscultation. CV Examination: normal. Prophylactic Antibiotics: The patient does not require prophylactic antibiotics. Prior Anticoagulants: The patient has taken no anticoagulant or antiplatelet agents except for NSAID medication. ASA Grade Assessment: III - A patient with severe systemic disease. After reviewing the risks and benefits, the patient was deemed in satisfactory condition to undergo the procedure. The anesthesia plan was to use monitored anesthesia care (MAC). Immediately prior to administration of medications, the patient was re-assessed for adequacy to receive sedatives. The heart rate, respiratory rate, oxygen saturations, blood pressure, adequacy of pulmonary ventilation, and response to care were monitored throughout the procedure. The physical status of the patient was re-assessed after the procedure. After obtaining informed consent, the endoscope was passed under direct vision. Throughout the procedure, the patient's blood pressure, pulse, and oxygen saturations were monitored continuously. The Colonoscope was introduced through the mouth, and advanced to the second part of duodenum. The upper GI endoscopy was accomplished without difficulty. The patient tolerated the procedure well. Scope In: 1:50:14 PM Scope Out: 1:54:32 PM Total Procedure Duration Time 0 hours 4 minutes 18 seconds Findings: Patchy, white plaques were found in the entire esophagus. Biopsies were taken with a cold forceps for histology. Verification of patient identification for the specimen was done. Estimated blood loss was minimal. The entire examined stomach was normal. Localized mild inflammation characterized by congestion (edema) and erosions was found in the duodenal bulb. Biopsies were taken with a cold forceps for histology. Verification of patient identification for the specimen was done. Estimated blood loss was minimal. Impression: - Esophageal plaques were found, consistent with candidiasis. Biopsied. - Normal stomach. - Duodenitis. Biopsied. Recommendation: - Discharge patient to home. - Resume previous diet. - Continue present medications. - Await pathology results. - Nystatin suspension 100,000 units PO QID for 1 week. Procedure Code(s): --- Professional --- 25170, Esophagogastroduodenoscopy, flexible, transoral; with biopsy, single or multiple CPT copyright 2021 [employer]. All rights reserved. The codes documented in this report are preliminary and upon welfare analyst review may be revised to meet current compliance requirements. Freedom Leyva DO 02/05/2024 2:08:15 PM This report has been signed electronically. Number of Addenda: 0 Note Initiated On: 02/05/2024 1:37 PM
--- NOTE | 2024-02-05 14:08 | OP.CCLET_ITS ---
02/05/2024 Demetra Serrano [facility] [address] [place] [address] Re : Upper GI endoscopy procedure for Ez Ryan Dear Dr. Serrano This procedure was performed on Monday, February 05, 2024. My impressions and recommendations are as follows: Impressions : - Esophageal plaques were found, consistent with candidiasis. Biopsied. - Normal stomach. - Duodenitis. Biopsied. Recommendations : - Discharge patient to home. - Resume previous diet. - Continue present medications. - Await pathology results. - Nystatin suspension 100,000 units PO QID for 1 week. My findings are described in the full procedure note, which is enclosed. If I can be of further assistance, please feel free to contact me at . Sincerely, Freedom Leyva, 02/05/2024 2:08:15 PM This report has been signed electronically.
--- NOTE | 2024-02-05 15:12 | POSTOPAN2_ITS ---
Anesthesia Postop Eval I Sum Postop Eval Completion status Anesthesia document: Postop Eval 1 completed: Yes Anesthesia Postop Eval I Summary Anesthesia Postop Eval I Summary: Anesthesia Postop Eval I: Assessment Summary Airway patent Yes 02/05/24 14:14 [email or web address] Spontaneous unlabored Yes 02/05/24 14:14 [email or web address] [email or web address] respirations Mental status Awake,Calm 02/05/24 14:14 [email or web address] [email or web address] nausea No 02/05/24 14:14 [email or web address] Vomiting No 02/05/24 14:14 [email or web address] Anesthesia Postop Eval I: Fluid Summary Crystalloid volume administer 600 02/05/24 14:14 [email or web address] (ml) Colloids volume administered ( ml) Blood Product volume administered (ml) Total IV fluid infused 600 02/05/24 14:14 [email or web address] Anesthesia Postop Eval I: Summary Notes Anesthesia Complication No 02/05/24 14:14 [email or web address] Anesthesia Complication Comment: Post-operative progress note Anesthesia: Postop Eval II Evaluation Mental status: Awake and Calm Pain Level: 0 nausea: No Vomiting: No Complications Anesthesia Complication: No
--- NOTE | 2024-02-05 15:12 | PCM.POSTANE2 ---
Anesthesia Postop Eval I Sum Postop Eval Completion status Anesthesia document: Postop Eval 1 completed: Yes Anesthesia Postop Eval I Summary Anesthesia Postop Eval I Summary: Anesthesia Postop Eval I: Assessment Summary Airway patent Yes 02/05/24 14:14 SLAB LIFTING [email or web address] Spontaneous unlabored Yes 02/05/24 14:14 SLAB LIFTING [email or web address] respirations Mental status Awake,Calm 02/05/24 14:14 SLAB LIFTING [email or web address] nausea No 02/05/24 14:14 SLAB LIFTING SUPERVISOR.[email or web address] Vomiting No 02/05/24 14:14 SLAB LIFTING [email or web address] Anesthesia Postop Eval I: Fluid Summary Crystalloid volume administer 600 02/05/24 14:14 SLAB LIFTING [email or web address] (ml) Colloids volume administered ( ml) Blood Product volume administered (ml) Total IV fluid infused 600 02/05/24 14:14 SLAB LIFTING [email or web address] Anesthesia Postop Eval I: Summary Notes Anesthesia Complication No 02/05/24 14:14 SLAB LIFTING [email or web address] Anesthesia Complication Comment: Post-operative progress note Anesthesia: Postop Eval II Evaluation Mental status: Awake and Calm Pain Level: 0 nausea: No Vomiting: No Complications Anesthesia Complication: No
== END 2024-02-05 15:10 | disposition home or self-care (01) ==
LOC: EN 12:06 → AC 12:08
PROVIDERS: PCP Internal Medicine; Referring Provider Internal Medicine; Visit Provider Internal Medicine Gastroenterology
PROC: 0DJD8ZZ Inspection of Lower Intestinal Tract, Via Natural or Artificial Opening Endoscopic (ICD-10-PCS; CPT 45378; principal; 2024-02-05 13:10)
DX: D64.9 Anemia, unspecified (principal); E11.9 Type 2 diabetes mellitus without complications; K29.80 Duodenitis without bleeding; K59.00 Constipation, unspecified; K22.89 Other specified disease of esophagus
CPT/HCPCS: 43239; 45378; 82962; 88305; J7120

== ENCOUNTER 2024-10-09 09:43 | Outpatient (CLI) | payer MEDICARE, OTHER, SELFPAY ==
--- NOTE | 2024-10-09 09:55 | CT_ITS ---
PROCEDURE: CHEST WITHOUT CONTRAST REASON FOR EXAM: RIGHT SIDED LOWER LATERAL CHEST WALL PAIN TECHNIQUE: Chest CT without contrast. COMPARISON: Comparison is made with prior study dated September 30, 2022. FINDINGS: Hardware: None. Lymph nodes: Small mediastinal lymph nodes. Heart and Vasculature: Normal heart size. No pericardial effusion. Atherosclerotic calcifications of the thoracic aorta. Thoracic aorta and pulmonary arteries have normal contours; noncontrast technique limits evaluation. Coronary Artery Calcifications: Present Lungs and Airways: Mild emphysematous changes are present. There is a 2.5 cm x 1.8 cm irregular cavitated mass in the lateral aspect of the right lower lobe. A neoplastic process should be ruled out. There is also evidence of scarring in the right lower lobe. Pleura: No pleural effusion. No pneumothorax. Upper Abdomen: There is a 1 cm cyst in the anterior aspect of the left lobe of the liver. Small cysts also seen in the inferior aspect of the right lobe of the liver. Bilateral renal cysts. Questionable 3.6 cm 4.3 cm solid mass in the lateral aspect of the right kidney. Correlation with ultrasound recommended. Bones: Degenerative changes of the thoracic spine. CT/Chest without Contrast IMPRESSION: 2.5 cm x 1.8 cm irregular cavitated mass in the lateral aspect of the right low er lobe. A neoplastic process should be ruled out although an infectious process may have a similar appearance. Findings suggestive of a solid mass in the lateral aspect of the left kidney. Correlation with ultrasound recommended. One or more dose reduction techniques were used (e.g., Automated exposure contr ol, adjustment of the mA and/or kV according to patient size, use of iterative reconstruction technique). Reading Location: [id number]
[2024-10-09 10:41] LABS: Absolute Lymphocyte Count 1.47 X10^3/uL (0.83-4.51); Absolute Neutrophil Count 3.8 X10^3/uL (2.0-7.7); Basophil# 0.04 X10^3/uL; Basophil% 0.6 % (0-1); Eosinophil# 0.19 X10^3/uL; Eosinophils% 2.9 % (0-5); Hematocrit 34.6 % (40-54); Hemoglobin 11.9 g/dL (13.0-16.5); Lymphocyte # 1.47 X10^3/ul (0.83-4.51); Lymphocyte % 22.5 % (19-41); Mean Corp Hgb Conc 34.4 g/dL (32-36); Mean Corpuscular Volume 95.8 fL (80-94); Mean Platelet Vol. 8.5 fl (6.2-12.0); Monocyte# 0.94 X10^3/uL; Monocyte% 14.4 % (0-10); NRBC Flagged by Analyzer 0 % (0-5); Neutrophil % 58.4 % (47-70); Platelet Count 474 K/mm3 (150-450); RBC Distribution Width CV 12.5 % (11.6-14.6); RBC Distribution Width SD 44.2 fl (35.1-43.9); Red Blood Count 3.61 M/mm3 (4.6-6.2); White Blood Count 6.5 K/mm3 (4.4-11.0)
[2024-10-09 11:08] LABS: D-Dimer Quantitative (DVT/PE) 3.95 FEU/ug/m (0.27-0.49)
[2024-10-09 11:18] LABS: Hemoglobin A1c 5.6 % (<=5.6)
[2024-10-09 12:32] LABS: ALB/GLOB Ratio 1.2 RATIO (0.9-2.4); AST(SGOT) 17 U/L (<=37); Alanine Aminotransfer ALT/SGPT 9 U/L (<=46); Albumin, Serum 3.6 g/dL (3.4-4.8); Alkaline Phosphatase 81 U/L (40-129); Anion Gap 11 (5-15); BUN 12 mg/dL (4-19); BUN/Creat Ratio 12.4 RATIO (10-20); Calcium,Total 9.6 mg/dL (7.6-11.0); Carbon Dioxide 24.9 mmol/L (21.0-32.0); Chloride 93 mmol/L (98-108); Cholesterol 141 mg/dL (<=200); Creatinine, Serum 0.94 mg/dL (0.70-1.20); EST Glomerular Filtration Rate 86 (>60); Glucose 102 mg/dL (70-99); High Density Lipoprotein 43 mg/dL; Low Density Lipoprotein Calc. 81 mg/dL; Magnesium 1.9 mg/dL (1.5-2.2); Potassium 4.2 mmol/L (3.3-5.1); Protein, Total 6.7 g/dL (5.9-8.4); Sodium Level 128 mmol/L (133-145); Total Bilirubin 0.26 mg/dL (0.00-1.30); Triglycerides 81 mg/dL; Very Low Density Lipoprotein 16 mg/dL (5-40); cholesterol:hdl ratio screen 3.25
[2024-10-09 12:38] LABS: PSA,Total - Annual Screen 0.93 ng/mL (0.02-4.00); Vitamin B12 613 pg/mL (180-914); Vitamin D,25 Hydroxy 30.4 ng/mL (30-100)
== END 2024-10-09 23:59 | disposition home or self-care (01) ==
PROVIDERS: PCP Internal Medicine; Referring Provider Internal Medicine; Visit Provider Internal Medicine
DX: R07.9 Chest pain, unspecified (principal); J44.9 Chronic obstructive pulmonary disease, unspecified; E11.9 Type 2 diabetes mellitus without complications; I25.10 Atherosclerotic heart disease of native coronary artery without angina pectoris; R63.4 Abnormal weight loss; I73.9 Peripheral vascular disease, unspecified; E78.5 Hyperlipidemia, unspecified; I10 Essential (primary) hypertension; Z12.5 Encounter for screening for malignant neoplasm of prostate; Z13.220 Encounter for screening for lipoid disorders; E55.9 Vitamin D deficiency, unspecified
CPT/HCPCS: 71250; 80053; 80061; 82306; 82607; 83036; 83735; 84153; 84443; 85025; 85379; G0103

== ENCOUNTER → 2024-11-11 | Outpatient (CLI) | payer MEDICARE, OTHER, SELFPAY ==
--- NOTE | 2024-11-11 10:30 | PET_ITS ---
PROCEDURE: PET/CT TUMOR BASE -THIGH INIT 11/11/2024 REASON FOR EXAM: 74 y/o M with LUNG MASS TECHNIQUE: Following the intravenous administration of radionucleotide, image acquisition on a dedicated PET/CT unit was performed at one hour post injection. A preliminary CT study encompassing the Skull base, neck, chest, abdomen, pelvis, and proximal thighs was performed for purposes of attenuation correction and anatomic localization. The proximal thighs were also included. The patient's blood glucose level was 83 mg/dL (allowable range: 50-180 mg/dL). RADIOPHARMACEUTICAL: 14.586 mCi 18F-FDG (Fluorodeoxyglucose F18) IV was injected into he patient. RADIATION DOSE SUMMARY: Effective Dose: Approximately 7 mSv for a standard whole-body PET scan Organ Doses: Varies by organ, with higher doses typically to the bladder, liver, and brain COMPARISON: COMPARISON FROM CT, PET OR OTHER PERTINENT EXAMS: Chest CT of 10/09/2024.. FINDINGS: Physiologic uptake: There may be expected metabolic uptake within the brain, tongue and floor of the mouth and larynx/vocal cords, heart, lisette (many normal individuals have hilar uptake in less than 3 nodes with mildly avid hilar nodes less than 2.7 SUV), liver and spleen, system, and GI tract and symmetric muscle uptake. FDG AVID AND NON-AVID LESIONS. Reported avid SUV values (g/mL*) are maximum SUV. NECK: There are no significant neck abnormalities. CHEST: Chest wall- There are no significant chest wall abnormalities. Axilla- There are no significant axillary abnormalities. Lung parenchyma- Numerous bilateral pulmonary parenchymal hypermetabolic nodules are seen, concerning for the presence of malignancy. SUV max values are obtained for some: Lateral right lower lobe SUV max 4.9; Lateral right upper lobe SUV max 6.5; Left inferior major fissure area SUV max 4.6; Central left upper lobe SUV max 5.1 Mediastinum- There is no significant hilar or mediastinal adenopathy. Pleura- There are no significant pleural abnormalities. ABDOMEN: Stomach- No significant abnormalities. Liver- No significant abnormalities. Spleen- No significant abnormalities. Pancrease- No significant abnormalities. Kidneys- No significant abnormalities. Bowel- Normal bowel activity. Spine- No significant abnormalities. A calcified and tortuous aorta is noted PELVIS: An area of uptake extending from the anterior bladder is seen, most probably representing a urachal cyst. Nevertheless, additional areas of irregular defects in the urinary bladder activity periphery, are concerning for the presence of malignancy; recommend urology consultation at this time, if not already performed. Bowel- Normal physiologic bowel activity is identified. LOWER EXTREMITIES: Bones- With the use of bone window settings, there are no osteolytic or osteoblastic lesions. There are no FDG avid lesions within the visualized portion of the axial skeleton. Prominent degenerative changes of the lower thoracic and lumbar spine, also lumbar dextroscoliosis. PET/PET/CT Tumor Base -Thigh Init IMPRESSION: FDG avid- Multiple hypermetabolic bilateral lung nodules are seen, highly concerning for malignancy, and probably metastatic disease, given the extensive nature. Suspicious- Areas of irregular defects in the urinary bladder activity periphery are seen, at least somewhat concerning for the presence of malignancy; recommend urology consultation at this time, if not already perform ed. Please note the low-dose CT scan was performed to facilitate PET image reconstr uction and anatomic localization and does not replace a diagnostic CT. Any diagnostic CT requested and performed at the time of the PET will be reported separately. Reading Location: [id number]
== END | disposition home or self-care (01) ==
LOC: ONC 09:46
PROVIDERS: PCP Internal Medicine; Referring Provider Nurse Practitioner Acute Care; Visit Provider Nurse Practitioner Acute Care
DX: R91.8 Other nonspecific abnormal finding of lung field (principal)
CPT/HCPCS: 78815; A9552

== ENCOUNTER 2024-12-05 07:51 | Outpatient (CLI) | payer MEDICARE, OTHER, SELFPAY ==
[2024-11-27 14:23] LABS: Platelet Count 337 K/mm3 (150-450)
[2024-11-27 15:01] LABS: Prothrombin Time (Protime)PT. 13.3 SECONDS (11.7-14.9)
[2024-11-27 15:02] LABS: Partial Thromboplast Time 29.3 Seconds (24.1-36.2)
[2024-12-05] VITALS (14 sets, daily range): BP systolic 77–178; BP diastolic 46–75; PULSE 38–72; RESP 13–21; TEMP 36.2; O2SAT 77–99; BMI 14.8
--- NOTE | 2024-12-05 | ASPIGT_PTH ---
PATIENT: CRISTINO CHINCHILLA LOC: [place] U#:[id number] AGE/SX: 74/M ROOM: RE12/05/[address]: NAZARIO Diaz : 1950 BED: DIS: 12/05/2024 SPEC #: [id number] RECD: 12/05/24 09:15 STATUS: NADEGE REKandy #: [id number] TRINIDAD: 12/05/24 00:[address]: Ashley Jeong NP DEPT: SURGICAL PATHOLOGY RECD BY: Nawaf Argueta ENTERED: 12/05/24 10:26 SP TYPE: ASP RAD OTHR DR: Dr. Demetra Serrano MD Tissues: A - Lung, NOS Procedures: FNA Specimen Adequacy Special Stain Group II Surgery Specimen Level IV Imprint (control) HEADER OPERATION: CT guided lung biopsy - right PRE-OP DIAGNOSIS: Nodules TISSUE SUBMITTED: A- Right lung biopsy - 5 cores MICROSCOPIC DIAGNOSIS A. 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 Tobias. Immediate Evaluation = 1. Adequate. 2. Adequate. MICROSCOPIC DESCRIPTION Slides are reviewed. GROSS DESCRIPTION A. Received in formalin in a container labeled with the patient's name, date of , and lung biopsy R are multiple red-brown, tiny and wispy fragments of soft tissue measuring 0.4 x 0.3 x 0.1 cm in aggregate. Submitted in toto in A1. SMB 12-05-2024 CPT:13962,47892
--- NOTE | 2024-12-05 07:53 | CT_ITS ---
PROCEDURE: BIOPSY/INJ OR NEEDLE PLACEMENT 12/05/2024 REASON FOR EXAM: MULTIPLE PET POSITIVE NODULES TECHNIQUE: Procedure: Following informed consent, and using standard sterile technique, a CT-guided biopsy a hypermetabolic superior segment right lower lobe nodule was performed. 2% lidocaine local anesthesia was followed by placement of a CorVocet 20 gauge 10 cm core biopsy set under CT guidance. 5 samples were then obtained. Postprocedure images show the presence of a small right pneumothorax. Following this, the patient developed hypotension and bradycardia, with heart rate as low as 40 noted. The patient was then transferred to the emergency department, for further evaluation and treatment. One or more dose reduction techniques were used (e.g., Automated exposure control, adjustment of the mA and/or kV according to patient size, use of iterative reconstruction technique). RADIATION DOSE SUMMARY: DLP: 1947.85 mGycm COMPARISON: PET-CT examination of 11/11/2024. CT/Biopsy/Inj or Needle Placement IMPRESSION: 1. Successful core biopsy a superior segment right lower lobe hypermetabolic no dule. 2. Small pneumothorax seen initially on the right. 3. Following the procedure, the patient developed hypotension and bradycardia, with heart rate as low as 40 noted. The patient was then transferred to the emergency department, for further evaluation and tr eatment. Reading Location: [place] [id number]
[2024-12-05] MEDS: 0.9% Saline Lock 10 ML Syringe IV (08:30)
[2024-12-05] MEDS: Midazolam 2 MG/2 ML Syringe IV ×2 (09:12→09:35)
[2024-12-05] MEDS: fentaNYL 100 MCG/2 ML Ampul IV ×2 (09:14→09:35)
[2024-12-05] MEDS: 0.9% Normal Saline 250 ML IV.SOLN. (09:18)
[2024-12-05] MEDS: Lidocaine 2% (20 ml mdv) 20 ML Vial INFILT (09:42)
--- NOTE | 2024-12-05 10:51 | NURSING ---
pts brother, monster, aware pt in rm 1 in ed
== END 2024-12-05 23:59 | disposition home or self-care (01) ==
LOC: CT 07:52
PROVIDERS: PCP Internal Medicine; Referring Provider Nurse Practitioner Acute Care; Visit Provider Nurse Practitioner Acute Care
DX: R91.8 Other nonspecific abnormal finding of lung field (principal); I48.91 Unspecified atrial fibrillation; D64.9 Anemia, unspecified; R06.00 Dyspnea, unspecified; R94.2 Abnormal results of pulmonary function studies
CPT/HCPCS: 32408; 36415; 77012; 85049; 85610; 85730; 88172; 88305; 88313; 99156; 99157; A4216

== ENCOUNTER 2024-12-05 10:16 | Emergency (ER) | payer MEDICARE, OTHER, SELFPAY ==
[2024-12-05] VITALS (9 sets, daily range): BP systolic 127–176; BP diastolic 53–114; PULSE 52–92; RESP 16–22; TEMP 36.6; O2SAT 95–100; BMI 14.9
--- NOTE | 2024-12-05 10:27 | EX.ED.DYSGE1 ---
HPI History of Present Illness Chief Complaint: Chest Other Informant: patient Narrative Narrative: Patient is 74-year-old male with history of COPD (3 days of oxygen at baseline (proximal atrial flutter, hypertension, coronary artery disease status post stent placement who was a CODE BLUE from IR after he became bradycardic and hypotensive. Patient received 1 mg Versed and fentanyl prior to his procedure. He had a successful right-sided biopsy with did have a small pneumothorax. Was noted to have change in vital signs and CODE BLUE was called. I immediately went over to radiology and evaluated the patient. He is somnolent but answering questions appropriately. Able to tell me his name. Initial blood pressure in the 60s to 70s systolic with a heart rate in the 40s. Patient transferred over to the ER. Chart review shows pulmonology note which is reviewed from 11/13/2024. He had a positive PET scan with bilateral lung nodules and bladder activity. Plan is for lung biopsy. He is not on any anticoagulation. [facility] Medical History Left renal mass Right-sided chest pain Chronic back pain History of edema Loss of hearing Wears glasses Wears dentures Depression Anxiety Back pain Dietary restriction History of hiatal hernia Gastric reflux Smoker Hypertension History of echocardiogram History of stress test Cardiology follow-up encounter Pipe smoker COPD (chronic obstructive pulmonary disease) Osteoporosis Diabetes Seasonal allergies H/o blood transfusion Peripheral vascular occlusive disease History of non-ST elevation myocardial infarction (NSTEMI) (05/23/14) Onychomycosis Atherosclerosis of coronary artery of [place] heart without angina pectoris (05/25/14) Essential (primary) hypertension Gastroenteritis Acute bronchitis Scoliosis Knee pain Fatigue Hemorrhoids Weight loss Arthritis Anemia Orthostatic hypotension Pre-syncope Hyperlipidemia Diabetes mellitus, type II Depression with anxiety Atrial flutter, paroxysmal Home Medications ?Medication ?Instructions ?Recorded ?Last Taken ?Type loratadine 10 mg tablet 10 mg PO DAILY ALLERGIES 09/03/14 03/16/22 History acetaminophen 500 mg tablet 1,000 mg PO Q6H PRN Pain 03/16/22 03/15/22 History albuterol sulfate 2.5 mg/3 mL 2.5 mg (3 mL) inhalation Q6H PRN 10/30/22 Unknown Rx (0.083 %) solution for nebulization SOB #180 mL nebulizer tubing and masks 10/31/22 Unknown History lidocaine-prilocaine 2.5 %-2.5 % 1 applic topical ONCE #30 grams 11/13/22 Unknown Rx topical cream atorvastatin 80 mg tablet 80 mg PO QHS CHOLESTEROL #90 tabs 11/22/22 Unknown Rx pantoprazole 40 mg tablet,delayed 40 mg PO BID #180 tabs 03/26/23 02/05/24 10:00 Rx release metoprolol succinate 25 mg 25 mg PO DAILY #90 tabs 12/20/23 02/05/24 10:00 Rx tablet,extended release 24 hr ketoconazole 2 % shampoo 1 applic topical 07/07/24 Unknown History oxycodone-acetaminophen 5 mg-325 1 tab PO BID PRN pain 07/07/24 Unknown History mg tablet gabapentin 100 mg capsule 100 mg PO QHS #90 caps 08/15/24 Unknown Rx citalopram 20 mg tablet 20 mg PO DAILY #90 tabs 09/29/24 Unknown Rx fluticasone fur. 100 mcg-umeclid 1 inh inhalation DAILY #120 ea 09/29/24 Unknown Rx 62.5 mcg-vilant 25 mcg inhalat.powder (Trelegy Ellipta) albuterol sulfate 90 mcg/actuation 1 - 2 puff inhalation Q4H PRN PRN 10/08/24 Unknown Rx aerosol inhaler (Ventolin HFA) Wheezing #1 ea buspirone 15 mg tablet 15 mg PO BID #180 tabs 10/27/24 Unknown Rx metformin 500 mg tablet 500 mg PO DAILY #90 tabs 10/27/24 Unknown Rx ramipril 5 mg capsule 5 mg PO QHS #90 caps 11/18/24 Unknown Rx Allergy/AdvReac Type Severity Reaction Status Date / Time Penicillins (PCN) Allergy Hives Verified 12/05/24 10:17 typhoid vaccine (Typhoid Allergy Other Verified 12/05/24 10:17 Vaccine) bupropion HCl (From AdvReac Other Verified 12/05/24 10:17 Wellbutrin) sildenafil (From Viagra) AdvReac Other Verified 12/05/24 10:17 Family History Father Cancer Mother Kidney failure Other Kidney disease Surgical History Hx of spinal surgery History of radiofrequency ablation (RFA) of nerve of cervical spine History of surgery on left wrist History of hernia repair History of open reduction and internal fixation (ORIF) procedure (2018) History of left heart catheterization History of coronary artery stent placement Social History household members: spouse housing: house Smoking Status: Current every day smoker tobacco type: pipe other: 1 q2hrs Tobacco: How many years used: 40 alcohol intake: never what type of physical activity do you participate in: other details: house work, and yard work. do you feel safe at home: Yes ROS ROS ED Review of Systems ROS Unobtainable: due to mental status EXAM Physical Exam Const Vital Signs: 12/05/24 10:17 12/05/24 10:32 12/05/24 10:38 Temperature 97.8 F Temperature Source Temporal Pulse Rate 52 L 61 Respiratory Rate 22 H 16 Respiratory Pattern Normal Blood Pressure 176/114 H 127/53 H Blood Pressure Mean 134 77 Pulse Ox 95 100 Oxygen Delivery Method Room Air Non-Rebreather Oxygen Flow Rate (L/min) 15 12/05/24 11:17 12/05/24 11:46 12/05/24 12:00 Temperature Temperature Source Pulse Rate 61 92 58 L Respiratory Rate 18 16 18 Respiratory Pattern Blood Pressure 146/71 H 140/64 H 144/66 H Blood Pressure Mean 96 89 92 Pulse Ox 100 100 100 Oxygen Delivery Method Non-Rebreather Non-Rebreather Non-Rebreather Oxygen Flow Rate (L/min) 15 15 15 12/05/24 12:30 12/05/24 13:30 12/05/24 14:03 Temperature 97.9 F Temperature Source Pulse Rate 64 57 L 57 L Respiratory Rate 18 18 18 Respiratory Pattern Blood Pressure 138/65 H 153/62 H 153/62 H Blood Pressure Mean 89 92 92 Pulse Ox 95 98 98 Oxygen Delivery Method Room Air Room Air Oxygen Flow Rate (L/min) Positive cachectic General Appearance ED: cachectic, NAD and pallor Nutritional Appearance: cachectic HEENT Reports dry mucous membranes Mouth ED: Yes dry mucous membranes Mouth: dry mucous membranes Eyes PERRL Neck supple Neck Narrative: Subtle JVD present Chest Wall inspection of chest normal Chest Narrative: Mild chest wall crepitus appreciated of the right anterior chest wall Resp normal respiratory effort Resp Narrative: Diminished breath sounds on the right Cardio no murmurs Rate: bradycardia GI normal to inspection, nondistended, normoactive bowel sounds and non-tender Extremity normal to inspection General Extremety ED: Negative for edema or tenderness General Extremity: Negative for edema Neuro Neuro Narrative: Somnolent but arousable to his name. Generally weak. Oriented to self, location and situation Psych mental status grossly normal Skin no rashes or lesions noted and no wounds General Skin Exam: pallor MDM MDM MDM Narrative Medical decision making narrative: Patient is evaluated for episode of hypotension and bradycardia as well as decreased responsiveness will be transferred/rolled over after IR guided right sided lung biopsy. Per radiologist he does have a small pneumothorax from the procedure. Differential includes tension pneumothorax, hemorrhagic shock, vasovagal episode, medication reaction and hypoglycemia. Patient given a fluid bolus with improvement of his blood pressure. While in the ER his vital signs slowly normalized. He returns to his baseline. He is complaining of continued pain of his right back and is given a dose of fentanyl which he tolerates well. Lab including CBC, CMP and delta high-sensitivity troponin is obtained which is all largely normal. He is a mild anemia which is stable with hemoglobin 11.0. Initial chest x-ray does show right lung pneumothorax approximately 20%. This does not explain hypotension is not big enough to cause attention. Physiologically this is not a tension pneumothorax either. EKG shows sinus bradycardia. Patient is placed on nonrebreather to hopefully help reinflation of his lungs. His workup comes back negative. He is ambulated on room air and goes from 97 to 94%. He is stable in the emergency room and is quite anxious to go home. A repeat inspiratory/expiratory x-ray is obtained and initially was read as no pneumothorax. On my review there does appear to still be pneumothorax however it does not seem to be worsening. I did contact radiology for correction of this read. I then also spoke to interventional radiology perform the procedure, Dr. Wiley. He states that that of the patient is asymptomatic without a worsening pneumothorax patient can be discharged home associated on oxygen. Should have a very low threshold to return to the emergency room. I am in agreement and patient is quite eager to be discharged home. He is counseled that he needs to wear his oxygen continuously for the next 24 hours which he is agreeable with. We discussed not smoking while on oxygen. I did offer him admission for monitoring given he still has a pneumothorax but he declined. Shared medical decision making is made. He is counseled that if he feels more short of breath at all he needs to immediately return to the emergency room. Given his largely negative workup I suspect he had an exaggerated vasovagal episode that caused his presentation today. Discharged home in stable and improved condition. Lab Data Attestation: I reviewed the patient's lab results. Labs: Laboratory Results - last 24 hr 12/05/24 12/05/24 10:20 12:18 WBC 5.7 RBC 3.31 L Hgb 11.0 L Hct 31.9 L MCV 96.4 H MCH 33.2 H MCHC 34.5 RDW Std Deviation 47.8 H RDW Coeff of Randa 13.4 Plt Count 304 MPV 8.7 Immature Gran % (Auto) 0.500 Neut % (Auto) 52.6 Lymph % (Auto) 31.3 [place] % (Auto) 12.8 H Eos % (Auto) 2.1 Baso % (Auto) 0.7 Absolute Neuts (auto) 3.0 Absolute Lymphs (auto) 1.78 Nucleated RBC % 0 Sodium 129 L Potassium 4.3 Chloride 97 L Carbon Dioxide 24.0 Anion Gap 8 BUN 14 Creatinine 0.95 Estim Creat Clear Calc 42.21 L Est GFR (MDRD) Non-Af 84 BUN/Creatinine Ratio 14.9 Glucose 93 Calcium 8.9 Total Bilirubin 0.40 AST 17 ALT 7 Alkaline Phosphatase 54 Troponin T High Sens 11 Troponin T Hi Sens 2 Hr 9 Total Protein 5.9 Albumin 3.6 Globulin 2.3 Albumin/Globulin Ratio 1.6 Radiography Diagnostic Testing: Clinical Impression(s) from Imaging Studies Chest X-Ray 12/05/24 10:30 IMPRESSION: Right lung pneumothorax of approximately 20%. Reading Location: [facility] Chest X-Ray 12/05/24 12:40 IMPRESSION: No pneumothorax. Reading Location: [facility] Rhythm Strip Rhythm Strip: Sinus Rhythm Rate: 48 Ectopy: None EKG Initial EKG: Attestation: I personally reviewed and interpreted this EKG as follows: Interpretation: Sinus Bradycardia Comments: Sinus bradycardia at a rate of 48 bpm Normal axis Normal ST segments There is nonspecific T wave abnormalities Compared to prior EKG on 09/30/2022, patient now bradycardic with no other acute changes Management Discussion w/another healthcare provider: Radiologist Discharge Plan Triage Chief Complaint: Chest Other ED Provider: Brittney Ortiz Dx/Rx/DC Orders Clinical Impression: Vaso vagal episode, Pneumothorax, postprocedural Instructions: Pneumothorax (Collapsed Lung), ED Fainting, Vagal Reaction Prescriptions: No Action albuterol sulfate 2.5 mg /3 mL (0.083 %) solution for nebulization 2.5 mg inhalation Q6H PRN (Reason: SOB) Qty: 180 1RF Rx Instructions: Use q4 hours and PRN for wheezing (DME) nebulizer tubing and masks See Rx Instructions .Route .MEDSUPPLY Rx Instructions: use as directed ketoconazole 2 % shampoo 1 applic topical oxycodone-acetaminophen 5-325 mg tablet 1 tab PO BID PRN (Reason: pain) albuterol sulfate [Ventolin HFA] 90 mcg/actuation HFA aerosol inhaler 1 - 2 puff inhalation Q4H PRN PRN (Reason: Wheezing) Qty: 1 2RF loratadine 10 MG tablet 10 mg PO DAILY Patient Comments: allergies acetaminophen 500 mg Tablet 1,000 mg PO Q6H PRN (Reason: Pain) lidocaine-prilocaine 2.5-2.5 % cream 1 applic topical ONCE Qty: 30 0RF Rx Instructions: Apply small amount to skin, prior to blood draw or IV. atorvastatin 80 mg tablet 80 mg PO QHS Qty: 90 3RF pantoprazole 40 mg tablet,delayed release (DR/EC) 40 mg PO BID Qty: 180 3RF metoprolol succinate 25 mg tablet extended release 24 hr 25 mg PO DAILY Qty: 90 3RF gabapentin 100 mg capsule 100 mg PO QHS Qty: 90 3RF citalopram 20 mg tablet 20 mg PO DAILY Qty: 90 3RF Trelegy Ellipta 100-62.5-25 mcg blister with device 1 inh inhalation DAILY Qty: 120 3RF buspirone 15 mg tablet 15 mg PO BID Qty: 180 3RF metformin 500 mg tablet 500 mg PO DAILY Qty: 90 3RF ramipril 5 mg capsule 5 mg PO QHS Qty: 90 1RF Primary Care Provider: Demetra Serrano Referrals: Demetra Serrano MD [Primary Care Provider] - Activity Restrictions/Additional Instructions: You have an episode of low heart rate and blood pressure at the end of your procedure. I suspect it was an exaggerated vasovagal response. Possibly from combination of the medications and the discomfort from the procedure. You do still have a small pneumothorax which is this partial collapse lung on the right. Please wear your oxygen for the next 24 hours. Make sure you turn your oxygen off if you choose to smoke. If it anytime you feel like your breathing is worsening please return immediately to the emergency room as you pneumothorax could be worsening. Print Language: Thai Disposition Disposition: Home, Self Care Discharge Date/Time: 12/05/24 14:09
--- NOTE | 2024-12-05 10:30 | RAD_ITS ---
PROCEDURE: CHEST 1 VIEW (PORTABLE) 12/05/2024 REASON FOR EXAM: S/P LUNG BIOPSY TECHNIQUE: Frontal view of the chest. COMPARISON: 03/16/2022 FINDINGS: Lungs: A right lung pneumothorax of approximately 20%. Pleura: No pleural effusions, thickening, or pneumothorax. Heart: Normal in size and configuration. Mediastinum/Odilia: Unremarkable. Great vessels: Unremarkable. Bones/soft tissues: Unremarkable. RAD/Chest 1 View (Portable) IMPRESSION: Right lung pneumothorax of approximately 20%. Reading Location: [facility]
[2024-12-05 10:31] LABS: Absolute Lymphocyte Count 1.78 X10^3/uL (0.83-4.51); Basophil# 0.04 X10^3/uL; Basophil% 0.7 % (0-1); Eosinophil# 0.12 X10^3/uL; Eosinophils% 2.1 % (0-5); Hematocrit 31.9 % (40-54); Lymphocyte # 1.78 X10^3/ul (0.83-4.51); Lymphocyte % 31.3 % (19-41); Mean Corp Hgb Conc 34.5 g/dL (32-36); Mean Corpuscular Hgb 33.2 pg (27.0-32.0); Mean Corpuscular Volume 96.4 fL (80-94); Mean Platelet Vol. 8.7 fl (6.2-12.0); Monocyte# 0.73 X10^3/uL; Monocyte% 12.8 % (0-10); NRBC Flagged by Analyzer 0 % (0-5); Neutrophil # 2.99 X10^3/uL (2.7-7.7); Neutrophil % 52.6 % (47-70); Platelet Count 304 K/mm3 (150-450); RBC Distribution Width CV 13.4 % (11.6-14.6); RBC Distribution Width SD 47.8 fl (35.1-43.9); Red Blood Count 3.31 M/mm3 (4.6-6.2); White Blood Count 5.7 K/mm3 (4.4-11.0)
[2024-12-05 10:52] LABS: ALB/GLOB Ratio 1.6 RATIO (0.9-2.4); AST(SGOT) 17 U/L (<=37); Alanine Aminotransfer ALT/SGPT 7 U/L (<=46); Albumin, Serum 3.6 g/dL (3.4-4.8); Alkaline Phosphatase 54 U/L (40-129); Anion Gap 8 (5-15); BUN 14 mg/dL (4-19); BUN/Creat Ratio 14.9 RATIO (10-20); Calcium,Total 8.9 mg/dL (7.6-11.0); Chloride 97 mmol/L (98-108); Creatinine, Serum 0.95 mg/dL (0.70-1.20); EST Glomerular Filtration Rate 84 (>60); Estimated Creatinine Clearance 42.21 ml/min (50-250); Globulin 2.3 g/dL (2.2-4.2); Glucose 93 mg/dL (70-99); Potassium 4.3 mmol/L (3.3-5.1); Protein, Total 5.9 g/dL (5.9-8.4); Sodium Level 129 mmol/L (133-145); Troponin T High Sensitivity 11 ng/L (<=22)
[2024-12-05] MEDS: fentaNYL 100 MCG/2 ML Ampul 25 MCG IV (11:44)
--- NOTE | 2024-12-05 12:40 | RAD_ITS ---
EXAM: XR Chest, 1 View CLINICAL INDICATION: POST PNEUMOTHORAX INSPIRATORY/EXPIRATORY TECHNIQUE: Frontal view of the chest was performed with and without inspiration. COMPARISON: No relevant prior studies available. FINDINGS: LUNGS AND PLEURAL SPACES: Unremarkable. No pneumothorax. HEART: Unremarkable. No cardiomegaly. MEDIASTINUM: Unremarkable. Normal mediastinal contour. BONES/JOINTS: Unremarkable. No acute fracture. RAD/Chest Insp/Exp 2 View IMPRESSION: No pneumothorax. Reading Location: [id number]
[2024-12-05 13:17] LABS: Troponin T High Sens 2 HR 9 ng/L (<=22)
--- NOTE | 2024-12-05 13:45 | ED.RN ---
patient sitting on side of bed removed vital signs monitor and dressed himself. stating I want to go home Doctor updated.
[2024-12-08 08:05] LABS: Bedside Glucose 94 mg/dL (74-106)
== END 2024-12-05 14:09 | disposition home or self-care (01) ==
PROVIDERS: Emergency Provider Emergency Medicine; PCP Internal Medicine; Visit Provider Emergency Medicine
DX: J95.811 Postprocedural pneumothorax (principal); J44.9 Chronic obstructive pulmonary disease, unspecified; E11.9 Type 2 diabetes mellitus without complications; I25.10 Atherosclerotic heart disease of native coronary artery without angina pectoris; M54.9 Dorsalgia, unspecified; E78.5 Hyperlipidemia, unspecified; Z79.891 Long term (current) use of opiate analgesic; R00.1 Bradycardia, unspecified; I10 Essential (primary) hypertension; D64.9 Anemia, unspecified; I95.9 Hypotension, unspecified; R55 Syncope and collapse; Z95.5 Presence of coronary angioplasty implant and graft; F17.290 Nicotine dependence, other tobacco product, uncomplicated; Y84.8 Other medical procedures as the cause of abnormal reaction of the patient, or of later complication, without mention of misadventure at the time of the procedure
CPT/HCPCS: 71045; 71046; 80053; 82962; 84484; 85025; 93005; 96374; 99284; A4216

== ENCOUNTER → 2025-01-28 | Outpatient (CLI) | payer MEDICARE, OTHER, SELFPAY ==
--- NOTE | 2025-01-28 15:22 | CT_ITS ---
PROCEDURE: ABDOMEN/PELVIS WITH CONTRAST 01/28/2025 REASON FOR EXAM: BPH W/ URINARY SX TECHNIQUE: ABDOMEN/PELVIS WITH CONTRAST Coronal and Sagittal reconstruction series were provided. CONTRAST: Isovue 370 VOLUME: 100 mL One or more dose reduction techniques were used (e.g., Automated exposure control, adjustment of the mA and/or kV according to patient size, use of iterative reconstruction technique. RADIATION DOSE SUMMARY: CTDlvol: 25.07 mGy DLPS: 362.26 mGycm COMPARISON: 2021 FINDINGS: Lung bases: Chronic interstitial changes in the lung bases with underlying emphysema, no superimposed acute process Liver: Liver is unremarkable aside from a stable simple cyst. Gallbladder: Unremarkable Spleen: Normal size. Pancreas: Normal size without evidence of mass surrounding inflammation or ductal dilation. Adrenals: Unremarkable Kidneys: No obstructive uropathy or suspicious solid renal lesion, stable simple renal cysts, stable punctate nonobstructing right renal stone. Bladder: Unremarkable Bowel: Nondistended fluid-filled small bowel loops are noted consistent with ileus this is likely due to retained stool throughout the colon which I suspect is impacted. There is retained stool noted in the sigmoid and distended rectum. Appendix: Not visualized No free intraperitoneal fluid, air, or suspicious adenopathy Dense atherosclerotic calcifications noted in the abdominal aorta and its branches without aneurysm. Bones: Bony structures show degenerative change CT/Abdomen/Pelvis WITH Contrast IMPRESSION: No suspicious solid organ abnormality, stable simple hepatic and renal cysts, n o specific follow-up needed Small-bowel ileus likely due to retained stool throughout the entirety of the c olon which is likely impacted. Degenerative bony changes Dense atherosclerotic calcifications Reading Location: [id number]
[2025-01-28 16:07] LABS: CREATININE FINGERSTICK < 1.0 mg/dL (0.70-1.30); EGFR FINGERSTICK > 60.0000 mL/min (>60)
== END | disposition home or self-care (01) ==
PROVIDERS: PCP Internal Medicine; Referring Provider Urology; Visit Provider Urology
DX: D41.4 Neoplasm of uncertain behavior of bladder (principal); N40.1 Benign prostatic hyperplasia with lower urinary tract symptoms
CPT/HCPCS: 74177; Q9967

== ENCOUNTER → 2025-02-27 | Outpatient (CLI) | payer MEDICARE, OTHER, SELFPAY ==
--- NOTE | 2025-02-27 14:40 | CT_ITS ---
PROCEDURE: CHEST WITHOUT CONTRAST 02/27/2025 REASON FOR EXAM: LUNG NODULES IN HIGH RISK PATIENT, SMOKER Patient has smoked 1 pack per day for 50+ years TECHNIQUE: Chest CT without contrast. Coronal and Sagittal reconstruction series were provided. One or more dose reduction techniques were used (e.g., Automated exposure control, adjustment of the mA and/or kV according to patient size, use of iterative reconstruction technique RADIATION DOSE SUMMARY: CTDlvol: 0 4 mGy DLP: 246.21 mGycm COMPARISON: Prior study dated October 09, 2024. FINDINGS: Hardware: None Lymph nodes: None Heart and Vasculature: The heart is not enlarged Coronary Artery Calcifications: Present Lungs and Airways: Mild emphysematous changes are present. Stable 1 cm linear density in the medial aspect of the left lung apex as well as a nodular density mid measuring 6.5 mm in the right minor fissure. The previously seen irregular infiltration at the right lung base has cleared. Minimal residual scarring is seen. Pleura: No pleural effusion. Upper Abdomen: Stable small cyst in the right lobe of the liver. Stable 2.4 cm cyst/hypodensity in the medial aspect of the upper pole of the left kidney. Bones: Degenerative changes of the thoracic spine. CT/Chest without Contrast IMPRESSION: Coronary artery calcification (CAC) is is present Interval resolution with residual scarring of the previously seen cavitated mas s in the right lower lobe. Reading Location: [id number]
== END | disposition home or self-care (01) ==
LOC: CT 14:35
PROVIDERS: PCP Internal Medicine; Referring Provider Nurse Practitioner Acute Care; Visit Provider Nurse Practitioner Acute Care
DX: R91.8 Other nonspecific abnormal finding of lung field (principal)
CPT/HCPCS: 71250

== ENCOUNTER 2025-06-09 15:11 | Emergency (ER) | payer MEDICARE, OTHER, SELFPAY ==
[2025-06-09 15:12] VITALS: BP 176/75; PULSE 70; RESP 16; TEMP 36.6; O2SAT 100; BMI 14.0
== END 2025-06-09 16:00 | disposition left against medical advice (07) ==
LOC: ED 16:05
PROVIDERS: PCP Internal Medicine
DX: R52 Pain, unspecified (principal)

== ENCOUNTER 2025-07-07 06:37 | Emergency (ER) | payer MEDICARE, OTHER, SELFPAY ==
[2025-07-07 06:39] VITALS: BP 197/81; PULSE 98; RESP 16; TEMP 37; O2SAT 100; BMI 31.2
--- NOTE | 2025-07-07 06:57 | EX.ED.DYSGE1 ---
HPI History of Present Illness Chief Complaint: Back Informant: patient Narrative Narrative: Patient is a 74-year-old male with history of hypertension hyperlipidemia COPD and chronic back pain. He follows with pain management regarding his back pain. He has a spinal stimulator in place and is currently prescribed Percocet. He states that he has been taking his medication to help control further exacerbations of his back pain and contacted his pain management office for a refill. However they state that he is 2 weeks early for his prescription indicating he has been taking his medication more often than directed. The patient states that there has been no recent trauma or excessive activity causing worsening of his pain. He also denies any loss of bowel or bladder control or IV drug use. As he does not have any more pain medication at home and his pain management doctor will not refill his prescription at this time he presents to the ER for pain control. 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 (05/25/14) History of non-ST elevation myocardial infarction (NSTEMI) (05/23/14) Diabetes mellitus, type II Painful swallowing History of hiatal hernia Lightheadedness Protein calorie malnutrition Orthostatic hypotension Left renal mass Right-sided chest pain Chronic back pain History of edema Loss of hearing Wears glasses Wears dentures Depression Anxiety Back pain Dietary restriction Gastric reflux Smoker History of echocardiogram History of stress test Cardiology follow-up encounter Pipe smoker COPD (chronic obstructive pulmonary disease) Osteoporosis Diabetes Seasonal allergies H/o blood transfusion Peripheral vascular occlusive disease Onychomycosis Gastroenteritis Acute bronchitis Scoliosis Knee pain Fatigue Hemorrhoids Weight loss Arthritis Anemia Pre-syncope Depression with anxiety Home Medications ?Medication ?Instructions ?Recorded ?Last Taken ?Type loratadine 10 mg tablet 10 mg PO DAILY ALLERGIES 09/03/14 03/16/22 History albuterol sulfate 2.5 mg/3 mL 2.5 mg (3 mL) inhalation Q6H PRN 10/30/22 Unknown Rx (0.083 %) solution for nebulization SOB #180 mL nebulizer tubing and masks 10/31/22 Unknown History lidocaine-prilocaine 2.5 %-2.5 % 1 applic topical ONCE #30 grams 11/13/22 Unknown Rx topical cream atorvastatin 80 mg tablet 80 mg PO QHS CHOLESTEROL #90 tabs 11/22/22 Unknown Rx ketoconazole 2 % shampoo 1 applic topical 07/07/24 Unknown History oxycodone-acetaminophen 5 mg-325 1 tab PO BID PRN pain 07/07/24 Unknown History mg tablet citalopram 20 mg tablet 20 mg PO DAILY #90 tabs 09/29/24 Unknown Rx metformin 500 mg tablet 500 mg PO DAILY #90 tabs 10/27/24 Unknown Rx pantoprazole 40 mg tablet,delayed 40 mg PO BID #180 tabs 12/12/24 Unknown Rx release stool softener OTC PO PRN 12/23/24 Unknown History metoprolol succinate 25 mg 25 mg PO DAILY #90 tabs 01/27/25 Unknown Rx tablet,extended release 24 hr loperamide 2 mg tablet 2 mg PO Q6H PRN 04/03/25 Unknown History nutritional supplements 0.09 See Rx Instructions PO .COMPLEX 04/06/25 Unknown Rx gram-0.5 kcal/mL oral liquid #19,500 mL (Boost Max) albuterol sulfate 90 mcg/actuation 1 - 2 puff inhalation Q4H PRN PRN 05/29/25 Unknown Rx aerosol inhaler (Ventolin HFA) Wheezing #1 ea fluticasone fur. 100 mcg-umeclid 1 inh inhalation DAILY #120 ea 05/29/25 Unknown Rx 62.5 mcg-vilant 25 mcg inhalat.powder (Trelegy Ellipta) buspirone 15 mg tablet 15 mg PO BID #180 tabs 06/11/25 Unknown Rx gabapentin 100 mg capsule 100 mg PO QHS #90 caps 06/11/25 Unknown Rx ramipril 5 mg capsule 5 mg PO QHS #90 caps 06/11/25 Unknown Rx Allergy/AdvReac Type Severity Reaction Status Date / Time Penicillins (PCN) Allergy Hives Verified 07/07/25 06:39 typhoid vaccine (Typhoid Allergy Other Verified 07/07/25 06:39 Vaccine) bupropion HCl (From AdvReac Other Verified 07/07/25 06:39 Wellbutrin) sildenafil (From Viagra) AdvReac Other Verified 07/07/25 06:39 Family History Father Cancer Mother Kidney failure Other Kidney disease Surgical History Hx of spinal surgery History of radiofrequency ablation (RFA) of nerve of cervical spine History of surgery on left wrist History of hernia repair History of open reduction and internal fixation (ORIF) procedure (2018) History of left heart catheterization History of coronary artery stent placement Social History household members: spouse housing: house Smoking Status: Current every day smoker tobacco type: cigarettes Tobacco: How many years used: 40 alcohol intake: never substance use type: does not use caffeine: Yes Type: coffee Number of servings: 6 what type of physical activity do you participate in: other details: house work, and yard work. do you feel safe at home: Yes ROS ROS ED Constitutional Constitutional ED: Denies chills or fever(s) Cardiovascular Cardiovascular: Denies chest pain Respiratory/Chest Respiratory/Chest: Denies cough or dyspnea Gastrointestinal Gastrointestinal: Denies abdominal pain, diarrhea, nausea or vomiting Genitourinary Genitourinary ED: Denies dysuria or hematuria Musculoskeletal Musculoskeletal: Reports back pain Integumentary Denies rash Neurologic Neurologic: Denies headache(s) Hematologic/Lymphatic Hematologic/Lymphatic: Denies easy bleeding or easy bruising EXAM Physical Exam Const Vital Signs: 07/07/25 06:39 07/07/25 07:08 Temperature 98.6 F 97.5 F L Temperature Source Oral Pulse Rate 98 58 L Respiratory Rate 16 16 Blood Pressure 197/81 H 165/72 H Blood Pressure Mean 119 103 Pulse Ox 100 100 Oxygen Delivery Method Room Air Positive well developed and cachectic General Appearance ED: well developed and cachectic; Negative for pallor Nutritional Appearance: cachectic HEENT HEENT Narrative: Normocephalic atraumatic Eyes PERRL and EOMs intact bilaterally General Eye ED: Negative for scleral icterus Neck supple Resp normal respiratory effort Resp Narrative: Breath sounds are diminished throughout with diffuse expiratory wheeze consistent with history of COPD but no signs of respiratory distress Cardio regular rate and regular rhythm Rate: other Other Details: Radial and carotid pulses are equal and symmetric GI non-tender, non-distended and no masses GI Narrative: Soft nontender and nondistended with hypoactive bowel sounds No voluntary guarding or rigidity or pulsatile mass Auscultation: hypoactive bowel sounds Palpation: soft Back/Spine no CVA tenderness Back/Spine Narrative: There is dextroscoliosis of the thoracic spine noted otherwise no midline pain with palpation No CVA pain No overlying soft tissue changes to suggest trauma or infection No saddle anesthesia. Negative straight leg raise. No clonus or Babinski. Patellar reflexes are plus 1 out of 4 bilaterally Extremity normal to inspection Neuro oriented x3, CN's II-XII intact bilaterally and no sensory deficits noted Sensorium / Orientation: alert Motor Exam: strength 5/5 throughout Psych mental status grossly normal Skin no rashes or lesions noted and no wounds General Skin Exam: Negative for jaundice or pallor MDM MDM MDM Narrative Medical decision making narrative: Patient arrived to the ER hypertensive but has a past medical history of this and otherwise with stable vitals. He denied any recent trauma or excessive activity and he has no midline back pain going against compression fracture or spondylolisthesis. He denies loss of bowel or bladder control going against cauda equina and he denies IV drug use going against epidural abscess. He also denies any recent procedures to his back which would go against discitis or osteomyelitis. At this time he states that he has chronic back pain and it is simply worse because he has not had any of his Percocet for the last few days. I informed the patient that as he is in pain management and he has been taking his medication more frequently than directed by his pain management doctor and is out of the medication I cannot prescribe anything further. At this time I will give him 1 10 mg oxycodone to help with pain relief for the next few hours but as there is no signs of trauma or secondary infection or neurovascular compromise there is no need for further intervention and he is otherwise safe for discharge History & Record Review Discussion w/independent historian: Patient Discharge Plan Triage Chief Complaint: Back ED Provider: Julio Tello Dx/Rx/DC Orders Clinical Impression: Acute exacerbation of chronic low back pain, Hypertension, Hyperlipidemia, COPD (chronic obstructive pulmonary disease), Depression with anxiety Instructions: ED Back Pain (Acute or Chronic) Prescriptions: No Action albuterol sulfate 2.5 mg /3 mL (0.083 %) solution for nebulization 2.5 mg inhalation Q6H PRN (Reason: SOB) Qty: 180 1RF Rx Instructions: Use q4 hours and PRN for wheezing (DME) nebulizer tubing and masks See Rx Instructions .Route .MEDSUPPLY Rx Instructions: use as directed ketoconazole 2 % shampoo 1 applic topical oxycodone-acetaminophen 5-325 mg tablet 1 tab PO BID PRN (Reason: pain) stool softener OTC PO PRN Boost Max 0.09 gram- 0.5 kcal/mL liquid See Rx Instructions PO .COMPLEX Qty: 66897 3RF Rx Instructions: 1 bottle twice daily orally; loratadine 10 MG tablet 10 mg PO DAILY Patient Comments: allergies lidocaine-prilocaine 2.5-2.5 % cream 1 applic topical ONCE Qty: 30 0RF Rx Instructions: Apply small amount to skin, prior to blood draw or IV. atorvastatin 80 mg tablet 80 mg PO QHS Qty: 90 3RF citalopram 20 mg tablet 20 mg PO DAILY Qty: 90 3RF metformin 500 mg tablet 500 mg PO DAILY Qty: 90 3RF pantoprazole 40 mg tablet,delayed release (DR/EC) 40 mg PO BID Qty: 180 3RF metoprolol succinate 25 mg tablet extended release 24 hr 25 mg PO DAILY Qty: 90 3RF loperamide 2 mg tablet 2 mg PO Q6H PRN Trelegy Ellipta 100-62.5-25 mcg blister with device 1 inh inhalation DAILY Qty: 120 3RF albuterol sulfate [Ventolin HFA] 90 mcg/actuation HFA aerosol inhaler 1 - 2 puff inhalation Q4H PRN PRN (Reason: Wheezing) Qty: 1 2RF buspirone 15 mg tablet 15 mg PO BID Qty: 180 3RF gabapentin 100 mg capsule 100 mg PO QHS Qty: 90 3RF ramipril 5 mg capsule 5 mg PO QHS Qty: 90 1RF Primary Care Provider: Demetra Serrano Referrals: Demetra Serrano MD [Primary Care Provider, Internal Medicine - [facility]] Activity Restrictions/Additional Instructions: Unfortunately since you are in pain management I cannot provide further narcotic medication for home. Continue all of your home medications as directed by your doctor and reach out to your pain management physician to discuss a refill of your chronic pain prescription. Return to the ER should you have any further concerns Print Language: Yoruba Disposition Disposition: Home, Self Care Discharge Date/Time: 07/07/25 07:29
[2025-07-07 07:08] VITALS: BP 165/72; PULSE 58; RESP 16; TEMP 36.4; O2SAT 100
--- OUTSIDE RECORDS SUMMARY | 2025-07-07 07:26 | XMS RPT_ITS | CCD ---
Author Organization [facility] CliniSyil Care Team Providers Care Laborer Yard Name Role Phone ILIA PIERSON Unavailable Unavaila ble REID SABILLON Unavailable Unavailable TIFFANY MONDRAGON ([place]) Unavailable Unavailable REID SABILLON Unavailable Unavailable REID SABILLON Unavailable Unavailable Dr. Demetra Serrano Primary Care Provider Dr. Demetra Serrano Attending Provider 1(330) Dr. Demetra Serrano Referring Provider 1(330) Dr. Alycia Knight Attending Provider 1(330) Dr. Demetra Serrano Primary Care Provider Dr. Demetra Serrano Referring Provider 1(330) Neyda PROCESS CONTROL ENGINEER, PROCESS CONTROL ENGINEER-C Saturnino Attending Provider 1(330) JORGE Garcia Attending Provider Unavail Dr. Demetra Suarez Attending Provider 1(330) [place] PROCESS CONTROL ENGINEER, PROCESS CONTROL ENGINEER-C Nadira Alejandra Attending Provider 1( 30) Dr. Demetra Serrano Primary Care Provider Dr. Demetra Serrano Attending Provider 1(330) Dr. Demetra Serrano Referring Provider 1(330) [place] PROCESS CONTROL ENGINEER, PROCESS CONTROL ENGINEER-C Nadira Alejandra Attending Provider 1([phone]) FriendDr. Loja Attending Provider 1(330) Dr. Freedom Leyva Referring Provider 1(330) Dr. Freedom Leyva Other Provider 1(330) [place] PROCESS CONTROL ENGINEER, PROCESS CONTROL ENGINEER-C Nadira Alejandra Other Provider Dr. Demetra Serrano Primary Care Provider Dr. Demetra Serrano Primary Care Provider Dr. Demetra Serrano Referring Provider [phone] [place] PROCESS CONTROL ENGINEER, PROCESS CONTROL ENGINEER-C Nadira Alejandra Attending Provider [phone] Dr. Demetra Serrano Primary Care Provider Dr. Demetra Serrano Attending Provider Dr. Demetra Serrano Primary Care Provider Dr. Demetra Serrano Attending Provider Dr. Freedom Leyva Attending Provider [phone] Dr. Freedom Leyva Referring Provider [phone] Dr. Freedom Leyva Other Provider [phone] Zach HOLDER, Dr. Mccrary Primary Care Provider Dr. Demetra Serrano MD Attending Provider Dr. Demetra Serrano MD Referring Provider Jean-Paul PROCESS CONTROL ENGINEER-CAshley Attending Provider Zach HOLDER, Dr. Mccrary Primary Care Provider [phone] Dr. Demetra Serrano MD Attending Provider Jean-Paul MACIEL-CAshley Referring Provider Dr. Brittney Ortiz DO Emergency Provider Dr. Brittney Ortiz DO Attending Provider Amy HOLDER, Dr. Silverio Simental Attending Provider [phone] Amy HOLDER, Dr. Silverio Simental Referring Provider Zach HOLDER, Dr. Mccrary Primary Care Provider [phone] Jean-Paul MACIEL-C, Ashley Attending Provider Zach HOLDER, Dr. Mccrary Referring Provider Zach HOLDER, Dr. Mccrary Primary Care Provider Dr. Demetra Serrano MD Referring Provider Jeong PROCESS CONTROL ENGINEER-C, Ashley Attending Provider Jeong PROCESS CONTROL ENGINEER-C, Ashley Referring Provider Dr. Demetra Serrano MD Attending Provider Zach, Demetra Primary Care Unavailable Jeong PROCESS CONTROL ENGINEER, Ashley Referring Unavailable Jeong PROCESS CONTROL ENGINEER, Ashley Attending Unavailable Zach, Demetra Primary Care Unavailable Zach, Demetra Attending Unavailable Zach, Demetra Referring Unavailable Provider, Ed Physician Attending Unavailab le Zach, Demetra Primary Care Unavailable AmySilverioRafael Referring Unavailable AmySilverio Attending Unavailable Zach, Demetra Primary Care Unavailable Zach, Demetra Primary Care Unavailable Jeong PROCESS CONTROL ENGINEER, Ashley Attending Unavailable Zach, Demetra Referring Unavailable Jeong PROCESS CONTROL ENGINEER, Ashley Attending Unavailable Zach, Demetra Referring Unavailable Zach, Demetra Primary Care Unavailable Zach, Demetra Attending Unavailable Zach, Demerta Primary Care Unavailable Zach, Demetra Attending Unavailable Zach, Demetra Primary Care Unavailable Zach, Demetra Primary Care Unavailable Zcah, Demetra Attending Unavailable Zach, Demetra Primary Care Unavailable Zach, Demetra Attending Unavailable Jeong PROCESS CONTROL ENGINEER, Ashley Referring Unavailable Jeong PROCESS CONTROL ENGINEER, Ashley Attending Unavailable Zach, Demetra Primary Care Unavailable Jeong PROCESS CONTROL ENGINEER, Ashley Attending Unavailable Zach, Demetra Referring Unavailable Zach, Demetra Primary Care Unavailable Jeong PROCESS CONTROL ENGINEER, Ashley Referring Unavailable Jeong PROCESS CONTROL ENGINEER, Ashley Attending Unavailable Zach, Demetra Primary Care Unavailable Brittney Ortiz Attending Unavailable Zach, Demetra Primary Care Unavailable Zach, Demetra Primary Care Unavailable Zach, Demetra Attending Unavailable Zach, Demetra Referring Unavailable Allergies Allergy Classification Reported Allergen(s) Allergy Type Date of Onset Reaction(s) Facility (19 sources) buPROPion; Translations: [BUPROPION HCL] Drug Allergy 5 AOF, Other [facility] Repository (1 source) penicillin; Translations: [PENICILLIN] Drug Allergy 5 AOF [facility] Repository (1 source) sildenafil; Translations: [SILDENAFIL CITRATE] Drug Allergy 5 AOF [facility] Repository (1 source) vardenafil; Translations: [VARDENAFIL HCL] Drug Allergy 5 AOF [facility] Repository (19 sources) TYPHOID VACCINE; Translations: [TYPHOID VACCINE] Propensity to adverse reactions to drug (disorder) 7 AOF, Other [facility] Repository (18 sources) Penicillins; Translations: [Penicillins] Allergy to substance 2 Hives [facility] (17 sources) sildenafil Drug Allergy 2 Other [facility] (1 source) sildenafil Drug Allergy 5 [facility] Repository Medications Current Medications Medication Drug Class(es) Dates Sig (Normalized) Sig (Original) acetaminophen 325 mg / oxyCODONE hydrochloride 5 mg oral tablet (20 sources) Opioid Agonist Start: 07-07-2024 Oxycodone-Acetamin ophen 5-325 mg tablet Active 1 {tbl} PO TWICE A DAY as needed for pain 0 July 07, 2024 1:00am Start: 08-04-2017 End: 09-16-2019 Oxycodone-Acetaminophen 1 TA BLET tablet Discontinued 1 {tbl} PO EVERY 6 HOURS NEEDED as needed for Pain 12 0 August 04, 2017 1:00am September 16, 2019 10:58am Fracture of wrist Start: 08-04-2017 End: 09-16-2019 take 1 tablet by mouth every six hours as needed Oxycodone-Acetaminophen Discontinued 1 TABLET PO EVERY 6 HOURS NEEDED August 04, 2017 12:00am September 16, 2019 9:58am Albuterol Sulfate 2.5 mg /3 mL (0.083 %) solution for nebulization (8 sources) Start: 10-30-2022 take 2.5 mg by inhalation every four hours as needed for wheezing Albuterol Sulfate 2.5 mg /3 mL (0.083 %) solution for nebulization Active 2.5 mg INHALATION EVERY 6 HOURS as needed for SOB 180 1 October 30, 2022 12:07pm Use q4 hours and PRN for wheezing Start: 10-30-2022 take 2.5 mg by inhal ation every four hours as needed for wheezing Albuterol Sulfate 2.5 mg /3 mL (0.083 %) solution for nebulization Active 2.5 mg INHALATION EVERY 6 HOURS as needed for SOB 180 October 30, 2022 12:07pm Use q4 hours and PRN for wheezing aspirin 81 mg chewable tablet (1 source) Platelet Aggregation Inhibitor, Nonsteroidal Anti-inflammatory Drug Start: 09-03-2014 take 81 mg by mouth once daily Aspirin Active 81 MG PO DAILY@0800 September 03, 2014 1:00am Fluticasone-Ume clidin-Vilanter (20 sources) Anticholinergic, Corticosteroid, beta2-Adrenergic Agonist Start: 09-29-2024 Fluticasone-Ume cl idin-Vilanter (Trelegy Ellipta) 100-62.5-25 mcg blister with device Active 1 NMA INHALATION DAILY 120 3 September 29, 2024 2:32pm Start: 09-29-2024 Fluticasone-Um eclidin-Vilanter (Trelegy Ellipta) 100-62.5-25 mcg blister with device Active 1 NMA INHALATION DAILY 120 September 29, 2024 2:32pm Start: 06-13-2024 End: 09-29-2024 Ojgjtjitexm-Axdqitlfp-Lqinmn er (Trelegy Ellipta) 100-62.5-25 mcg blister with device Discontinued 1 NMA INHALATION DAILY 60 June 13, 2024 5:26pm September 29, 2024 2:35pm Start: 06-13-2024 End: 09-29-2024 Zmbvtwkeglw-Opjyiewlz-Vshmkg er (Trelegy Ellipta) 100-62.5-25 mcg blister with device Discontinued 1 NMA INHALATION DAILY 60 June 13, 2024 5:26pm September 29, 2024 2:35pm Start: 09-19-2023 End: 06-13-2024 Sygewvgkxbm-Ohxirjjuz-Vhcuob er (Trelegy Ellipta) 100-62.5-25 mcg blister with device Discontinued 1 NMA INHALATION DAILY 24 12September 19, 2023 2:05pm June 13, 2024 5:30pm Start: 09-19-2023 End: 06-13-2024 Ardoqvkwufb-Kamotuuyq-Duadls er (Trelegy Ellipta) 100-62.5-25 mcg blister with device Discontinued 1 NMA INHALATION DAILY September 19, 2023 2:05pm June 13, 2024 5:30pm Start: 09-13-2023 End: 09-19-2023 Guzkyllkgtu-Essttfugh-Oitsod er (Trelegy Ellipta) 100-62.5-25 mcg blister with device Discontinued 1 NMA INHALATION DAILY 24 12September 13, 2023 1:16pm September 19, 2023 2:05pm Start: 09-13-2023 End: 09-19-2023 Cjohgutnijr-Qqdezmohm-Mxzsvl er (Trelegy Ellipta) 100-62.5-25 mcg blister with device Discontinued 1 NMA INHALATION DAILY September 13, 2023 1:16pm September 19, 2023 2:05pm Start: 04-11-2022 End: 05-04-2022 Brfecrzrtdv-Waiupffdv-Sirepg er (Trelegy Ellipta) 100-62.5-25 mcg blister with device Discontinued 1 NMA INHALATION DAILY 24 12April 11, 2022 4:26pm May 04, 2022 8:34am Start: 04-11-2022 End: 05-04-2022 Gccyjrblgeh-Psgakukgd-Mjfhme er (Trelegy Ellipta) 100-62.5-25 mcg blister with device Discontinued 1 NMA INHALATION DAILY April 11, 2022 4:26pm May 04, 2022 8:34am Start: 04-11-2022 End: 05-04-2022 Hvujrxoozop-Otigvodhv-Pafbif er (Trelegy Ellipta) 100-62.5-25 mcg blister with device Discontinued 1 INH INHALATION DAILY April 11, 2022 3:26pm May 04, 2022 7:34am Start: 04-11-2022 End: 05-04-2022 Uovtkpvzpcv-Bxlqoxnis-Bdsegs er (Trelegy Ellipta) 100-62.5-25 mcg blister with device Discontinued 1 INH INHALATION DAILY April 11, 2022 4:26pm May 04, 2022 8:34am Start: 04-10-2022 End: 04-11-2022 Witkehczahy-Emguyfsdi-Kjywui er (Trelegy Ellipta) 100-62.5-25 mcg blister with device Discontinued 1 NMA INHALATION DAILY 24 12April 10, 2022 1:56pm April 11, 2022 4:26pm Start: 04-10-2022 End: 04-11-2022 Sjobphetuqh-Xfszyrays-Afinve er (Trelegy Ellipta) 100-62.5-25 mcg blister with device Discontinued 1 NMA INHALATION DAILY April 10, 2022 1:56pm April 11, 2022 4:26pm Start: 04-10-2022 End: 04-11-2022 Lamxuuddrwj-Ofntirxeh-Kddhij er (Trelegy Ellipta) 100-62.5-25 mcg blister with device Discontinued 1 INH INHALATION DAILY April 10, 2022 12:56pm April 11, 2022 3:26pm Start: 04-10-2022 End: 04-11-2022 Gvvsxueulty-Otbsxiftw-Ykaqns er (Trelegy Ellipta) 100-62.5-25 mcg blister with device Discontinued 1 INH INHALATION DAILY April 10, 2022 1:56pm April 11, 2022 4:26pm Start: 03-24-2022 End: 04-10-2022 Xgikmwxwyrz-Huhkqqrmq-Xmxojf er (Trelegy Ellipta) 100-62.5-25 mcg blister with device Discontinued 1 NMA INHALATION DAILY March 24, 2022 12:00am April 10, 2022 1:56pm Start: 03-24-2022 End: 04-10-2022 Teatmofbdtk-Asmqseuns-Pqybio er (Trelegy Ellipta) 100-62.5-25 mcg blister with device Discontinued 1 INH INHALATION DAILY March 23, 2022 11:00pm April 10, 2022 12:56pm ketoconazole 20 mg/ml medicated shampoo (8 sources) Azole Antifungal Start: 07-07-2024 Ketoconazole 2 % shampoo Active 1 NMA TOPICAL July 07, 2024 1:00am lidocaine 25 mg/ml / prilocaine 25 mg/ml topical cream (20 sources) Antiarrhythmic, Amide Local Anesthetic Start: 11-13-2022 Lidocaine-Prilocaine 2.5-2.5 % cream Active 1 NMA TOPICAL ONCE 30 November 13, 2022 12:00am Apply small amount to skin, prior to blood draw or IV. Start: 11-13-2022 Lidocaine-Pril ocaine Active 1 APPLIC TOPICAL ONCE 30 November 12, 2022 11:00pm Apply small amount to skin, prior to blood draw or IV. Start: 2020 End: 01-24-2022 Lidocaine-Prilocaine 2.5-2.5 % cream Discontinued 1 NMA TOPICAL ONCE 5 2020 12:00am January 24, 2022 4:29pm Start: 2020 End: 01-24-2022 Lidocaine-Prilocaine Discont inued 1 APPLIC TOPICAL ONCE October 24, 2020 11:00pm January 24, 2022 3:29pm loperamide hydrochloride 2 mg oral tablet (18 sources) Opioid Agonist Start: 04-03-2025 take 1 tablet by mouth every six hours as needed Loperamide 2 mg tablet Active 2 mg PO EVERY 6 HOURS as needed April 03, 2025 12:00am Start: 09-16-2019 End: 03-03-2020 Loperamide (Imodium A-D) 2 m g tablet Discontinued 2 mg PO Q4H as needed for loose stool 14 0 September 16, 2019 1:00am March 03, 2020 11:36am after each loose stool until symptoms controlled;do not exceed 16 mg total dose in 24 hrs loratadine 10 mg oral tablet (17 sources) Start: 09-03-2014 take 1 tablet by mouth once daily Loratadine 10 MG tablet Active 10 mg PO DAILY September 03, 2014 1:00am ALLERGIES Start: 09-03-2014 take 10 mg by mouth twice contreras y Loratadine Active 10 MG PO TWICE A DAY September 03, 2014 12:00am medtronic (1 source) Start: 10-21-2020 medtronic Acti ve MC October 21, 2020 12:00am for back pain nebulizer tubing and masks (10 sources) Start: 10-31-2022 nebulizer tubi ng and masks Active 0 .Route .MEDSUPPLY October 31, 2022 12:00am Chronic obstructive pulmonary disease Chronic obstructive pulmonary disease, unspecified use as directed Start: 10-31-2022 nebulizer tubi ng and masks Active 0 .Route .MEDSUPPLY October 30, 2022 11:00pm use as directed Start: 10-31-2022 nebulizer tubi ng and masks Active 0 .Route .MEDSUPPLY October 31, 2022 12:00am use as directed Nutritional Supplements (Trevino st Max) 0.09 gram- 0.5 kcal/mL liquid (1 source) Start: 04-06-2025 Nutritional Torres pplements (Boost Max) 0.09 gram- 0.5 kcal/mL liquid Active 0 PO .COMPLEX 3 April 06, 2025 12:00am 1 bottle twice daily orally; stool softener OTC (4 sources) Start: 12-23-2024 stool softener OTC Active PO as needed December 23, 2024 12:00am Completed/Discontinued Medications Medication Drug Class(es) Dates Sig (Normalized) Sig (Original) acetaminophen 500 mg oral tablet (16 sources) Start: 03-16-2022 End: 04-06-2025 take 2 tablets by mouth every six hours as needed for pain Acetaminophen 500 mg Tablet Discontinued 1000 mg PO EVERY 6 HOURS as needed for Pain March 16, 2022 12:00am April 06, 2025 9:27am Start: 03-16-2022 take 1000 mg by mout h every six hours Acetaminophen Active 1000 MG PO EVERY 6 HOURS March 15, 2022 11:00pm acetaminophen 325 mg / HYDROcodone bitartrate 5 mg oral tablet (17 sources) Opioid Agonist Start: 07-24-2017 End: 09-16-2019 Hydrocodone-Acetaminophen 1 EACH tablet Discontinued 1 NMA PO EVERY 4 HOURS NEEDED as needed for Pain July 24, 2017 1:00am September 16, 2019 10:59am Start: 07-24-2017 End: 09-16-2019 Hydrocodone-Acetaminophen Di scontinued 1 EACH PO EVERY 4 HOURS NEEDED July 24, 2017 12:00am September 16, 2019 9:59am [id number] 200 actuat albuterol 0.09 mg/actuat metered dose inhaler (20 sources) beta2-Adrenergic Agonist Start: 10-30-2022 take 2.5 mg by inhalation every four hours as needed for wheezing Albuterol Sulfate Active 2.5 MG INHALATION EVERY 6 HOURS 180 October 30, 2022 11:07am Use q4 hours and PRN for wheezing Start: 10-30-2022 take 2.5 mg by inhal ation every four hours as needed for wheezing Albuterol Sulfate Active 2.5 MG INHALATION EVERY 6 HOURS October 30, 2022 12:07pm Use q4 hours and PRN for wheezing Start: 09-30-2022 End: 10-08-2024 Albuterol Sulfate (Ventolin Hfa) 90 mcg/actuation HFA aerosol inhaler Discontinued 1 - 2 NMA INHALATION EVERY 4 HOURS NEEDED as needed for Wheezing 07 31September 12, 2023 10:01am October 08, 2024 9:20pm Start: 09-30-2022 take 1 puff(s) by in halation every four hours as needed Albuterol Sulfate (Ventolin Hfa) 90 mcg/actuation HFA aerosol inhaler Active 1 - 2 PUFF INHALATION EVERY 4 HOURS NEEDED September 30, 2022 12:00am Start: 03-16-2022 End: 10-30-2022 take 2.5 mg by inhalation every four hours as needed for wheezing Albuterol Sulfate 2.5 mg /3 mL (0.083 %) solution for nebulization Discontinued 2.5 mg INHALATION NEEDED as needed for SOB May 18, 2022 12:21pm October 30, 2022 12:09pm Use q4 hours and PRN for wheezing Start: 11-09-2020 End: 10-30-2022 Albuterol Sulfate 90 mcg/act uation HFA aerosol inhaler Discontinued 2 NMA INHALATION EVERY 6 HOURS as needed for shortness of breath or wheezing 18 November 09, 2020 12:01pm October 30, 2022 11:47am With spacer Start: 11-09-2020 End: 10-30-2022 take 1 puff(s) by inhalation every six hours Albuterol Sulfate Discontinued 2 PUFF INHALATION EVERY 6 HOURS November 09, 2020 11:01am October 30, 2022 10:47am With spacer atorvastatin 80 mg oral tablet (20 sources) HMG-CoA Reductase Inhibitor Start: 03-03-2020 End: 11-22-2022 take 1 tablet by mouth at bedtime Atorvastatin 80 mg tablet Discontinued 80 mg PO AT BEDTIME 90 October 05, 2021 1:28pm March 16, 2022 8:10pm azithromycin 250 mg oral tablet (17 sources) Macrolide Antimicrobial Start: 06-02-2021 End: 11-14-2021 take 2-5 tablets by mouth once daily Azithromycin (Zithromax Z-Miky) 250 mg tablet Discontinued 0 PO .COMPLEX 6 0 June 02, 2021 12:00am November 14, 2021 9:54am take 500 mg today (day 1), then 250 mg for 4 days (days 2-5) PO benzonatate 200 mg oral capsule (20 sources) Non-narcotic Antitussive Start: 03-24-2022 End: 07-09-2023 take 1 capsule by mouth three times daily as needed for cough Benzonatate 200 mg capsule Discontinued 200 mg PO THREE TIMES A DAY as needed for cough 60 March 24, 2022 12:00am July 09, 2023 10:39am Start: 06-02-2021 End: 11-14-2021 take 1 capsule by mouth twice daily as needed for cough Benzonatate 100 mg capsule Discontinued 100 mg PO TWICE A DAY as needed for cough 14 June 02, 2021 12:00am November 14, 2021 9:54am Start: 06-27-2019 End: 09-16-2019 take 2 capsules by mouth three times daily as needed for cough Benzonatate 100 mg capsule Discontinued 200 mg PO THREE TIMES A DAY as needed for cough 30 0 June 27, 2019 1:00am September 16, 2019 10:58am Start: 06-27-2019 End: 09-16-2019 take 200 mg by mouth three times daily Benzonatate Discontinued 200 MG PO THREE TIMES A DAY 30 June 27, 2019 12:00am September 16, 2019 9:58am busPIRone hydrochloride 15 mg oral tablet (20 sources) Start: 03-03-2020 End: 10-27-2024 take 1 tablet by mouth twice daily Buspirone 15 mg tablet Discontinued 15 mg PO TWICE A DAY 180 3 December 20, 2023 2:11pm October 27, 2024 3:57pm Start: 04-29-2013 End: 03-03-2020 take 3 tablets by mouth twice daily Buspirone 5 MG tablet Discontinued 15 mg PO TWICE A DAY April 29, 2013 12:00am March 03, 2020 7:26am Start: 04-29-2013 End: 03-03-2020 take 15 mg by mouth twice daily Buspirone Discontinued 15 MG PO TWICE A DAY April 28, 2013 11:00pm March 03, 2020 6:26am cholecalciferol 0.025 mg oral capsule (17 sources) Vitamin D Start: 03-03-2020 End: 03-03-2020 take 1 capsule by mouth once daily Cholecalciferol (Vitamin D3) 25 mcg (1,000 unit) capsule Discontinued 25 ug PO DAILY March 03, 2020 12:00am March 03, 2020 11:36am ciprofloxacin 500 mg oral tablet (20 sources) Quinolone Antimicrobial Start: 04-22-2023 End: 07-09-2023 take 1 tablet by mouth twice daily Ciprofloxacin Hcl 500 mg tablet Discontinued 500 mg PO TWICE A DAY 14 0 May 28, 2023 12:00am July 09, 2023 10:39am citalopram 20 mg oral tablet (20 sources) Serotonin Reuptake Inhibitor Start: 03-03-2020 End: 09-29-2024 take 1 tablet by mouth once daily Citalopram 20 mg tablet Discontinued 20 mg PO DAILY 90 3 August 20, 2023 8:29am September 29, 2024 2:31pm Start: 05-23-2014 End: 03-03-2020 take 4 tablets by mouth once daily Citalopram 10 MG tablet Discontinued 40 mg PO DAILY May 23, 2014 12:00am March 03, 2020 7:27am Start: 05-23-2014 End: 03-03-2020 take 40 mg by mouth once daily Citalopram Discontinued 40 MG PO DAILY May 22, 2014 11:00pm March 03, 2020 6:27am cyclobenzaprine hydrochloride 10 mg oral tablet (17 sources) Muscle Relaxant Start: 04-30-2020 End: 10-21-2020 take 1 tablet by mouth twice daily Cyclobenzaprine 10 mg tablet Discontinued 10 mg PO TWICE A DAY April 30, 2020 12:00am October 21, 2020 2:52pm doxycycline hyclate 100 mg oral capsule (17 sources) Tetracycline-cla ss Drug Start: 06-27-2019 End: 07-07-2019 take 1 capsule by mouth twice daily Doxycycline Hyclate 100 mg capsule Discontinued 100 mg PO TWICE A DAY 20 10 0 June 27, 2019 1:00am July 06, 2019 1:00am July 07, 2019 1:09am Acute sinusitis, unspecified ferrous gluconate 256 mg oral tablet (17 sources) Start: 03-03-2020 End: 03-03-2020 take 1 tablet by mouth once daily Ferrous Gluconate 256 mg (28 mg iron) tablet Discontinued 256 mg PO DAILY March 03, 2020 12:00am March 03, 2020 11:36am fluconazole 100 mg oral tablet (14 sources) Azole Antifungal Start: 07-11-2022 End: 08-23-2022 take 1 tablet by mouth once daily Fluconazole 100 mg tablet Discontinued 100 mg PO DAILY 10 July 11, 2022 1:00am August 23, 2022 10:39am gabapentin 100 mg oral capsule (20 sources) Anti-epileptic Agent Start: 07-24-2016 End: 08-15-2024 take 1 capsule by mouth at bedtime Gabapentin 100 mg capsule Discontinued 100 mg PO AT BEDTIME June 05, 2023 7:23pm August 15, 2024 4:43pm Ginkgo Biloba (17 sources) Start: 03-03-2020 End: 03-03-2020 take 1 tablet by mouth once daily Ginkgo Biloba 120 mg tablet Discontinued 120 mg PO DAILY March 03, 2020 12:00am March 03, 2020 11:36am give with meal/snack Start: 03-03-2020 End: 03-03-2020 take 120 mg by mouth once daily Ginkgo Biloba Discontinued 120 MG PO DAILY March 02, 2020 11:00pm March 03, 2020 10:36am give with meal/snack Start: 03-03-2020 End: 03-03-2020 take 120 mg by mouth once daily Ginkgo Biloba Discontinued 120 MG PO DAILY March 03, 2020 12:00am March 03, 2020 11:36am give with meal/snack Ginseng (17 sources) Start: 03-03-2020 End: 03-03-2020 take 1 capsule by mouth once daily Ginseng 100 mg capsule Discontinued 100 mg PO DAILY March 03, 2020 12:00am March 03, 2020 11:36am Start: 03-03-2020 End: 03-03-2020 take 100 mg by mouth once daily Ginseng Discontinued 100 MG PO DAILY March 02, 2020 11:00pm March 03, 2020 10:36am Start: 03-03-2020 End: 03-03-2020 take 100 mg by mouth once daily Ginseng Discontinued 100 MG PO DAILY March 03, 2020 12:00am March 03, 2020 11:36am hydrocortisone 25 mg/ml topical solution (17 sources) Corticosteroid Start: 01-24-2022 End: 02-07-2022 Hydrocortisone 2.5 % solution Discontinued 1 NMA TOPICAL TWICE A DAY 30 14 0 January 24, 2022 12:00am February 06, 2022 12:00am February 07, 2022 12:03am Itching of ear Pruritus, unspecified itching levoFLOXacin 500 mg oral tablet (19 sources) Quinolone Antimicrobial Start: 10-09-2024 End: 10-20-2024 take 1 tablet by mouth every twenty-four hours Levofloxacin 500 mg tablet Discontinued 500 mg PO Q24H 7 0 October 09, 2024 12:00am October 20, 2024 8:11am Start: 09-30-2022 End: 10-30-2022 take 1 tablet by mouth once daily Levofloxacin 750 mg tablet Discontinued 750 mg PO DAILY 7 7 0 September 30, 2022 1:00am October 30, 2022 11:47am megestrol acetate 40 mg/ml oral suspension (17 sources) Progestin Start: 12-15-2021 End: 01-24-2022 take 400 mg by mouth once daily Megestrol 400 mg/10 mL (40 mg/mL) suspension Discontinued 400 mg PO DAILY 240 0 December 15, 2021 12:00am January 24, 2022 4:30pm metFORMIN hydrochloride 500 mg oral tablet (20 sources) Biguanide Start: 02-17-2021 End: 10-27-2024 take 1 tablet by mouth once daily Metformin 500 mg tablet Discontinued 500 mg PO DAILY 90 3 September 12, 2023 10:01am October 27, 2024 3:57pm Start: 10-28-2020 End: 02-17-2021 take 1 tablet by mouth once daily Metformin 1,000 mg tablet Discontinued 1000 mg PO DAILY October 28, 2020 11:39am February 17, 2021 9:45am Start: 03-03-2020 End: 10-28-2020 Metformin 1,000 mg tablet Discontinued 500 mg PO DAILY March 03, 2020 12:00am October 28, 2020 11:40am Start: 03-03-2020 End: 10-28-2020 take 500 mg by mouth once daily Metformin Discontinued 500 MG PO DAILY March 02, 2020 11:00pm October 28, 2020 10:40am Start: 04-29-2013 End: 03-03-2020 take 2 tablets by mouth once daily Metformin 500 MG tablet Discontinued 1000 mg PO DAILY April 29, 2013 12:00am March 03, 2020 7:30am Start: 04-29-2013 End: 03-03-2020 take 1000 mg by mouth once daily Metformin Discontinued 1000 MG PO DAILY April 28, 2013 11:00pm March 03, 2020 6:30am 24 hr metoprolol succinate 25 mg extended release oral tablet (20 sources) beta-Adrenergic Clary Start: 04-29-2013 End: 01-27-2025 take 1 tablet by mouth once daily Metoprolol Succinate 25 mg tablet extended release 24 hr Discontinued 25 mg PO DAILY 90 3 December 20, 2023 2:11pm January 27, 2025 5:06pm naloxegol 25 mg oral tablet (20 sources) Opioid Antagonist Start: 08-22-2022 End: 07-09-2023 take 1 tablet by mouth once daily in the morning Naloxegol (Movantik) 25 mg tablet Discontinued 25 mg PO EVERY MORNING 30 August 23, 2022 1:00am July 09, 2023 10:41am must be taken on empty stomach; no food 1 hr after or 2-3 hrs before dose nystatin [id number] unt/ml oral suspension (20 sources) Polyene Antifungal Start: 02-05-2024 End: 02-12-2024 take 1 mL by mouth three times daily Nystatin 100,000 unit/mL suspension Discontinued 1 mL PO THREE TIMES A DAY 21 7 0 February 05, 2024 12:00am February 11, 2024 12:00am February 12, 2024 12:05am swish and swallow Start: 07-11-2022 End: 07-18-2022 take 1 mL by mouth three times daily Nystatin 100,000 unit/mL suspension Discontinued 1 mL PO THREE TIMES A DAY 21 7 0 July 11, 2022 1:00am July 17, 2022 1:00am July 18, 2022 1:03am swish and swallow Start: 07-11-2022 End: 07-18-2022 take 1 mL by mouth three times daily Nystatin Discontinued 1 ML PO THREE TIMES A DAY 21 7 July 11, 2022 12:00am July 18, 2022 12:03am swish and swallow Start: 03-24-2022 End: 04-03-2022 take 1 mL by mouth every six hours Nystatin 100,000 unit/mL suspension Discontinued 5 mL PO EVERY 6 HOURS 200 10 0 March 24, 2022 12:00am April 02, 2022 12:00am April 03, 2022 12:03am swish and swallow Start: 03-24-2022 End: 04-03-2022 take 1 mL by mouth every six hours Nystatin Discontinued 5 ML PO EVERY 6 HOURS 200 10 March 23, 2022 11:00pm April 02, 2022 11:03pm swish and swallow pantoprazole 40 mg delayed release oral tablet (20 sources) Proton Pump Inhibitor Start: 07-26-2016 End: 12-12-2024 take 1 tablet by mouth twice daily Pantoprazole 40 mg tablet,delayed release (DR/EC) Discontinued 40 mg PO TWICE A DAY 180 3 March 26, 2023 4:35pm December 12, 2024 3:10pm Start: 02-10-2015 End: 07-26-2016 take 1 tablet by mouth once daily Pantoprazole 40 MG tablet Discontinued 40 mg PO DAILY February 10, 2015 12:00am July 26, 2016 11:58am polyethylene glycol 3350 [id number] mg / potassium chloride 2970 mg / sodium bicarbonate 6740 mg / sodium chloride 5860 mg / sodium sulfate 90427 mg powder for oral solution (20 sources) Osmotic Laxative Start: 01-18-2024 End: 07-07-2024 Peg 3350-Electrolytes (Golytely) 236-22.74-6.74 -5.86 gram recon soln Discontinued 240 mL PO Q10M 4000 0 January 18, 2024 9:55am July 07, 2024 2:04pm until fecal effluent is clear Start: 08-17-2022 End: 05-02-2023 Peg 3350-Electrolytes (Golyt sudhir) 236-22.74-6.74 -5.86 gram recon soln Discontinued 240 mL PO Q10M 4000 0 August 17, 2022 1:00am May 02, 2023 2:40pm until fecal effluent is clear Start: 08-17-2022 End: 05-02-2023 Peg 3350-Electrolytes (Golyt sudhir) 236-22.74-6.74 -5.86 gram recon soln Discontinued 240 ML PO Q10M 4000 August 17, 2022 12:00am May 02, 2023 1:40pm until fecal effluent is clear predniSONE 20 mg oral tablet (20 sources) Start: 03-16-2022 End: 03-24-2022 take 3 tablets by mouth once daily Prednisone 20 mg tablet Discontinued 60 mg PO DAILY 15 March 16, 2022 12:00am March 24, 2022 4:23pm Start: 03-16-2022 End: 03-24-2022 take 60 mg by mouth once daily Prednisone Discontinued 60 MG PO DAILY March 15, 2022 11:00pm March 24, 2022 3:23pm Start: 06-02-2021 End: 11-14-2021 take 2 tablets by mouth once daily Prednisone 20 mg tablet Discontinued 40 mg PO DAILY 10 June 02, 2021 12:00am November 14, 2021 9:55am Start: 06-02-2021 End: 11-14-2021 take 40 mg by mouth once daily Prednisone Discontinued 40 MG PO DAILY June 01, 2021 11:00pm November 14, 2021 8:55am promethazine hydrochloride 25 mg oral tablet (17 sources) Phenothiazine Start: 09-16-2019 End: 03-03-2020 take 1 tablet by mouth three times daily as needed for nausea and vomiting Promethazine 25 mg tablet Discontinued 25 mg PO THREE TIMES A DAY as needed for nausea and vomiting 14 September 16, 2019 1:00am March 03, 2020 11:36am ramipril 5 mg oral capsule (20 sources) Angiotensin Converting Enzyme Inhibitor Start: 03-03-2020 End: 11-18-2024 take 1 capsule by mouth at bedtime Ramipril 5 mg capsule Discontinued 5 mg PO AT BEDTIME April 30, 2024 7:48am November 18, 2024 10:51am Start: 04-29-2013 End: 03-03-2020 take 2 capsules by mouth at bedtime Ramipril 2.5 MG capsule Discontinued 5 mg PO AT BEDTIME April 29, 2013 12:00am March 03, 2020 7:30am Start: 04-29-2013 End: 03-03-2020 take 5 mg by mouth at bedtime Ramipril Discontinued 5 MG PO AT BEDTIME April 28, 2013 11:00pm March 03, 2020 6:30am Red Beet-Sour Ponce Extract 250-0.5 mg tablet,chewable (8 sources) Start: 01-18-2024 End: 02-01-2024 Red Beet-Sour Ponce Extract 250-0.5 mg tablet,chewable Discontinued 1 {tbl} PO DAILY January 18, 2024 12:00am February 01, 2024 2:28pm sucralfate 100 mg/ml oral suspension (16 sources) Aluminum Complex Start: 10-16-2023 End: 01-18-2024 take 1 mL by mouth three times daily 1 hour(s) before mealtime Sucralfate 100 mg/mL suspension Discontinued 10 mL PO THREE TIMES A DAY 900 30 1 October 16, 2023 11:12am January 18, 2024 8:38am take one hour before meals Start: 08-21-2023 End: 09-20-2023 take 1 mL by mouth three times daily 1 hour(s) before mealtime Sucralfate 100 mg/mL suspension Discontinued 10 mL PO THREE TIMES A DAY 900 30 0 August 21, 2023 1:00am September 19, 2023 1:00am September 20, 2023 1:04am take one hour before meals for 30 days ticagrelor 90 mg oral tablet (17 sources) Start: 09-03-2014 End: 07-26-2016 take 1 tablet by mouth at bedtime Ticagrelor (Brilinta) 90 MG tablet Discontinued 90 mg PO AT BEDTIME September 03, 2014 1:00am July 26, 2016 11:56am 60 actuat tiotropium 0.0025 mg/actuat inhalation spray (20 sources) Anticholinergic Start: 03-23-2021 End: 09-13-2023 take 2.5 ug by inhalation once daily in the morning Tiotropium [place] (Spiriva Respimat) 2.5 mcg/actuation mist Discontinued 2 NMA INHALATION EVERY MORNING 12 August 09, 2023 1:06pm September 13, 2023 1:16pm Start: 11-09-2020 End: 03-23-2021 take 2.5 ug by inhalation once daily in the morning Tiotropium [place] (Spiriva Respimat) 2.5 mcg/actuation mist Discontinued 2 NMA INHALATION EVERY MORNING 4 November 09, 2020 12:00am March 23, 2021 12:03pm Start: 11-09-2020 End: 03-23-2021 take 2.5 ug by inhalation once daily in the morning Tiotropium [place] (Spiriva Respimat) 2.5 mcg/actuation mist Discontinued 2 NMA INHALATION EVERY MORNING November 09, 2020 12:00am March 23, 2021 12:03pm Start: 11-09-2020 End: 03-23-2021 take 2.5 ug by inhalation once daily in the morning Tiotropium [place] (Spiriva Respimat) 2.5 mcg/actuation mist Discontinued 2 INH INHALATION EVERY MORNING November 08, 2020 11:00pm March 23, 2021 11:03am Start: 11-09-2020 End: 03-23-2021 take 2.5 ug by inhalation once daily in the morning Tiotropium [place] (Spiriva Respimat) 2.5 mcg/actuation mist Discontinued 2 INH INHALATION EVERY MORNING November 09, 2020 12:00am March 23, 2021 12:03pm traMADol hydrochloride 50 mg oral tablet (17 sources) Opioid Agonist Start: 03-03-2020 End: 07-07-2024 take 1 tablet by mouth every six hours as needed for pain Tramadol 50 mg tablet Discontinued 50 mg PO EVERY 6 HOURS as needed for Pain Score 1-10 March 03, 2020 12:00am July 07, 2024 2:04pm Problems Active Problems Problem Classification Problem Date Documented Da te Episodic/Chronic Abdominal pain (20 sources) Abdominal pain; Translations: [Unspecified abdominal pain] Episodic Acute bronchitis (17 sources) Acute bronchitis; Translations: [Acute bronchitis, unspecified] 03-03-2020 Episodic Anxiety disorders (20 sources) Anxiety disorder, unspecified; Translations: [Mixed anxiety and depressive disorder] Onset: 03-04-2015 Chronic Cardiac dysrhythmias (18 sources) Paroxysmal atrial flutter; Translations: [Unspecified atrial flutter] Onset: 11-13-2024 09-13-2020 Chronic Chronic obstructive pulmonary disease and bronchiectasis (20 sources) Chronic obstructive lung disease; Translations: [Chronic obstructive pulmonary disease, unspecified] Onset: 04-06-2025 Chronic Comment on above: INHALERS Trelegy Complications of surgical procedures or medical care (6 sources) Postprocedural respiratory disorders; Translations: [Postprocedural pneumothorax] 12-05-2024 Episodic Coronary atherosclerosis and other heart disease (20 sources) Atherosclerotic heart disease of [place] coronary artery without angina pectoris; Translations: [History of non-ST segment elevation myocardial infarction] Onset: 05-23-2014 Chronic Coronary atherosclerosis and other heart disease (1 source) Presence of coronary angioplasty implant and graft; Translations: [Percutaneous transluminal coronary angioplasty status] Episodic Deficiency and other anemia (20 sources) Anemia; Translations: [Anemia, unspecified] 06-09-2022 Episodic Deficiency and other anemia (5 sources) Anemia, unspecified; Translations: [Anemia, unspecified] Episodic Diabetes mellitus with complications (1 source) Type 2 diabetes mellitus with other diabetic neurological complication; Translations: [Type 2 diabetes mellitus with other diabetic neurological complication] Onset: 08-02-2017 Diabetes mellitus without complication (20 sources) Type 2 diabetes mellitus; Translations: [Type 2 diabetes mellitus without complications] Onset: 04-06-2025 Chronic Diseases of white blood cells (16 sources) Leukocytosis; Translations: [Elevated white blood cell count, unspecified] 03-24-2022 Chronic Disorders of lipid metabolism (20 sources) Hyperlipidemia; Translations: [Hyperlipidemia, unspecified] Onset: 04-06-2025 Chronic Esophageal disorders (20 sources) Gastro-esophageal reflux disease without esophagitis; Translations: [Gastroesophageal reflux disease] Onset: 03-04-2015 Chronic Essential hypertension (20 sources) Essential (primary) hypertension; Translations: [Essential hypertension] Onset: 03-04-2015 Chronic Fluid and electrolyte disorders (20 sources) Acute hyponatremia; Translations: [Hypo-osmolality and hyponatremia] 03-24-2022 Episodic Genitourinary symptoms and ill-defined conditions (10 sources) Blood in urine; Translations: [Hematuria, unspecified] 05-02-2023 Episodic Headache; including migraine (16 sources) Headache; Translations: [Headache] 03-24-2022 Episodic Mycoses (1 source) Candidal stomatitis; Translations: [Candidiasis of mouth] Episodic Nutritional deficiencies (1 source) Vitamin D deficiency, unspecified; Translations: [Vitamin D deficiency, unspecified] Onset: 04-06-2025 Chronic Other circulatory disease (17 sources) Orthostatic hypotension; Translations: [Orthostatic hypotension] 09-13-2020 Episodic Other circulatory disease (10 sources) History of atrial flutter; Translations: [Personal history of other diseases of the circulatory system] 04-30-2023 Episodic Other connective tissue disease (16 sources) Muscle pain; Translations: [Myalgia, unspecified site] 03-24-2022 Episodic Other diseases of kidney and ureters (14 sources) Renal mass; Translations: [Other specified disorders of kidney and ureter] 10-09-2024 Chronic Other diseases of kidney and ureters (1 source) Other specified disorders of kidney and ureter; Translations: [Other specified disorders of kidney and ureter] Onset: 10-21-2024 Chronic Other ear and sense organ disorders (17 sources) Tinnitus; Translations: [Tinnitus, unspecified ear] 11-14-2021 Episodic Other ear and sense organ disorders (1 source) Tinnitus, unspecified ear; Translations: [Tinnitus, unspecified] Episodic Other gastrointestinal disorders (15 sources) Dysphagia; Translations: [Dysphagia, unspecified] 05-04-2022 Episodic Other gastrointestinal disorders (15 sources) Constipation; Translations: [Constipation, unspecified] 05-04-2022 Episodic Other gastrointestinal disorders (6 sources) Constipation, unspecified; Translations: [Constipation, unspecified] Episodic Other gastrointestinal disorders (3 sources) Dysphagia, unspecified; Translations: [Dysphagia, unspecified] Episodic Other inflammatory condition of skin (3 sources) Pruritus, unspecified; Translations: [Unspecified pruritic disorder] Episodic Other inflammatory condition of skin (3 sources) Pruritic scalp dermatosis; Translations: [Pruritus, unspecified] 04-17-2023 Episodic Other inflammatory condition of skin (7 sources) Scalp itchy; Translations: [Pruritus, unspecified] 04-17-2023 Episodic Other lower respiratory disease (11 sources) Pleuritic pain; Translations: [Pleurodynia] 09-30-2022 Episodic Other lower respiratory disease (20 sources) Multiple nodules of lung; Translations: [Other nonspecific abnormal finding of lung field] 09-30-2022 Episodic Other lower respiratory disease (10 sources) History of chronic obstructive airway disease; Translations: [Personal history of other diseases of the respiratory system] 04-30-2023 Episodic Other nutritional; endocrine; and metabolic disorders (10 sources) Abnormal weight loss; Translations: [Loss of weight] Onset: 04-06-2025 Episodic Other nutritional; endocrine; and metabolic disorders (8 sources) Weight decreased; Translations: [Abnormal weight loss] 11-14-2021 Episodic Other skin disorders (15 sources) Ingrowing nail; Translations: [Ingrowing nail] 04-05-2022 Episodic Other upper respiratory disease (17 sources) Seasonal allergy; Translations: [Other seasonal allergic rhinitis] 10-21-2020 Chronic Other upper respiratory infections (3 sources) Acute upper respiratory infection, unspecified; Translations: [Acute upper respiratory infections of unspecified site] Episodic Peripheral and visceral atherosclerosis (20 sources) Peripheral vascular disease; Translations: [Peripheral vascular disease, unspecified] Chronic Pneumonia (except that caused by tuberculosis or sexually transmitted disease) (11 sources) Left upper zone pneumonia; Translations: [Pneumonia, unspecified organism] 09-30-2022 Episodic Residual codes; unclassified (2 sources) Tobacco use; Translations: [Tobacco use disorder] Onset: 04-06-2025 Episodic Residual codes; unclassified (20 sources) Tobacco user; Translations: [Tobacco use] 10-20-2024 Episodic Spondylosis; intervertebral disc disorders; other back problems (9 sources) Chronic back pain ; Translations: [Dorsalgia, unspecified] 07-07-2024 Episodic Substance-related disorders (20 sources) Pipe smoker; Translations: [Nicotine dependence, other tobacco product, uncomplicated] Chronic Unclassified (1 source) Pure hypercholesterolemia, unspecified; Translations: [Pure hypercholesterolemia, unspecified] Onset: 03-04-2015 Unclassified (11 sources) Abnormal positron emission tomography (PET) scan; Translations: [R94.8 - Abnormal results of function studies of other organs and systems] Urinary tract infections (10 sources) Urinary tract infectious disease; Translations: [Urinary tract infection, site not specified] 04-30-2023 Episodic Viral infection (16 sources) Acute viral disease; Translations: [Viral infection, unspecified] 03-24-2022 Episodic Past or Other Problems Problem Classification Problem Date Documented Date Episodic/Chronic Fracture of upper limb (4 sources) Colles' fracture of left radius, subsequent encounter for closed fracture with routine healing; Translations: [Unspecified fracture of the lower end of left radius, initial encounter for closed fracture] Onset: 07-22-2017 Episodic Medical examination/evaluatio n (1 source) Encounter for other preprocedural examination; Translations: [Encounter for other preprocedural examination] Onset: 08-02-2017 Episodic Neoplasms of unspecified nature or uncertain behavior (1 source) Neoplasm of uncertain behavior of bladder; Translations: [Neoplasm of uncertain behavior of bladder] Onset: 02-04-2025 Episodic Nonspecific chest pain (20 sources) Chest pain; Translations: [Chest pain, unspecified] Onset: 10-27-2024 11-14-2021 Episodic Other lower respiratory disease (3 sources) Dyspnea, unspecified; Translations: [Other respiratory abnormalities] Onset: 11-13-2024 Episodic Other lower respiratory disease (1 source) Other nonspecific abnormal finding of lung field; Translations: [Other nonspecific abnormal finding of lung field] Onset: 03-09-2025 Episodic Other nutritional; endocrine; and metabolic disorders (9 sources) Weight loss; Translations: [Abnormal weight loss] 11-14-2021 Episodic Other screening for suspected conditions (not mental disorders or infectious disease) (16 sources) Imaging of lung abnormal ; Translations: [Abnormal results of pulmonary function studies] Onset: 12-23-2024 11-13-2024 Episodic Comment on above: multiple lesions, RL L largest bladder positive Syncope (20 sources) Near syncope; Translations: [Syncope and collapse] Onset: 12-10-2024 09-13-2020 Episodic Results Test Name Value Interpretation Reference Range Facility MR/Nima 04-06-2025 MR/GURU [facility] [address] [place] [address] [place] [address] OFFICE VISIT Date of Service: 04/06/25 MR#: [id number] Acct: [id number] Name: CRISTINO RYAN Rep #: [id number] : 1950 Provider: Dr. Demetra shukla MD Age/Sex: 74/M Location: [facility] Status: Signed Intake Vital Signs 03/25/25 08:52 04/06/25 09:31 Height 5 ft 7 in 5 ft 7 in Weight: 91 lb 2 oz BMI 14.2 BP 102/58 L Blood Pressure Location Rt brachial Position Sitting Respiration 16 Pulse 73 Pulse Source Monitor Temp 97.8 F Temp Source Temporal Pulse Oximetry (%) 97 Oxygen Delivery Method room air Intake Visit Reasons: Dizziness Chief Complaint: Dizziness Patent Prosecution Paralegal Required: No Accompanied by: Self Is patient in pain?: Yes (Lower back pain ) Pain scale (1-10): 5 Allergies Penicillins (PCN) Allergy (Verified 04/06/25 09:22) Hives typhoid vaccine (Typhoid Vaccine) Allergy (Verified 04/06/25 09:22) Other bupropion HCl (From Wellbutrin) Adverse Reaction (Verified 04/06/25 09:22) Other sildenafil (From Viagra) Adverse Reaction (Verified 04/06/25 09:22) Other Medications ???Medication ???Instructions ???Recorded ???Confirmed ???Type loratadine 10 mg tablet 10 mg PO DAILY ALLERGIES 09/03/14 04/06/25 History albuterol sulfate 2.5 mg/3 mL 2.5 mg (3 mL) inhalation Q6H PRN 0 10/30/22 04/06/25 Rx (0.083 %) solution for nebulization SOB #180 mL nebulizer tubing and masks 10/31/22 04/06/25 History lidocaine-prilocaine 2.5 %-2.5 % 1 applic topical ONCE #30 grams 04/06/25 Rx topical cream atorvastatin 80 mg tablet 80 mg PO QHS CHOLESTEROL #90 tabs 11/22/22 04/06/25 Rx ketoconazole 2 % shampoo 1 applic topical 07/07/24 04/06/25 History oxycodone-acetaminophen 5 mg-325 1 tab PO BID PRN pain 07/07/2403/23 History mg tablet gabapentin 100 mg capsule 100 mg PO QHS #90 caps 08/15/24 Rx citalopram 20 mg tablet 20 mg PO DAILY #90 tabs 09/29/24 0 04/06/25 Rx fluticasone fur. 100 mcg-umeclid 1 inh inhalation DAILY #120 ea 10/2104/06/25 Rx 62.5 mcg-vilant 25 mcg inhalat.powder (Trelegy Ellipta) albuterol sulfate 90 mcg/actuation 1 - 2 puff inhalation Q4H PRN CT N 10/08/24 04/06/25 Rx aerosol inhaler (Ventolin HFA) Wheezing #1 ea buspirone 15 mg tablet 15 mg PO BID #180 tabs 10/27/24 Rx metformin 500 mg tablet 500 mg PO DAILY #90 tabs 10/27/24 04/06/25 Rx ramipril 5 mg capsule 5 mg PO QHS #90 caps 11/18/2403/23 Rx pantoprazole 40 mg tablet,delayed 40 mg PO BID #180 tabs 12/12/24 0 04/06/25 Rx release stool softener OTC PO PRN 12/23/24 04/06/25 History metoprolol succinate 25 mg 25 mg PO DAILY #90 tabs 01/27/25 0 04/06/25 Rx tablet,extended release 24 hr loperamide 2 mg tablet 2 mg PO Q6H PRN 04/03/25 04/06/25 History nutritional supplements 0.09 See Rx Instructions PO .COMPLEX 04/06/25 Rx gram-0.5 kcal/mL oral liquid #19,500 mL (Boost Max) Have you fallen in the past year?: No PFSH Medical History (Updated 04/13/25 @ 08:[address] Demetra Serrano MD) Lightheadedness Protein calorie malnutrition Left renal mass Right-sided chest pain Chronic back pain History of edema Loss of hearing Wears glasses Wears dentures Depression Anxiety Back pain Dietary restriction History of hiatal hernia Gastric reflux Smoker Hypertension History of echocardiogram History of stress test Cardiology follow-up encounter Pipe smoker COPD (chronic obstructive pulmonary disease) Osteoporosis Diabetes Seasonal allergies H/o blood transfusion Peripheral vascular occlusive disease History of non-ST elevation myocardial infarction (NSTEMI) (05/23/14) Onychomycosis Atherosclerosis of coronary artery of [place] heart without angina pectoris (05/25/14) Essential (primary) hypertension Gastroenteritis Acute bronchitis Scoliosis Knee pain Fatigue Hemorrhoids Weight loss Arthritis Anemia Orthostatic hypotension Pre-syncope Hyperlipidemia Diabetes mellitus, type II Depression with anxiety Atrial flutter, paroxysmal Surgical History Hx of spinal surgery History of radiofrequency ablation (RFA) of nerve of cervical spine History of surgery on left wrist History of hernia repair History of open reduction and internal fixation (ORIF) procedure (2017) History of left heart catheterization History of coronary artery stent placement Family History Father Cancer Mother Kidney failure Other Kidney disease Social History household members: spouse housing: house Smoking Status: Current every day smoker tobacco type: pipe other: 1 q2h (more content not included)... Normal [facility] Chest without Contraston Chest without Contrast [facility] [address] [place], [place] [address] Chest without Contrast MR#: [id number] Acct: [id number] Name: CRISTINO RYAN Rep #: [id number] : 1950 M 74 From: Jimmy valero MD PCP: Dr. Demetra Serrano MD Status: REG CLI Study: Chest without Contrast Date of Exam: 02/27/25 Exam# [id number] Ordering Dr: Ashley Jeong PROCESS CONTROL ENGINEER PROCESS CONTROL ENGINEER-C PROCEDURE: CHEST WITHOUT CONTRAST 02/27/2025 REASON FOR EXAM: LUNG NODULES IN HIGH RISK PATIENT, SMOKER Patient has smoked 1 pack per day for 50+ years TECHNIQUE: Chest CT without contrast. Coronal and Sagittal reconstruction series were provided. One or more dose reduction techniques were used (e.g., Automated exposure control, adjustment of the mA and/or kV according to patient size, use of iterative reconstruction technique RADIATION DOSE SUMMARY: CTDlvol: 0 4 mGy DLP: 246.21 mGycm COMPARISON: Prior study dated October 09, 2024. FINDINGS: Hardware: None Lymph nodes: None Heart and Vasculature: The heart is not enlarged Coronary Artery Calcifications: Present Lungs and Airways: Mild emphysematous changes are present. Stable 1 cm linear density in the medial aspect of the left lung apex as well as a nodular density mid measuring 6.5 mm in the right minor fissure. The previously seen irregular infiltration at the right lung base has cleared. Minimal residual scarring is seen. Pleura: No pleural effusion. Upper Abdomen: Stable small cyst in the right lobe of the liver. Stable 2.4 cm cyst/hypodensity in the medial aspect of the upper pole of the left kidney. Bones: Degenerative changes of the thoracic spine. CT/Chest without Contrast IMPRESSION: Coronary artery calcification (CAC) is is present Interval resolution with residual scarring of the previously seen cavitated mass in the right lower lobe. Reading Location: [id number] CC: NAZARIO Jeong; Dr. Demetra Serrano MD Analog Circuit Designer: Signed Normal [facility] Abdomen/Pelvis WITH Contrast on 01-28-2025 Abdomen/Pelvis WITH Contrast [facility] [address] [place], [place] [address] Abdomen/Pelvis WITH Contrast MR#: [id number] Acct: [id number] Name: CRISTINO RYAN Rep #: [id number] : 1950 M 74 From: Andrea Vuong MD PCP: Dr. Demetra Serrano MD Status: REG CLI Study: Abdomen/Pelvis WITH Contrast Date of Exam: 09/23 Exam# [id number] Ordering Dr: Silverio Reyes MD PROCEDURE: ABDOMEN/PELVIS WITH CONTRAST 01/28/2025 REASON FOR EXAM: BPH W/ URINARY SX TECHNIQUE: ABDOMEN/PELVIS WITH CONTRAST Coronal and Sagittal reconstruction series were provided. CONTRAST: Isovue 370 VOLUME: 100 mL One or more dose reduction techniques were used (e.g., Automated exposure control, adjustment of the mA and/or kV according to patient size, use of iterative reconstruction technique. RADIATION DOSE SUMMARY: CTDlvol: 25.07 mGy DLPS: 362.26 mGycm COMPARISON: 2021 FINDINGS: Lung bases: Chronic interstitial changes in the lung bases with underlying emphysema, no superimposed acute process Liver: Liver is unremarkable aside from a stable simple cyst. Gallbladder: Unremarkable Spleen: Normal size. Pancreas: Normal size without evidence of mass surrounding inflammation or ductal dilation. Adrenals: Unremarkable Kidneys: No obstructive uropathy or suspicious solid renal lesion, stable simple renal cysts, stable punctate nonobstructing right renal stone. Bladder: Unremarkable Bowel: Nondistended fluid-filled small bowel loops are noted consistent with ileus this is likely due to retained stool throughout the colon which I suspect is impacted. There is retained stool noted in the sigmoid and distended rectum. Appendix: Not visualized No free intraperitoneal fluid, air, or suspicious adenopathy Dense atherosclerotic calcifications noted in the abdominal aorta and its branches without aneurysm. Bones: Bony structures show degenerative change CT/Abdomen/Pelvis WITH Contrast IMPRESSION: No suspicious solid organ abnormality, stable simple hepatic and renal cysts, no specific follow-up needed Small-bowel ileus likely due to retained stool throughout the entirety of the colon which is likely impacted. Degenerative bony changes Dense atherosclerotic calcifications Reading Location: [facility] CC: Dr. Silverio Reyes MD; Dr. Demetra Serrano MD Analog Circuit Designer: Signed Normal [facility] CREATININE FINGERSTICKon CREATININE WB < 1.0 Normal 0.70-1.30 [facility] Comment on above: Performed By: #### L 9100.0200 #### [facility] [address] [place], [place], [address] EGFR WB > 60.0000 Normal >60 [facility] Comment on above: Performed By: #### L 9100.0200 #### [facility] [address] [place], [place], [id number] EGFROrdered By: Silverio Reyes on 01-28-2025 GFR/1.73 sq M.predicted among non-blacks MDRD (S/P/Bld) [Vol rate/Area] mL/min/{1.73_m2} >60 [facility] Pulmonary Visit Reporton Pulmonary Visit Report [facility] [place] [address] [place] [address] OFFICE VISIT Date of Service: 12/23/24 MR#: [id number] Acct: [id number] Name: CRISTINO RYAN Rep #: [id number] : 1950 Provider: NAZARIO Jeong Age/Sex: 74/M [facility] Status: Signed Assessment and Plan Assessment and Plan (1) Lung nodules: Status: Acute Plan: Tissue pathology nondiagnostic. Continue to monitor by repeat imaging, obtaining a diagnostic CT of the chest in 3 months. Return to the office after test results are available for review. Contact the office with any new or worsening symptoms in the meantime. (2) COPD (chronic obstructive pulmonary disease): Status: Chronic Qualifiers: COPD type: emphysema Emphysema type: centrilobular Qualified Code(s): J43.2 - Centrilobular emphysema Comment: Trelegy Plan: He does not appear to be in exacerbation today. Continue triple therapy on Trelegy. Consider pulmonary function test for clarification and quantification. No indication for antibiotics or steroids today. (3) Tobacco abuse: Status: Chronic Plan: Complicates exam, plan, care and prognosis. Encourage smoking cessation. (4) Abnormal positron emission tomography (PET) scan: Status: Acute Comment: bladder positive Plan: Given that the lung biopsy was nondiagnostic, there was also a bladder lesion that was PET positive. Referral placed to a urologist for an evaluation and hopefully tissue pathology. Please note that the patient had a hypotensive and bradycardic episode following twilight biopsy resulting in transfer to the emergency department. He has reservations regarding receiving twilight for any additional biopsies. Orders: Orders Chest without Contrast 02/27/25 R91.8 - Other nonspecific abnormal finding of lung field Referrals Urology R94.8 - Abnormal results of function studies of other organs and systems Plan Details Additional Comments: This note was generated with [employer] dictation software. It may contain incorrect words, spelling, and punctuation that were not noted in checking the note before signing. Follow Up: 3 Months HPI HPI Comments Details: This patient presents to the office today to discuss test results. He is ambulatory with use of a cane. He is currently on room air. He has not recently been seen in the ED or urgent care for any respiratory illness. He has not required any antibiotics or prednisone for any breathing problems. He is compliant with Trelegy 1 puff daily. He does report rinsing his mouth out after each use. He denies any medication side effect such as sore throat or thrush. He has an albuterol rescue inhaler but has not felt the need for it. He continues to smoke cigarettes. He is currently smoking 1/2 pack/day. He has some shortness of breath on exertion. He has a daily cough that is typically productive of clear-colored sputum. He denies any wheezing, chest congestion, chest pain or palpitations. He denies any fever, chills or body aches. Test results personally reviewed with the patient: CT-guided right lung biopsy completed on December 05, 2024. 5 core specimens obtained. Pneumothorax occurred. Hypotension and bradycardia status post procedure, patient sent to the ER. Tissue pathology not diagnostic. Intake Vital Signs 11/13/24 08:06 12/05/24 10:17 12/23/24 09:24 Height 5 ft 8 in 5 ft 7 in 5 ft 7 in Weight: 93 lb BMI 14.6 BP 166/87 H Blood Pressure Location Lt brachial Position Sitting Respiration 18 Pulse 68 Pulse Source NIBP Temp 97.1 F L Temperature Source Temporal Artery Pulse Oximetry (%) 97 Oxygen Delivery Method room air Intake Visit Reasons: 3 wk fu Chief Complaint: RT Rib Pain Patent Prosecution Paralegal Required: No DME Vendor: [employer] Accompanied by: Self Is patient in pain?: No Allergies Penicillins (PCN) Allergy (Verified 12/23/24 14:37) Hives typhoid vaccine (Typhoid Vaccine) Allergy (Verified 12/23/24 14:37) Other bupropion HCl (From Wellbutrin) Adverse Reaction (Verified 12/23/24 14:37) Other sildenafil (From Viagra) Adverse Reaction (Verified 12/23/24 14:37) Other Medications ???Medication ???Instructions ???Recorded ???Confirmed ???Type loratadine 10 mg tablet 10 mg PO DAILY ALLERGIES 09/03/14 12/23/24 History acetaminophen 500 mg tablet 1,000 mg PO Q6H PRN Pain 03/16/22 12/23/24 History albuterol sulfate 2.5 mg/3 mL 2.5 mg (3 mL) inhalation Q6H PRN 0 10/30/22 12/23/24 Rx (0.083 %) solution for nebulization SOB #180 mL nebulizer tubing and masks 10/31/22 12/23/24 History lidocaine-prilocaine 2.5 %-2.5 % 1 applic topical ONCE #30 grams 12/23/24 Rx topical cream atorvastatin 80 mg tablet 80 mg PO QHS CHOLESTEROL #90 tabs 11/22/22 12/23/24 Rx metoprolol succin (more content not included)... Normal [facility] Bedside Glucoseon 05-12-2025 FINGERSTICK GLU 94 mg/dL Normal 74-106 [facility] Comment on above: Result Comment: CARLITOS DIAZ OF PATIENT CARE PER NURSING PROTOCOL Performed By: #### L 501.080 #### [facility] [address] [place], [place], [id number] Absolute lymphocyte countOrd ered By: Brittney Ortiz on 12-05-2024 Lymphocytes Auto (Unsp spec) [#/Vol] 1.78 10*3/uL 0.83-4.51 [facility] Absolute neutrophil countOrd ered By: Brittney [facility] on 12-05-2024 Neutrophils (Bld) [#/Vol] 3.0 10*3/uL 2.0-7.7 [facility] Anion gap in Serum or Plasma Ordered By: Brittney Ortiz on 12-05-2024 Anion gap [Moles/Vol] 8 mmol/L 5-15 [facility] Automated lymphocyte count a s percentage of total leukocytesOrdered By: Brittney Ortiz on 12-05-2024 Lymphocytes/100 WBC Auto (Unsp spec) 31.3 % 19-41 [facility] BUN/creatinine ratioOrdered By: [facility] on 12-05-2024 Urea nitrogen/Creatinine [Mass ratio] 14.9 mg/mg 10-20 [facility] Basophil percentageOrdered B y: Brittney Ortiz on 12-05-2024 Basophils/100 WBC (Bld) 0.7 % 0-1 [facility] Bilirubin, totalOrdered By: Brittney Ortiz on 12-05-2024 Bilirubin [Mass/Vol] 0.40 mg/dL 0.00-1.30 [facility] Biopsy/Inj or Needle Placeme nton 12-05-2024 Biopsy/Inj or Needle Placement [facility] Imaging Services [address] [place], [place] [id number] Biopsy/Inj or Needle Placement MR#: [id number] Acct: [id number] Name: CRISTINO RYAN Rep #: [id number] : 1950 M 74 From: Adrian Parham PCP: Dr. Demetra Serrano MD Status: REG CLI Study: Biopsy/Inj or Needle Placement Date of Exam: 0 12/05/24 Exam# [id number] Ordering Dr: Ashley Jeong NP, NP-C ADDENDUM by Dr. Adrian Wiley MD on 12/05/24 at 1202 Also, intravenous administration 1 mg Versed and 50 mcg fentanyl was used, as part of the conscious sedation protocol. Reading Location: [place] [address] 12/05/24 1203 Date cc: NAZARIO Jeong; Dr. Demetra Serrano MD * Signed PROCEDURE: BIOPSY/INJ OR NEEDLE PLACEMENT 12/05/2024 REASON FOR EXAM: MULTIPLE PET POSITIVE NODULES TECHNIQUE: Procedure: Following informed consent, and using standard sterile technique, a CT-guided biopsy a hypermetabolic superior segment right lower lobe nodule was performed. 2% lidocaine local anesthesia was followed by placement of a CorVocet 20 gauge 10 cm core biopsy set under CT guidance. 5 samples were then obtained. Postprocedure images show the presence of a small right pneumothorax. Following this, the patient developed hypotension and bradycardia, with heart rate as low as 40 noted. The patient was then transferred to the emergency department, for further evaluation and treatment. One or more dose reduction techniques were used (e.g., Automated exposure control, adjustment of the mA and/or kV according to patient size, use of iterative reconstruction technique). RADIATION DOSE SUMMARY: DLP: 1947.85 mGycm COMPARISON: PET-CT examination of 11/11/2024. CT/Biopsy/Inj or Needle Placement IMPRESSION: 1. Successful core biopsy a superior segment right lower lobe hypermetabolic nodule. 2. Small pneumothorax seen initially on the right. 3. Following the procedure, the patient developed hypotension and bradycardia, with heart rate as low as 40 noted. The patient was then transferred to the emergency department, for further evaluation and treatment. Reading Location: [place] [address] CC: NAZARIO Jeong; Dr. Demetra Serrano MD Analog Circuit Designer: Signed Normal [facility] CBC W/Diff, Automatedon 05- Absolute Lymph 1.78 X10 3/uL Normal 0.83-4.51 [facility] Comment on above: Performed By: #### L 100.0100, L500.4050, L501.4021 #### [facility] [address] [place], [address] Absolute Neut 3.0 X10 3/uL Normal 2.0-7.7 [facility] Comment on above: Performed By: #### L 100.0100, L500.4050, L501.4021 #### [facility] [address] [place], [address] Basophils/100 WBC (Bld) 0.7 % Normal 0-1 [facility] Comment on above: Performed By: #### L 100.0100, L500.4050, L501.4021 #### [facility] [address] [place], [address] Eosinophils/100 WBC (Bld) 2.1 % Normal 0-5 [facility] Comment on above: Performed By: #### L 100.0100, L500.4050, L501.4021 #### [facility] [address] [place], [address] Erythrocyte distribution width (RBC) [Ratio] 13.4 % Normal 11.6-14.6 [facility] Comment on above: Performed By: #### L 100.0100, L500.4050, L501.4021 #### [facility] [address] [place], [address] Hematocrit (Bld) [Volume fraction] 31.9 % Low 40-54 [facility] Comment on above: Performed By: #### L 100.0100, L500.4050, L501.4021 #### [facility] [address] [place], [address] Hemoglobin (Bld) [Mass/Vol] 11.0 g/dL Low 13.0-16.5 [facility] Comment on above: Performed By: #### L 100.0100, L500.4050, L501.4021 #### [facility] [address] [place], [address] IG% 0.500 Normal 0.0-0.9 [facility] Comment on above: Result Comment: IG% - Immature Granulocytes (promyelocytes, myelocytes and metamyelocytes) > 1% indicates that a LEFT SHIFT is Present. Performed By: #### L 100.0100, L500.4050, L501.4021 #### [facility] [address] [place], [address] Lymphocytes/100 WBC (Bld) 31.3 % Normal 19-41 [facility] Comment on above: Performed By: #### L 100.0100, L500.4050, L501.4021 #### [facility] [address] [place], [address] MCH (RBC) [Entitic mass] 33.2 pg High 27.0-32.0 [facility] Comment on above: Performed By: #### L 100.0100, L500.4050, L501.4021 #### [facility] [address] [place], [address] MCHC (RBC) [Mass/Vol] 34.5 g/dL Normal 32-36 [facility] Comment on above: Performed By: #### L 100.0100, L500.4050, L501.4021 #### [facility] [address] [place], [address] MCV (RBC) [Entitic vol] 96.4 fL High 80-94 [facility] Comment on above: Performed By: #### L 100.0100, L500.4050, L501.4021 #### [facility] [address] [place], [address] Monocytes/100 WBC (Bld) 12.8 % High 0-10 [facility] Comment on above: Performed By: #### L 100.0100, L500.4050, L501.4021 #### [facility] [address] [place], [address] Neutrophils/100 WBC (Bld) 52.6 % Normal 47-70 [facility] Comment on above: Performed By: #### L 100.0100, L500.4050, L501.4021 #### [facility] [address] [place], [address] Nucleated RBC (Bld) [#/Vol] 0 10*3/uL Normal 0-5 [facility] Comment on above: Performed By: #### L 100.0100, L500.4050, L501.4021 #### [facility] [address] [place], [address] Platelet mean volume (Bld) [Entitic vol] 8.7 fL Normal 6.2-12.0 [facility] Comment on above: Performed By: #### L 100.0100, L500.4050, L501.4021 #### [facility] [address] [place], [address] Platelets (Bld) [#/Vol] 304 10*3/uL Normal 150-450 [facility] Comment on above: Performed By: #### L 100.0100, L500.4050, L501.4021 #### [facility] [address] [place], [address] RBC (Bld) [#/Vol] 3.31 10*6/uL Low 4.6-6.2 [facility] Comment on above: Performed By: #### L 100.0100, L500.4050, L501.4021 #### [facility] [address] [place], [address] RDW SD 47.8 fl High 35.1-43.9 [facility] Comment on above: Performed By: #### L 100.0100, L500.4050, L501.4021 #### [facility] [address] [place], [address] WBC (Bld) [#/Vol] 5.7 10*3/uL Normal 4.4-11.0 [facility] Comment on above: Performed By: #### L 100.0100, L500.4050, L501.4021 #### [facility] [address] [place], [address] Carbon dioxide, total [Moles /volume] in Central venous bloodOrdered By: Brittney Ortiz on 12-05-2024 CO2 [Moles/Vol] 24.0 mmol/L 21.0-32.0 [facility] Chest 1 View (Portable)on Chest 1 View (Portable) [facility] Imaging Services [address] [place] [address] Chest 1 View (Portable) MR#: [id number] Acct: [id number] Name: CRISTINO RYAN Rep #: [id number] : 1950 M 74 From: Abraham Alvarado MD PCP: Dr. Demetra Serrano MD Status: [facility] ER Study: Chest 1 View (Portable) Date of Exam: 12/05/24 Exam# [id number] Ordering Dr: Brittney Ortiz DO PROCEDURE: CHEST 1 VIEW (PORTABLE) 12/05/2024 REASON FOR EXAM: S/P LUNG BIOPSY TECHNIQUE: Frontal view of the chest. COMPARISON: 03/16/2022 FINDINGS: Lungs: A right lung pneumothorax of approximately 20%. Pleura: No pleural effusions, thickening, or pneumothorax. Heart: Normal in size and configuration. Mediastinum/Lisette: Unremarkable. Great vessels: Unremarkable. Bones/soft tissues: Unremarkable. RAD/Chest 1 View (Portable) IMPRESSION: Right lung pneumothorax of approximately 20%. [facility] CC: Dr. Brittney Ortiz DO; Dr. Demetra Serrano MD Analog Circuit Designer: Signed Normal [facility] Chest Insp/Exp 2 Viewon 05 Chest Insp/Exp 2 View [facility] Imaging Services [address] [place] [id number] Chest Insp/Exp 2 View MR#: [id number] Acct: [id number] Name: CRISTINO RYAN Rep #: [id number] : 1950 M 74 From: Saturnino Louis MD PCP: Dr. Demetra Serrano MD Status: [facility] Study: Chest Insp/Exp 2 View Date of Exam: 12/05/24 Exam# [id number] Ordering Dr: Brittney Ortiz DO ADDENDUM by Dr. Saturnino Louis MD on 12/05/24 at 1551 Small right apical pneumothorax, unchanged from 12/05/2024. Reading Location: [facility] 12/05/24 1551 Date cc: Dr. Brittney Ortiz DO; Dr. Demetra Serrano MD * Signed EXAM: XR Chest, 1 View CLINICAL INDICATION: POST PNEUMOTHORAX INSPIRATORY/EXPIRATORY TECHNIQUE: Frontal view of the chest was performed with and without inspiration. COMPARISON: No relevant prior studies available. FINDINGS: LUNGS AND PLEURAL SPACES: Unremarkable. No pneumothorax. HEART: Unremarkable. No cardiomegaly. MEDIASTINUM: Unremarkable. Normal mediastinal contour. BONES/JOINTS: Unremarkable. No acute fracture. RAD/Chest Insp/Exp 2 View IMPRESSION: No pneumothorax. Reading Location: [facility] CC: Dr. Brittney Ortiz DO; Dr. Demetra Serrano MD Analog Circuit Designer: Signed Normal [facility] Chloride assayOrdered By: Ryan Ortiz on 12-05-2024 Chloride [Moles/Vol] 97 mmol/L Low 98-[address] [facility] Comprehensive Metabolic Prof ilon 12-05-2024 Albumin [Mass/Vol] 3.6 g/dL Normal 3.4-4.8 [facility] Comment on above: Performed By: #### L 100.0100, L500.4050, L501.4021 #### [facility] [address] [place], [address] Albumin/Globulin [Mass ratio] 1.6 {ratio} Normal 0.9-2.4 [facility] Comment on above: Performed By: #### L 100.0100, L500.4050, L501.4021 #### [facility] [address] [place], [address] ALK PHOS 54 U/L Normal 40-129 [facility] Comment on above: Performed By: #### L 100.0100, L500.4050, L501.4021 #### [facility] [address] [place], [address] ALT [Catalytic activity/Vol] 7 U/L Normal <=46 [facility] Comment on above: Performed By: #### L 100.0100, L500.4050, L501.4021 #### [facility] [address] [place], [address] AST [Catalytic activity/Vol] 17 U/L Normal <=37 [facility] Comment on above: Performed By: #### L 100.0100, L500.4050, L501.4021 #### [facility] [address] [place], [address] Bilirubin [Mass/Vol] 0.40 mg/dL Normal 0.00-1.30 [facility] Comment on above: Performed By: #### L 100.0100, L500.4050, L501.4021 #### [facility] [address] [place], [address] BUN/CRE 14.9 RATIO Normal 10-20 [facility] Comment on above: Performed By: #### L 100.0100, L500.4050, L501.4021 #### [facility] [address] [place], [address] Calcium [Mass/Vol] 8.9 mg/dL Normal 7.6-11.0 [facility] Comment on above: Performed By: #### L 100.0100, L500.4050, L501.4021 #### [facility] [address] [place], [address] Chloride [Moles/Vol] 97 mmol/L Low 98-108 [facility] Comment on above: Performed By: #### L 100.0100, L500.4050, L501.4021 #### [facility] [address] [place], [address] CO2 [Moles/Vol] 24.0 mmol/L Normal 21.0-32.0 [facility] Comment on above: Performed By: #### L 100.0100, L500.4050, L501.4021 #### [facility] [address] [place], [address] Creatinine [Mass/Vol] 0.95 mg/dL Normal 0.70-1.20 [facility] Comment on above: Performed By: #### L 100.0100, L500.4050, L501.4021 #### [facility] [address] [place], [address] ECRCL 42.21 ml/min Low 50-250 [facility] Comment on above: Performed By: #### L 100.0100, L500.4050, L501.4021 #### [facility] [address] [place], [address] GAP 8 Normal 5-15 [facility] Comment on above: Performed By: #### L 100.0100, L500.4050, L501.4021 #### [facility] [address] [place], [address] GFR/1.73 sq M.predicted among non-blacks MDRD (S/P/Bld) [Vol rate/Area] 84 mL/min/{1.73_m2} Normal >60 [facility] Comment on above: Result Comment: mL/m in/1.73m2 CKD-EPI Creatinine Equation (2020) Performed By: #### L 100.0100, L500.4050, L501.4021 #### [facility] [address] [place], [address] Globulin (S) [Mass/Vol] 2.3 g/dL Normal 2.2-4.2 [facility] Comment on above: Performed By: #### L 100.0100, L500.4050, L501.4021 #### [facility] [address] [place], [address] Glucose [Mass/Vol] 93 mg/dL Normal 70-99 [facility] Comment on above: Performed By: #### L 100.0100, L500.4050, L501.4021 #### [facility] [address] [place], [address] Potassium [Moles/Vol] 4.3 mmol/L Normal 3.3-5.1 [facility] Comment on above: Performed By: #### L 100.0100, L500.4050, L501.4021 #### [facility] [address] [place], [address] Sodium [Moles/Vol] 129 mmol/L Low 133-145 [facility] Comment on above: Performed By: #### L 100.0100, L500.4050, L501.4021 #### [facility] [address] [place], [address] T PROT 5.9 g/dL Normal 5.9-8.4 [facility] Comment on above: Performed By: #### L 100.0100, L500.4050, L501.4021 #### [facility] [address] [place], [address] Urea nitrogen [Mass/Vol] 14 mg/dL Normal 4-19 [facility] Comment on above: Performed By: #### L 100.0100, L500.4050, L501.4021 #### [facility] [address], [address] Emergency Department Summary on 12-05-2024 Emergency Department Summary [facility] Medical Records Department [address] [place] [address] Emergency Department Summary 12/05/24 MR#: [id number] Acct: [id number] Name: CRISTINO RYAN Rep #: [id number] : 1950 74 From: Brittney Ortiz DO PCP: Dr. Demetra Serrano MD Status:DEP ER Location: ED HPI History of Present Illness Chief Complaint: Chest Other Informant: patient Narrative Narrative: Patient is 74-year-old male with history of COPD (3 days of oxygen at baseline (proximal atrial flutter, hypertension, coronary artery disease status post stent placement who was a CODE BLUE from IR after he became bradycardic and hypotensive. Patient received 1 mg Versed and fentanyl prior to his procedure. He had a successful right-sided biopsy with did have a small pneumothorax. Was noted to have change in vital signs and CODE BLUE was called. I immediately went over to radiology and evaluated the patient. He is somnolent but answering questions appropriately. Able to tell me his name. Initial blood pressure in the 60s to 70s systolic with a heart rate in the 40s. Patient transferred over to the ER. Chart review shows pulmonology note which is reviewed from 11/13/2024. He had a positive PET scan with bilateral lung nodules and bladder activity. Plan is for lung biopsy. He is not on any anticoagulation. [facility] Medical History Left renal mass Right-sided chest pain Chronic back pain History of edema Loss of hearing Wears glasses Wears dentures Depression Anxiety Back pain Dietary restriction History of hiatal hernia Gastric reflux Smoker Hypertension History of echocardiogram History of stress test Cardiology follow-up encounter Pipe smoker COPD (chronic obstructive pulmonary disease) Osteoporosis Diabetes Seasonal allergies H/o blood transfusion Peripheral vascular occlusive disease History of non-ST elevation myocardial infarction (NSTEMI) (05/23/14) Onychomycosis Atherosclerosis of coronary artery of [place] heart without angina pectoris (05/25/14) Essential (primary) hypertension Gastroenteritis Acute bronchitis Scoliosis Knee pain Fatigue Hemorrhoids Weight loss Arthritis Anemia Orthostatic hypotension Pre-syncope Hyperlipidemia Diabetes mellitus, type II Depression with anxiety Atrial flutter, paroxysmal Home Medications ???Medication ???Instructions ???Recorded ???Last Taken ???Type loratadine 10 mg tablet 10 mg PO DAILY ALLERGIES 09/03/14 03/16/22 History acetaminophen 500 mg tablet 1,000 mg PO Q6H PRN Pain 03/16/22 03/15/22 History albuterol sulfate 2.5 mg/3 mL 2.5 mg (3 mL) inhalation Q6H PRN 0 10/30/22 Unknown Rx (0.083 %) solution for nebulization SOB #180 mL nebulizer tubing and masks 10/31/22 Unknown History lidocaine-prilocaine 2.5 %-2.5 % 1 applic topical ONCE #30 grams Unknown Rx topical cream atorvastatin 80 mg tablet 80 mg PO QHS CHOLESTEROL #90 tabs 11/22/22 Unknown Rx pantoprazole 40 mg tablet,delayed 40 mg PO BID #180 tabs 03/26/23 0 02/05/24 10:00 Rx release metoprolol succinate 25 mg 25 mg PO DAILY #90 tabs 12/20/23 0 02/05/24 10:00 Rx tablet,extended release 24 hr ketoconazole 2 % shampoo 1 applic topical 07/07/24 Unknown History oxycodone-acetaminophen 5 mg-325 1 tab PO BID PRN pain 07/07/24 Unk nown History mg tablet gabapentin 100 mg capsule 100 mg PO QHS #90 caps 08/15/24 Un known Rx citalopram 20 mg tablet 20 mg PO DAILY #90 tabs 09/29/24 U nknown Rx fluticasone fur. 100 mcg-umeclid 1 inh inhalation DAILY #120 ea 10/21 Unknown Rx 62.5 mcg-vilant 25 mcg inhalat.powder (Trelegy Ellipta) albuterol sulfate 90 mcg/actuation 1 - 2 puff inhalation Q4H PRN CT N 10/08/24 Unknown Rx aerosol inhaler (Ventolin HFA) Wheezing #1 ea buspirone 15 mg tablet 15 mg PO BID #180 tabs 10/27/24 Un known Rx metformin 500 mg tablet 500 mg PO DAILY #90 tabs 10/27/24 Unknown Rx ramipril 5 mg capsule 5 mg PO QHS #90 caps 11/18/24 Unkn own Rx Allergy/AdvReac Type Severity Reaction Status Date / Time Penicillins (PCN) Allergy Hives Verified 12/05/24 10:17 typhoid vaccine (Typhoid Allergy Other Verified 12/05/24 10:17 Vaccine) bupropion HCl (From AdvReac Other Verified 12/05/24 10:17 Wellbutrin) sildenafil (From Viagra) AdvReac Other Verified 12/05/24 10:17 Family History Father Cancer Mother Kidney failure Other Kidney disease Surgical History Hx of spinal surgery History of radiofrequency ablation (RFA) of nerve of cervical spine History of surgery on left wrist History of hernia repair History of open reduction and internal fixation (ORIF) procedure (2018 (more content not included)... Normal [facility] Eosinophil percentageOrdered By: Brittney Ortiz on 12-05-2024 Eosinophils/100 WBC (Bld) 2.1 % 0-5 [facility] Erythrocyte distribution wid th ratioOrdered By: Brittney Ortiz on 12-05-2024 Erythrocyte distribution width (RBC) [Ratio] 13.4 % 11.6-14.6 [facility] Erythrocyte distribution wid th standard deviationOrdered By: Brittney Ortiz on 12-05-2024 Erythrocyte distribution width (RBC) [Ratio] 47.8 fl High 35.1-43.9 [facility] Glomerular filtration rate ( GFR) estimation/1.73 sq m using serum, plasma, or whole bOrdered By: Brittney Ortiz on 12-05-2024 GFR/1.73 sq M.predicted among non-blacks MDRD (S/P/Bld) [Vol rate/Area] 84 mL/min/{1.73_m2} >60 [facility] Comment on above: mL/min/1.73m2 CKD-EP I Creatinine Equation (2020) [facility] deOrdered By: Brittney Ortiz on 12-05-2024 Glucose [Mass/Vol] 94 mg/dL 74-106 [facility] Comment on above: MANAGEMENT OF PATIEN T CARE PER NURSING PROTOCOL Hematocrit Auto (Bld) [Volum e fraction]Ordered By: Brittney Ortiz on 12-05-2024 Hematocrit (Bld) [Volume fraction] 31.9 % Low 40-54 [facility] Hemoglobin measurementOrdere d By: Brittney Ortiz on 12-05-2024 Hemoglobin (Bld) [Mass/Vol] 11.0 g/dL Low 13.0-16.5 [facility] Immature granulocytes/100 WB C Auto (Bld)Ordered By: Brittney Ortiz on 12-05-2024 Immature granulocytes/100 WBC (Bld) 0.500 % 0.0-0.9 [facility] Comment on above: IG% - Immature Granu locytes (promyelocytes, myelocytes and metamyelocytes) > 1% indicates that a LEFT SHIFT is Present. L499.0042on 12-05-2024 Trop T High Sen 9 ng/L Normal <=22 [facility] Comment on above: Performed By: #### L 499.0042 #### [facility] [address] [place], [address] L499.0043on 12-05-2024 Trop T High Sen Normal <=22 [facility] Comment on above: Result Comment: Canc elled via OM: Order cancelled - Patient discharged Performed By: #### L 499.0043 #### [facility] [address] [place], [address] L501.4021on 12-05-2024 Trop T High Sen 11 ng/L Normal <=22 [facility] Comment on above: Performed By: #### L 100.0100, L500.4050, L501.4021 ####[facility] [address] [place], [address] Laboratory - Chemistry and C hemistry - challengeOrdered By: Brittney Ortiz on 12-05-2024 AST [Catalytic activity/Vol] 17 U/L <38 [facility] MCV (mean corpuscular volume ) determinationOrdered By: Brittney Ortiz on 12-05-2024 MCV (RBC) [Entitic vol] 96.4 fL High 80-94 [facility] Mean corpuscular hemoglobin (MCH) determinationOrdered By: Brittney Ortiz on 12-05-2024 MCH (RBC) [Entitic mass] 33.2 pg High 27.0-32.0 [facility] Mean corpuscular hemoglobin concentration (MCHC) determinationOrdered By: Brittney Ortiz on 12-05-2024 MCHC (RBC) [Mass/Vol] 34.5 g/dL 32-36 [facility] Mean platelet volume determi nationOrdered By: Brittney Ortiz on 12-05-2024 Platelet mean volume (Bld) [Entitic vol] 8.7 fL 6.2-12.0 [facility] Monocyte percentageOrdered B y: Brittney Ortiz on 12-05-2024 Monocytes/100 WBC (Bld) 12.8 % High 0-10 [facility] Neutrophil percentageOrdered By: Brittney Ortiz on 12-05-2024 Neutrophils/100 WBC (Bld) 52.6 % 47-70 [facility] Nucleated red blood cell per centageOrdered By: Brittney Ortiz on 12-05-2024 Nucleated RBC/100 WBC (Bld) [Ratio] 0 % 0-5 [facility] Platelet countOrdered By: Ryan Ortiz on 12-05-2024 Platelets (Bld) [#/Vol] 304 10*3/uL 150-450 [facility] Potassium measurement (mass/ volume)Ordered By: Brittney Ortiz on 12-05-2024 Potassium (Unsp spec) [Mass/Vol] 4.3 mmol/L 3.3-5.1 [facility] RBC Auto (Bld) [#/Vol]Ordere d By: Brittney Ortiz on 12-05-2024 RBC (Bld) [#/Vol] 3.31 10*6/uL Low 4.6-6.2 [facility] Serum creatinine measurement (mass/volume)Ordered By: Brittney Ortiz on 12-05-2024 Creatinine [Mass/Vol] 0.95 mg/dL 0.70-1.20 [facility] Serum globulin measurementOr dered By: Brittney Ortiz on 12-05-2024 Globulin (S) [Mass/Vol] 2.3 g/dL 2.2-4.2 [facility] Serum glucose measurement (m ass/volume)Ordered By: Brittney Ortiz on 12-05-2024 Glucose [Mass/Vol] 93 mg/dL 70-99 [facility] Serum or plasma alanine garcia otransferase (ALT) measurementOrdered By: Brittney Ortiz on 12-05-2024 ALT [Catalytic activity/Vol] 7 U/L <47 [facility] Serum or plasma albumin harmony urement (mass/volume)Ordered By: Brittney Ortiz on 12-05-2024 Albumin [Mass/Vol] 3.6 g/dL 3.4-4.8 [facility] Serum or plasma albumin/glob ulin mass ratioOrdered By: Brittney Ortiz on 12-05-2024 Albumin/Globulin [Mass ratio] 1.6 {ratio} 0.9-2.4 [facility] Serum or plasma alkaline rita sphatase measurementOrdered By: Brittney Ortiz on 12-05-2024 ALP [Catalytic activity/Vol] 54 U/L 40-129 [facility] Serum or plasma calcium harmony urement (mass/volume)Ordered By: Brittney Ortiz on 12-05-2024 Calcium [Mass/Vol] 8.9 mg/dL 7.6-11.0 [facility] Serum or plasma urea nitroge n measurement (mass/volume)Ordered By: Brittney Ortiz on 12-05-2024 Urea nitrogen [Mass/Vol] 14 mg/dL 4- [facility] Sodium levelOrdered By: Ermias hortensia Ortiz on 12-05-2024 Sodium [Moles/Vol] 129 mmol/L Low 133-145 [facility] Special Stain Group IIon Special Stain Group II ----- Patient Age/Sex Location Account Attending Physician ----- CRISTINO RYAN 74/M CT [id number] NAZARIO Diaz ----- Specimen: Received: 12/05/24 Status: NADEGE Zepeda Num: [id number] Spec Type: ASP RAD Subm Dr: NAZARIO Diaz HEADER OPERATION: CT guided lung biopsy - right PRE-OP DIAGNOSIS: Nodules TISSUE SUBMITTED: A- Right lung biopsy - 5 cores ----- MICROSCOPIC DIAGNOSIS A. 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 Tobias. Immediate Evaluation = 1. Adequate. 2. Adequate. MICROSCOPIC DESCRIPTION Slides are reviewed. GROSS DESCRIPTION A. Received in formalin in a container labeled with the patient's name, date of , and lung biopsy R are multiple red-brown, tiny and wispy fragments of soft tissue measuring 0.4 x 0.3 x 0.1 cm in aggregate. Submitted in toto in A1. [facility] 12-05-2024 CPT:93093,44923 ----- Patient Age/Sex Location Account Attending Physician ----- CRISTINO RYAN/Ny CT [id number] NAZARIO Diaz ----- Signed (signature on file) Dr. Mariana Braga DO 12/15/24 1102 ----- Normal [facility] Comment on above: Performed By: #### P SSII ####[facility] [address] [place], [place], [id number] Total proteinOrdered By: Priyanka Ortiz on 12-05-2024 Protein [Mass/Vol] 5.9 g/dL 5.9-8.4 [facility] Troponin T.cardiac [Mass/vol ume] in Serum or Plasma by High sensitivity methodOrdered By: Brittney Ortiz on 12-05-2024 Troponin T.cardiac High sensitivity method [Mass/Vol] 9 ng/L <22 [facility] Troponin T.cardiac High sensitivity method [Mass/Vol] 11 ng/L <22 [facility] White blood cell (WBC) count Ordered By: Brittney Ortiz on 12-05-2024 WBC (Bld) [#/Vol] 5.7 10*3/uL 4.4-11.0 [facility] Activated partial thrombopla stin time (aPTT) in platelet poor plasma by coagulation aOrdered By: Ashley Jeong on 11-27-2024 aPTT Coag (PPP) [Time] 29.3 s 24.1-36.2 [facility] International normalized rat io (INR) calculationOrdered By: Ashley Jeong on 11-27-2024 INR Coag (Bld) [Relative time] 1.0 {INR} [facility] Partial Thromboplast Timeon 11-27-2024 aPTT Coag (Bld) [Time] 29.3 s Normal 24.1-36.2 [facility] Comment on above: Performed By: #### L 100.1900, L300.4310, L300.3900 ####[facility] [address] [place], [address] Platelet Counton 11-27-2024 Platelets (Bld) [#/Vol] 337 10*3/uL Normal 150-450 [facility] Comment on above: Performed By: #### L 100.1900, L300.4310, L300.3900 ####[facility] [address] [place], [address] Platelet countOrdered By: Dyan Jeong on 11-27-2024 Platelets (Bld) [#/Vol] 337 10*3/uL 150-450 [facility] Prothrombin Time w/INRon INR Coag (PPP) [Relative time] 1.0 {INR} Normal [facility] Comment on above: Performed By: #### L 100.1900, L300.4310, L300.3900 ####[facility] [address] [place], [address] PT Coag (PPP) [Time] 13.3 s Normal 11.7-14.9 [facility] Comment on above: Performed By: #### L 100.1900, L300.4310, L300.3900 ####[facility] [address] [place], [address] Prothrombin timeOrdered By: Ashley Jeong on 11-27-2024 PT Coag (PPP) [Time] 13.3 s 11.7-14.9 [facility] Pulmonary Visit Reporton Pulmonary Visit Report [facility] [place] [address] [place] [address] OFFICE VISIT Date of Service: 11/13/24 MR#: [id number] Acct: [id number] Name: CRISTINO RYAN Rep #: [id number] : 1950 Provider: NAZARIO Jeong Age/Sex: 74/M Location: [facility] [place] Status: Signed Assessment and Plan Assessment and Plan (1) Lung nodules: Status: Acute Plan: PET avid lung nodules bilaterally. Largest is in the right lower lobe. Bladder had PET positive activity as well. Plan to proceed with CT biopsy. Obtaining blood work to make sure the patient is not at high risk for bleeding, he is not on any anticoagulants. Return to the office when tissue results are available. He is aware that if the tissue indicates malignancy we will be referring him to oncology. (2) COPD (chronic obstructive pulmonary disease): Status: Chronic Qualifiers: COPD type: emphysema Emphysema type: centrilobular Qualified Code(s): J43.2 - Centrilobular emphysema Comment: Trelegy Plan: He does not appear to be in exacerbation today. Continue triple therapy on Trelegy. Consider pulmonary function test for clarification and quantification. This can be discussed at the next office visit. No indication for antibiotics or steroids today. (3) Tobacco abuse: Status: Chronic Plan: Complicates exam, plan, care and prognosis. Encourage smoking cessation. He has cut back since the last office vist. Orders: Orders Biopsy/Inj or Needle Placement Today R91.8 - Other nonspecific abnormal finding of lung field, R94.2 - Abnormal results of pulmonary function studies Partial Thromboplast Time Today D64.9 - Anemia, unspecified, I48.91 - Unspecified atrial fibrillation Platelet Count Today D64.9 - Anemia, unspecified, R06.00 - Dyspnea, unspecified Prothrombin Time w/INR Today D64.9 - Anemia, unspecified, I48.91 - Unspecified atrial fibrillation Plan Details Additional Comments: This note was generated with [employer] software. It may contain incorrect words, spelling, and punctuation that were not noted in checking the note before signing. Follow Up: 3 Weeks (CSM) HPI Follow up Chief Complaint: test results HPI Comments Details: This patient presents to the office today to discuss test results. He is ambulatory with use of a cane. He is currently on room air. He is compliant with Trelegy 1 puff daily. He does report rinsing his mouth out after each use. He denies any medication side effect such as sore throat or thrush. He has an albuterol rescue inhaler but has not felt the need for it. He continues to smoke cigarettes. He is currently smoking 1/2 pack/day. He is reporting shortness of breath that is constant. He has a daily cough that is typically productive of clear to green-colored sputum. He denies any wheezing, chest congestion, chest pain or palpitations. He denies any fever, chills or body aches. Test results personally reviewed with the patient: PET CT scan completed on November 11, 2024. Numerous bilateral pulmonary parenchymal hypermetabolic nodules are seen, concerning for the presence of malignancy. Lateral right lower lobe. Lateral right upper lobe. Left inferior major fissure area. Central left upper lobe. There is no significant hilar or mediastinal adenopathy. Areas of irregular defects in the urinary bladder activity periphery are concerning for the presence of malignancy. Intake Vital Signs 10/20/24 07:48 11/13/24 08:06 Height 5 ft 8 in 5 ft 8 in Weight: 99 lb 94 lb BMI 15.0 14.3 BP 173/77 H 143/80 H Blood Pressure Location Lt brachial Lt brachial Position Sitting Sitting Respiration 14 18 Pulse 72 69 Pulse Source Monitor Monitor Temp 97.2 F L 96.6 F L Temperature Source Temporal Artery Pulse Oximetry (%) 95 99 Oxygen Delivery Method room air room air Intake Visit Reasons: Follow up Chief Complaint: RT Rib Pain Patent Prosecution Paralegal Required: No DME Vendor: oxygen unknown Accompanied by: Self Allergies Penicillins (PCN) Allergy (Verified 11/13/24 14:06) Hives typhoid vaccine (Typhoid Vaccine) Allergy (Verified 11/13/24 14:06) Other bupropion HCl (From Wellbutrin) Adverse Reaction (Verified 11/13/24 14:06) Other sildenafil (From Viagra) Adverse Reaction (Verified 11/13/24 14:06) Other Medications ???Medication ???Instructions ???Recorded ???Confirmed ???Type loratadine 10 mg tablet 10 mg PO DAILY ALLERGIES 09/03/14 11/13/24 History acetaminophen 500 mg tablet 1,000 mg PO Q6H PRN Pain 03/16/22 11/13/24 History albuterol sulfate 2.5 mg/3 mL 2.5 mg (3 mL) inhalation Q6H PRN 0 10/30/22 11/13/24 Rx (0.083 %) solution for nebulization SOB #180 mL nebulizer tubing and masks 10/31/22 11/13/24 History lidocaine-prilocaine 2.5 %-2.5 % 1 applic topical ONCE #30 grams 04 (more content not included)... Normal [facility] Positron emission tomography scan reportOrdered By: Adrian Wiley on 11-12-2024 PT Unspecified body region [facility] [address] [place], [place] [address] PET/CT Tumor Base -Thigh Init MR#: [id number] Acct: [id number] Name: CRISTINO RYAN Rep #: [id number] : 1950 M 74 From: Jayden Wiley MD PCP: Dr. Demetra Serrano MD Status: REG CLI Study:PET/CT Tumor Base -Thigh Init Date of E xam: 11/11/24 Exam# [id number] Ordering Dr: Michael Jeong NP PROCESS CONTROL ENGINEER-C PROCEDURE: PET/CT TUMOR BASE -THIGH INIT 11/11/2024 REASON FOR EXAM: 74 y/o M with LUNG MASS TECHNIQUE: Following the intravenous administration of radionucleotide, image acquisition on a dedicated PET/CT unit was performed at one hour post injection. A preliminary CT study encompassing the Skull base, neck, chest, abdomen, pelvis, and proximal thighs was performed for purposes of attenuation correction and anatomic localization. The proximal thighs were also included. The patient's blood glucose level was 83 mg/dL (allowable range: 50-180 mg/dL). RADIOPHARMACEUTICAL: 14.586 mCi 18F-FDG (Fluorodeoxyglucose F18) IV was injectedinto he patient. RADIATION DOSE SUMMARY: Effective Dose: Approximately 7 mSv for a standard whole-body PET scan Organ Doses: Varies by organ, with higher doses typically to the bladder, liver,and brain COMPARISON: COMPARISON FROM CT, PET OR OTHER PERTINENT EXAMS: Chest CT of 10/09/2024.. FINDINGS: Physiologic uptake: There may be expected metabolic uptake within the brain, tongue and floor of the mouth and larynx/vocal cords, heart, lisette (many normal individuals have hilar uptake in less than 3 nodes with mildly avid hilar nodes less than 2.7 SUV), liver and spleen, system, and GI tract and symmetric muscle uptake. FDG AVID AND NON-AVID LESIONS. Reported avid SUV values (g/mL*) are maximum SUV. NECK: There are no significant neck abnormalities. CHEST: Chest wall- There are no significant chest wall abnormalities. Axilla- There are no significant axillary abnormalities. Lung parenchyma- Numerous bilateral pulmonary parenchymal hypermetabolic nodules are seen, concerning for the presence of malignancy. SUV max values are obtained for some: Lateral right lower lobe SUV max 4.9; Lateral right upper lobe SUV max 6.5; Left inferior major fissure area SUV max 4.6; Central left upper lobe SUV max 5.1 Mediastinum- There is no significant hilar or mediastinal adenopathy. Pleura- There are no significant pleural abnormalities. ABDOMEN: Stomach- No significant abnormalities. Liver- No significant abnormalities. Spleen- No significant abnormalities. Pancrease- No significant abnormalities. Kidneys- No significant abnormalities. Bowel- Normal bowel activity. Spine- No significant abnormalities. A calcified and tortuous aorta is noted PELVIS: An area of uptake extending from the anterior bladder is seen, most probably representing a urachal cyst. Nevertheless, additional areas of irregular defects in the urinary bladder activity periphery,are concerning for the presence of malignancy; recommend urology consultation at this time, if not already performed. Bowel- Normal physiologic bowel activity is identified. LOWER EXTREMITIES: Bones- With the use of bone window settings, there are no osteolytic or osteoblastic lesions. There are no FDG avid lesions within the visualized portion of the axial skeleton. Prominent degenerative changes of the lower thoracic and lumbar spine, also lumbar dextroscoliosis. PET/PET/CT Tumor Base -Thigh Init IMPRESSION: FDG avid- Multiple hypermetabolic bilateral lung nodules are seen, highly concerning for malignancy, and probably metastatic disease, given the extensive nature. Suspicious- Areas of irregular defects in the urinary bladder activity periphery are seen, at least somewhat concerning for the presence of malignancy; recommend urology consultation at this time, if not already performed. Please note the low-dose CT scan was performed to facilitate PET image reconstruction and anatomic localization and does not replace a diagnostic CT. Any diagnostic CT requested and performed at the time of the PET will be reported separately. Reading Location: [id number] CC: PROCESS CONTROL ENGINEERPaul Jeong; Dr. Demetra Serrano MD ~ Analog Circuit Designer: Signed [facility] PET/CT Tumor Base -Thigh Ini ton 11-11-2024 PET/CT Tumor Base -Thigh Init [facility] [address] [place] [address] PET/CT Tumor Base -Thigh Init MR#: [id number] Acct: [id number] Name: CRISTINO RYAN Rep #: [id number] : 1950 M 74 From: Adrian Parham PCP: Dr. Demetra Serrano MD Status: REG CLI Study: PET/CT Tumor Base -Thigh Init Date of Exam: Exam# [id number] Ordering Dr: Ashley Jeong NP PROCESS CONTROL ENGINEER-C PROCEDURE: PET/CT TUMOR BASE -THIGH INIT 11/11/2024 REASON FOR EXAM: 74 y/o M with LUNG MASS TECHNIQUE: Following the intravenous administration of radionucleotide, image acquisition on a dedicated PET/CT unit was performed at one hour post injection. A preliminary CT study encompassing the Skull base, neck, chest, abdomen, pelvis, and proximal thighs was performed for purposes of attenuation correction and anatomic localization. The proximal thighs were also included. The patient's blood glucose level was 83 mg/dL (allowable range: 50-180 mg/dL). RADIOPHARMACEUTICAL: 14.586 mCi 18F-FDG (Fluorodeoxyglucose F18) IV was injected into he patient. RADIATION DOSE SUMMARY: Effective Dose: Approximately 7 mSv for a standard whole-body PET scan Organ Doses: Varies by organ, with higher doses typically to the bladder, liver, and brain COMPARISON: COMPARISON FROM CT, PET OR OTHER PERTINENT EXAMS: Chest CT of 10/09/2024.. FINDINGS: Physiologic uptake: There may be expected metabolic uptake within the brain, tongue and floor of the mouth and larynx/vocal cords, heart, lisette (many normal individuals have hilar uptake in less than 3 nodes with mildly avid hilar nodes less than 2.7 SUV), liver and spleen, system, and GI tract and symmetric muscle uptake. FDG AVID AND NON-AVID LESIONS. Reported avid SUV values (g/mL*) are maximum SUV. NECK: There are no significant neck abnormalities. CHEST: Chest wall- There are no significant chest wall abnormalities. Axilla- There are no significant axillary abnormalities. Lung parenchyma- Numerous bilateral pulmonary parenchymal hypermetabolic nodules are seen, concerning for the presence of malignancy. SUV max values are obtained for some: Lateral right lower lobe SUV max 4.9; Lateral right upper lobe SUV max 6.5; Left inferior major fissure area SUV max 4.6; Central left upper lobe SUV max 5.1 Mediastinum- There is no significant hilar or mediastinal adenopathy. Pleura- There are no significant pleural abnormalities. ABDOMEN: Stomach- No significant abnormalities. Liver- No significant abnormalities. Spleen- No significant abnormalities. Pancrease- No significant abnormalities. Kidneys- No significant abnormalities. Bowel- Normal bowel activity. Spine- No significant abnormalities. A calcified and tortuous aorta is noted PELVIS: An area of uptake extending from the anterior bladder is seen, most probably representing a urachal cyst. Nevertheless, additional areas of irregular defects in the urinary bladder activity periphery, are concerning for the presence of malignancy; recommend urology consultation at this time, if not already performed. Bowel- Normal physiologic bowel activity is identified. LOWER EXTREMITIES: Bones- With the use of bone window settings, there are no osteolytic or osteoblastic lesions. There are no FDG avid lesions within the visualized portion of the axial skeleton. Prominent degenerative changes of the lower thoracic and lumbar spine, also lumbar dextroscoliosis. PET/PET/CT Tumor Base -Thigh Init IMPRESSION: FDG avid- Multiple hypermetabolic bilateral lung nodules are seen, highly concerning for malignancy, and probably metastatic disease, given the extensive nature. Suspicious- Areas of irregular defects in the urinary bladder activity periphery are seen, at least somewhat concerning for the presence of malignancy; recommend urology consultation at this time, if not already performed. Please note the low-dose CT scan was performed to facilitate PET image reconstruction and anatomic localization and does not replace a diagnostic CT. Any diagnostic CT requested and performed at the time of the PET will be reported separately. Reading Location: [id number] CC: NAZARIO Jeong; Dr. Demetra Serrano MD Analog Circuit Designer: Signed Normal [facility] Pulmonary Visit Reporton Pulmonary Visit Report [facility] [place] [address] [place] [address] OFFICE VISIT Date of Service: 10/20/24 MR#: [id number] Acct: [id number] Name: CRISTINO RYAN Rep #: [id number] : 1950 Provider: NAZARIO Jeong Age/Sex: 73/M Location: [facility] [place] Status: Signed Assessment and Plan Assessment and Plan (1) Lung nodules: Status: Acute Plan: New. The patient has a lung nodule and a kidney mass. Given that there are 2 areas of concern I believe that the next approach should be a pet scan. This was explained to the patient. He will return to the office once test results are available. We discussed that if the PET scan is positive we will be discussing tissue biopsy and best location. If the PET scan is negative, we will continue monitoring by repeating a CT scan in 3 months. He is agreeable with this plan and all questions were answered. (2) Left renal mass: Status: Acute Plan: Sending for a PET scan. His primary care doctor has ordered an ultrasound as well. Follow-up after test results are available to discuss. (3) COPD (chronic obstructive pulmonary disease): Status: Chronic Qualifiers: COPD type: emphysema Emphysema type: centrilobular Qualified Code(s): J43.2 - Centrilobular emphysema Comment: INHALERS Plan: He does not appear to be in exacerbation today. Continue triple therapy on Trelegy. He would benefit from a pulmonary function test for clarification and quantification. This can be discussed at the next office visit. No indication for antibiotics or steroids today. (4) Tobacco abuse: Status: Chronic Plan: Complicates exam, plan, care and prognosis. Encourage smoking cessation. Orders: Orders PET/CT Tumor Base -Thigh Init Today R91.8 - Other nonspecific abnormal finding of lung field Plan Details Additional Comments: This note was generated with [employer] software. It may contain incorrect words, spelling, and punctuation that were not noted in checking the note before signing. Thank you for the referral and the opportunity to participate in this patient's care. Follow Up: 2 Weeks ([facility]) HPI Lung Mass Chief Complaint: Test results HPI Comments Details: This patient presents to the office today for initial consultation regarding concern for an abnormal CT chest. He is ambulatory with use of a cane. He is currently on room air. The patient reports that he has some shortness of breath on exertion, which is baseline. He has a daily cough that is typically productive of clear-colored sputum. This is not new. He has some wheezing and chest congestion, also baseline for him. He denies any chest pain or palpitations. The chest pain he was having earlier this month has completely resided. He denies any fever, chills or body aches. He is compliant with Trelegy 1 puff daily. He does report rinsing his mouth out after each use. He denies any medication side effect such as sore throat or thrush. He has an albuterol rescue inhaler but has not felt the need for it. He continues to smoke cigarettes. He is currently smoking 1 pack/day. He is retired from a career. 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 Past medical family history is significant for: Mother had some type of kidney problem and in later years dementia. His father had colon cancer. He has 4 siblings, the oldest brother of pancreatic cancer last year. He has no biological children. Test results personally reviewed with the patient: CT chest without contrast completed on October 09, 2024. Impression is 2.5 cm x 1.8 cm irregular cavitated mass in the lateral aspect of the right lower lobe also findings of a solid mass in the lateral aspect of the left kidney. 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 Paralegal Required: No Is patient in pain?: No Allergies Penicillins (PCN) Allergy (Verified 10/20/24 08:00) Hives typhoid vaccine (Typhoid Vaccine) Allergy (Verified 10/20/24 08:00) Other bupropion HCl (From Wellbutrin) Adverse Reaction (Verified 10/20/24 08:00) Other sildenafil (From Viagra) Adverse Reaction (Verified 10/20/24 08:00) Other Medications ???Medication ???Instructions ???Recorded ???Confirmed ???Type loratadine 10 mg tablet 10 mg PO DAILY ALLERGIES 09/03/14 10/20/24 History acetaminophen 500 mg tablet 1,000 mg PO Q6H PRN Pain 03/16/22 10/20/24 History albuterol sulfate 2.5 mg/3 mL 2.5 (more content not included)... Normal [facility] Absolute lymphocyte countOrd ered By: Demetra Serrano on 10-09-2024 Lymphocytes Auto (Unsp spec) [#/Vol] 1.47 10*3/uL 0.83-4.51 [facility] Absolute neutrophil countOrd ered By: Demetra Serrano on 10-09-2024 Neutrophils (Bld) [#/Vol] 3.8 10*3/uL 2.0-7.7 [facility] Anion gap in Serum or Plasma Ordered By: Demetra Serrano on 10-09-2024 Anion gap [Moles/Vol] 11 mmol/L 5- [facility] Automated lymphocyte count a s percentage of total leukocytesOrdered By: Demetra Serrano on 10-09-2024 Lymphocytes/100 WBC Auto (Unsp spec) 22.5 % 19- [facility] BUN/creatinine ratioOrdered By: Demetra Serrano on 10-09-2024 Urea nitrogen/Creatinine [Mass ratio] 12.4 mg/mg 10-20 [facility] Basophil percentageOrdered B y: Demetra Serrano on 10-09-2024 Basophils/100 WBC (Bld) 0.6 % 0- [facility] Bilirubin, totalOrdered By: Demetra Serrano on 10-09-2024 Bilirubin [Mass/Vol] 0.26 mg/dL 0.00-1.30 [facility] CBC W/Diff, Automatedon 09-27 Absolute Lymph 1.47 X10 3/uL Normal 0.83-4.51 [facility] Comment on above: Performed By: #### L 501.9985, L100.0100, L501.5200, L300.8000, L503.0106, L501.9910, L500.4050, L506.1001, L500.4100, L501.9520 ####[facility] [address] [place], [address] Absolute Neut 3.8 X10 3/uL Normal 2.0-7.7 [facility] Comment on above: Performed By: #### L 501.9985, L100.0100, L501.5200, L300.8000, L503.0106, L501.9910, L500.4050, L506.1001, L500.4100, L501.9520 ####[facility] [address] [place], [place], [phone] Basophils/100 WBC (Bld) 0.6 % Normal 0-1 [facility] Comment on above: Performed By: #### L 501.9985, L100.0100, L501.5200, L300.8000, L503.0106, L501.9910, L500.4050, L506.1001, L500.4100, L501.9520 ####[facility] [address] [place], [place], [phone]) Eosinophils/100 WBC (Bld) 2.9 % Normal 0-5 [facility] Comment on above: Performed By: #### L 501.9985, L100.0100, L501.5200, L300.8000, L503.0106, L501.9910, L500.4050, L506.1001, L500.4100, L501.9520 ####[facility] [address] [place], [address] Erythrocyte distribution width (RBC) [Ratio] 12.5 % Normal 11.6-14.6 [facility] Comment on above: Performed By: #### L 501.9985, L100.0100, L501.5200, L300.8000, L503.0106, L501.9910, L500.4050, L506.1001, L500.4100, L501.9520 ####[facility] [address] [place], [address] Hematocrit (Bld) [Volume fraction] 34.6 % Low 40-54 [facility] Comment on above: Performed By: #### L 501.9985, L100.0100, L501.5200, L300.8000, L503.0106, L501.9910, L500.4050, L506.1001, L500.4100, L501.9520 ####[facility] [address] [place], [address] Hemoglobin (Bld) [Mass/Vol] 11.9 g/dL Low 13.0-16.5 [facility] Comment on above: Performed By: #### L 501.9985, L100.0100, L501.5200, L300.8000, L503.0106, L501.9910, L500.4050, L506.1001, L500.4100, L501.9520 ####[facility] [address] [facility] [place], [address] IG% 1.200 High 0.0-0.9 [facility] Comment on above: Result Comment: IG% - Immature Granulocytes (promyelocytes, myelocytes and metamyelocytes) > 1% indicates that a LEFT SHIFT is Present. Performed By: #### L 501.9985, L100.0100, L501.5200, L300.8000, L503.0106, L501.9910, L500.4050, L506.1001, L500.4100, L501.9520 ####[facility] [address] [place], [address] Lymphocytes/100 WBC (Bld) 22.5 % Normal 19-41 [facility] Comment on above: Performed By: #### L 501.9985, L100.0100, L501.5200, L300.8000, L503.0106, L501.9910, L500.4050, L506.1001, L500.4100, L501.9520 ####[facility] [address] [place], [address] MCH (RBC) [Entitic mass] 33.0 pg High 27.0-32.0 [facility] Comment on above: Performed By: #### L 501.9985, L100.0100, L501.5200, L300.8000, L503.0106, L501.9910, L500.4050, L506.1001, L500.4100, L501.9520 ####[facility] [address] [place], [address] MCHC (RBC) [Mass/Vol] 34.4 g/dL Normal 32-36 [facility] Comment on above: Performed By: #### L 501.9985, L100.0100, L501.5200, L300.8000, L503.0106, L501.9910, L500.4050, L506.1001, L500.4100, L501.9520 ####[facility] [address] [place], [address] MCV (RBC) [Entitic vol] 95.8 fL High 80-94 [facility] Comment on above: Performed By: #### L 501.9985, L100.0100, L501.5200, L300.8000, L503.0106, L501.9910, L500.4050, L506.1001, L500.4100, L501.9520 ####[facility] [address] [place], [address] Monocytes/100 WBC (Bld) 14.4 % High 0-10 [facility] Comment on above: Performed By: #### L 501.9985, L100.0100, L501.5200, L300.8000, L503.0106, L501.9910, L500.4050, L506.1001, L500.4100, L501.9520 ####[facility] [address] [place], [address] Neutrophils/100 WBC (Bld) 58.4 % Normal 47-70 [facility] Comment on above: Performed By: #### L 501.9985, L100.0100, L501.5200, L300.8000, L503.0106, L501.9910, L500.4050, L506.1001, L500.4100, L501.9520 ####[facility] [address] [facility] [place], [place], [phone] Nucleated RBC (Bld) [#/Vol] 0 10*3/uL Normal 0-5 [facility] Comment on above: Performed By: #### L 501.9985, L100.0100, L501.5200, L300.8000, L503.0106, L501.9910, L500.4050, L506.1001, L500.4100, L501.9520 ####[facility] [address] [facility] [place], [address] Platelet mean volume (Bld) [Entitic vol] 8.5 fL Normal 6.2-12.0 [facility] Comment on above: Performed By: #### L 501.9985, L100.0100, L501.5200, L300.8000, L503.0106, L501.9910, L500.4050, L506.1001, L500.4100, L501.9520 ####[facility] [address] [place], [address] Platelets (Bld) [#/Vol] 474 10*3/uL High 150-450 [facility] Comment on above: Performed By: #### L 501.9985, L100.0100, L501.5200, L300.8000, L503.0106, L501.9910, L500.4050, L506.1001, L500.4100, L501.9520 ####[facility] [address] [place], [place], [phone]) RBC (Bld) [#/Vol] 3.61 10*6/uL Low 4.6-6.2 [facility] Comment on above: Performed By: #### L 501.9985, L100.0100, L501.5200, L300.8000, L503.0106, L501.9910, L500.4050, L506.1001, L500.4100, L501.9520 ####[facility] [address] [place], [place], [phone] RDW SD 44.2 fl High 35.1-43.9 [facility] Comment on above: Performed By: #### L 501.9985, L100.0100, L501.5200, L300.8000, L503.0106, L501.9910, L500.4050, L506.1001, L500.4100, L501.9520 ####[facility] [address] [place], [place], [phone] WBC (Bld) [#/Vol] 6.5 10*3/uL Normal 4.4-11.0 [facility] Comment on above: Performed By: #### L 501.9985, L100.0100, L501.5200, L300.8000, L503.0106, L501.9910, L500.4050, L506.1001, L500.4100, L501.9520 ####[facility] [address] [place], [place], [phone] Calculated very low density lipoprotein (VLDL) cholesterol measurementOrdered By: Demetra Serrano on 10-09-2024 Calculated very low density lipoprotein (VLDL) cholesterol measurement 16 mg/dL [facility] VLDL Cholesterol 16 mg/dL [facility] Carbon dioxide, total [Moles /volume] in Central venous bloodOrdered By: Demetra Serrano on 10-09-2024 CO2 [Moles/Vol] 24.9 mmol/L 21.0-32.0 [facility] Chest without Contraston Chest without Contrast [facility] [address] [place] [address] Chest without Contrast MR#: [id number] Acct: [id number] Name: CRISTINO RYAN Rep #: [id number] : 1950 M 73 From: Jimmy valero MD PCP: Dr. Demetra Serrano MD Status: REG CLI Study: Chest without Contrast Date of Exam: 10/09/24 Exam# [id number] Ordering Dr: Demetra Serrano MD PROCEDURE: CHEST WITHOUT CONTRAST REASON FOR EXAM: RIGHT SIDED LOWER LATERAL CHEST WALL PAIN TECHNIQUE: Chest CT without contrast. COMPARISON: Comparison is made with prior study dated September 30, 2022. FINDINGS: Hardware: None. Lymph nodes: Small mediastinal lymph nodes. Heart and Vasculature: Normal heart size. No pericardial effusion. Atherosclerotic calcifications of the thoracic aorta. Thoracic aorta and pulmonary arteries have normal contours; noncontrast technique limits evaluation. Coronary Artery Calcifications: Present Lungs and Airways: Mild emphysematous changes are present. There is a 2.5 cm x 1.8 cm irregular cavitated mass in the lateral aspect of the right lower lobe. A neoplastic process should be ruled out. There is also evidence of scarring in the right lower lobe. Pleura: No pleural effusion. No pneumothorax. Upper Abdomen: There is a 1 cm cyst in the anterior aspect of the left lobe of the liver. Small cysts also seen in the inferior aspect of the right lobe of the liver. Bilateral renal cysts. Questionable 3.6 cm 4.3 cm solid mass in the lateral aspect of the right kidney. Correlation with ultrasound recommended. Bones: Degenerative changes of the thoracic spine. CT/Chest without Contrast IMPRESSION: 2.5 cm x 1.8 cm irregular cavitated mass in the lateral aspect of the right lower lobe. A neoplastic process should be ruled out although an infectious process may have a similar appearance. Findings suggestive of a solid mass in the lateral aspect of the left kidney. Correlation with ultrasound recommended. One or more dose reduction techniques were used (e.g., Automated exposure control, adjustment of the mA and/or kV according to patient size, use of iterative reconstruction technique). Reading Location: [id number] CC: Dr. 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, [address] Albumin/Globulin [Mass ratio] 1.2 {ratio} Normal 0.9-2.4 [facility] Comment on above: Performed By: #### L 501.9985, L100.0100, L501.5200, L300.8000, L503.0106, L501.9910, L500.4050, L506.1001, L500.4100, L501.9520 ####[facility] [address] [facility] [address] [place], [address] ALK PHOS 81 U/L Normal 40-129 [facility] Comment on above: Performed By: #### L 501.9985, L100.0100, L501.5200, L300.8000, L503.0106, L501.9910, L500.4050, L506.1001, L500.4100, L501.9520 ####[facility] [address], [address] ALT [Catalytic activity/Vol] 9 U/L Normal <=46 [facility] Comment on above: Performed By: #### L 501.9985, L100.0100, L501.5200, L300.8000, L503.0106, L501.9910, L500.4050, L506.1001, L500.4100, L501.9520 ####[facility] [address] [place], [address] AST [Catalytic activity/Vol] 17 U/L Normal <=37 [facility] Comment on above: Performed By: #### L 501.9985, L100.0100, L501.5200, L300.8000, L503.0106, L501.9910, L500.4050, L506.1001, L500.4100, L501.9520 ####[facility] [address] [place], [address] Bilirubin [Mass/Vol] 0.26 mg/dL Normal 0.00-1.30 [facility] Comment on above: Performed By: #### L 501.9985, L100.0100, L501.5200, L300.8000, L503.0106, L501.9910, L500.4050, L506.1001, L500.4100, L501.9520 ####[facility] [address] [place], [place], [phone] BUN/CRE 12.4 RATIO Normal 10-20 [facility] Comment on above: Performed By: #### L 501.9985, L100.0100, L501.5200, L300.8000, L503.0106, L501.9910, L500.4050, L506.1001, L500.4100, L501.9520 ####[facility] [address] [place], [address] Calcium [Mass/Vol] 9.6 mg/dL Normal 7.6-11.0 [facility] Comment on above: Performed By: #### L 501.9985, L100.0100, L501.5200, L300.8000, L503.0106, L501.9910, L500.4050, L506.1001, L500.4100, L501.9520 ####[facility] [address] [place], [address] Chloride [Moles/Vol] 93 mmol/L Low 98-108 [facility] Comment on above: Performed By: #### L 501.9985, L100.0100, L501.5200, L300.8000, L503.0106, L501.9910, L500.4050, L506.1001, L500.4100, L501.9520 ####[facility] [address] [place], [address] CO2 [Moles/Vol] 24.9 mmol/L Normal 21.0-32.0 [facility] Comment on above: Performed By: #### L 501.9985, L100.0100, L501.5200, L300.8000, L503.0106, L501.9910, L500.4050, L506.1001, L500.4100, L501.9520 ####[facility] [address] [place], [address] Creatinine [Mass/Vol] 0.94 mg/dL Normal 0.70-1.20 [facility] Comment on above: Performed By: #### L 501.9985, L100.0100, L501.5200, L300.8000, L503.0106, L501.9910, L500.4050, L506.1001, L500.4100, L501.9520 ####[facility] [address] [place], [address] GAP 11 Normal 5-15 [facility] Comment on above: Performed By: #### L 501.9985, L100.0100, L501.5200, L300.8000, L503.0106, L501.9910, L500.4050, L506.1001, L500.4100, L501.9520 ####[facility] [address] [place], [address] GFR/1.73 sq M.predicted among non-blacks MDRD (S/P/Bld) [Vol rate/Area] 86 mL/min/{1.73_m2} Normal >60 [facility] Comment on above: Result Comment: mL/m in/1.73m2 CKD-EPI Creatinine Equation (2020) Performed By: #### L 501.9985, L100.0100, L501.5200, L300.8000, L503.0106, L501.9910, L500.4050, L506.1001, L500.4100, L501.9520 ####[facility] [address] [place], [place], [phone] Globulin (S) [Mass/Vol] 3.0 g/dL Normal 2.2-4.2 [facility] Comment on above: Performed By: #### L 501.9985, L100.0100, L501.5200, L300.8000, L503.0106, L501.9910, L500.4050, L506.1001, L500.4100, L501.9520 ####[facility] [address] [place], [place], [phone] Glucose [Mass/Vol] 102 mg/dL High 70-99 [facility] Comment on above: Performed By: #### L 501.9985, L100.0100, L501.5200, L300.8000, L503.0106, L501.9910, L500.4050, L506.1001, L500.4100, L501.9520 ####[facility] [address] [place], [address] Potassium [Moles/Vol] 4.2 mmol/L Normal 3.3-5.1 [facility] Comment on above: Performed By: #### L 501.9985, L100.0100, L501.5200, L300.8000, L503.0106, L501.9910, L500.4050, L506.1001, L500.4100, L501.9520 ####[facility] [address] [place], [place], [phone] Sodium [Moles/Vol] 128 mmol/L Low 133-145 [facility] Comment on above: Performed By: #### L 501.9985, L100.0100, L501.5200, L300.8000, L503.0106, L501.9910, L500.4050, L506.1001, L500.4100, L501.9520 ####[facility] [address] [place], [place], [phone](559) T PROT 6.7 g/dL Normal 5.9-8.4 [facility] Comment on above: Performed By: #### L 501.9985, L100.0100, L501.5200, L300.8000, L503.0106, L501.9910, L500.4050, L506.1001, L500.4100, L501.9520 ####[facility] [address] [place], [place], [phone] Urea nitrogen [Mass/Vol] 12 mg/dL Normal 4-19 [facility] Comment on above: Performed By: #### L 501.9985, L100.0100, L501.5200, L300.8000, L503.0106, L501.9910, L500.4050, L506.1001, L500.4100, L501.9520 ####[facility] [address] [place], [place], [id number] D-Dimer Quantitative (DVT/PE )on 10-09-2024 D-DIMER QUANT 3.95 FEU/ug/m Invalid Interpretation Code 0.27-0.49 [facility] Comment on above: Result Comment: D-Di larry ELEVATED (>0.49): Additional studies and clinical assessments are indicated to conclude diagnosis of: Deep Vein Thrombosis (DVT) or Pulmonary Embolism (PE) Performed By: #### L 501.9985, L100.0100, L501.5200, L300.8000, L503.0106, L501.9910, L500.4050, L506.1001, L500.4100, L501.9520 ####[facility] [address] [place], [place], [phone] D-dimer measurement for deep venous thrombosisOrdered By: Demetra Serrano on 10-09-2024 D-Dimer Quantitative (PE/DVT) 3.95 FEU/ug/m High 0.27-0.49 [facility] Comment on above: D-Dimer ELEVATED (>0 .49): Additional studies and clinicalassessments are indicated to conclude diagnosis of:Deep Vein Thrombosis (DVT) or Pulmonary Embolism (PE) Eosinophil percentageOrdered By: Demetra Serrano on 10-09-2024 Eosinophils/100 WBC (Bld) 2.9 % 0-5 [facility] Erythrocyte distribution wid th ratioOrdered By: Demetra Serrano on 10-09-2024 Erythrocyte distribution width (RBC) [Ratio] 12.5 % 11.6-14.6 [facility] Erythrocyte distribution wid th standard deviationOrdered By: Demetra Serrano on 10-09-2024 Erythrocyte distribution width (RBC) [Entitic vol] 44.2 fL High 35.1-43.9 [facility] Erythrocyte distribution width (RBC) [Ratio] 44.2 fl High 35.1-43.9 [facility] GFR/1.73 sq M.predicted anna g non-blacks MDRD (S/P/Bld) [Vol rate/Area]Ordered By: Demetra Serrano on 10-09-2024 Estimated GFR (MDRD) Non-Af Amer 86 >60 [facility] Comment on above: mL/min/1.73m2 CKD-EP I Creatinine Equation (2020) Glomerular filtration rate ( GFR) estimation/1.73 sq m using serum, plasma, or whole bOrdered By: Demetra Serrano on 10-09-2024 GFR/1.73 sq M.predicted among non-blacks MDRD (S/P/Bld) [Vol rate/Area] 86 mL/min/{1.73_m2} >60 [facility] Comment on above: mL/min/1.73m2 CKD-EP I Creatinine Equation (2020) Hematocrit Auto (Bld) [Volum e fraction]Ordered By: Demetra Serrano on 10-09-2024 Hematocrit (Bld) [Volume fraction] 34.6 % Low 40-54 [facility] Hemoglobin A1con 10-09-2024 HbA1c (Bld) [Mass fraction] 5.6 % Low <=5.6 [facility] Comment on above: Performed By: #### L 501.9985, L100.0100, L501.5200, L300.8000, L503.0106, L501.9910, L500.4050, L506.1001, L500.4100, L501.9520 ####[facility] [address] [place], [place], [phone] Hemoglobin A1c percentageOrd ered By: Demetra Serrano on 10-09-2024 HbA1c (Bld) [Mass fraction] 5.6 % Low >5.7 [facility] Hemoglobin measurementOrdere d By: Demetra Serrano on 10-09-2024 Hemoglobin (Bld) [Mass/Vol] 11.9 g/dL Low 13.0-16.5 [facility] Immature granulocytes/100 WB C Auto (Bld)Ordered By: Demetra Serrano on 10-09-2024 Immature granulocytes/100 WBC (Bld) 1.200 % High 0.0-0.9 [facility] Comment on above: IG% - Immature Granu locytes (promyelocytes, myelocytes and metamyelocytes) > 1% indicates that a LEFT SHIFT is Present. L503.0106on 10-09-2024 Cobalamin (Vitamin B12) [Mass/Vol] 613 pg/mL Normal 180-914 [facility] Comment on above: Performed By: #### L 501.9985, L100.0100, L501.5200, L300.8000, L503.0106, L501.9910, L500.4050, L506.1001, L500.4100, L501.9520 ####[facility] [address] [place], [place], [phone] L506.1001on 10-09-2024 Vitamin D 25-OH 30.4 ng/mL Normal 30-100 [facility] Comment on above: Result Comment: Roseline min D Status Deficiency: <20 ng/mL (50nmol/L) Insufficiency: 20-30 ng/mL (50-75 nmol/L) Sufficiency: 30-100 ng/mL (75-250 nmol/L) Toxicity: >100 ng/mL (>250 nmol/L) Performed By: #### L 501.9985, L100.0100, L501.5200, L300.8000, L503.0106, L501.9910, L500.4050, L506.1001, L500.4100, L501.9520 ####[facility] [address] [place], [place], [phone] LDL calc ser/plasOrdered By: Demetra Serrano on 10-09-2024 Cholesterol in LDL [Mass/Vol] 81 mg/dL [facility] Comment on above: Vvvynsxdjc=891-220 m g/dL & Higher Lonc=361 mg/dL or greater LDL Cholesterol, Calculated 81 mg/dL [facility] Comment on above: Agrtsjikqw=111-877 m g/dL & Higher Joom=938 mg/dL or greater Laboratory - Chemistry and C hemistry - challengeOrdered By: Demetra Serrano on 10-09-2024 AST [Catalytic activity/Vol] 17 U/L <38 [facility] Lipid Profileon 10-09-2024 CHOL:HDL 3.25 Normal [facility] Comment on above: Performed By: #### L 501.9985, L100.0100, L501.5200, L300.8000, L503.0106, L501.9910, L500.4050, L506.1001, L500.4100, L501.9520 ####[facility] [address] [place], [place], [phone] Cholesterol [Mass/Vol] 141 mg/dL Normal <=200 [facility] Comment on above: Result Comment: Chol esterol level, Desirable <200 mg/dL Borderline high cholesterol 200-239 mg/dL High cholesterol >=240 mg/dL Recommendations of the NCEP Adult Treatment Panel for the following risk-cutoff thresholds for the [place] population. Performed By: #### L 501.9985, L100.0100, L501.5200, L300.8000, L503.0106, L501.9910, L500.4050, L506.1001, L500.4100, L501.9520 ####[facility] [address] [place], [place], [phone] Cholesterol in HDL [Mass/Vol] 43 mg/dL Normal [facility] Comment on above: Result Comment: Marija onal Cholesterol Education Program (NCEP) guidelines: <40 mg/dL: Low HDL-cholesterol (major risk factor for CHD) >= 60 mg/dL: High HDL-cholesterol (negative risk factor for CHD) HDL-cholesterol is affected by a number of factors, e.g. smoking, exercise, hormones, sex and age. Performed By: #### L 501.9985, L100.0100, L501.5200, L300.8000, L503.0106, L501.9910, L500.4050, L506.1001, L500.4100, L501.9520 ####[facility] [address] [place], [place], [phone] Cholesterol in LDL [Mass/Vol] 81 mg/dL Normal [facility] Comment on above: Result Comment: Bord qlfztr=562-532 mg/dL Higher Oife=734 mg/dL or greater Performed By: #### L 501.9985, L100.0100, L501.5200, L300.8000, L503.0106, L501.9910, L500.4050, L506.1001, L500.4100, L501.9520 ####[facility] [address] [place], [place], [phone] Cholesterol in VLDL [Mass/Vol] 16 mg/dL Normal 5-40 [facility] Comment on above: Performed By: #### L 501.9985, L100.0100, L501.5200, L300.8000, L503.0106, L501.9910, L500.4050, L506.1001, L500.4100, L501.9520 ####[facility] [address] [place], [place], [phone]) Triglyceride [Mass/Vol] 81 mg/dL Normal [facility] Comment on above: Result Comment: The drugs N-Acetylcysteine and Metamizole may falsely depress this assay. Normal range: <150 mg/dL Borderline High: 150-199 mg/dL High: 200-499 mg/dL Very High: >500 mg/dL Performed By: #### L 501.9985, L100.0100, L501.5200, L300.8000, L503.0106, L501.9910, L500.4050, L506.1001, L500.4100, L501.9520 ####[facility] [address] [place], [place], [phone] Lymphocytes Auto (Unsp spec) [#/Vol]Ordered By: Demetra Serrano on 10-09-2024 Lymphocytes (Bld) [#/Vol] 1.47 10*3/uL 0.83-4.51 [facility] Lymphocytes/100 WBC Auto (Un sp spec)Ordered By: Demetra Serrano on 10-09-2024 Lymphocytes/100 WBC (Bld) 22.5 % 19-41 [facility] MCV (mean corpuscular volume ) determinationOrdered By: Demetra Serrano on 10-09-2024 MCV (RBC) [Entitic vol] 95.8 fL High 80-94 [facility] Magnesiumon 10-09-2024 Magnesium [Mass/Vol] 1.9 mg/dL Normal 1.5-2.2 [facility] Comment on above: Performed By: #### L 501.9985, L100.0100, L501.5200, L300.8000, L503.0106, L501.9910, L500.4050, L506.1001, L500.4100, L501.9520 ####[facility] [address] [place], [place], [phone] Magnesium (Unsp spec) [Mass/ Vol]Ordered By: Demetra Serrano on 10-09-2024 Magnesium [Mass/Vol] 1.9 mg/dL 1.5-2.2 [facility] Magnesium measurement (mass/ volume)Ordered By: Demetra Serrano on 10-09-2024 Magnesium (Unsp spec) [Mass/Vol] 1.9 mg/dL 1.5-2.2 [facility] Mean corpuscular hemoglobin (MCH) determinationOrdered By: Demetra Serrano on 10-09-2024 MCH (RBC) [Entitic mass] 33.0 pg High 27.0-32.0 [facility] Mean corpuscular hemoglobin concentration (MCHC) determinationOrdered By: Demetra Serrano on 10-09-2024 MCHC (RBC) [Mass/Vol] 34.4 g/dL 32-36 [facility] Mean platelet volume determi nationOrdered By: Demetra Serrano on 10-09-2024 Platelet mean volume (Bld) [Entitic vol] 8.5 fL 6.2-12.0 [facility] Monocyte percentageOrdered B y: Demetra Serrano on 10-09-2024 Monocytes/100 WBC (Bld) 14.4 % High 0-10 [facility] Neutrophil percentageOrdered By: Demetra Serrano on 10-09-2024 Neutrophils/100 WBC (Bld) 58.4 % 47-70 [facility] Nucleated red blood cell per centageOrdered By: eDmetra Serrano on 10-09-2024 Nucleated RBC/100 WBC (Bld) [Ratio] 0 % 0-5 [facility] PSA, total screeningOrdered By: Demetra Serrano on 10-09-2024 Prostate Specific Antigen Screen 0.93 ng/mL 0.02-4.00 [facility] Comment on above: This test was perfor med using the [employer] tPSA method. Measured values of a patient sample can vary depending on the testing procedure used. PSA values determined on patient samples by different testing procedures cannot be used interchangeably. If there is a change in PSA assays while monitoring therapy, sequential testing should be performed to confirm baseline values. PSA,Total - Annual Screenon 10-09-2024 PSA,TOT SCREEN 0.93 ng/mL Normal 0.02-4.00 [facility] Comment on above: Result Comment: This test was performed using the [employer] tPSA method. Measured values of a patient??sample can vary depending on the testing procedure used. PSA values determined on patient samples by different testing procedures cannot be used interchangeably. If there is a change in PSA assays while monitoring therapy, sequential testing should be performed to confirm baseline values. Performed By: #### L 501.9985, L100.0100, L501.5200, L300.8000, L503.0106, L501.9910, L500.4050, L506.1001, L500.4100, L501.9520 ####[facility] [address] [place], [place], [phone] Platelet countOrdered By: Shelley Serrano on 10-09-2024 Platelets (Bld) [#/Vol] 474 10*3/uL High 150-450 [facility] Potassium (Unsp spec) [Mass/ Vol]Ordered By: Demetra Serrano on 10-09-2024 Potassium [Moles/Vol] 4.2 mmol/L 3.3-5.1 [facility] Potassium measurement (mass/ volume)Ordered By: Demetra Serrano on 10-09-2024 Potassium (Unsp spec) [Mass/Vol] 4.2 mmol/L 3.3-5.1 [facility] RBC Auto (Bld) [#/Vol]Ordere d By: Demetra Serrano on 10-09-2024 RBC (Bld) [#/Vol] 3.61 10*6/uL Low 4.6-6.2 [facility] Screening total cholesterol/ high density lipoprotein (HDL) cholesterol ratioOrdered By: Demetra Serrano on 10-09-2024 Cholesterol.total/Cho lesterol in HDL [Mass ratio] 3.25 {ratio} [facility] Serum creatinine measurement (mass/volume)Ordered By: Demetra Serrano on 10-09-2024 Creatinine [Mass/Vol] 0.94 mg/dL 0.70-1.20 [facility] Serum globulin measurementOr dered By: Demetra Serrano on 10-09-2024 Globulin (S) [Mass/Vol] 3.0 g/dL 2.2-4.2 [facility] Serum glucose measurement (m ass/volume)Ordered By: Demetra Serrano on 10-09-2024 Glucose [Mass/Vol] 102 mg/dL High 70-99 [facility] Serum or plasma alanine garcia otransferase (ALT) measurementOrdered By: Demetra Serrano on 10-09-2024 ALT [Catalytic activity/Vol] 9 U/L <47 [facility] Serum or plasma albumin harmony urement (mass/volume)Ordered By: Demetra Serrano on 10-09-2024 Albumin [Mass/Vol] 3.6 g/dL 3.4-4.8 [facility] Serum or plasma albumin/glob ulin mass ratioOrdered By: Demetra Serrano on 10-09-2024 Albumin/Globulin [Mass ratio] 1.2 {ratio} 0.9-2.4 [facility] Serum or plasma alkaline rita sphatase measurementOrdered By: Demetra Serrano on 10-09-2024 ALP [Catalytic activity/Vol] 81 U/L 40-129 [facility] Serum or plasma calcium harmony urement (mass/volume)Ordered By: Demetra Serrano on 10-09-2024 Calcium [Mass/Vol] 9.6 mg/dL 7.6-11.0 [facility] Serum or plasma cholesterol in HDL measurement (mass/volume)Ordered By: Demetra Serrano on 10-09-2024 Cholesterol in HDL [Mass/Vol] 43 mg/dL >40 [facility] Comment on above: National Cholesterol Education Program (NCEP) guidelines:<40 mg/dL: Low HDL-cholesterol (major risk factor for CHD)>= 60 mg/dL: High HDL-cholesterol (negative risk factor for CHD)HDL-cholesterol is affected by a number of factors, e.g. smoking, exercise, hormones, sex and age. Serum or plasma cholesterol measurement (mass/volume)Ordered By: Demetra Serrano on 10-09-2024 Cholesterol [Mass/Vol] 141 mg/dL <201 [facility] Comment on above: Cholesterol level, D esirable <200 mg/dLBorderline high cholesterol 200-239 mg/dLHigh cholesterol >=240 mg/dLRecommendations of the NCEP Adult Treatment Panel for the following risk-cutoff thresholds for the [place] population. Serum or plasma urea nitroge n measurement (mass/volume)Ordered By: Demetra Serrano on 10-09-2024 Urea nitrogen [Mass/Vol] 12 mg/dL 4-19 [facility] Sodium levelOrdered By: Dominique Serrano on 10-09-2024 Sodium [Moles/Vol] 128 mmol/L Low 133-145 [facility] TSH DL <= 0.005 mIU/L QnOrde red By: Demetra Serrano on 10-09-2024 Thyroid Stimulating Hormone (TSH) 1.520 uIU/mL 0.300-4.20 0 [facility] TSH Qn 1.520 uIU/mL 0.300-4.20 0 [facility] Thyroid Stim Hormone (TSH)on 10-09-2024 TSH 1.520 uIU/mL Normal 0.300-4.20 0 [facility] Comment on above: Performed By: #### L 501.9985, L100.0100, L501.5200, L300.8000, L503.0106, L501.9910, L500.4050, L506.1001, L500.4100, L501.9520 ####[facility] [address] [place], [address] Total proteinOrdered By: Vita Serrano on 10-09-2024 Protein [Mass/Vol] 6.7 g/dL 5.9-8.4 [facility] Triglycerides measurementOrd ered By: Demetra Serrano on 10-09-2024 Triglyceride [Mass/Vol] 81 mg/dL <199 [facility] Comment on above: The drugs N-Acetylcy steine and Metamizole may falsely depress this assay. Normal range: <150 mg/dLBorderline High: 150-199 mg/dLHigh: 200-499 mg/dLVery High: >500 mg/dL Vitamin B12 ser/plasOrdered By: Demetra Serrano on 10-09-2024 Cobalamin (Vitamin B12) [Mass/Vol] 613 pg/mL 180-914 [facility] Vitamin D, 25-hydroxyOrdered By: Demetra Serrano on 10-09-2024 Vitamin D 25-Hydroxy 30.4 ng/mL 30-100 [facility] Comment on above: Vitamin D StatusDefi ciency: <20 ng/mL (50nmol/L)Insufficiency: 20-30 ng/mL (50-75 nmol/L)Sufficiency: 30-100 ng/mL (75-250 nmol/L)Toxicity: >100 ng/mL (>250 nmol/L) White blood cell (WBC) count Ordered By: Demetra Serrano on 10-09-2024 WBC (Bld) [#/Vol] 6.5 10*3/uL 4.4-11.0 [facility] MR/BMS.IMBon 10-08-2024 MR/BMS.B [facility] [address] [address] [place] [address] OFFICE VISIT Date of Service: 10/08/24 MR#: [id number] Acct: [id number] Name: CRISTINO RYAN Rep #: [id number] : 1950 Provider: Dr. Demetra shukla MD Age/Sex: 73/M Location: [facility] Status: Signed Intake Vital Signs 07/07/24 13:07 10/08/24 14:19 Height 5 ft 8 in 5 ft 8 in Weight: 102 lb 6 oz 97 lb 4 oz BMI 15.5 14.8 BP 174/95 H 177/73 H Blood Pressure Location Rt brachial Lt brachial Position Sitting Sitting Respiration 16 16 Pulse 61 64 Pulse Source Monitor Monitor Temp 98.0 F 98.0 F Temp Source Temporal Temporal Pulse Oximetry (%) 97 93 Oxygen Delivery Method room air room air Intake Visit Reasons: RT Rib Pain Chief Complaint: RT Rib Pain Patent Prosecution Paralegal Required: No Accompanied by: Self Is patient in pain?: Yes (R side ribs, lower back) Pain scale (1-10): 5 Allergies Penicillins (PCN) Allergy (Verified 10/08/24 14:05) Hives typhoid vaccine (Typhoid Vaccine) Allergy (Verified 10/08/24 14:05) Other bupropion HCl (From Wellbutrin) Adverse Reaction (Verified 10/08/24 14:05) Other sildenafil (From Viagra) Adverse Reaction (Verified 10/08/24 14:05) Other Medications ???Medication ???Instructions ???Recorded ???Confirmed ???Type loratadine 10 mg tablet 10 mg PO DAILY ALLERGIES 09/03/14 10/08/24 History acetaminophen 500 mg tablet 1,000 mg PO Q6H PRN Pain 03/16/22 10/08/24 History albuterol sulfate 2.5 mg/3 mL 2.5 mg (3 mL) inhalation Q6H PRN 0 10/30/22 10/08/24 Rx (0.083 %) solution for nebulization SOB #180 mL nebulizer tubing and masks 10/31/22 10/08/24 History lidocaine-prilocaine 2.5 %-2.5 % 1 applic topical ONCE #30 grams 10/08/24 Rx topical cream atorvastatin 80 mg tablet 80 mg PO QHS CHOLESTEROL #90 tabs 11/22/22 10/08/24 Rx pantoprazole 40 mg tablet,delayed 40 mg PO BID #180 tabs 03/26/23 0 10/08/24 Rx release metformin 500 mg tablet 500 mg PO DAILY #90 tabs 09/12/23 10/08/24 Rx buspirone 15 mg tablet 15 mg PO BID #180 tabs 05/23/24 03 /12/25 Rx metoprolol succinate 25 mg 25 mg PO DAILY #90 tabs 12/20/23 0 10/08/24 Rx tablet,extended release 24 hr ramipril 5 mg capsule 5 mg PO QHS #90 caps 04/30/2409/27 Rx ketoconazole 2 % shampoo topical 07/07/24 10/08/24 History oxycodone-acetaminophen 5 mg-325 1 tab PO BID PRN 07/07/24 10/08/24 History mg tablet gabapentin 100 mg capsule 100 mg PO QHS #90 caps 08/15/24 Rx citalopram 20 mg tablet 20 mg PO DAILY #90 tabs 09/29/24 0 10/08/24 Rx fluticasone fur. 100 mcg-umeclid 1 inh inhalation DAILY #120 ea 10/2110/08/24 Rx 62.5 mcg-vilant 25 mcg inhalat.powder (Trelegy Ellipta) albuterol sulfate 90 mcg/actuation 1 - [address] puff inhalation Q4H PRN CT N 10/08/24 10/08/24 Rx aerosol inhaler (Ventolin HFA) Wheezing #1 ea Have you fallen in the past year?: No PFSH Medical History (Updated 10/08/24 @ 15:[address] Demetra Serrano MD) Right-sided chest pain Chronic back pain History of edema Loss of hearing Wears glasses Wears dentures Depression Anxiety Back pain Dietary restriction History of hiatal hernia Gastric reflux Smoker Hypertension History of echocardiogram History of stress test Cardiology follow-up encounter Pipe smoker COPD (chronic obstructive pulmonary disease) Osteoporosis Diabetes Seasonal allergies H/o blood transfusion Peripheral vascular occlusive disease History of non-ST elevation myocardial infarction (NSTEMI) (05/23/14) Onychomycosis Atherosclerosis of coronary artery of [place] heart without angina pectoris (05/25/14) Essential (primary) hypertension Gastroenteritis Acute bronchitis Scoliosis Knee pain Fatigue Hemorrhoids Weight loss Arthritis Anemia Orthostatic hypotension Pre-syncope Hyperlipidemia Diabetes mellitus, type II Depression with anxiety Atrial flutter, paroxysmal Surgical History Hx of spinal surgery History of radiofrequency ablation (RFA) of nerve of cervical spine History of surgery on left wrist History of hernia repair History of open reduction and internal fixation (ORIF) procedure (2017) History of left heart catheterization History of coronary artery stent placement Family History Father Cancer Mother Kidney failure Other Kidney disease Social History household members: spouse housing: house Smoking Status: Current every day smoker tobacco type: pipe other: 1 q2hrs Tobacco: How many years used: 40 alcohol intake: never what type of physical activity do you participate in: other details: house work, and yard work. do you feel sa (more content not included)... Normal [facility] MR/BMS.IMBon 07-07-2024 MR/BMS.IMB [facility] [address] [address] [place] [address] OFFICE VISIT Date of Service: 07/07/24 MR#: [id number] Acct: [id number] Name: CRISTINO RYAN Rep #: [id number] : 1950 Provider: Dr. Demetra shukla MD Age/Sex: 73/M Location: [facility] Status: Signed Intake Vital Signs 02/05/24 12:25 07/07/24 13:07 Height 5 ft 8 in 5 ft 8 in Weight: 102 lb 6 oz BMI 15.5 BP 174/95 H Blood Pressure Location Rt brachial Position Sitting Respiration 16 Pulse 61 Pulse Source Monitor Temp 98.0 F Temp Source Temporal Pulse Oximetry (%) 97 Oxygen Delivery Method room air Intake Visit Reasons: Annual/Physical Chief Complaint: annual/physical Patent Prosecution Paralegal Required: No Accompanied by: Self Is patient in pain?: Yes (lower back pain) Pain scale (1-10): 5 Allergies Penicillins (PCN) Allergy (Verified 07/07/24 12:57) Hives typhoid vaccine (Typhoid Vaccine) Allergy (Verified 07/07/24 12:57) Other bupropion HCl (From Wellbutrin) Adverse Reaction (Verified 07/07/24 12:57) Other sildenafil (From Viagra) Adverse Reaction (Verified 07/07/24 12:57) Other Medications ???Medication ???Instructions ???Recorded ???Confirmed ???Type loratadine 10 mg tablet 10 mg PO DAILY ALLERGIES 09/03/14 07/07/24 History acetaminophen 500 mg tablet 1,000 mg PO Q6H PRN Pain 03/16/22 07/07/24 History albuterol sulfate 2.5 mg/3 mL 2.5 mg (3 mL) inhalation Q6H PRN 10/30/22 07/07/24 Rx (0.083 %) solution for nebulization SOB #180 mL nebulizer tubing and masks 10/31/22 07/07/24 History lidocaine-prilocaine 2.5 %-2.5 % 1 applic topical ONCE #30 grams 11/13/22 07/07/24 Rx topical cream atorvastatin 80 mg tablet 80 mg PO QHS CHOLESTEROL #90 tabs 11/22/22 07/07/24 Rx pantoprazole 40 mg tablet,delayed 40 mg PO BID #180 tabs 03/26/23 07/07/24 Rx release gabapentin 100 mg capsule 100 mg PO QHS #90 caps 06/05/23 07/07/24 Rx citalopram 20 mg tablet 20 mg PO DAILY #90 tabs 08/20/23 07/07/24 Rx albuterol sulfate 90 mcg/actuation 1 - 2 puff inhalation Q4H PRN PRN 09/12/23 07/07/24 Rx aerosol inhaler (Ventolin HFA) Wheezing #1 ea metformin 500 mg tablet 500 mg PO DAILY #90 tabs 09/12/23 07/07/24 Rx buspirone 15 mg tablet 15 mg PO BID #180 tabs 12/20/23 07/07/24 Rx metoprolol succinate 25 mg 25 mg PO DAILY #90 tabs 12/20/23 07/07/24 Rx tablet,extended release 24 hr ramipril 5 mg capsule 5 mg PO QHS #90 caps 04/30/24 07/07/24 Rx fluticasone fur. 100 mcg-umeclid 1 inh inhalation DAILY #60 ea 06/13/24 07/07/24 Rx 62.5 mcg-vilant 25 mcg inhalat.powder (Trelegy Ellipta) ketoconazole 2 % shampoo topical 07/07/24 07/07/24 History oxycodone-acetaminophen 5 mg-325 1 tab PO BID PRN 07/07/24 07/07/24 History mg tablet Have you fallen in the past year?: No PFSH Medical History (Updated 07/07/24 @ 15:[address] Demetra Serrano MD) Chronic back pain History of edema Loss of hearing Wears glasses Wears dentures Depression Anxiety Back pain Dietary restriction History of hiatal hernia Gastric reflux Smoker Hypertension History of echocardiogram History of stress test Cardiology follow-up encounter Pipe smoker COPD (chronic obstructive pulmonary disease) Osteoporosis Diabetes Seasonal allergies H/o blood transfusion Peripheral vascular occlusive disease History of non-ST elevation myocardial infarction (NSTEMI) (05/23/14) Onychomycosis Atherosclerosis of coronary artery of [place] heart without angina pectoris (05/25/14) Essential (primary) hypertension Gastroenteritis Acute bronchitis Scoliosis Knee pain Fatigue Hemorrhoids Weight loss Arthritis Anemia Orthostatic hypotension Pre-syncope Hyperlipidemia Diabetes mellitus, type II Depression with anxiety Atrial flutter, paroxysmal Surgical History Hx of spinal surgery History of radiofrequency ablation (RFA) of nerve of cervical spine History of surgery on left wrist History of hernia repair History of open reduction and internal fixation (ORIF) procedure (2018) History of left heart catheterization History of coronary artery stent placement Family History Father Cancer Mother Kidney failure Other Kidney disease Social History household members: spouse housing: house Smoking Status: Current every day smoker tobacco type: pipe other: 1 q2hrs Tobacco: How many years used: 40 alcohol intake: never what type of physical activity do you participate in: other details: house work, and yard work. do you feel safe at home: Yes HPI HPI Chief Complaint: annual/physical Details: CRISTINO RYAN, is a 73 M who presents to the office today for annual (more content not included)... Normal [facility] Glucose Glucometer (dC) [M ass/Vol]Ordered By: Freedom Leyva on 07-13-2023 Glucose [Mass/Vol] 103 mg/dL 74-106 [facility] Comment on above: MANAGEMENT OF PATIEN T CARE PER NURSING PROTOCOL Basophil percentageOrdered B y: Demetra Serrano on 05-28-2023 Basophil percentage 25-50 SEEN /hpf 0-5 [facility] Bilirubin Test strip Ql (U)O rdered By: Demetra Serrano on 05-28-2023 Bilirubin Ql (U) Negative Negative [facility] Culture, urineOrdered By: Shelley Serrano on 05-28-2023 Bacteria identified Cx Nom (U) Klebsiella pneumoniae sp pneum [facility] Bacteria identified Cx Nom (U) Klebsiella pneumoniae sp pneum [facility] Ketones Test strip Ql (U)Ord ered By: Demetra Serrano on 05-28-2023 Ketones Ql (U) 5 mg/dl Negative [facility] Mucus LM Ql (Urine sed)Order ed By: Demetra Serrano on 05-28-2023 Mucus Ql (Urine sed) 0 SEEN /hpf [facility] Nitrite Test strip Ql (U)Ord ered By: Demetra Serrano on 05-28-2023 Nitrite Ql (U) Negative Negative [facility] Protein Test strip Ql (U)Ord ered By: Demetra Serrano on 05-28-2023 Protein Ql (U) 30 mg/dl Negative [facility] Squamous epithelial cells de tection in urine sediment by light microscopyOrdered By: Demetra Serrano on 05-28-2023 Epithelial cells.squamous LM Ql (Urine sed) 0 SEEN /hpf 0-5 [facility] Urine blood detectionOrdered By: Demetra Serrano on 05-28-2023 RBC Ql (U) 50 /ul Negative [facility] RBC Ql (U) 0-5 SEEN /hpf 0-5 [facility] Urine clarityOrdered By: Vita Serrano on 05-28-2023 Clarity (U) Sl. Cloudy Clear [facility] Urine color determinationOrd ered By: Demetra Serrano on 05-28-2023 Color (U) Yellow Yellow [facility] Urine glucose detectionOrder ed By: Demetra Serrano on 05-28-2023 Glucose Ql (U) Normal mg/dl Normal [facility] Urine leukocyte esterase det ection by dipstickOrdered By: Demetra Serrano on 05-28-2023 Leukocyte esterase Test strip Ql (U) 500 /ul Negative [facility] Urine pHOrdered By: Demetra mccloud on 05-28-2023 pH (U) 6.0 [pH] 5.0 - 8.0 [facility] Urine sediment bacteria coun t by microscopy (number/high power field)Ordered By: Demetra Serrano on 05-28-2023 Bacteria LM.HPF (Urine sed) [#/Area] 3 /[HPF] None Seen [facility] Urine specific gravity measu rementOrdered By: Demetra Serrano on 05-28-2023 Specific gravity (U) [Rel density] 1.015 1.002-1.03 0 [facility] Urobilinogen Auto test strip Ql (U)Ordered By: Demetra Serrano on 05-28-2023 Urobilinogen Ql (U) 4 mg/dl Normal [facility] Laboratory - Chemistry and C hemistry - challengeon 05-02-2023 Bilirubin Ql (U) Negative [facility] Glucose Ql (U) Negative [facility] Ketones Ql (U) Trace (5) [facility] pH (U) 5.0 [pH] [facility] Specific gravity (U) [Rel density] 1.015 [facility] Urobilinogen (U) [Mass/Vol] 1 mg/dL [facility] Laboratory - Hematology and Cell countson 05-02-2023 Hemoglobin Ql (U) Negative [facility] Laboratory - Specimen inform ationon 05-02-2023 Clarity (U) Clear [facility] Color (U) Yellow [facility] Laboratory - Urinalysison Nitrite Ql (U) Negative [facility] Protein Ql (U) Negative [facility] No Panel Informationon 05-02 Urine Leukocytes Negatve [facility] Urine Non-Hemolyzed Blood [facility] Absolute lymphocyte countOrd ered By: Wiliam Carmen on 04-22-2023 Lymphocytes Auto (Unsp spec) [#/Vol] 0.31 10*3/uL 0.83-4.51 [facility] Basophil percentageOrdered B y: Wiliam Carmen on 04-22-2023 Basophil percentage 25-50 SEEN /hpf 0-5 [facility] Basophils/100 WBC (Bld) 0.3 % 0-1 [facility] Chloride [Moles/Vol] 97 mmol/L 98-107 [facility] Eosinophils/100 WBC (Bld) 0.6 % 0-5 [facility] Glucose [Mass/Vol] 94 mg/dL 74-106 [facility] Neutrophils (Bld) [#/Vol] 6.4 10*3/uL 2.0-7.7 [facility] Neutrophils/100 WBC (Bld) 91.6 % 47-70 [facility] Potassium [Moles/Vol] 4.2 mmol/L 3.5-5.1 [facility] Sodium [Moles/Vol] 130 mmol/L 136-145 [facility] WBC (Bld) [#/Vol] 7.0 10*3/uL 4.4-11.0 [facility] Bilirubin Test strip Ql (U)O rdered By: Wiliam Carmen on 04-22-2023 Bilirubin Ql (U) Negative Negative [facility] Blood erythrocytes count (nu mber/volume)Ordered By: Wiliam Carmen on 04-22-2023 RBC (Bld) [#/Vol] 3.35 10*6/uL 4.6-6.2 [facility] Blood hemoglobin measurement (mass/volume)Ordered By: Wiliam Carmen on 04-22-2023 Hemoglobin (Bld) [Mass/Vol] 11.2 g/dL 13.0-16.5 [facility] Blood lymphocytes/100 leukoc ytesOrdered By: Wiliam Carmen on 04-22-2023 Lymphocytes/100 WBC (Bld) 4.5 % 19-41 [facility] Blood manual differential co mment interpretation (narrative result)Ordered By: Wiliam Carmen on 04-22-2023 Manual differential comment Norris (Bld) [Interp] SCANNED [facility] Blood monocytes/100 leukocyt esOrdered By: Wiliam Carmen on 04-22-2023 Monocytes/100 WBC (Bld) 2.7 % 0-10 [facility] Blood platelet mean volumeOr dered By: Wiliam Carmen on 04-22-2023 Platelet mean volume (Bld) [Entitic vol] 9.9 fL 6.2-12.0 [facility] Determination of erythrocyte mean corpuscular volume (MCV)Ordered By: Wiliam Carmen on 04-22-2023 MCV (RBC) [Entitic vol] 102.1 fL 80-94 [facility] Hematocrit Auto (Bld) [Volum e fraction]Ordered By: Wiliam Carmen on 04-22-2023 Hematocrit (Bld) [Volume fraction] 34.2 % 40-54 [facility] Ketones Test strip Ql (U)Ord ered By: Wiliam Carmen on 04-22-2023 Ketones Ql (U) 5 mg/dl Negative [facility] Laboratory - Chemistry and C hemistry - challengeOrdered By: Wiliam Carmen on 04-22-2023 CO2 [Moles/Vol] 26.0 mmol/L 21.0-32.0 [facility] Urea nitrogen/Creatinine [Mass ratio] 17.7 mg/mg 10-20 [facility] Laboratory - Hematology and Cell countsOrdered By: Wiliam Carmen on 04-22-2023 Erythrocyte distribution width (RBC) [Entitic vol] 47.7 fL 35.1-43.9 [facility] Erythrocyte distribution width (RBC) [Ratio] 12.7 % 11.6-14.6 [facility] Immature granulocytes/100 WBC (Bld) 0.300 % 0.0-0.9 [facility] Comment on above: IG% - Immature Granu locytes (promyelocytes, myelocytes and metamyelocytes) > 1% indicates that a LEFT SHIFT is Present. MCH (RBC) [Entitic mass] 33.4 pg 27.0-32.0 [facility] Nucleated RBC/100 WBC (Bld) [Ratio] 0 % 0-5 [facility] MCHC Auto (RBC) [Mass/Vol]Or dered By: Wiliam Carmen on 04-22-2023 MCHC (RBC) [Mass/Vol] 32.7 g/dL 32-36 [facility] Mucus LM Ql (Urine sed)Order ed By: Wiliam Carmen on 04-22-2023 Mucus Ql (Urine sed) 0 SEEN /hpf [facility] Nitrite Test strip Ql (U)Ord ered By: Wiliam Carmen on 04-22-2023 Nitrite Ql (U) Positive Negative [facility] No Panel InformationOrdered By: Wiliam Carmen on 04-22-2023 Urine Transitional Epithelial Cells 0-5 SEEN /hpf 0-5 [facility] Estimated Creatinine Clearance Calc 36.94 ml/min [facility] Estimated GFR (MDRD) Amer 74 mL/min >60 [facility] Comment on above: GFR Calc Estimated GFR (MDRD) Non-Af Amer 61 mL/min >60 [facility] Comment on above: Non- GFR Calc Platelets bldOrdered By: Shaq Carmen on 04-22-2023 Platelets (Bld) [#/Vol] 193 10*3/uL 150-450 [facility] Protein Test strip Ql (U)Ord ered By: Wiliam Carmen on 04-22-2023 Protein Ql (U) 30 mg/dl Negative [facility] Serum or plasma calcium harmony urement (mass/volume)Ordered By: Wiliam Carmen on 04-22-2023 Calcium [Mass/Vol] 8.6 mg/dL 8.5-10.1 [facility] Serum or plasma creatinine m easurement (mass/volume)Ordered By: Wiliam Carmen on 04-22-2023 Creatinine [Mass/Vol] 1.24 mg/dL 0.70-1.30 [facility] Comment on above: The validity of the calculated GFR & GFRAA in patients over 70 years has not been determined. Clinical correlation is essential. Serum or plasma urea nitroge n measurement (mass/volume)Ordered By: Wiliam Carmen on 04-22-2023 Urea nitrogen [Mass/Vol] 22 mg/dL 7-18 [facility] Squamous epithelial cells de tection in urine sediment by light microscopyOrdered By: Wiliam Carmen on 04-22-2023 Epithelial cells.squamous LM Ql (Urine sed) 0 SEEN /hpf 0-5 [facility] Thin prep Papanicolaou smear with manual screeningOrdered By: Wiliam Carmen on 04-22-2023 Thin prep Papanicolaou smear with manual screening 7 5-15 [facility] Urine blood detectionOrdered By: Wiliam Carmen on 04-22-2023 RBC Ql (U) 50 /ul Negative [facility] RBC Ql (U) 0-5 SEEN /hpf 0-5 [facility] Urine clarityOrdered By: Shaq Carmen on 04-22-2023 Clarity (U) Sl. Cloudy Clear [facility] Urine color determinationOrd ered By: Wiliam Carmen on 04-22-2023 Color (U) Yellow Yellow [facility] Urine glucose detectionOrder ed By: Wiliam Carmen on 04-22-2023 Glucose Ql (U) Normal mg/dl Normal [facility] Urine leukocyte esterase det ection by dipstickOrdered By: Wiliam Carmen on 04-22-2023 Leukocyte esterase Test strip Ql (U) 500 /ul Negative [facility] Urine pHOrdered By: Wiliam yeung on 04-22-2023 pH (U) 5.0 [pH] 5.0 - 8.0 [facility] Urine sediment bacteria coun t by microscopy (number/high power field)Ordered By: Wiliam Carmen on 04-22-2023 Bacteria LM.HPF (Urine sed) [#/Area] 2 /[HPF] None Seen [facility] Urine specific gravity measu rementOrdered By: Wiliam Carmen on 04-22-2023 Specific gravity (U) [Rel density] 1.020 1.002-1.03 0 [facility] Urobilinogen Auto test strip Ql (U)Ordered By: Wiliam Carmen on 04-22-2023 Urobilinogen Ql (U) 4 mg/dl Normal [facility] Absolute lymphocyte countOrd ered By: Dr. Valdez on 09-30-2022 Lymphocytes Auto (Unsp spec) [#/Vol] 0.94 10*3/uL 0.83-4.51 [facility] Basophil percentageOrdered B y: Dr. Valdez on 09-30-2022 Basophils/100 WBC (Bld) 0.2 % 0-1 [facility] Chloride [Moles/Vol] 96 mmol/L 98-107 [facility] Eosinophils/100 WBC (Bld) 0.3 % 0-5 [facility] Glucose [Mass/Vol] 119 mg/dL 74-106 [facility] Comment on above: Fasting Glucose resu lt from 100 to 125 mg/dL suggests IMPAIRED HOMEOSTASIS per A.D.A. criteria. Neutrophils (Bld) [#/Vol] 4.2 10*3/uL 2.0-7.7 [facility] Neutrophils/100 WBC (Bld) 66.0 % 47-70 [facility] Potassium [Moles/Vol] 4.4 mmol/L 3.5-5.1 [facility] Sodium [Moles/Vol] 130 mmol/L 136-145 [facility] WBC (Bld) [#/Vol] 6.4 10*3/uL 4.4-11.0 [facility] Blood erythrocytes count (nu mber/volume)Ordered By: Dr. Valdez on 09-30-2022 RBC (Bld) [#/Vol] 3.75 10*6/uL 4.6-6.2 [facility] Blood hemoglobin measurement (mass/volume)Ordered By: Dr. Valdez on 09-30-2022 Hemoglobin (Bld) [Mass/Vol] 12.2 g/dL 13.0-16.5 [facility] Blood lymphocytes/100 leukoc ytesOrdered By: Dr. Valdez on 09-30-2022 Lymphocytes/100 WBC (Bld) 14.8 % 19-41 [facility] Blood monocytes/100 leukocyt esOrdered By: Dr. Valdez on 09-30-2022 Monocytes/100 WBC (Bld) 17.9 % 0-10 [facility] Blood platelet mean volumeOr dered By: Dr. Valdez on 09-30-2022 Platelet mean volume (Bld) [Entitic vol] 9.0 fL 6.2-12.0 [facility] Determination of erythrocyte mean corpuscular volume (MCV)Ordered By: Dr. Valdez on 09-30-2022 MCV (RBC) [Entitic vol] 97.9 fL 80-94 [facility] Hematocrit Auto (Bld) [Volum e fraction]Ordered By: Dr. Valdez on 09-30-2022 Hematocrit (Bld) [Volume fraction] 36.7 % 40-54 [facility] Laboratory - Chemistry and C hemistry - challengeOrdered By: Dr. Valdez on 09-30-2022 CO2 [Moles/Vol] 26.0 mmol/L 21.0-32.0 [facility] Urea nitrogen/Creatinine [Mass ratio] 14.6 mg/mg 10-20 [facility] Laboratory - Hematology and Cell countsOrdered By: Dr. Valdez on 09-30-2022 Erythrocyte distribution width (RBC) [Entitic vol] 46.9 fL 35.1-43.9 [facility] Erythrocyte distribution width (RBC) [Ratio] 13.0 % 11.6-14.6 [facility] Immature granulocytes/100 WBC (Bld) 0.800 % 0.0-0.9 [facility] Comment on above: IG% - Immature Granu locytes (promyelocytes, myelocytes and metamyelocytes) > 1% indicates that a LEFT SHIFT is Present. MCH (RBC) [Entitic mass] 32.5 pg 27.0-32.0 [facility] Nucleated RBC/100 WBC (Bld) [Ratio] 0 % 0-5 [facility] MCHC Auto (RBC) [Mass/Vol]Or dered By: Dr. Valdez on 09-30-2022 MCHC (RBC) [Mass/Vol] 33.2 g/dL 32-36 [facility] No Panel InformationOrdered By: Dr. Valdez on 09-30-2022 Troponin I High Sensitivity 14 pg/mL 3.0-78.0 [facility] Comment on above: Please Note: New Radha t Units and Gender Specific Reference Ranges. For more information see Policy Stat Procedure [facility] High Sensitivity Troponin (TNIH) and attachments. Estimated Creatinine Clearance Calc 42.48 ml/min [facility] Estimated GFR (MDRD) Amer 92 mL/min >60 [facility] Comment on above: GFR Calc Estimated GFR (MDRD) Non-Af Amer 76 mL/min >60 [facility] Comment on above: Non- GFR Calc Platelets bldOrdered By: Dr. Valdez on 09-30-2022 Platelets (Bld) [#/Vol] 232 10*3/uL 150-450 [facility] Serum or plasma calcium harmony urement (mass/volume)Ordered By: Dr. Valdez on 09-30-2022 Calcium [Mass/Vol] 9.1 mg/dL 8.5-10.1 [facility] Serum or plasma creatinine m easurement (mass/volume)Ordered By: Dr. Valdez on 09-30-2022 Creatinine [Mass/Vol] 1.03 mg/dL 0.70-1.30 [facility] Comment on above: The validity of the calculated GFR & GFRAA in patients over 70 years has not been determined. Clinical correlation is essential. Serum or plasma urea nitroge n measurement (mass/volume)Ordered By: Dr. Valdez on 09-30-2022 Urea nitrogen [Mass/Vol] 15 mg/dL 7-18 [facility] Thin prep Papanicolaou smear with manual screeningOrdered By: Dr. Valdez on 09-30-2022 Thin prep Papanicolaou smear with manual screening 8 5-15 [facility] Glucose Glucometer (BldC) [M ass/Vol]Ordered By: Freedom Leyva on 07-11-2022 Glucose [Mass/Vol] 75 mg/dL 74-106 [facility] Comment on above: MANAGEMENT OF PATIEN T CARE PER NURSING PROTOCOL Absolute lymphocyte countOrd ered By: Nadira Coto on 07-05-2022 Lymphocytes Auto (Unsp spec) [#/Vol] 1.62 10*3/uL 0.83-4.51 [facility] Basophil percentageOrdered B y: Dr. Serrano on 07-05-2022 Bilirubin [Mass/Vol] 0.80 mg/dL 0.20-1.00 [facility] Comment on above: For patients on eltr ombopag therapy, use of Dimension [facility] TBIL is not recommended. Chloride [Moles/Vol] 102 mmol/L 98-107 [facility] Glucose [Mass/Vol] 125 mg/dL 74-106 [facility] Comment on above: Fasting Glucose resu lt from 100 to 125 mg/dL suggests IMPAIRED HOMEOSTASIS per A.D.A. criteria. Potassium [Moles/Vol] 3.4 mmol/L 3.5-5.1 [facility] Protein [Mass/Vol] 6.0 g/dL 6.4-8.2 [facility] Sodium [Moles/Vol] 133 mmol/L 136-145 [facility] Basophil percentageOrdered B y: Nadira Coto on 07-05-2022 Basophils/100 WBC (Bld) 1.0 % 0-1 [facility] Eosinophils/100 WBC (Bld) 4.1 % 0-5 [facility] Neutrophils (Bld) [#/Vol] 1.8 10*3/uL 2.0-7.7 [facility] Neutrophils/100 WBC (Bld) 42.0 % 47-70 [facility] WBC (Bld) [#/Vol] 4.2 10*3/uL 4.4-11.0 [facility] Blood erythrocytes count (nu mber/volume)Ordered By: Nadira Coto on 07-05-2022 RBC (Bld) [#/Vol] 3.52 10*6/uL 4.6-6.2 [facility] Blood hemoglobin measurement (mass/volume)Ordered By: Nadira Coto on 07-05-2022 Hemoglobin (Bld) [Mass/Vol] 12.0 g/dL 13.0-16.5 [facility] Blood lymphocytes/100 leukoc ytesOrdered By: Nadira Coto on 07-05-2022 Lymphocytes/100 WBC (Bld) 38.8 % 19-41 [facility] Blood monocytes/100 leukocyt esOrdered By: Nadira Coto on 07-05-2022 Monocytes/100 WBC (Bld) 13.9 % 0-10 [facility] Blood platelet mean volumeOr dered By: Nadira Coto on 07-05-2022 Platelet mean volume (Bld) [Entitic vol] 9.2 fL 6.2-12.0 [facility] Determination of erythrocyte mean corpuscular volume (MCV)Ordered By: Nadira Coto on 07-05-2022 MCV (RBC) [Entitic vol] 99.7 fL 80-94 [facility] Hematocrit Auto (Bld) [Volum e fraction]Ordered By: Nadira Coto on 07-05-2022 Hematocrit (Bld) [Volume fraction] 35.1 % 40-54 [facility] Iron measurement (mass/mass) Ordered By: Nadira Ctoo on 07-05-2022 Iron (Unsp spec) [Mass/Mass] 83 ug/dL 65-175 [facility] Laboratory - Chemistry and C hemistry - challengeOrdered By: Dr. Serrano on 07-05-2022 ALP [Catalytic activity/Vol] 60 U/L 45-117 [facility] ALT [Catalytic activity/Vol] 25 U/L 16-61 [facility] CO2 [Moles/Vol] 27.0 mmol/L 21.0-32.0 [facility] Globulin (S) [Mass/Vol] 2.7 g/dL 2.2-4.2 [facility] Urea nitrogen/Creatinine [Mass ratio] 13.5 mg/mg 10-20 [facility] Laboratory - Hematology and Cell countsOrdered By: Nadira Coto on 07-05-2022 Erythrocyte distribution width (RBC) [Entitic vol] 46.5 fL 35.1-43.9 [facility] Erythrocyte distribution width (RBC) [Ratio] 12.6 % 11.6-14.6 [facility] Immature granulocytes/100 WBC (Bld) 0.200 % 0.0-0.9 [facility] Comment on above: IG% - Immature Granu locytes (promyelocytes, myelocytes and metamyelocytes) > 1% indicates that a LEFT SHIFT is Present. MCH (RBC) [Entitic mass] 34.1 pg 27.0-32.0 [facility] Nucleated RBC/100 WBC (Bld) [Ratio] 0 % 0-5 [facility] MCHC Auto (RBC) [Mass/Vol]Or dered By: Nadira Coto on 07-05-2022 MCHC (RBC) [Mass/Vol] 34.2 g/dL 32-36 [facility] No Panel InformationOrdered By: Dr. Serrano on 07-05-2022 Estimated GFR (MDRD) Amer 84 mL/min >60 [facility] Comment on above: GFR Calc Estimated GFR (MDRD) Non-Af Amer 70 mL/min >60 [facility] Comment on above: Non- GFR Calc Prostate Specific Antigen Screen 1.52 ng/mL 0.00-4.00 [facility] Comment on above: This test was perfor med using the TPSA assay method [facility]. Values obtained with differentassay methods cannot be used interchangably.When changing PSA assays in the course of monitoring apatient, additional sequential testing should be carriedout to confirm baseline values. Thyroid Stimulating Hormone (TSH) 1.25 uIU/mL 0.358-3.74 [facility] Vitamin D 25-Hydroxy 20.5 ng/mL [facility] Comment on above: Vitamin D 25(OH) Sta tus Range Deficiency <20 ng/mL (50nmol/L) Insufficiency 20 - 30 ng/mL (50 - 75 nmol/L) Sufficiency 30 - 100 ng/mL (75 - 250 nmol/L) Toxicity >100 ng/mL (>250 nmol/L) No Panel InformationOrdered By: Nadira Coto on 07-05-2022 Endomysial IgA Antibody Negative Negative [facility] Total Iron Binding Capacity 344 ug/dL 250-450 [facility] Platelets bldOrdered By: Sharla Coto on 07-05-2022 Platelets (Bld) [#/Vol] 291 10*3/uL 150-450 [facility] Serum IgA measurement (units /volume)Ordered By: Nadira Coto on 07-05-2022 IgA Qn (S) 156 mg/dL 61-437 [facility] Comment on above: Performed at: [place] [id number] Director: Girish Sharma PhD, Phone: [phone] Serum or plasma albumin harmony urement (mass/volume)Ordered By: Dr. Serrano on 07-05-2022 Albumin [Mass/Vol] 3.3 g/dL 3.2-5.0 [facility] Serum or plasma albumin/glob ulin mass ratioOrdered By: Dr. Serrano on 07-05-2022 Albumin/Globulin [Mass ratio] 1.2 {ratio} 0.9-2.4 [facility] Serum or plasma calcium harmony urement (mass/volume)Ordered By: Dr. Serrano on 07-05-2022 Calcium [Mass/Vol] 8.6 mg/dL 8.5-10.1 [facility] Serum or plasma creatinine m easurement (mass/volume)Ordered By: Dr. Serrano on 07-05-2022 Creatinine [Mass/Vol] 1.11 mg/dL 0.70-1.30 [facility] Comment on above: The validity of the calculated GFR & GFRAA in patients over 70 years has not been determined. Clinical correlation is essential. Serum or plasma ferritin elisabet surement (mass/volume)Ordered By: Nadira Coto on 07-05-2022 Ferritin [Mass/Vol] 20 ng/mL 26-388 [facility] Serum or plasma iron saturat ion measurement (mass fraction)Ordered By: Nadira Coto on 07-05-2022 Iron saturation [Mass fraction] 24.1 % 15.0-55.0 [facility] Serum or plasma urea nitroge n measurement (mass/volume)Ordered By: Dr. Serrano on 07-05-2022 Urea nitrogen [Mass/Vol] 15 mg/dL 7-18 [facility] Serum tissue transglutaminas e IgA antibody assay (units/volume)Ordered By: Nadira Coto on 07-05-2022 tTG IgA Qn (S) <2 U/mL 0-3 [facility] Comment on above: Negative 0 - 3 Weak Positive 4 - 10 Positive >10 Tissue Transglutaminase (tTG) has been identified as the endomysial antigen. Studies have demonstr- ated that endomysial IgA antibodies have over 99% specificity for gluten sensitive enteropathy. Thin prep Papanicolaou smear with manual screeningOrdered By: Dr. Serrano on 07-05-2022 Thin prep Papanicolaou smear with manual screening 26 U/L 15-37 [facility] Thin prep Papanicolaou smear with manual screening 4 5-15 [facility] Absolute lymphocyte countOrd ered By: Nadira Coto on 05-10-2022 Lymphocytes Auto (Unsp spec) [#/Vol] 1.65 10*3/uL 0.83-4.51 [facility] Basophil percentageOrdered B y: Nadira Coto on 05-10-2022 Basophils/100 WBC (Bld) 1.0 % 0-1 [facility] Bilirubin [Mass/Vol] 0.60 mg/dL 0.20-1.00 [facility] Comment on above: For patients on eltr ombopag therapy, use of Dimension [facility] TBIL is not recommended. Chloride [Moles/Vol] 100 mmol/L 98-107 [facility] Eosinophils/100 WBC (Bld) 1.5 % 0-5 [facility] Glucose [Mass/Vol] 76 mg/dL 74-106 [facility] Neutrophils (Bld) [#/Vol] 3.6 10*3/uL 2.0-7.7 [facility] Neutrophils/100 WBC (Bld) 58.0 % 47-70 [facility] Potassium [Moles/Vol] 3.6 mmol/L 3.5-5.1 [facility] Protein [Mass/Vol] 6.7 g/dL 6.4-8.2 [facility] Sodium [Moles/Vol] 133 mmol/L 136-145 [facility] WBC (Bld) [#/Vol] 6.2 10*3/uL 4.4-11.0 [facility] Blood erythrocytes count (nu mber/volume)Ordered By: Nadira Coto on 05-10-2022 RBC (Bld) [#/Vol] 3.50 10*6/uL 4.6-6.2 [facility] Blood hemoglobin measurement (mass/volume)Ordered By: Nadira Coto on 05-10-2022 Hemoglobin (Bld) [Mass/Vol] 11.6 g/dL 13.0-16.5 [facility] Blood lymphocytes/100 leukoc ytesOrdered By: Nadira Coto on 05-10-2022 Lymphocytes/100 WBC (Bld) 26.7 % 19-41 [facility] Blood monocytes/100 leukocyt esOrdered By: Nadira Coto on 05-10-2022 Monocytes/100 WBC (Bld) 12.5 % 0-10 [facility] Blood platelet mean volumeOr dered By: Nadira Coto on 05-10-2022 Platelet mean volume (Bld) [Entitic vol] 8.9 fL 6.2-12.0 [facility] Determination of erythrocyte mean corpuscular volume (MCV)Ordered By: Nadira Coto on 05-10-2022 MCV (RBC) [Entitic vol] 100.3 fL 80-94 [facility] Erythrocyte sedimentation ra teOrdered By: Nadira Coto on 05-10-2022 ESR (Bld) [Velocity] 3 mm/h 0-20 [facility] Hematocrit Auto (Bld) [Volum e fraction]Ordered By: Nadira Coto on 05-10-2022 Hematocrit (Bld) [Volume fraction] 35.1 % 40-54 [facility] Laboratory - Chemistry and C hemistry - challengeOrdered By: Nadira Coto on 05-10-2022 ALP [Catalytic activity/Vol] 67 U/L 45-117 [facility] ALT [Catalytic activity/Vol] 24 U/L 16-61 [facility] CO2 [Moles/Vol] 28.0 mmol/L 21.0-32.0 [facility] Globulin (S) [Mass/Vol] 3.3 g/dL 2.2-4.2 [facility] Urea nitrogen/Creatinine [Mass ratio] 17.3 mg/mg 10-20 [facility] Laboratory - Hematology and Cell countsOrdered By: Nadira Coto on 05-10-2022 Erythrocyte distribution width (RBC) [Entitic vol] 45.9 fL 35.1-43.9 [facility] Erythrocyte distribution width (RBC) [Ratio] 12.4 % 11.6-14.6 [facility] Immature granulocytes/100 WBC (Bld) 0.300 % 0.0-0.9 [facility] Comment on above: IG% - Immature Granu locytes (promyelocytes, myelocytes and metamyelocytes) > 1% indicates that a LEFT SHIFT is Present. MCH (RBC) [Entitic mass] 33.1 pg 27.0-32.0 [facility] Nucleated RBC/100 WBC (Bld) [Ratio] 0 % 0-5 [facility] MCHC Auto (RBC) [Mass/Vol]Or dered By: Nadira Coto on 05-10-2022 MCHC (RBC) [Mass/Vol] 33.0 g/dL 32-36 [facility] No Panel InformationOrdered By: Nadira Coto on 05-10-2022 CA 19-9 Antigen 22 U/mL 0-35 [facility] Comment on above: [employer] El ectrochemiluminescence Immunoassay(ECLIA)Values obtained with different assay methods or kits cannotbe used interchangeably. Results cannot be interpreted asabsolute evidence of the presence or absence of malignantdisease. CA 19-9 Antigen Serial Monitoring See comment [facility] Comment on above: Scanned image report available in EMR Estimated GFR (MDRD) Amer 85 mL/min >60 [facility] Comment on above: GFR Calc Estimated GFR (MDRD) Non-Af Amer 70 mL/min >60 [facility] Comment on above: Non- GFR Calc Platelets bldOrdered By: Sharla Coto on 05-10-2022 Platelets (Bld) [#/Vol] 394 10*3/uL 150-450 [facility] Serum or plasma C reactive p rotein measurement (mass/volume)Ordered By: Nadira Coto on 05-10-2022 CRP [Mass/Vol] mg/L 0.0-3.0 [facility] Comment on above: C-Reactive Protein ( CRP) provides useful information for thediagnosis, therapy and monitoring of inflammatory processesand associated diseases. For the evaluation of Relative Riskfor Cardiovascular Disease, a High Sensitivity CRP (HSCRP)should be ordered. Serum or plasma albumin harmony urement (mass/volume)Ordered By: Nadira Coto on 05-10-2022 Albumin [Mass/Vol] 3.4 g/dL 3.2-5.0 [facility] Serum or plasma albumin/glob ulin mass ratioOrdered By: Nadira Coto on 05-10-2022 Albumin/Globulin [Mass ratio] 1.0 {ratio} 0.9-2.4 [facility] Serum or plasma calcium harmony urement (mass/volume)Ordered By: Nadira Coto on 05-10-2022 Calcium [Mass/Vol] 9.3 mg/dL 8.5-10.1 [facility] Serum or plasma creatinine m easurement (mass/volume)Ordered By: Nadira Coto on 05-10-2022 Creatinine [Mass/Vol] 1.10 mg/dL 0.70-1.30 [facility] Comment on above: The validity of the calculated GFR & GFRAA in patients over 70 years has not been determined. Clinical correlation is essential. Serum or plasma gastrin harmony urement (mass/volume)Ordered By: Nadira Coto on 05-10-2022 Gastrin [Mass/Vol] 67 pg/mL 0-115 [facility] Comment on above: Siemens Immulite 200 0 Immunochemiluminometric assay (ICMA)Values obtained with different assay methods or kits cannotbe used interchangeably. Results cannot be interpreted asabsolute evidence of the presence or absence of malignantdisease.Performed at: [facility] [id number] Director: Girish Sharma PhD, Phone: [phone] at: [facility] [employer] [id number] Director: Ruel Olivares MD, Phone: [phone] Serum or plasma urea nitroge n measurement (mass/volume)Ordered By: Nadira Coto on 05-10-2022 Urea nitrogen [Mass/Vol] 19 mg/dL 7-18 [facility] Thin prep Papanicolaou smear with manual screeningOrdered By: Nadira Coto on 05-10-2022 Thin prep Papanicolaou smear with manual screening 21 U/L 15-37 [facility] Thin prep Papanicolaou smear with manual screening 5 5-15 [facility] Thin prep Papanicolaou smear with manual screening 98 U/L 87-241 [facility] Absolute lymphocyte counton 03-16-2022 Lymphocytes Auto (Unsp spec) [#/Vol] 1.02 10*3/uL 0.83-4.51 [facility] Work Phone: Basophil percentageon 2021 Basophil percentage 0 SEEN /hpf 0-5 [facility] Work Phone: Lactate [Moles/Vol] 1.1 mmol/L 0.4-2.0 [facility] Work Phone: Basophils/100 WBC (Bld) 0.2 % 0-1 [facility] Work Phone: Chloride [Moles/Vol] 97 mmol/L 98-107 [facility] Work Phone: Eosinophils/100 WBC (Bld) 0.1 % 0-5 [facility] Work Phone: Glucose [Mass/Vol] 95 mg/dL 74-106 [facility] Work Phone: Neutrophils (Bld) [#/Vol] 19.0 10*3/uL 2.0-7.7 [facility] Work Phone: Neutrophils/100 WBC (Bld) 87.3 % 47-70 [facility] Work Phone: Potassium [Moles/Vol] 4.8 mmol/L 3.5-5.1 [facility] Work Phone: Sodium [Moles/Vol] 128 mmol/L 136-145 [facility] Work Phone: WBC (Bld) [#/Vol] 21.7 10*3/uL 4.4-11.0 [facility] Work Phone: Bilirubin Test strip Ql (U)o n 03-16-2022 Bilirubin Ql (U) Negative Negative [facility] Work Phone: Blood erythrocytes count (nu mber/volume)on 03-16-2022 RBC (Bld) [#/Vol] 3.72 10*6/uL 4.6-6.2 [facility] Work Phone: Blood hemoglobin measurement (mass/volume)on 03-16-2022 Hemoglobin (Bld) [Mass/Vol] 13.1 g/dL 13.0-16.5 [facility] Work Phone: Blood lymphocytes/100 leukoc yteson 03-16-2022 Lymphocytes/100 WBC (Bld) 4.7 % 19-41 [facility] Work Phone: Blood manual differential co mment interpretation (narrative result)on 03-16-2022 Manual differential comment Norirs (Bld) [Interp] SEE COMMENT [facility] Work Phone: Comment on above: MONOCYTOSIS NOTED Blood monocytes/100 leukocyt eson 03-16-2022 Monocytes/100 WBC (Bld) 7.2 % 0-10 [facility] Work Phone: Blood platelet adequacy dete ction by light microscopyon 03-16-2022 Platelets LM Ql (Bld) ADEQUATE ADEQ [facility] Work Phone: [phone] Blood platelet mean volumeon 03-16-2022 Platelet mean volume (Bld) [Entitic vol] 9.0 fL 6.2-12.0 [facility] Work Phone: Determination of erythrocyte mean corpuscular volume (MCV)on 03-16-2022 MCV (RBC) [Entitic vol] 100.3 fL 80-94 [facility] Work Phone: Hematocrit Auto (Bld) [Volum e fraction]on 03-16-2022 Hematocrit (Bld) [Volume fraction] 37.3 % 40-54 [facility] Work Phone: Ketones Test strip Ql (U)on 03-16-2022 Ketones Ql (U) Negative Negative [facility] Work Phone: Laboratory - Chemistry and C hemistry - challengeon 03-16-2022 CO2 [Moles/Vol] 26.0 mmol/L 21.0-32.0 [facility] Work Phone: Urea nitrogen/Creatinine [Mass ratio] 12.4 mg/mg 10-20 [facility] Work Phone: Laboratory - Hematology and Cell countson 03-16-2022 Anisocytosis Ql (Bld) 1+ [facility]: Erythrocyte distribution width (RBC) [Entitic vol] 46.5 fL 35.1-43.9 [facility] Work Phone: Erythrocyte distribution width (RBC) [Ratio] 12.5 % 11.6-14.6 [facility] Work Phone: [phone] Immature granulocytes/100 WBC (Bld) 0.500 % 0.0-0.9 [facility] Work Phone: Comment on above: IG% - Immature Granu locytes (promyelocytes, myelocytes and metamyelocytes) > 1% indicates that a LEFT SHIFT is Present. MCH (RBC) [Entitic mass] 35.2 pg 27.0-32.0 [facility] Work Phone: Nucleated RBC/100 WBC (Bld) [Ratio] 0 % 0-5 [facility] Work Phone: Laboratory - Microbiology an d Antimicrobial susceptibilityon 03-16-2022 SARS-CoV-2 (COVID-19) RNA PINO+probe Ql (Unsp spec) Not detected Not Detect [facility] Work Phone: Comment on above: Normal Reference Ran ge: Not DetectedMethod:(RT-PCR) real-time reverse transcriptase PCRLuminex TIMOTHY Instrument*The Food and Drug Administration (FDA) has issued an Emergency Use Authorization (EAU) for the TIMOTHY SARS-CoV-2 Assay for the rapid detection of the virus that causes COVID-19. This test has been validated, but the FDAs independent review of this validation is pending.*Negative results do not preclude infection and should not be used as the sole basis for treatment or patient management. Optimum specimen types and timing for peak viral levels during infections caused by SARS-CoV-2 have not been determined. Collection of multiple specimens from the same patient may be necessary to detect the virus. The possibility of a false negative result should be considered if the patient has clinical presentation or has had recent exposure. MCHC Auto (RBC) [Mass/Vol]on 03-16-2022 MCHC (RBC) [Mass/Vol] 35.1 g/dL 32-36 [facility] Work Phone: Macrocytes detectionon 03-16 Macrocytes Ql (Bld) 1+ [facility] Work Phone: Mucus LM Ql (Urine sed)on Mucus Ql (Urine sed) 0 SEEN /hpf [facility] Work Phone: Nitrite Test strip Ql (U)on 03-16-2022 Nitrite Ql (U) Negative Negative [facility] Work Phone: No Panel Informationon 03-16 Estimated Creatinine Clearance Calc 41.11 ml/min [facility] Work Phone: Estimated GFR (MDRD) Amer 90 mL/min >60 [facility] Work Phone: Comment on above: GFR Calc Estimated GFR (MDRD) Non-Af Amer 74 mL/min >60 [facility] Work Phone: Comment on above: Non- GFR Calc Platelets bldon 03-16-2022 Platelets (Bld) [#/Vol] 241 10*3/uL 150-450 [facility] Work Phone: Protein Test strip Ql (U)on 03-16-2022 Protein Ql (U) 15 mg/dl Negative [facility] Work Phone: RBC morphologyon 03-16-2022 RBC morphology finding Nom (Bld) N CHROM NORMAL NORM C&C [facility] Work Phone: Review by pathologiston 02-27 Pathologist review Norris (Unsp spec) [Interp] Val mcfarlane [facility] Work Phone: Pathologist review Norris (Unsp spec) [Interp] Reviewed [facility] Work Phone: Comment on above: Previous reported re sult: Val mcfarlane Edited by: SHERRI on 03/17/22:1418Neutrophilic leukocytosis.MacrocytosisClinical correlation necessary.Marques Flores M.D. 03/17/22 AMENDED REPORT 03/17/22 1418 PATH REV previously reported as: Val denys Serum or plasma calcium harmony urement (mass/volume)on 03-16-2022 Calcium [Mass/Vol] 9.3 mg/dL 8.5-10.1 [facility] Work Phone: Serum or plasma creatinine m easurement (mass/volume)on 03-16-2022 Creatinine [Mass/Vol] 1.05 mg/dL 0.70-1.30 [facility] Work Phone: Comment on above: The validity of the calculated GFR & GFRAA in patients over 70 years has not been determined. Clinical correlation is essential. Serum or plasma urea nitroge n measurement (mass/volume)on 03-16-2022 Urea nitrogen [Mass/Vol] 13 mg/dL 02-13 [facility] Work Phone: Squamous epithelial cells de tection in urine sediment by light microscopyon 03-16-2022 Epithelial cells.squamous LM Ql (Urine sed) 0-5 SEEN /hpf 0-5 [facility] Work Phone: Thin prep Papanicolaou smear with manual screeningon 03-16-2022 Thin prep Papanicolaou smear with manual screening 5 5-15 [facility] Work Phone: Urine blood detectionon 02-27 RBC Ql (U) 10 /ul Negative [facility] Work Phone: RBC Ql (U) 0-5 SEEN /hpf 0-5 [facility] Work Phone: Urine clarityon 03-16-2022 Clarity (U) Clear Clear [facility] Work Phone: [phone] Urine color determinationon 03-16-2022 Color (U) Yellow Yellow [facility] Work Phone: Urine glucose detectionon Glucose Ql (U) Normal mg/dl Normal [facility] Work Phone: Urine leukocyte esterase det ection by dipstickon 03-16-2022 Leukocyte esterase Test strip Ql (U) Negative Negative [facility] Work Phone: [phone] Urine pHon 03-16-2022 pH (U) 6.0 [pH] 5.0 - 8.0 [facility] Work Phone: [phone] Urine sediment bacteria coun t by microscopy (number/high power field)on 03-16-2022 Bacteria LM.HPF (Urine sed) [#/Area] RARE /hpf None Seen [facility] Work Phone: [phone] Urine specific gravity measu rementon 03-16-2022 Specific gravity (U) [Rel density] 1.010 1.002-1.03 0 [facility] Work Phone: [phone] Urobilinogen Auto test strip Ql (U)on 03-16-2022 Urobilinogen Ql (U) Normal mg/dl Normal [facility] Work Phone: Absolute lymphocyte counton 03-08-2022 Lymphocytes Auto (Unsp spec) [#/Vol] 1.22 10*3/uL 0.83-4.51 [facility] Work Phone: Basophil percentageon 2021 Basophils/100 WBC (Bld) 0.4 % 0-1 [facility] Work Phone: Chloride [Moles/Vol] 96 mmol/L 98-107 [facility] Work Phone: Eosinophils/100 WBC (Bld) 1.5 % 0-5 [facility] Work Phone: Glucose [Mass/Vol] 98 mg/dL 74-106 [facility] Work Phone: Neutrophils (Bld) [#/Vol] 4.2 10*3/uL 2.0-7.7 [facility] Work Phone: Neutrophils/100 WBC (Bld) 60.8 % 47-70 [facility] Work Phone: Potassium [Moles/Vol] 4.1 mmol/L 3.5-5.1 [facility] Work Phone: Sodium [Moles/Vol] 130 mmol/L 136-145 [facility] Work Phone: WBC (Bld) [#/Vol] 6.9 10*3/uL 4.4-11.0 [facility] Work Phone: Blood erythrocytes count (nu mber/volume)on 03-08-2022 RBC (Bld) [#/Vol] 3.83 10*6/uL 4.6-6.[facility]: Blood hemoglobin measurement (mass/volume)on 03-08-2022 Hemoglobin (Bld) [Mass/Vol] 13.1 g/dL 13.0-16.5 [facility] Work Phone: Blood lymphocytes/100 leukoc yteson 03-08-2022 Lymphocytes/100 WBC (Bld) 17.8 % 19-41 [facility] Work Phone: Blood monocytes/100 leukocyt eson 03-08-2022 Monocytes/100 WBC (Bld) 19.1 % 0-10 [facility] Work Phone: Blood platelet mean volumeon 03-08-2022 Platelet mean volume (Bld) [Entitic vol] 9.6 fL 6.2-12.0 [facility] Work Phone: Determination of erythrocyte mean corpuscular volume (MCV)on 03-08-2022 MCV (RBC) [Entitic vol] 100.3 fL 80-94 [facility] Work Phone: Hematocrit Auto (Bld) [Volum e fraction]on 03-08-2022 Hematocrit (Bld) [Volume fraction] 38.4 % 40-54 [facility] Work Phone: Laboratory - Chemistry and C hemistry - challengeon 03-08-2022 CO2 [Moles/Vol] 29.0 mmol/L 21.0-32.0 [facility] Work Phone: Urea nitrogen/Creatinine [Mass ratio] 10.9 mg/mg 10-20 [facility] Work Phone: Laboratory - Hematology and Cell countson 03-08-2022 Erythrocyte distribution width (RBC) [Entitic vol] 46.5 fL 35.1-43.9 [facility] Work Phone: Erythrocyte distribution width (RBC) [Ratio] 12.5 % 11.6-14.6 [facility] Work Phone: Immature granulocytes/100 WBC (Bld) 0.400 % 0.0-0.9 [facility] Work Phone: Comment on above: IG% - Immature Granu locytes (promyelocytes, myelocytes and metamyelocytes) > 1% indicates that a LEFT SHIFT is Present. MCH (RBC) [Entitic mass] 34.2 pg 27.0-32.0 [facility] Work Phone: Nucleated RBC/100 WBC (Bld) [Ratio] 0 % 0-5 [facility] Work Phone: MCHC Auto (RBC) [Mass/Vol]on 03-08-2022 MCHC (RBC) [Mass/Vol] 34.1 g/dL 32-36 [facility] Work Phone: No Panel Informationon 03-08 Troponin I High Sensitivity 15 pg/mL 3.0-78.0 [facility] Work Phone: Comment on above: Please Note: New Radha t Units and Gender Specific Reference Ranges. For more information see Policy Stat Procedure [facility] High Sensitivity Troponin (TNIH) and attachments. Estimated Creatinine Clearance Calc 45.72 ml/min [facility] Work Phone: Estimated GFR (MDRD) Amer 94 mL/min >60 [facility] Work Phone: Comment on above: GFR Calc Estimated GFR (MDRD) Non-Af Amer 78 mL/min >60 [facility] Work Phone: Comment on above: Non- GFR Calc Platelets bldon 03-08-2022 Platelets (Bld) [#/Vol] 259 10*3/uL 150-450 [facility] Work Phone: Serum or plasma calcium harmony urement (mass/volume)on 03-08-2022 Calcium [Mass/Vol] 9.3 mg/dL 8.5-10.1 [facility] Work Phone: Serum or plasma creatinine m easurement (mass/volume)on 03-08-2022 Creatinine [Mass/Vol] 1.01 mg/dL 0.70-1.30 [facility] Work Phone: Comment on above: The validity of the calculated GFR & GFRAA in patients over 70 years has not been determined. Clinical correlation is essential. Serum or plasma urea nitroge n measurement (mass/volume)on 03-08-2022 Urea nitrogen [Mass/Vol] 11 mg/dL 7-18 [facility] Work Phone: Thin prep Papanicolaou smear with manual screeningon 03-08-2022 Thin prep Papanicolaou smear with manual screening 5 5-15 [facility] Work Phone: Laboratory - Hematology and Cell countson 11-14-2021 HbA1c (Bld) [Mass fraction] 5.3 % 4.2-6.3 [facility] Work Phone: CNOVon 09-11-2018 CNOV Office Visit (PODIWS ) AMOR,GARY ([id number]) 1950 M DEF Date Time Provider Department 09/11/18 3:10 PM KB DAVID During your visit today, we recorded the following information about you: Alejandra Saavedra José Miguel 09/12/2018 9:28 PM Signed AMB ROOMING INTAKE FLOWSHEET DATA Risk Screening Do you have concerns about personal safety or safety in the home?: No Pain Pain Score: 5/10 Pain Location: Foot-Right Description: Tingling, Numbness, Other: See comment (irritation) Duration Amount of Time: 4 Duration Units: Months Frequency: Intermittent Intervention: Relaxation Patient here for R hallux pain. States he was diagnosed with diabetic neuropathy a few years ago. No redness or swelling present. Kb David DPM 09/12/2018 9:28 PM Signed Chief Complaint: This 67 year old male who presents with chief complaint:right great toe pain HPI Patient presents to clinic for evaluation of right great toe pain Patient complains of pain primarily to the great toenail of right hallux. Patient states the pain has been present for 1.5 weeks. He states he recently trimmed the toenail back and that has helped Patient currently states there is 1/10 pain so it is very minimal He is diabetic and states that his sugars are stable Patient does smoke a pipe and states it is about 1 pack of cigarettes/day. PAIN EVALUATION 09/11/2018 Pain Score: 5 Pain Location: Foot-Right Description: Tingling;Numbness;Other: See comment irritation Duration Amount of Time: 4 Duration Units: Months Frequency: Intermittent Intervention: Relaxation No results found for: HBA1C PCP: Alycia Valencia MD PAST MEDICAL HISTORY Diagnosis Date - Arthritis - Diabetes (HCC) - GERD (gastroesophageal reflux disease) - Heart attack (HCC) may 22 - Hypertension Current Outpatient Prescriptions: Cholecalciferol, Vitamin D3, 1,000 unit cap Take 1 capsule by mouth once daily. therapeutic multivitamin (THERA VITAMIN) tablet Take 1 tablet by mouth once daily. GABAPENTIN ORAL Take by mouth. Unsure of dosage takes in evening aspirin, enteric coated (ASPIRIN, ENTERIC COATED) 81 mg EC tablet Take 81 mg by mouth once daily. pantoprazole DR (PROTONIX) 20 mg tablet Take 20 mg by mouth twice daily. cetirizine (ZYRTEC) 10 mg tablet Take 10 mg by mouth once daily as needed for Cold/Allergy Symptoms. citalopram (CELEXA) 40 mg tablet Take 1 tablet by mouth once daily. busPIRone (BUSPAR) 15 mg tablet Take 15 mg by mouth twice daily. atorvastatin (LIPITOR) 80 mg tablet Take 1 tablet by mouth once daily. metFORMIN (GLUCOPHAGE) 500 mg tablet Take 1,000 mg by mouth twice daily with meals. ramipril (ALTACE) 5 mg capsule Take 1 capsule by mouth once daily. metoprolol succinate ER (TOPROL XL) 25 mg 24 hr tablet Take 1 tablet by mouth once daily. CALCIUM CARBONATE/VITAMIN D3 (VITAMIN D-3 ORAL) Take by mouth once daily. No current facility-administered medications for this visit. ALLERGIES Allergen Reactions - Levitra [Vardenafil* Other: See Comments headache - Penicillin Hives - Typhoid Vaccine Mental Status Change Hallucinations, dizziness - Viagra [Sildenafil * Other: See Comments headache - Wellbutrin [Bupropi* Other: See Comments anxiety PAST SURGICAL HISTORY Procedure Laterality Date - COLONOSCOPY - DIAGNOSTIC 2015 - EGD - PAST SURGICAL HISTORY OF 2013 heart stents x 2 may 22 - PAST SURGICAL HISTORY OF 2009 open bilateral inguinal hernia repairs - PAST SURGICAL HISTORY OF 1967 dental extractions FAMILY HISTORY Problem Relation Age of Onset - Kidney Disease Mother - Colon Cancer Father Social History Marital status: Spouse name: Years of education: Number of children: Social History Main Topics Smoking status: Current Every Day Smoker Packs/day: 0.00 Years: 0.00 Types: Pipe Smokeless tobacco: Never Used Comment: heavy pipe -about 4 hrs a day 1 pouch/week Alcohol use: No Drug use: No Sexual activity: No REVIEW OF SYSTEMS GENERAL: Negative for Malaise, significant weight loss, fever RESPIRATORY: Negative for cough, wheezing and shortness of breath CARDIOVASCULAR: Negative for chest pain, leg swelling and palpitations GI: Negative for abdominal discomfort, blood in stools or black stools and change in bowel habits : Negative for dysuria, frequency and incontinence MUSCULOSKELETAL: Negative for joint pain or swelling, back pain, and muscle pain. SKIN: pain of right hallux HEMATOLOGY/LYMPHOLOGY Negative for prolonged bleeding, bruising easily, and swollen nodes. ENDOCRINE: Negative for cold or heat intolerance, polyuria, polydipsia and goiter. NEURO: negative Physical Exam: Constitutional: Pt is a well developed 67 year old male who is alert, oriented and cooperative Eyes: Following during examination. No redness or drainage. Respiratory: RR normal and nonlabored. Even breathing. No evidence of distress or shortness of breath. Psychology: Patient is engaged during conversation. Normal affect and mood. Does not appear depressed or anxious during encounter. Vascular: Dorsalis pedis and posterior tibial pulses very faintly palpable as b/l Capillary Fill time < 5 seconds to digits 1-5 b/l Skin temperature warm to cool proximal to distal b/l Hair growth present to digits Neurological: absent light touch/epicritic sensation Vibratory sensation absent b/l decreased protective sensation + significant neurological deficits Dermatological: Right hallux toenail is dystrophic but no signs of ingrowing at this time. No signs of infection. Webspaces clean and dry 1-4 b/l. Skin appears well hydrated and supple. good color, texture, turgor. No open lesions present. No callosities present. Musculoskeletal/Orthopaedic: Patient has no pain to palpation of right hallux AJ ROM is full with knee extended and flexed 1st MPJ is full when loaded and no pain or crepitus are noted with ROM. MTJ, STJ are full and free of pain and crepitus. +5/5 muscle strength dorsiflexion, plantarflexion, inversion, eversion b/l Radiographs: n/a ASSESSMENT: (L60.0) Ingrowing toenail of right foot (primary encounter diagnosis) (R09.89) Diminished pulses in lower extremity (E11.49) Well controlled type 2 diabetes mellitus with neurological manifestations (HCC) PLAN: 1. History and physical examination performed. 2. Discussed patients complaint of pain. He has what appears to be dystrophic toenail. He could have very suffered pain from an ingrowing toenail. He has since trimmed this back and pain has resolved. Discussed possible recurrence based on appearance of toenail. Discussed options to remove toenail. Recommend getting pvr prior to any removal. 3. Certainly, I would favor smoking cessation prior to removal to increase chance of successul healing. 4. Will notify patient of pvr results. KINZA Nunes Ma 09/11/2018 3:57 PM Signed Will call with results. Referring Provider: ALYCIA VALENCIA [[id number]] Allergies As of Date: 09/11/2018 Noted Allergy Reaction LEVITRA (VARDENAFIL HCL) 03/04/2015 14 - Other: See Comments Comments: headache PENICILLIN 03/04/2015 4 - Hives TYPHOID VACCINE 05/01/2017 1 - Mental Status Change Comments: Hallucinations, dizziness VIAGRA (SILDENAFIL CITRATE) 03/04/2015 14 - Other: See Comments Comments: headache WELLBUTRIN (BUPROPION HCL) 03/04/2015 14 - Other: See Comments Comments: anxiety Date Reviewed: 09/11/2018 Reviewed by: Alejandra Saavedra Ma - Fully Assessed Reason for Visit: New Patient [172] Primary Visit Diagnosis:Ingrowing toenail of right foot [L60.0] Other Visit Diagnoses:Diminished pulses in lower extremity [R09.89] Well controlled type 2 diabetes mellitus with neurological manifestations (HCC) [E11.49] Order(s):PVR [facility] [[id number]] Order #: [id number] FUTURE Prescriptions as of 09/11/2018 Sig: CHOLECALCIFEROL (VITAMIN D3) * Take 1 capsule by mouth once * THERAPEUTIC MULTIVITAMIN TABL* Take 1 tablet by mouth once d* GABAPENTIN ORAL Take by mouth. Unsure of dosa* ASPIRIN 81 MG TABLET,DELAYED * Take 81 mg by mouth once contreras* PANTOPRAZOLE 20 MG TABLET,DEL* Take 20 mg by mouth twice portillo* CETIRIZINE 10 MG TABLET Take 10 mg by mouth once contreras* CITALOPRAM 40 MG TABLET Take 1 tablet by mouth once d* BUSPIRONE 15 MG TABLET Take 15 mg by mouth twice portillo* ATORVASTATIN 80 MG TABLET Take 1 tablet by mouth once d* METFORMIN 500 MG TABLET Take 1,000 mg by mouth twice * RAMIPRIL 5 MG CAPSULE Take 1 capsule by mouth once * METOPROLOL SUCCINATE ER 25 MG* Take 1 tablet by mouth once d* VITAMIN D-3 ORAL Take by mouth once daily. Problem List As Of Date 09/11/2018 Noted Resolved Presence of drug coated stent in LAD coronary a*INVALID FOR* Tobacco abuse disorder [Z72.0] INVALID FOR* Essential hypertension [I10] INVALID FOR* Hypercholesterolemia [E78.00] INVALID FOR* Esophageal reflux [K21.9] INVALID FOR* Anxiety [F41.9] INVALID FOR* Closed Colles' fracture of left radius [S52.532*INVALID FOR* More... Coronary artery disease involving pilot point murillo*INVALID FOR* Well controlled type 2 diabetes mellitus with n*INVALID FOR* Sprain of wrist, right, initial encounter [S63.*INVALID FOR* Other instructions from your clinician: Will call with results. Encounter Status:Closed by KB DAVID DPM on 09/12/18 [facility] PROGRESSon 09-11-2018 Protein mass conc HNO ID: [id number] Author: Kb David Service: (none) Author Type: Physician Type: Progress Notes Filed: 09/12/2018 9:28 PM Note Text: Chief Complaint: This 67 year old male who presents with chief complaint:right great toe pain HPI Patient presents to clinic for evaluation of right great toe pain Patient complains of pain primarily to the great toenail of right hallux. Patient states the pain has been present for 1.5 weeks. He states he recently trimmed the toenail back and that has helped Patient currently states there is 1/10 pain so it is very minimal He is diabetic and states that his sugars are stable Patient does smoke a pipe and states it is about 1 pack of cigarettes/day. PAIN EVALUATION 09/11/2018 Pain Score: 5 Pain Location: Foot-Right Description: Tingling;Numbness;Other: See comment irritation Duration Amount of Time: 4 Duration Units: Months Frequency: Intermittent Intervention: Relaxation No results found for: HBA1C PCP: Alycia Valencia MD PAST MEDICAL HISTORY Diagnosis Date - Arthritis - Diabetes (HCC) - GERD (gastroesophageal reflux disease) - Heart attack (HCC) may 22 - Hypertension Current Outpatient Prescriptions: Cholecalciferol, Vitamin D3, 1,000 unit cap Take 1 capsule by mouth once daily. therapeutic multivitamin (THERA VITAMIN) tablet Take 1 tablet by mouth once daily. GABAPENTIN ORAL Take by mouth. Unsure of dosage takes in evening aspirin, enteric coated (ASPIRIN, ENTERIC COATED) 81 mg EC tablet Take 81 mg by mouth once daily. pantoprazole DR (PROTONIX) 20 mg tablet Take 20 mg by mouth twice daily. cetirizine (ZYRTEC) 10 mg tablet Take 10 mg by mouth once daily as needed for Cold/Allergy Symptoms. citalopram (CELEXA) 40 mg tablet Take 1 tablet by mouth once daily. busPIRone (BUSPAR) 15 mg tablet Take 15 mg by mouth twice daily. atorvastatin (LIPITOR) 80 mg tablet Take 1 tablet by mouth once daily. metFORMIN (GLUCOPHAGE) 500 mg tablet Take 1,000 mg by mouth twice daily with meals. ramipril (ALTACE) 5 mg capsule Take 1 capsule by mouth once daily. metoprolol succinate ER (TOPROL XL) 25 mg 24 hr tablet Take 1 tablet by mouth once daily. CALCIUM CARBONATE/VITAMIN D3 (VITAMIN D-3 ORAL) Take by mouth once daily. No current facility-administered medications for this visit. ALLERGIES Allergen Reactions - Levitra [Vardenafil* Other: See Comments headache - Penicillin Hives - Typhoid Vaccine Mental Status Change Hallucinations, dizziness - Viagra [Sildenafil * Other: See Comments headache - Wellbutrin [Bupropi* Other: See Comments anxiety PAST SURGICAL HISTORY Procedure Laterality Date - COLONOSCOPY - DIAGNOSTIC 2015 - EGD - PAST SURGICAL HISTORY OF 2013 heart stents x 2 may 22 - PAST SURGICAL HISTORY OF 2009 open bilateral inguinal hernia repairs - PAST SURGICAL HISTORY OF 1967 dental extractions FAMILY HISTORY Problem Relation Age of Onset - Kidney Disease Mother - Colon Cancer Father Social History Marital status: Spouse name: Years of education: Number of children: Social History Main Topics Smoking status: Current Every Day Smoker Packs/day: 0.00 Years: 0.00 Types: Pipe Smokeless tobacco: Never Used Comment: heavy pipe -about 4 hrs a day 1 pouch/week Alcohol use: No Drug use: No Sexual activity: No REVIEW OF SYSTEMS GENERAL: Negative for Malaise, significant weight loss, fever RESPIRATORY: Negative for cough, wheezing and shortness of breath CARDIOVASCULAR: Negative for chest pain, leg swelling and palpitations GI: Negative for abdominal discomfort, blood in stools or black stools and change in bowel habits : Negative for dysuria, frequency and incontinence MUSCULOSKELETAL: Negative for joint pain or swelling, back pain, and muscle pain. SKIN: pain of right hallux HEMATOLOGY/LYMPHOLOGY Negative for prolonged bleeding, bruising easily, and swollen nodes. ENDOCRINE: Negative for cold or heat intolerance, polyuria, polydipsia and goiter. NEURO: negative Physical Exam: Constitutional: Pt is a well developed 67 year old male who is alert, oriented and cooperative Eyes: Following during examination. No redness or drainage. Respiratory: RR normal and nonlabored. Even breathing. No evidence of distress or shortness of breath. Psychology: Patient is engaged during conversation. Normal affect and mood. Does not appear depressed or anxious during encounter. Vascular: Dorsalis pedis and posterior tibial pulses very faintly palpable as b/l Capillary Fill time < 5 seconds to digits 1-5 b/l Skin temperature warm to cool proximal to distal b/l Hair growth present to digits Neurological: absent light touch/epicritic sensation Vibratory sensation absent b/l decreased protective sensation + significant neurological deficits Dermatological: Right hallux toenail is dystrophic but no signs of ingrowing at this time. No signs of infection. Webspaces clean and dry 1-4 b/l. Skin appears well hydrated and supple. good color, texture, turgor. No open lesions present. No callosities present. Musculoskeletal/Orthopaedic: Patient has no pain to palpation of right hallux AJ ROM is full with knee extended and flexed 1st MPJ is full when loaded and no pain or crepitus are noted with ROM. MTJ, STJ are full and free of pain and crepitus. +5/5 muscle strength dorsiflexion, plantarflexion, inversion, eversion b/l Radiographs: n/a ASSESSMENT: (L60.0) Ingrowing toenail of right foot (primary encounter diagnosis) (R09.89) Diminished pulses in lower extremity (E11.49) Well controlled type 2 diabetes mellitus with neurological manifestations ([facility]) PLAN: 1. History and physical examination performed. 2. Discussed patients complaint of pain. He has what appears to be dystrophic toenail. He could have very suffered pain from an ingrowing toenail. He has since trimmed this back and pain has resolved. Discussed possible recurrence based on appearance of toenail. Discussed options to remove toenail. Recommend getting pvr prior to any removal. 3. Certainly, I would favor smoking cessation prior to removal to increase chance of successul healing. 4. Will notify patient of pvr results. Kb David DPM [facility] Protein mass conc HNO ID: [id number] Author: Alejandra Saavedra Ma Service: (none) Author Type: (none) Type: Progress Notes Filed: 09/12/2018 9:28 PM Note Text: AMB ROOMING INTAKE FLOWSHEET DATA Risk Screening Do you have concerns about personal safety or safety in the home?: No Pain Pain Score: 5/10 Pain Location: Foot-Right Description: Tingling, Numbness, Other: See comment (irritation) Duration Amount of Time: 4 Duration Units: Months Frequency: Intermittent Intervention: Relaxation Patient here for R hallux pain. States he was diagnosed with diabetic neuropathy a few years ago. No redness or swelling present. [facility] CNOVon 09-05-2018 CNOV Office Visit (ORTHWS ) AMORCRITSINO ([id number]) 1950 [address] [facility] Date Time Provider Department 09/05/18 2:40 PM REID SABILLON During your visit today, we recorded the following information about you: Alycia Valencia Ma 09/05/2018 7:19 PM Signed AMB ROOMING INTAKE FLOWSHEET DATA Risk Screening Do you have concerns about personal safety or safety in the home?: No Pain Pain Score: 0/10 (as high as 6 or 7) Pain Location: Wrist-Left Description: (weak) Duration Amount of Time: (ongoing) Frequency: Continuous Intervention: Other: See comment (none) Patient here today for evaluation of left wrist weakness. States he is having difficulty with lift and holding. 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 Is right hand dominant. New x-ray today at [facility]. Reid Sabillon MD 09/05/2018 7:19 PM Signed Reid Sabillon MD Department of Orthopaedics Orthopaedics [address] [facility] [address] Dept: [phone] Dept September 05, 2018 CHIEF COMPLAINT: Established Patient (left wrist pain - ~ 1 year 1 month post op ORIF left distal radius ) Mr. Cristinocitlalli Ryan is a 67 year old male returns just over a year to have further evaluation for his wrist. He's been having a bit more discomfort on the lateral side of the wrist and he is still concerned about his overall strength in the wrist. ASSESSMENT: S52.532D Closed Colles' fracture of left radius with routine healing, subsequent encounter (primary encounter diagnosis) S63.501A Sprain of wrist, right, initial encounter PLAN: he asked to have a functional exam as it sounds like he is going to be entertaining a number of worker's compensation visits and he wants to be able to see what his capabilities are. I'm not exactly sure how to get that accomplished, but we can certainly try to get him back with occupational therapy for bit of a functional capacity exam or at least determine his strength with gripping and pinching compared to the contralateral side. We may decide on providing him a cortisone injection for the wrist which she does not want to try right now, but he will think about it if the wrist continues to cause him some troubles. OBJECTIVE: Mr. Cristino Ryan is a pleasant 67 year old in no apparent distress. Gen:There were no vitals taken for this visit. nl development, thin appearing, no deformities ENT: Normocephalic, normal hearing, moist mucosa CV: Pulses:Radial= 2+ and symmetric, capillary refill < 2 secs, no peripheral edema/varicosities Skin: no rash, bruising or lesions. Good turgor. Psych: cooperative and appropriate, alert and oriented x 3, good mood and affect. Musculoskeletal: good appearance of the wrist. There is some very mild swelling over the ulnar fossa. He has good flexion of nearly 80? and just a few degrees shy of his contralateral side. Extension is limited, appropriately and only about 45?. Imaging: IMPRESSION: Postsurgical changes without interval complication. 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 Transcribe Date/Time: Aug ?4:37P Dictated by : ASAEL PIMENTEL MD This examination was interpreted and the report reviewed and electronically signed by: ASAEL PIMENTEL MD on Aug ?4:40PM ?EST Results-Findings * * *Final Report* * * DATE OF EXAM: Aug ?2:31PM ? WRX ? 5270 ?- ?XR WRIST 3V PA/LAT/OBL LT ?/ PROCEDURE REASON: Closed Colles' fracture of left radius with routine healing, subsequent encounte ?? ? * * * * Physician Interpretation * * * * ?EXAMINATION: ?XR WRIST 3V PA/LAT/OBL LT HISTORY: ? follow up to left wrist fracture (07/21/17 was fracture). intermittent pain on the ulna side . no new injuries ?Closed Colles' fracture of left radius with routine healing, subsequent encounter ? . TECHNIQUE: ?XR WRIST 3V PA/LAT/OBL LT ?? Laterality: ?LEFT ?? Number of different views (projections): 3 ?? M: ?XB_1 COMPARISON: ?Comparison is made to prior wrist dated October 2017 RESULT: 3 views of the left wrist again demonstrate screw plate fixation of a comminuted intra-articular distal radial fracture. Visualized surgical hardware is intact and there is no radiographic evidence for loosening or superimposed fracture. There is an ulnar styloid fracture which is grossly unchanged. The radiocarpal and intercarpal articulations are intact. No other significant abnormality. Supporting Subjective Information Below: Past Surgical History: PAST SURGICAL HISTORY Procedure Laterality Date - COLONOSCOPY - DIAGNOSTIC 2015 - EGD - PAST SURGICAL HISTORY OF 2013 heart stents x 2 may 22 - PAST SURGICAL HISTORY OF 2009 open bilateral inguinal hernia repairs - PAST SURGICAL HISTORY OF 1967 dental extractions Medications: Current Outpatient Prescriptions: Cholecalciferol, Vitamin D3, 1,000 unit cap Take 1 capsule by mouth once daily. therapeutic multivitamin (THERA VITAMIN) tablet Take 1 tablet by mouth once daily. GABAPENTIN ORAL Take by mouth. Unsure of dosage takes in evening aspirin, enteric coated (ASPIRIN, ENTERIC COATED) 81 mg EC tablet Take 81 mg by mouth once daily. pantoprazole DR (PROTONIX) 20 mg tablet Take 20 mg by mouth twice daily. cetirizine (ZYRTEC) 10 mg tablet Take 10 mg by mouth once daily as needed for Cold/Allergy Symptoms. citalopram (CELEXA) 40 mg tablet Take 1 tablet by mouth once daily. busPIRone (BUSPAR) 15 mg tablet Take 15 mg by mouth twice daily. atorvastatin (LIPITOR) 80 mg tablet Take 1 tablet by mouth once daily. metFORMIN (GLUCOPHAGE) 500 mg tablet Take 1,000 mg by mouth twice daily with meals. ramipril (ALTACE) 5 mg capsule Take 1 capsule by mouth once daily. metoprolol succinate ER (TOPROL XL) 25 mg 24 hr tablet Take 1 tablet by mouth once daily. CALCIUM CARBONATE/VITAMIN D3 (VITAMIN D-3 ORAL) Take by mouth once daily. No current facility-administered medications for this visit. Allergies: Levitra [Vardenafil Hcl]; Penicillin; Typhoid Vaccine; Viagra [Sildenafil Citrate]; Wellbutrin [Bupropion Hcl] ROS: General (negative for fatigue, malaise, weight loss/gain) HEENT (negative for headache, earache, recent vision changes, sinus pain, sore throat) Respiratory (no recent shortness of breath, hemoptysis) CV (negative for chest tightness, palpitations) Musculoskeletal (see HPI) Psych (no depression, anxiety) This note was partially generated using [employer] voice recognition system, and there may be some incorrect words, spellings, and punctuation that were not noted in checking the note before saving. Reid Sabillon MD Referring Provider: SELF [[id number]] Allergies As of Date: 09/05/2018 Noted Allergy Reaction LEVITRA (VARDENAFIL HCL) 03/04/2015 14 - Other: See Comments Comments: headache PENICILLIN 03/04/2015 4 - Hives TYPHOID VACCINE 05/01/2017 1 - Mental Status Change Comments: Hallucinations, dizziness VIAGRA (SILDENAFIL CITRATE) 03/04/2015 14 - Other: See Comments Comments: headache WELLBUTRIN (BUPROPION HCL) 03/04/2015 14 - Other: See Comments Comments: anxiety Date Reviewed: 09/05/2018 Reviewed by: Reid Sabillon - Fully Assessed Reason for Visit: Established Patient [175] Cmt: left wrist pain - ~ 1 year 1 month post op ORIF left distal radius Primary Visit Diagnosis:Closed Colles' fracture of left radius with routine healing, subsequent encounter [G20.333D] Other Visit Diagnosis:Sprain of wrist, right, initial encounter [S63.254A] Order(s):CONSULT TO NATURAL SCIENCES PROFESSOR [[id number]] Order #: [id number]: 1 Prescriptions as of 09/05/2018 Sig: CHOLECALCIFEROL (VITAMIN D3) * Take 1 capsule by mouth once * THERAPEUTIC MULTIVITAMIN TABL* Take 1 tablet by mouth once d* GABAPENTIN ORAL Take by mouth. Unsure of dosa* ASPIRIN 81 MG TABLET,DELAYED * Take 81 mg by mouth once contreras* PANTOPRAZOLE 20 MG TABLET,DEL* Take 20 mg by mouth twice portillo* CETIRIZINE 10 MG TABLET Take 10 mg by mouth once contreras* CITALOPRAM 40 MG TABLET Take 1 tablet by mouth once d* BUSPIRONE 15 MG TABLET Take 15 mg by mouth twice portillo* ATORVASTATIN 80 MG TABLET Take 1 tablet by mouth once d* METFORMIN 500 MG TABLET Take 1,000 mg by mouth twice * RAMIPRIL 5 MG CAPSULE Take 1 capsule by mouth once * METOPROLOL SUCCINATE ER 25 MG* Take 1 tablet by mouth once d* VITAMIN D-3 ORAL Take by mouth once daily. Problem List As Of Date 09/05/2018 Noted Resolved Presence of drug coated stent in LAD coronary a*INVALID FOR* Tobacco abuse disorder [Z72.0] INVALID FOR* Essential hypertension [I10] INVALID FOR* Hypercholesterolemia [E78.00] INVALID FOR* Esophageal reflux [K21.9] INVALID FOR* Anxiety [F41.9] INVALID FOR* Closed Colles' fracture of left radius [S52.532*INVALID FOR* More... Coronary artery disease involving pilot [place] murillo*INVALID FOR* Well controlled type 2 diabetes mellitus with n*INVALID FOR* Sprain of wrist, right, initial encounter [S63.*INVALID FOR* Follow-up and Disposition History Recorded Encounter Status:Closed by REID SABILLON MD on 09/05/18 [facility] PROGRESSon 09-05-2018 Protein mass conc HNO ID: [id number] Author: Reid Sabillon Service: (none) Author Type: Physician Type: Progress Notes Filed: 09/05/2018 7:19 PM Note Text: Reid Sabillon MD Department of Orthopaedics Orthopaedics [address] [facility] [address] Dept: [phone] Dept September 05, 2018 CHIEF COMPLAINT: Established Patient (left wrist pain - ~ 1 year 1 month post op ORIF left distal radius ) Mr. Cristino Ryan is a 67 year old male returns just over a year to have further evaluation for his wrist. He's been having a bit more discomfort on the lateral side of the wrist and he is still concerned about his overall strength in the wrist. ASSESSMENT: S52.532D Closed Colles' fracture of left radius with routine healing, subsequent encounter (primary encounter diagnosis) S63.501A Sprain of wrist, right, initial encounter PLAN: he asked to have a functional exam as it sounds like he is going to be entertaining a number of worker's compensation visits and he wants to be able to see what his capabilities are. I'm not exactly sure how to get that accomplished, but we can certainly try to get him back with occupational therapy for bit of a functional capacity exam or at least determine his strength with gripping and pinching compared to the contralateral side. We may decide on providing him a cortisone injection for the wrist which she does not want to try right now, but he will think about it if the wrist continues to cause him some troubles. OBJECTIVE: Mr. Cristino Ryan is a pleasant 67 year old in no apparent distress. Gen:There were no vitals taken for this visit. nl development, thin appearing, no deformities ENT: Normocephalic, normal hearing, moist mucosa CV: Pulses:Radial= 2+ and symmetric, capillary refill < 2 secs, no peripheral edema/varicosities Skin: no rash, bruising or lesions. Good turgor. Psych: cooperative and appropriate, alert and oriented x 3, good mood and affect. Musculoskeletal: good appearance of the wrist. There is some very mild swelling over the ulnar fossa. He has good flexion of nearly 80? and just a few degrees shy of his contralateral side. Extension is limited, appropriately and only about 45?. Imaging: IMPRESSION: Postsurgical changes without interval complication. 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 Transcribe Date/Time: Aug ?4:37P Dictated by : ASAEL PIMENTEL MD This examination was interpreted and the report reviewed and electronically signed by: ASAEL PIMENTEL MD on Aug ?4:40PM ?EST Results-Findings * * *Final Report* * * DATE OF EXAM: Aug ?2:31PM ? WRX ? 5270 ?- ?XR WRIST 3V PA/LAT/OBL LT ?/ PROCEDURE REASON: Closed Colles' fracture of left radius with routine healing, subsequent encounte ?? ? * * * * Physician Interpretation * * * * ?EXAMINATION: ?XR WRIST 3V PA/LAT/OBL LT HISTORY: ? follow up to left wrist fracture (07/21/17 was fracture). intermittent pain on the ulna side . no new injuries ?Closed Colles' fracture of left radius with routine healing, subsequent encounter ? . TECHNIQUE: ?XR WRIST 3V PA/LAT/OBL LT ?? Laterality: ?LEFT ?? Number of different views (projections): 3 ?? M: ?XB_1 COMPARISON: ?Comparison is made to prior wrist dated October 2017 RESULT: 3 views of the left wrist again demonstrate screw plate fixation of a comminuted intra-articular distal radial fracture. Visualized surgical hardware is intact and there is no radiographic evidence for loosening or superimposed fracture. There is an ulnar styloid fracture which is grossly unchanged. The radiocarpal and intercarpal articulations are intact. No other significant abnormality. Supporting Subjective Information Below: Past Surgical History: PAST SURGICAL HISTORY Procedure Laterality Date - COLONOSCOPY - DIAGNOSTIC 2015 - EGD - PAST SURGICAL HISTORY OF 2013 heart stents x 2 may 22 - PAST SURGICAL HISTORY OF 2009 open bilateral inguinal hernia repairs - PAST SURGICAL HISTORY OF 1967 dental extractions Medications: Current Outpatient Prescriptions: Cholecalciferol, Vitamin D3, 1,000 unit cap Take 1 capsule by mouth once daily. therapeutic multivitamin (THERA VITAMIN) tablet Take 1 tablet by mouth once daily. GABAPENTIN ORAL Take by mouth. Unsure of dosage takes in evening aspirin, enteric coated (ASPIRIN, ENTERIC COATED) 81 mg EC tablet Take 81 mg by mouth once daily. pantoprazole DR (PROTONIX) 20 mg tablet Take 20 mg by mouth twice daily. cetirizine (ZYRTEC) 10 mg tablet Take 10 mg by mouth once daily as needed for Cold/Allergy Symptoms. citalopram (CELEXA) 40 mg tablet Take 1 tablet by mouth once daily. busPIRone (BUSPAR) 15 mg tablet Take 15 mg by mouth twice daily. atorvastatin (LIPITOR) 80 mg tablet Take 1 tablet by mouth once daily. metFORMIN (GLUCOPHAGE) 500 mg tablet Take 1,000 mg by mouth twice daily with meals. ramipril (ALTACE) 5 mg capsule Take 1 capsule by mouth once daily. metoprolol succinate ER (TOPROL XL) 25 mg 24 hr tablet Take 1 tablet by mouth once daily. CALCIUM CARBONATE/VITAMIN D3 (VITAMIN D-3 ORAL) Take by mouth once daily. No current facility-administered medications for this visit. Allergies: Levitra [Vardenafil Hcl]; Penicillin; Typhoid Vaccine; Viagra [Sildenafil Citrate]; Wellbutrin [Bupropion Hcl] ROS: General (negative for fatigue, malaise, weight loss/gain) HEENT (negative for headache, earache, recent vision changes, sinus pain, sore throat) Respiratory (no recent shortness of breath, hemoptysis) CV (negative for chest tightness, palpitations) Musculoskeletal (see HPI) Psych (no depression, anxiety) This note was partially generated using [employer] voice recognition system, and there may be some incorrect words, spellings, and punctuation that were not noted in checking the note before saving. Reid Sabillon MD [facility] Protein mass conc HNO ID: [id number] Author: Alycia Valencia Ma Service: (none) Author Type: (none) Type: Progress Notes Filed: 09/05/2018 7:19 PM Note Text: AMB ROOMING INTAKE FLOWSHEET DATA Risk Screening Do you have concerns about personal safety or safety in the home?: No Pain Pain Score: 0/10 (as high as 6 or 7) Pain Location: Wrist-Left Description: (weak) Duration Amount of Time: (ongoing) Frequency: Continuous Intervention: Other: See comment (none) Patient here today for evaluation of left wrist weakness. States he is having difficulty with lift and holding. 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 Is right hand dominant. New x-ray today at [facility]. [facility] Protein mass conc HNO ID: [id number] Author: Ron Urias (Rt) Service: (none) Author Type: Keyliner Type: Progress Notes Filed: 09/05/2018 2:33 PM Note Text: Radiology Service Progress Note PATIENT NAME: Cristino Ryan DATE OF SERVICE: September 05, 2018 TIME: 2:33 PM PATIENT IDENTITY VERIFICATION COMPLETED USING TWO (2) METHODS: Patient confirmed name verbally and Date of . PATIENT GENDER DATA: Male PATIENT RELEVANT IMPLANT DATA REVIEWED: Not Applicable RADIOLOGY DEPARTMENT: General X-ray: Exam(s) Completed: Upper Extremity X-Ray(s): Wrist, left : PERIPHERAL IV DATA: Not applicable SIGNED BY: RT Adonay September 05, 2018 2:33 PM [facility] XR WRIST 3V PA/LAT/OBL LTon 09-05-2018 XR WRIST 3V PA/LAT/OBL LT * * *Final Report* * * DATE OF EXAM: Sep 05 2018 2:31PM WRX 5270 - XR WRIST 3V PA/LAT/OBL LT / PROCEDURE REASON: Closed Colles' fracture of left radius with routine healing, subsequent encounte * * * * Physician Interpretation * * * * EXAMINATION: XR WRIST 3V PA/LAT/OBL LT HISTORY: follow up to left wrist fracture (07/21/17 was fracture). intermittent pain on the ulna side . no new injuries Closed Colles' fracture of left radius with routine healing, subsequent encounter . TECHNIQUE: XR WRIST 3V PA/LAT/OBL LT Laterality: LEFT Number of different views (projections): 3 M: XB_1 COMPARISON: Comparison is made to prior wrist dated October 2017 RESULT: 3 views of the left wrist again demonstrate screw plate fixation of a comminuted intra-articular distal radial fracture. Visualized surgical hardware is intact and there is no radiographic evidence for loosening or superimposed fracture. There is an ulnar styloid fracture which is grossly unchanged. The radiocarpal and intercarpal articulations are intact. No other significant abnormality. IMPRESSION: Postsurgical changes without interval complication. Analog Circuit Designer: PSCB Transcribe Date/Time: Sep 05 2018 4:37P Dictated by : ASAEL PIMENTEL MD This examination was interpreted and the report reviewed and electronically signed by: ASAEL PIMENTEL MD on Sep 05 2018 4:40PM EST [id number] [facility] ANES Harpreet 08-03-2017 ANES POST HNO ID: [id number] thor: Ricki Garcia: (none)Author Type: PhysicianType: Anesthesia PostOpFiled: 08/03/2017 11:23 AMNote Text:POST ANESTHESIA EVALUATION NOTESERVICE DATE: 08/03/2017SERVICE TIME: 11:22DOB: 1950Vitals: 724 8 Temp: 36.6 ?C (97.9 ?F) 36.5 ?C (97.7 ?F) 36.4 ?C (97.5 ?F) 08/03/1809BP: 156/65 137/63 134/59 138/60 08/03/1809Pulse: 70 73 68 70 08/03/1809Resp: 16 16 16 16 08/03/1809SpO2: 96% 95% 95% 95%Validated Vital Signs: YesPOST ANES STATUS: No apparent anesthetic complications. The patient isappropriately hydrated with stable respiratory and cardiovascular status.Patient has safe and adequate airway control. The patient has appropriatepain relief and no significant post operative nausea or vomiting. Thepatient has achieved baseline mental status.Further assessment by Anesthesia Service: NoneOther Remarks:SIGNATURE: Ricki Prescott MD PATIENT NAME: Cristino CummingsnerDATE: August 03, 2017 : 11:22 AM PAGER/CONTACT #: [facility] ANES PREOPon 08-03-2017 ANES PREOP HNO ID: [id number] thor: Rciki PrescottSer: (none)Author Type: PhysicianType: Anesthesia PreOpFiled: 08/03/2017 7:47 AMNote Text: ANESTHESIOLOGY DAY OF SURGERY NOTESERVICE DATE: 08/03/2017SERVICE TIME:7:45DOB: [birth year]Procedure(s) (LRB):ORIF DISTAL RADIUS THREE OR MORE FRAGMENTS (Left)Surgeon(s):Reid SabillonEstimated body mass index is 18.75 kg/(m2) as calculated from thefollowing: Height as of this encounter: 175.3 cm (5' 9.02). Weight as of this encounter: 57.6 kg (127 lb).Most recent hematocrit and potassium results:Hematocrit 39.6 08/01/2017Potassium 4.6 08/01/2017ANES DOS/PREOP NOTE:Vitals: 4BP: 170/74Pulse: 80Resp: 18Temp: 36.6 ?C (97.9 ?F)TempSrc: Temporal ArterySpO2: 99%Weight: 57.6 kg (127 lb)Height: 175.3 cm (5' 9.02)ACTIVE PROBLEM LISTPresence of Drug Coated Stent in Lad Coronary ArteryTobacco Abuse DisorderEssential HypertensionHypercholesterole miaEsophageal RefluxAnxietyClosed Colles' Fracture of Left RadiusCoronary Artery Disease Involving [place] Coronary ArteryWell Controlled Type 2 Diabetes Mellitus With Neurological Manifestations(Hcc)PAST MEDICAL HISTORYDiagnosis Date- Arthritis- Diabetes (HCC)- GERD (gastroesophageal reflux disease)- Heart attack may 22- HypertensionPAST SURGICAL HISTORYProcedure Laterality Date- COLONOSCOPY - DIAGNOSTIC 2015- EGD- PAST SURGICAL HISTORY OF 2013 heart stents x 2 may 22- PAST SURGICAL HISTORY OF 2009 open bilateral inguinal hernia repairs- PAST SURGICAL HISTORY OF 1967 dental extractionsFAMILY HISTORYProblem Relation Age of Onset- Kidney Disease Mother- Colon Cancer FatherSocial History:Social HistorySubstance Use Topics- Smoking status: Current Every Day Smoker Types: Pipe- Smokeless tobacco: Never Used Comment: heavy pipe -about 4 hrs a day 1 pouch/week- Alcohol use NoNo current facility-administered medications on file prior to encounter.Current Outpatient Prescriptions on File Prior to Encounter:aspirin, enteric coated (ASPIRIN, ENTERIC COATED) 81 mg EC tablet Take 81mg by mouth once daily.pantoprazole DR (PROTONIX) 20 mg tablet Take 20 mg by mouth twice daily.cetirizine (ZYRTEC) 10 mg tablet Take 10 mg by mouth once daily as neededfor Cold/Allergy Symptoms.busPIRone (BUSPAR) 15 mg tablet Take 15 mg by mouth once daily.atorvastatin (LIPITOR) 80 mg tablet Take 1 tablet by mouth once daily.therapeutic multivitamin (THERA VITAMIN) tablet Take 1 tablet by mouthonce daily.GABAPENTIN ORAL Take by mouth. Unsure of dosage takes in eveningcitalopram (CELEXA) 40 mg tablet Take 1 tablet by mouth once daily.metFORMIN (GLUCOPHAGE) 500 mg tablet Take 2 tablets by mouth once daily.ramipril (ALTACE) 5 mg capsule Take 1 capsule by mouth once daily.metoprolol succinate ER (TOPROL XL) 25 mg 24 hr tablet Take 1 tablet bymouth once daily.Current Facility-Administered Medications:lactated ringers infusion 5-30 mL/hr INTRAVENOUS CONTINUOUS Angelica (Pa)Vetovitz Last Rate: 30 mL/hr at 08/03/17 0700 30 mL/hr at 08/03/17 0700clindamycin 600 mg in D5W 50 mL (CLEOCIN) 600 mg INTRAVENOUS Pre-Op OnceSondra (Pa) VetovitzAllergies:ALLERGIESAl lergen Reactions- Levitra [Vardenafil* Other: See Comments headache- Penicillin Hives- Typhoid Vaccine Mental Status Change Hallucinations, dizziness- Viagra [Sildenafil * Other: See Comments headache- Wellbutrin [Bupropi* Other: See Comments anxietyDOS EXAM: Adequate NPO status: YesAnesthetic risks, benefits, alternatives, personnel and consent discussed:YesPatient agrees to proceed: YesPrevious Anesthesia: No history of adverse event.Airway Assessment: MP 2; Neck ROM: Full ROM without neurologic symptoms;Airway Evaluation: No significant abnormalities and Miranda PresentSymptoms of Sleep Apnea: Snoring, Hypertension, Age over 50 (66 year old)and Male genderDentition: Dentures: bothAdditional Physical Exam:Lungs: normal vesicular breath soundsCardiac: normal S1 and S2; no rubs, no murmurs, and no gallopsAdditional Pertinent Findings: N/ABlood Products: Not anticipated for this procedure.Anesthetic Plan: General, Standard ASA MonitorsPain Management Plan: Parenteral or Oral and Peripheral Nerve BlockASA Class: 3Other Medical Problems: NoneChronic Beta Clary medication administered within 24 hours: Ar have interviewed and examined the patient. I have reviewed the medicalrecord and/or the pre-anesthesia evaluation, pertinent labs, and testresults.Significant changes in the patient's condition since the History andPhysical, not otherwise documented in primary service progress notes: NoThis contains updated information obtained within 48 hours ofSurgery/Procedure.SIGNATURE : Ricki Prescott MD PATIENT NAME: Cristino CummingsnerDATE: August 03, 2017 : 7:45 AM CSN: [id number] [facility] NURSING PROGon 08-03-2017 NURSING PROG HNO ID: [id number] thor: Jaquelin (Rn) Getachew RNService: NursingAuthor Type: Registered NurseType: Nursing Progress NoteFiled: 08/03/2017 11:20 AMNote Text:1038 pt to PACU. Awakes easily to VS. LUE s/p block no movement, decreasedsensation and remains in sling. Ice pack on. R hand +cap refill. PIV DANDI.VSS no s/sx of distress.1110 report caled to Oleksandr RN in ASCU.1115 pt to ASCU [facility] NURSING PROG HNO ID: [id number] thor: Kendall NavaRn) Gerry Buiice: NursingAuthor Type: Registered NurseType: Nursing Progress NoteFiled: 08/03/2017 8:50 AMNote Text:Dr. Prescott at bedside for Left supraclavicular nerve block. RN atbedside, pt monitored throughout, BP 150/78 Pulse 76 Temp 36.6 ?C(97.9 ?F) (Temporal Artery) Resp 16 Ht 175.3 cm (5' 9.02) Wt 57.6kg (127 lb) SpO2 100% BMI 18.75 kg/m2 . Pt tolerated procedurewithout difficulty. [facility] NURSING PROG HNO ID: [id number] thor: Oleksandr NavaRn) ZA Hugoervice: NursingAuthor Type: Registered NurseType: Nursing Progress NoteFiled: 08/03/2017 7:41 AMNote Text:PRE OP LEARNING ASSESSMENTPROCEDURE/SURGERY: SURGERY: Orif distal radius 3 or more fragmentsREADINESS TO LEARNCOGNITIVE ABILITY: Alert and orientedMOTIVATION TO LEARN: EagerFAMILY SUPPORT: High - Very involved in pt carePATIENT LEARNS BEST BY: Individual InstructionWritten Instruction - Hand-outsVerbal InstructionFACTORS AFFECTING LEARNING: NonePHYSICAL LIMITATIONS AFFECTING LEARNING: NoneElectronically Signed By: Oleksandr Hugo RN In [facility] OPERATIVE NOon 08-03-2017 OPERATIVE NO HNO ID: [id number] thor: Reid Duggan: Orthopaedic SurgeryAuthor Type: PhysicianType: Operative ReportFiled: 08/03/2017 10:46 AMNote Text:OPERATIVE/PROCEDURE REPORTLOG ID: [id number]/Procedure Date: 08/03/2017Incision/Procedure Start Time: 9:00 AMIncision Close/Procedure End Time: 10:28 AMSurgeon(s)/Proceduralist(s) and Band Sawmill Operator(s):Surgeon(s) and Role: * Reid Sabillon - PrimaryPhysician Band Sawmill Operator: Angelica Keys) VetovitzProcedure(s):Left wrist, open reduction and internal fixation, distal radius, greaterthan 3 parts.Anesthesia: General with regional.Procedure Details: On 08/03/2017, the patient was clearly identified in the preoperative areaand marked accordingly on the left wrist by myself. He received a regionalblock per the anesthetic team. He was taken the operative suite and placedin the supine position with an armboard on the left. He received 600 mg ofClindamycin within 1 hour of incision or tourniquet. All other bonylandmarks were appropriately padded in standard fashion. Anesthesiaassumed care of the head and neck for remainder the case after beginningan LMA anesthetic. Bilateral lower extremity SCDs were applied to helpprevent DVTs. The upper extremity was then sterilely prepped and draped instandard fashion. An appropriate time-out was conducted and all in theroom in agreement, signed consent forms on the chart, images wereavailable for viewing and implants were in the room with representation.The upper extremity was exsanguinated with an Esmarch bandage andtourniquet was applied at 250 mmHg. A longitudinal incision was made overthe FCR tendon that was palpable with a 15 blade for approximately 3.5 cm.Superficial bleeders crossing the surgical site were taken down withbipolar electrocautery. The sheath was incised over the FCR tendon and wasretracted ulnarly to protect the palmar cutaneous branch of the mediannerve. The subsheath was then divided and hematoma was present. I sweptFPL tendon and muscle belly out of the way with finger dissection. Idivided the fascia slightly more proximally in order to gain access intothe surface of the volar portion of the distal radius. Self-retainingretractor was applied for soft tissue retraction and protection. I thentook off the pronator quadratus off its radial attachment leaving a smallcuff for hopeful repair and used a periosteal elevator to expose thesurface of the distal radius. I used my 15 blade and took down thebrachioradialis tendon to get better control over the radial styloidsegment. The fracture was very comminuted on the radial column andunstable due to poor bone quality. I was able to manually reduce thedistal, articular segments, and had to place a freer into the fracturesite to tamp up the joint surface. Due to the significant tilt, I reducedthe plate to the distal surface, in order to aim the screws proximalenough to keep out of the joint. I first placed a cortical screw to get areduction of the fractures to the plate, then swapped out for lockingscrews in the distal row. Then with complete control of the distalsegment, I used the plate to reduce down to the shaft, allowing the volartilt to be recreated. I drilled and filled the 2 more proximal corticalscrews in the shaft and completed the construct with 2 more locking screwsdistally. I checked all the screw lengths, plate position, screw position,fracture reduction on multiplanar films and saved these for the record. Hehad full range of motion without any impingement or movement of thefracture, and on live fluoro, there did not appear to have any hardwarebreaching the joint. The wound was copiously irrigated and the tourniquetwas taken down. Hemostasis was observed with bipolar electrocautery. Thepronator quadratus was able to be repaired and I placed a few 2-0 biosynsutures in the PQ. I closed down the skin edges with buried 3-0 Biosynsutures and a 3-0 Monosof running stitch with horizontal mattress andescape stitches was completed the skin closure, which was tension free.Adaptic gauze, sterile 4x4 gauze, Webril padding, and a nicely fashionedvolar fiberglass splint , above the elbow, was applied with a light Klingwrap and Olman bandage. The patient was placed in a simple sling due to hernerve block and she was safely awoken and transferred to thePostanesthetic Care Unit in stable condition.Pre-Op/Pre-Procedur e Diagnosis: Left wrist fracture, closed, initialencounterPost-Op/Post- Procedure Diagnosis: Left wrist fracture, closed, initialencounter [S62.102A]Estimated Blood Loss: 15 mlsSpecimens: NoneImplantable Devices: Synthese VA distal locking wrist plate.Drains: NoneComplications: NoneI performed the procedure with assistance.SIGNATURE: Reid Sabillon MD PATIENT NAME: Cristino RyanDATE: August 03, 2017 : 10:43 AM PAGER/CONTACT #: [facility] PT EDon 08-03-2017 PT ED HNO ID: [id number] thor: Oleksandr Finney) ZA Hugoervice: NursingAuthor Type: Registered NurseType: Patient EducationFiled: 08/03/2017 11:55 AMNote Text:POST OP LEARNING RESPONSEINSTRUCTION PROVIDED TO: Patient and family memberMETHOD OF INSTRUCTION: Individual instructionWritten instruction - handoutsDemonstration-Hands on LearningPATIENT / FAMILY RESPONSE: Verbalizes understanding of: EQUIPMENTUSE-Correct use of EquipmentFOLLOW-UP PLAN: Follow-up with Primary CareSUPPLEMENTAL MATERIAL: NoneREFERRAL (RECOMMENDATION): NoneElectronically Signed By: Oleksandr Hugo RN In Department: [facility] PT ED HNO ID: [id number] thor: ZA Storm Rnervice: NursingAuthor Type: Registered NurseType: Patient EducationFiled: 08/03/2017 11:29 AMNote Text:POST OP LEARNING RESPONSEINSTRUCTION PROVIDED TO: Patient and family memberMETHOD OF INSTRUCTION: Written instruction - handoutsVerbal instructionDemonstration-Hand s on LearningPATIENT / FAMILY RESPONSE: Verbalizes understanding of: MEDICALREGIMEN-Importance of following prescribed medical regimenMEDICATION PRESCRIBED-Accurate knowledge of prescribed medication prior todischargeFOLLOW-UP PLAN: Patient instructed to call with any further issuesFollow-up with Primary CareSUPPLEMENTAL MATERIAL: NoneREFERRAL (RECOMMENDATION): NoneElectronically Signed By: Oleksandr Hugo RN In Department: [facility] XR FLUOROSCOPYon 08-03-2017 XR FLUOROSCOPY * * *Final Report* * *DATE OF EXAM: Aug 03 2017 10:11AM MDR [id number] - XR FLUOROSCOPY / REASON: ORIF DISTAL LEFT RADIUS FOR FX * * * * Physician Interpretation * * * * INDICATION: ORIF DISTAL LEFT RADIUS FOR FXTECHNIQUE: Fluoroscopy with 2 AP images of the left wristFLUOROSCOPY TIME: 3:12FINDINGS/IMPRESSION: There has been interval open reduction and internal fixation of the comminuted articular distal radial fracture. Hardware and fracture fragments appear in satisfactory position on the AP images. Ulnar styloid fracture is unchanged. Please refer to the performing LIP's report.Analog Circuit Designer: HARRY Transcribe Date/Time: Aug 03 2017 1:21PDictated by : CARLOZ TALBOT MDThis examination was interpreted and the report reviewed and electronically signed by: CARLOZ TALBOT MD on Aug 03 2017 1:22PM [id number] [facility] HISTORY PHYSICALon HISTORY PHYSICAL HNO ID: [id number] thor: Tiffany Guillen (Jorge) GiancarloService: (none)Author Type: Physician AssistantType: HANDPFiled: 08/02/2017 3:34 PMNote Text:HISTORY AND PHYSICAL EXAMINATIONSERVICE DATE: 08/02/2017SERVICE TIME: 230PMPRIMARY CARE PHYSICIAN: BILL Do FOR VISIT:Cristino Ryan is a 66 year old male who is scheduled for LEFT at [facility] of Dr. Reid Sabillon for consultation. 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 No prior surgery or trauma to left upperextremity. + DM with neuropathy LEs and + tobacco use.PAST MEDICAL HISTORYDiagnosis Date- Arthritis- Diabetes (HCC)- GERD (gastroesophageal reflux disease)- Heart attack may 22- HypertensionPAST SURGICAL HISTORYProcedure Laterality Date- COLONOSCOPY - DIAGNOSTIC 2015- EGD- PAST SURGICAL HISTORY OF 2013 heart stents x 2 may 22- PAST SURGICAL HISTORY OF 2009 open bilateral inguinal hernia repairs- PAST SURGICAL HISTORY OF 1967 dental extractionsFAMILY HISTORYProblem Relation Age of Onset- Kidney Disease Mother- Colon Cancer FatherSOCIAL HISTORY:Social History Marital status: Spouse name: Years of education: Number of children:Social History Main Topics Smoking status: Current Every Day Smoker Packs/day: 0.00 Years: 0.00 Types: Pipe Smokeless status: Never Used Comment: heavy pipe -about 4 hrs a day 1 pouch/week Alcohol use: No Drug use: No Sexual activity: NoMEDICATIONS:Prior to Admission medications as of 08/02/17 1440Medication Sig Last Dose TakingHYDROcodone-acetaminoph en (NORCO) 5-325 mg per tablet Take 1 tablet bymouth every 4 hours as needed for up to 7 days.Earliest Fill Date: 08/02/17 YesCALCIUM CARBONATE/VITAMIN D3 (VITAMIN D-3 ORAL) Take by mouth once daily.Yestherapeutic multivitamin (THERA VITAMIN) tablet Take 1 tablet by mouthonce daily. YesGABAPENTIN ORAL Take by mouth. Unsure of dosage takes in evening Yesaspirin, enteric coated (ASPIRIN, ENTERIC COATED) 81 mg EC tablet Take 81mg by mouth once daily. Yespantoprazole DR (PROTONIX) 20 mg tablet Take 20 mg by mouth twice daily. Yescetirizine (ZYRTEC) 10 mg tablet Take 10 mg by mouth once daily as neededfor Cold/Allergy Symptoms. Yescitalopram (CELEXA) 40 mg tablet Take 1 tablet by mouth once daily. YesbusPIRone (BUSPAR) 15 mg tablet Take 15 mg by mouth once daily. Yesatorvastatin (LIPITOR) 80 mg tablet Take 1 tablet by mouth once daily.Yesramipril (ALTACE) 5 mg capsule Take 1 capsule by mouth once daily. Yesmetoprolol succinate ER (TOPROL XL) 25 mg 24 hr tablet Take 1 tablet bymouth once daily. YesmetFORMIN (GLUCOPHAGE) 500 mg tablet Take 2 tablets by mouth once daily.No medication comments found.CURRENT ALLERGIES:ALLERGIESAllergen Reactions- Levitra [Vardenafil* Other: See Comments headache- Penicillin Hives- Typhoid Vaccine Mental Status Change Hallucinations, dizziness- Viagra [Sildenafil * Other: See Comments headache- Wellbutrin [Bupropi* Other: See Comments anxietyREVIEW OF SYSTEMS:PAIN ASSESSMENT: PainPain Score: 4/10Pain Location: Wrist-LeftDescription: AchingFrequency: ContinuousIntervention: MedicationGeneral: 10 lbs weight loss past week due to wrist fracture, Nofever/chills No malaise or night sweatsNeuro: No history of TIA's, stroke, GASOLINE CATALYST OPERATOR tumor, impaired sensorium,hemiplegia, paraplegia or quadraplegia. No neurological symptoms orproblems. + neuropathy lower extremitiesRespiratory: No history of current cough or dyspnea, or pneumonia in thepast 6 weeks. No history of respiratory/pulmonary symptoms or problems. +tobacco useCardiovascular: Positive for: HLD, Hypertension, NH 2013 s/p 2 stents LADper chart-was on Brillinta but has been d/c'd for 1 year-ASA 81 mg now/ 2015 stress test negative, last chest pain or angina 2015 w/uwas negative for cardiac origin. No recent chest pain or ntg use. NoDVT/PE hx GI: Positive for GERD on rx No PUD No recent N/V or abdominal pain. Noh/o liver disease. H/O gastritis 06/2016 with anemia requiring transfusionBenign colon polypGU: No history of dysuria, frequency or incontinence,, stones or chronickidney diseaseEndocrine: Diabetes Mellitus on oral agent, Diabetic Neuropathy No h/othyroid diseaseHematology: H/O anemia 2015 see above. ASA 81 mg dailyAnemia 2015 transfused 4 units, [facility] - 3[facility] no etiology found per patientOncology: No history of CA metastasis, chemo within 30 days, orradiotherapy within 90 days. Has not lost 10% of body wt in 6 months. Nohistory of oncological symptoms or problems.Psych: Anxiety On rxMusculoskeletal: See HPI and lower back pain and bilateral hips and rightkneeSkin: Negative for lesions, rash and itching.OBJECTIVEPHYSICAL EXAM:VITALS:BP 130/62 Pulse 69 Temp (Src) 97.4 (Tympanic) Resp 16 Ht 5' 9(1.75m) Wt 127 lb (57.6kg) SpO2 96% BMI 18.75 kg/(m2).General: Alert and orientedSkin: Generalized pallor, no dermatitisHEENT: EOM, pupils equal, round and reactive.Cardiovascular: Normal S1 AND S2, no rubs, murmurs or gallops. No JVD. Pulseregular.Lungs: Normal breath sounds, no wheezes or crackles.Abdomen: Soft, non-tender, no rigidity.Extremities: left forearm in splint-ecchymosis left digits , no edema LEsNeurological: Normal cognition and motor skills.Pulses: Carotid and radial pulses normal +2.Diagnostic tests reviewed for today's visit: Lab Value Units Date High Low HB 13.7 g/dL 08/01/2017 17.0 13.0 HCT 39.6 % 08/01/2017 51.0 39.0 WBC 10.04 k/uL 08/01/2017 11.00 3.70 PLT 356 k/uL 08/01/2017 400 150NA 131 mmol/L 08/01/2017 144 136 K 4.6 mmol/L 08/01/2017 5.1 3.7 GLUC 81 mg/dL 08/01/2017 99 74 BUN 17 mg/dL 08/01/2017 24 9 CREAT 1.04 mg/dL 08/01/2017 1.22 0.73 PTSEC No results within date range. INR No results within date range. APTT No results within date range. ALT 26 U/L 08/01/2017 54 10 AST 25 U/L 08/01/2017 40 14 TBILI 0.9 mg/dL 08/01/2017 1.3 0.2 TSH No results within date range. Lab Value Units Date High Low HCGQT No results within date range. UHCG No results within date range. HCG, BODY* No results within date range. Lab Value Units Date High Low ABORHD No results within date range. ABSCREEN No results within date range.No results found for: IOH4LJbhz recent labsMost recent stress testAssessmentASSESSMENTAnemi a - ? Gastritis with transfusion 4 units 06/2016-edg/colonoscopynoted chronic gastritis and benign colon polyp (Was on blood thinner atthis time)CAD - With previous stent placement -2013- The patient is currently onantiplatelet therapy. 81 mg ASA dailyDiabetes - Well controlled per recent labsNeuropathy lower extremitiesHTN - Well controlledHyperlipidemiaGERD/ gastritis on rxMETS:Climb a flight of stairs or walk up a hill (5.50 METs)ASA Class: 3ANESTHESIA FINDINGS:Intubation History: No history of difficult intubationSignificant Anesthesia Considerations: NoneAirway Exam: General: Normal appearance Mallampati Score is CLASS II ULBT: Class I - Lower incisors can bite the upper lip above thevermillion line Neck: Normal appearance and function, Distance from hyoid to mentumduring neck extension is at least 3 finger breaths Mouth: Normal tongue size and Mouth opening greater than 2 finger breaths Dentition: Upper denture and Lower dentureAirway History: No abnormal airway historySTOP BANG Score:Criteria:SnoringHyperte nsionAge over 50 (66 year old)Male genderScore = 4PLANThis patient is optimally prepared for surgery pending EKG.CONSULTS:Patient does not require consults for optimization at this time.The Following Tests/Procedures Have Been Initiated:Orders Placed This Encounter CALCIUM CARBONATE/VITAMIN D3 (VITAMIN D-3 ORAL) Sig: Take by mouth once daily. ECG COMPLETE W INTERPRETATIONPlanned Anesthetic: Per anesthesia choiceInstructions Given to Patient:Patient given verbal and written preop instructions and voicescomprehension and compliance.SIGNATURE: Tiffany Mondragon PA-C PATIENT NAME: Cristino RyanDATE: August 02, 2017 : 2:48 PM PAGER/CONTACT #: [facility] NURSING PROGon 08-02-2017 NURSING PROG HNO ID: [id number] thor: Radha Le (Rn) Conchis, ZAervice: (none)Author Type: Registered NurseType: Nursing Progress NoteFiled: 08/02/2017 4:08 PMNote Text:PACC Nurse Progress NoteHistory AND Physical:PACC Visit Date: 08/02/2017Labs Within Last 6 Months:08/01/2017 CBC Within acceptable limits per anesthesia guidelines CMP Within acceptable limits per anesthesia guidelinesImaging Within Last 12 Months:See chartCardiac Testing:EKG in last 12 Months: Yes: Date: 08/02/2017, Comment: in processStress Test Date: 10/26/2015 , Comment: in epicRisk Assessment:N/AAnesthesia Review:DOSNarrative:No new consults ordered.Pre-op Considerations:CAD, H/O NH with cardiac stent x 2 on ASADiabeticGERDNeuropathy to lower extremitiesAnxietyChart Check:IN PROGRESS - pending EKGMary Mimi Balderrama RNJanuary 2017 4:04 PM [facility] HOSPon 08-01-2017 HOSP Patient:Cecy Ryan: Height:5' 9(1.753 m)Weight:127 lb (57.607 kg)Outpatient Medications as of 08/03/17:HYDROcodone-acetaminop hen (NORCO) 5-325 mg per tabletCALCIUM CARBONATE/VITAMIN D3 (VITAMIN D-3 ORAL)therapeutic multivitamin (THERA VITAMIN) tabletGABAPENTIN ORALaspirin, enteric coated (ASPIRIN, ENTERIC COATED) [address] (PROTONIX) 20 mg tabletcetirizine (ZYRTEC) 10 mg tabletcitalopram (CELEXA) 40 mg tabletbusPIRone (BUSPAR) 15 mg tabletatorvastatin (LIPITOR) 80 mg tabletmetFORMIN (GLUCOPHAGE) 500 mg tabletramipril (ALTACE) 5 mg capsulemetoprolol succinate ER (TOPROL XL) 25 mg 24 hr tabletAdmission/Clinic Administered Medications as of 08/03/17:lactated ringers infusionclindamycin 600 mg in D5W 50 mL (CLEOCIN)Problem List:Presence of drug coated stent in LAD coronary artery [Z95.5]Tobacco abuse disorder [Z72.0]Essential hypertension [I10]Hypercholesterolemia [E78.00]Esophageal reflux [K21.9]Anxiety [F41.9]Closed Colles' fracture of left radius [S52.532A]Coronary artery disease involving pilot point coronary artery [I25.10]Well controlled type 2 diabetes mellitus with neurological manifestations (HCC)[E11.49]Allergies:Levitr a [Vardenafil Hcl]PenicillinTyphoid VaccineViagra [Sildenafil Citrate]Wellbutrin [Bupropion Hcl]Date Verified: 08/03/17Lab ValuesLab Value Units Date High LowPOTA* 4.6 mmol/L 08/01/2017 5.1 3.7HEMA* 39.6 % 08/01/2017 51.0 39.0Progress Notes ([facility]):Alycia Valencia Ma 08/02/2017 5:26 PM SignedAMB ROOMING INTAKE FLOWSHEET DATARisk ScreeningDo you have concerns about personal safety or safety in the home?: Shivani Sabillon MD 08/02/2017 5:26 PM Yin Sabillon [facility] [address] [place] [address]Nbbj: [phone] Pdhmdfa 2017CHIEF COMPLAINT: Established Patient (Pre- op and sign consent)HPI: Mr. Cristino Ryan is a 66 year old male who had a fall at work, injuringhis left wrist and also kimmy his left shoulder and elbow. He had been placedin a splint and seen in our orthopedic office just yesterday. Radiologyfollowed up with concerns about a possible shoulder dislocation so I had himcome in today for both evaluation of that as well as the consent him fortomorrow in order to get his nerve block and a timely manner. The shoulder isnot bothering him quite as much. Elbow is doing well as well. Wrist ispainful.ASSESSMENT:S52.532A Closed Colles' fracture of left radius, initial encounter (primaryencounter diagnosis)PLAN:shoulder looks well. The risks, benefits, alternatives and potentialcomplications involving ORIF of his distal radius were reviewed and we have himscheduled tomorrow.He'll be off of work at least for the next 2 weeks. I'll touch base with ourphysician printing assistant to see if she started his mental 14 yesterday. If not, I'llget it settled today.FOLLOW UP INSTRUCTIONS:OR tomorrowOBJECTIVE:Mr. Cristino Ryan is a pleasant 66 year old in no apparent distress.Gen:There were no vitals taken for this visit. nl development, non obese, nodeformitiesENT: Normocephalic, normal hearing, moist mucosaCV: Pulses:Radial= 2+ and symmetric, capillary refill < 2 secs, no peripheraledema/varicositiesS kin: no rash, bruising or lesions. Good turgor.Psych: cooperative and appropriate, alert and oriented x 3, good mood andaffect.Musculoskeletal:lef t shoulder without any pain with gentle internal and external rotation. Noanterior fullness. Wrist is nicely splinted with some mild and appropriateecchymoses into the fingers. Swelling appears without severity.IMAGING:IMPRESSION:N o fracture or dislocation identifiedTranscriptionist: PSCB ?Transcribe Date/Time: Jul 11:46ADictated by : MICKI IBARRA MDThis examination was interpreted and the report reviewed andelectronically signed by:MICKI IBARRA MD on Jul 11:47AM ?ESTResults-Findings* * *Final Report* * *DATE OF EXAM: Jul ?9:53AM ?WRX ? 5256 ?- ?XR SHOULDER SPECIFY 1V LT ?/ REASON: Pain in left shoulder?? ?* * * * Physician Interpretation * * * *?X-RAYS LEFT SHOULDERHISTORY: ? Hx of fall 5 days ago. Follow up to images taken of theclavicle dated 08/01/17.. ? Pain in left shoulderTECHNIQUE: Single axillary view left shoulderCOMPARISON: ?08/01/2017 shoulder x-raysRESULT:Glenohumeral joint is maintained. ?No fracture or dislocation isidentified.IMPRESSION:1. ?Comminuted intra-articular impacted fracture of the distal radius2. ?Fracture of the ulnar styloid.Analog Circuit Designer: HARRY ?Transcribe Date/Time: Jul ?4:47PDictated by : Rivera LANDAVERDE examination was interpreted and the report reviewed andelectronically signed by:AC ANSARI DO on Jul ?4:51PM ?ESTResults-Findings* * *Final Report* * *DATE OF EXAM: Jul ?3:02PM ?WRX ? 5270 ?- ?XR WRIST 3V PA/LAT/OBL LT ?/ REASON: Pain in left wrist?? ?* * * * Physician Interpretation * * * *?LEFT wristHISTORY: ?66 years oldClinical information: Pain in left wristFracture follow up. Pt fell several days ago and was seen at an outsideER facility.TECHNIQUE:Images: ?XR WRIST 3V PA/LAT/OBL LTComparison: ?None.RESULT:Findings:Again noted is a Comminuted intra-articular impacted fracture of thedistal radius. ?Alignment similar to the previous study There is alsotransverse fracture of the ulnar styloid at its base.Supporting Subjective Information Below:Past Medical History:PAST MEDICAL HISTORYDiagnosis Date- Arthritis- Diabetes (HCC)- GERD (gastroesophageal reflux disease)- Heart attack may 22- HypertensionPast Surgical History:PAST SURGICAL HISTORYProcedure Laterality Date- HEART SURGERY HX heart stents x 2 may 22Family History: No family history on file.Social History:Social History Marital status: Spouse name: Years of education: Number of children:Social History Main Topics Smoking status: Current Every Day Smoker Packs/day: 0.00 Years: 0.00 Types: Pipe Smokeless status: Never Used Comment: heavy pipe -about 4 hrs a day Alcohol use: No Drug use: No Sexual activity: NoMedications:Current Outpatient Prescriptions:therapeutic multivitamin (THERA VITAMIN) tablet Take 1 tablet by mouth oncedaily.GABAPENTIN ORAL Take by mouth.albuterol HFA (PROAIR HFA) 90 mcg/actuation inhaler Inhale 2 Puffs as instructedevery 4 hours as needed for Wheezing/Shortness of Breath.aspirin, enteric coated (ASPIRIN, ENTERIC COATED) 81 mg EC tablet Take 81 mg bymouth once daily.pantoprazole DR (PROTONIX) 20 mg tablet Take 40 mg by mouth once daily.cetirizine (ZYRTEC) 10 mg tablet Take 10 mg by mouth once daily as needed forCold/Allergy Symptoms.citalopram (CELEXA) 40 mg tablet Take 1 tablet by mouth once daily.busPIRone (BUSPAR) 15 mg tablet Take 15 mg by mouth once daily.atorvastatin (LIPITOR) 80 mg tablet Take 1 tablet by mouth once daily.metFORMIN (GLUCOPHAGE) 500 mg tablet Take 2 tablets by mouth once daily.ramipril (ALTACE) 5 mg capsule Take 1 capsule by mouth once daily.metoprolol succinate ER (TOPROL XL) 25 mg 24 hr tablet Take 1 tablet by mouthonce daily.HYDROcodone-acetaminoph en (NORCO) 5-325 mg per tablet Take 1 tablet by mouthevery 4 hours as needed for up to 7 days.Earliest Fill Date: 08/02/17ticagrelor (BRILINTA) 90 mg tab tab(s) Take 90 mg by mouth twice daily.famotidine (PEPCID) 20 mg tablet Take 20 mg by mouth twice daily as needed.No current facility-administered medications for this visit.Allergies: Levitra [Vardenafil Hcl]; Penicillin; Typhoid Vaccine; Viagra[Sildenafil Citrate]; Wellbutrin [Bupropion Hcl]ROS:General (negative for fatigue, malaise, weight loss/gain)HEENT (negative for headache, earache, recent vision changes, sinus pain, sorethroat) Respiratory (no recent shortness of breath, hemoptysis)CV (negative for chest tightness, palpitations)Musculoskeletal (see HPI)Psych (no depression, anxiety)REFERRING PHYSICIAN: Mr. Cristino Ryan was referred to me for consultation bythe following physician. This consultation note will be sent to the followingphysician by either mail or electronic medical record.Reid Sabillon MD[address] [facility] [address] Sherri Valencia MD[address] [facility] [address] [address]Fqle note was partially generated using [employer] voice recognition system, andthere may be some incorrect words, spellings, and punctuation that were notnoted in checking the note before saving.Reid Sabillon, MDProgress Notes ([facility] MOB):RT Dhruv, Tech 08/02/2017 9:54 AM Signed Radiology Service Progress NotePATIENT NAME: Cristino RyanMRN: [id number] OF SERVICE: August 02, 2017TIME: 9:31 AMPATIENT IDENTITY VERIFICATION COMPLETED USING TWO (2) METHODS: Patientconfirmed name verbally and Date of .PATIENT GENDER DATA: MalePATIENT RELEVANT IMPLANT DATA REVIEWED: Not ApplicableRADIOLOGY DEPARTMENT: General X-ray: Exam(s) Completed: Upper ExtremityX-Ray(s): Shoulder, AP / TRUE AP left : Axillary onlyPERIPHERAL IV DATA: Not applicableSIGNED BY: RT DhruvAugust 02, 2017 9:31 AM [facility] ED NOTEon 07-22-2017 ED NOTE HNO ID: [id number] thor: Lester (Rn) Farhan, RNService: (none)Author Type: Registered NurseType: ED NotesFiled: 07/22/2017 1:26 AMNote Text: Pt given discharge instructions and verbalized understanding of follow upcare. Pt in stable condition on discharge with cab. [facility] ED NOTE HNO ID: [id number] thor: Romina (Rn) Freddie, RNService: (none)Author Type: Registered NurseType: ED NotesFiled: 07/22/2017 12:14 AMNote Text:Pt presents to the ED via EMS after falling on concrete at work, fell onwrist and has a left wrist deformity, no head injury and no loc [facility] ED NOTE HNO ID: [id number] Author: Romina NavaRn) Freddie RN Service: (none) Author Type: Registered Nurse Type: ED Notes Filed: 07/22/2017 12:09 AM Note Text: Bed: ED-11 Expected date: Expected time: Means of arrival: Comments: LST 5 [facility] ED PROV NOTEon 07-22-2017 ED PROV NOTE HNO ID: [id number] thor: MANNY Bernardervice: (none)Author Type: PhysicianType: ED Provider NotesFiled: 07/22/2017 1:27 AMNote Text:ED Provider NotePatient Name: Cristino RyanMRN: [id number] DATE: 07/22/17HistoryPatient presents with:Wrist/forearm Injury (Ed): left wrist deformityHPI Comments: Patient slipped and fell while at work injuring his leftwrist now complains of pain to left wrist with movement denies head traumadenies neck or back pain denies shoulder hip or lower extremity pain. Heis not on any anticoagulants denies numbness tingling in his left hand.He denies left elbow painPAST MEDICAL HISTORYDiagnosis Date- Arthritis- Diabetes (HCC)- GERD (gastroesophageal reflux disease)- Heart attack may 22- HypertensionPAST SURGICAL HISTORYProcedure Laterality Date- HEART SURGERY HX heart stents x 2 may 22No family history on file.Social HistorySocial History Main Topics- Smoking status: Current Every Day Smoker Types: Pipe- Smokeless tobacco: Never Used Comment: heavy pipe -about 4 hrs a day- Alcohol use No- Drug use: No- Sexual activity: NoALLERGIESAllergen Reactions- Levitra [Vardenafil* Other: See Comments headache- Penicillin Hives- Typhoid Vaccine Mental Status Change Hallucinations, dizziness- Viagra [Sildenafil * Other: See Comments headache- Wellbutrin [Bupropi* Other: See Comments anxietyReview of SystemsConstitutional: Negative.HENT: Negative.Eyes: Negative.Cardiovascular: Negative.Gastrointestinal: Negative.Genitourinary: Negative.Musculoskeletal: Negative for back pain and neck pain. Complains of left wrist pain with movementSkin: Negative.Neurological: Negative.Psychiatric/Behavior al: Negative.Physical ExamBP 176/78 Pulse 68 Temp (Src) 97.5 (Oral) Resp 16 Wt 135 lb(61.2kg) SpO2 99%Physical ExamConstitutional: He is oriented to person, place, and time. He appearswell-developed and well-nourished. No distress.HENT:Head: Normocephalic.Nose: Nose normal.Eyes: Conjunctivae are normal. Pupils are equal, round, and reactive tolight. Right eye exhibits no discharge. Left eye exhibits no discharge.Neck: Normal range of motion. Neck supple. No tracheal deviation present.Cardiovascular: Normal rate, normal heart sounds and intact distal pulses.Pulmonary/Chest: Effort normal and breath sounds normal. No respiratorydistress.Abdominal : Soft. He exhibits no distension. There is no tenderness.Musculoskeletal:Ce rvical dorsal lumbar spines nontender shoulders thorax hips pelvis andboth lower extremity is nontender he has mild swelling intense andpalpation over left wrist there is no break in the skin he has goodmobility The refill and sensations all fingers of the left handNeurological: He is alert and oriented to person, place, and time. Nocranial nerve deficit. He exhibits normal muscle tone. Coordinationnormal.Skin: Skin is warm and dry. No rash noted.Psychiatric: He has a normal mood and affect. His behavior is normal.Judgment and thought content normal.Diagnostic TestingED Labs Ordered and Reviewed - No data to display? XR WRIST GENERAL 3V PA/LAT/OBL LT (Final result) Result time: 07/22/1701:24:36? Final result by Interface, Results In (07/22/17 01:24:36)? Impression:? IMPRESSION:1. ?Comminuted transverse impacted fracture distal radius2. ?Minimally displaced fracture ulnar styloid process.Analog Circuit Designer: HARRY ?Transcribe Date/Time: Jul 22 2017 ?1:20ADictated by : CONCEPCION STOKES MDThis examination was interpreted and the report reviewed andelectronically signed by:CONCEPCION STOKES MD on Jul 22 2017 ?1:22AM ?EST? Narrative:? * * *Final Report* * *DATE OF EXAM: Jul 22 2017 12:48AM ?MDX ? 5270 ?- ?XR WRIST 3V PA/LAT/OBL LT ?/ REASON: Trauma?? ?* * * * Physician Interpretation * * * *?EXAM: ?4 radiographic views of the left wristHISTORY: ?TraumaCOMPARISON: ?NoneFINDINGS: ?4 views of the left wrist are submitted for evaluation. ?Comminuted transverse impacted fracture distal radius. ?There is slightdorsal angulation of the distal fracture fragment. ?There is also aminimally displaced fracture of the ulnar styloid process. ?The includedsoft tissues demonstrate no radiopaque foreign body or subcutaneous gas. ?There is moderate regional soft tissue swelling.?ProceduresMedical Decision Making / ED CourseED CoursePatient was given a dose of Percocet for pain on arrival x-ray show adistal left radius and ulna fracture. Patient was placed in a volarsplint. Given a sling he will take a cab back to his home in [place] wasreferred to Dr. Agarwal for orthopedic follow-up since [place] also advised to follow-up with [employer] on Sunday. Givenoff work [employer]. Advise return if any problemEncounter Diagnosis ICD-10-CM1. 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 Discharged home with verbal andwritten instructions. They were instructed to return as needed forpersistent or worsening symptoms or any new concerns.Condition at time of disposition: stableSIGNATURE: Ilia Pierson [facility] TALIHINAjoel Pierson MD07/22/17 0121Cjoel Pierson MD07/22/17 0127 [facility] XR WRIST 3V PA/LAT/OBL LTon 07-22-2017 XR WRIST 3V PA/LAT/OBL LT * * *Final Report* * *DATE OF EXAM: Jul 22 2017 12:48AM MDX 5270 - XR WRIST 3V PA/LAT/OBL LT / REASON: Trauma * * * * Physician Interpretation * * * * EXAM: 4 radiographic views of the left wristHISTORY: TraumaCOMPARISON: NoneFINDINGS: 4 views of the left wrist are submitted for evaluation. Comminuted transverse impacted fracture distal radius. There is slight dorsal angulation of the distal fracture fragment. There is also a minimally displaced fracture of the ulnar styloid process. The included soft tissues demonstrate no radiopaque foreign body or subcutaneous gas. There is moderate regional soft tissue swelling.IMPRESSION:1. Comminuted transverse impacted fracture distal radius2. Minimally displaced fracture ulnar styloid process.Analog Circuit Designer: PSCB Transcribe Date/Time: Jul 22 2017 1:20ADictated by : CONCEPCION STOKES MDThis examination was interpreted and the report reviewed and electronically signed by: CONCEPCION STOKES MD on Jul 22 2017 1:22AM [id number] Normal [facility] Culture, urine Bacteria identified Cx Nom (U) Culture exhibits no growth. [facility] Work Phone: Laboratory - Microbiology an d Antimicrobial susceptibility Bacteria identified Cx Nom (Bld) No growth in 5 days. [facility] Work Phone: No Panel Information Respiratory Panel (PCR) Rhinovirus [facility] Work Phone: Vital Signs Date Time Vital Sign Value Performing Clinician Faci lity 04-06-2025 09:31-0400 Body height 170.[address] Demetra Serrano MD Work Phone: [facility] 04-06-2025 09:31-0400 Body mass index (BMI) [Ratio] 14.2 kg/m2 Dr. Demetra Serrano MD Work Phone: [facility] 04-06-2025 09:31-0400 Body temperature 97.8 [degF] Dr. Demetra Serrano MD Work Phone: [facility] 04-06-2025 09:31-0400 Body weight 41.[address] Demetra Serrano MD Work Phone: [facility] 04-06-2025 09:31-0400 Diastolic blood pressure 58 mm[Hg] Dr. Demetra Serrano MD Work Phone: [facility] 04-06-2025 09:31-0400 Heart rate 73 /min Dr. Demetra Serrano MD Work Phone: [facility] 04-06-2025 09:31-0400 Respiratory rate 16 /min Dr. Demetra Serrano MD Work Phone: [facility] 04-06-2025 09:31-0400 SaO2% (BldA) [Mass fraction] 97 % Dr. Demetra Serrano MD Work Phone: [facility] 04-06-2025 09:31-0400 Systolic blood pressure 102 mm[Hg] Dr. Demetra Serrano MD Work Phone: [facility] 12-23-2024 09:24-0400 Body height 170.[address] Demetra Serrano MD Work Phone: [facility] 12-23-2024 09:24-0400 Body mass index (BMI) [Ratio] 14.6 kg/m2 Dr. Demetra Serrano MD Work Phone: [facility] 12-23-2024 09:24-0400 Body temperature 97.1 [degF] Dr. Demetra Serrano MD Work Phone: [facility] 12-23-2024 09:24-0400 Body weight 42.[address] Demetra Serrano MD Work Phone: [facility] 12-23-2024 09:24-0400 Diastolic blood pressure 87 mm[Hg] Dr. Demetra Serrano MD Work Phone: [facility] 12-23-2024 09:24-0400 Heart rate 68 /min Dr. Demetra Serrano MD Work Phone: [facility] 12-23-2024 09:24-0400 Respiratory rate 18 /min Dr. Demetra Serrano MD Work Phone: [facility] 12-23-2024 09:24-0400 SaO2% (BldA) [Mass fraction] 97 % Dr. Demetra Serrano MD Work Phone: [facility] 12-23-2024 09:24-0400 Systolic blood pressure 166 mm[Hg] Dr. Demetra Serrano MD Work Phone: [facility] 12-05-2024 14:03-0400 Body temperature 97.9 [degF] Dr. Demetra Serrano MD Work Phone: [facility] 12-05-2024 14:03-0400 Diastolic blood pressure 62 mm[Hg] Dr. Demetra Serrano MD Work Phone: [facility] 12-05-2024 14:03-0400 Heart rate 57 /min Dr. Demetra Serrano MD Work Phone: [facility] 12-05-2024 14:03-0400 Respiratory rate 18 /min Dr. Demetra Serrano MD Work Phone: [facility] 12-05-2024 14:03-0400 SaO2% (BldA) [Mass fraction] 98 % Dr. Demetra Serrano MD Work Phone: [facility] 12-05-2024 14:03-0400 Systolic blood pressure 153 mm[Hg] Dr. Demetra Serrano MD Work Phone: [facility] 12-05-2024 12:00-0400 Inhaled oxygen flow rate 15 L/min Dr. Demetra Serrano MD Work Phone: [facility] 12-05-2024 10:32-0400 Body mass index (BMI) [Ratio] 14.9 kg/m2 Dr. Demetra Serrano MD Work Phone: [facility] 12-05-2024 10:32-0400 Body weight 43.[address] Demetra Serrano MD Work Phone: [facility] 12-05-2024 10:17-0400 Body height 170.[address] Demetra Serrano MD Work Phone: [facility] 12-05-2024 10:15-0400 Diastolic blood pressure 46 mm[Hg] Dr. Demetra Serrano MD Work Phone: [facility] 12-05-2024 10:15-0400 Heart rate 38 /min Dr. Demetra Serrano MD Work Phone: [facility] 12-05-2024 10:15-0400 SaO2% (BldA) [Mass fraction] 77 % Dr. Demetra Serrano MD Work Phone: [facility] 12-05-2024 10:15-0400 Systolic blood pressure 77 mm[Hg] Dr. Demetra Serrano MD Work Phone: [facility] 12-05-2024 10:02-0400 Respiratory rate 15 /min Dr. Demetra Serrano MD Work Phone: [facility] 12-05-2024 08:22-0400 Body mass index (BMI) [Ratio] 14.8 kg/m2 Dr. Demetra Serrano MD Work Phone: [facility] 12-05-2024 08:22-0400 Body temperature 97.1 [degF] Dr. Demetra Serrano MD Work Phone: [facility] 12-05-2024 08:22-0400 Body weight 43.[address] Demetra Serrano MD Work Phone: [facility] 11-13-2024 08:06-0400 Body height 172.[address] Demetra Serrano MD Work Phone: [facility] 11-13-2024 08:06-0400 Body mass index (BMI) [Ratio] 14.3 kg/m2 Dr. Demetra Serrano MD Work Phone: [facility] 11-13-2024 08:06-0400 Body temperature 96.6 [degF] Dr. Demetra Serrano MD Work Phone: [facility] 11-13-2024 08:06-0400 Body weight 42.[address] Demetra Serrano MD Work Phone: [facility] 11-13-2024 08:06-0400 Diastolic blood pressure 80 mm[Hg] Dr. Demetra Serrano MD Work Phone: [facility] 11-13-2024 08:06-0400 Heart rate 69 /min Dr. Demetra Serrano MD Work Phone: [facility] 11-13-2024 08:06-0400 Respiratory rate 18 /min Dr. Demetra Serrano MD Work Phone: [facility] 11-13-2024 08:06-0400 SaO2% (BldA) [Mass fraction] 99 % Dr. Demetra Serrano MD Work Phone: [facility] 11-13-2024 08:06-0400 Systolic blood pressure 143 mm[Hg] Dr. Demetra Serrano MD Work Phone: [facility] 10-20-2024 07:48-0400 Body height 172.[address] Demetra Serrano MD Work Phone: [facility] 10-20-2024 07:48-0400 Body mass index (BMI) [Ratio] 15 kg/m2 Dr. Demetra Serrano MD Work Phone: [facility] 10-20-2024 07:48-0400 Body temperature 97.2 [degF] Dr. Demetra Serrano MD Work Phone: [facility] 10-20-2024 07:48-0400 Body weight 44.[address] Demetra Serrano MD Work Phone: [facility] 10-20-2024 07:48-0400 Diastolic blood pressure 77 mm[Hg] Dr. Demetra Srerano MD Work Phone: [facility] 10-20-2024 07:48-0400 Heart rate 72 /min Dr. Demetra Serrano MD Work Phone: [facility] 10-20-2024 07:48-0400 Respiratory rate 14 /min Dr. Demetra Serrano MD Work Phone: [facility] 10-20-2024 07:48-0400 SaO2% (BldA) [Mass fraction] 95 % Dr. Demetra Serrano MD Work Phone: [facility] 10-20-2024 07:48-0400 Systolic blood pressure 173 mm[Hg] Dr. Demetra Serrano MD Work Phone: [facility] 10-08-2024 14:19-0400 Body mass index (BMI) [Ratio] 14.8 kg/m2 Dr. Demetra Serrano MD Work Phone: [facility] 10-08-2024 14:19-0400 Body temperature 98 [degF] Dr. Demetra Serrano MD Work Phone: [facility] 10-08-2024 14:19-0400 Body weight 44.[address] Demetra Serrano MD Work Phone: [facility] 10-08-2024 14:19-0400 Diastolic blood pressure 73 mm[Hg] Dr. Demetra Serrano MD Work Phone: [facility] 10-08-2024 14:19-0400 Heart rate 64 /min Dr. Demetra Serrano MD Work Phone: [facility] 10-08-2024 14:19-0400 Respiratory rate 16 /min Dr. Demetra Serrano MD Work Phone: [facility] 10-08-2024 14:19-0400 SaO2% (BldA) [Mass fraction] 93 % Dr. Demetra Serrano MD Work Phone: [facility] 10-08-2024 14:19-0400 Systolic blood pressure 177 mm[Hg] Dr. Demetra Serrano MD Work Phone: [facility] 07-07-2024 13:07-0500 Body mass index (BMI) [Ratio] 15.5 kg/m2 Dr. Demetra Serrano MD Work Phone: [facility] 07-07-2024 13:07-0500 Body temperature 98 [degF] Dr. Demetra Serrano MD Work Phone: [facility] 07-07-2024 13:07-0500 Body weight 46.[address] Demetra Serrano MD Work Phone: [facility] 07-07-2024 13:07-0500 Diastolic blood pressure 95 mm[Hg] Dr. Demetra Serrano MD Work Phone: [facility] 07-07-2024 13:07-0500 Heart rate 61 /min Dr. Demetra Serrano MD Work Phone: [facility] 07-07-2024 13:07-0500 Respiratory rate 16 /min Dr. Demetra Serrano MD Work Phone: [facility] 07-07-2024 13:07-0500 SaO2% (BldA) [Mass fraction] 97 % Dr. Demetra Serrano MD Work Phone: [facility] 07-07-2024 13:07-0500 Systolic blood pressure 174 mm[Hg] Dr. Demetra Serrano MD Work Phone: [facility] 07-13-2023 07:30-0500 Body temperature 96.9 [degF] Dr. Demetra Serrano Work Phone: [facility] 07-13-2023 07:30-0500 Diastolic blood pressure 60 mm[Hg] Dr. Demetra Serrano Work Phone: [facility] 07-13-2023 07:30-0500 Heart rate 66 /min Dr. Demetra Serrano Work Phone: [facility] 07-13-2023 07:30-0500 Respiratory rate 14 /min Dr. Demetra Serrano Work Phone: [facility] 07-13-2023 07:30-0500 SaO2% (BldA) [Mass fraction] 100 % Dr. Demetra Serrano Work Phone: [facility] 07-13-2023 07:30-0500 Systolic blood pressure 139 mm[Hg] Dr. Demetra Serrano Work Phone: [facility] 07-13-2023 05:59-0500 Body height 172.[address] Demetra Serrano Work Phone: [facility] 07-13-2023 05:59-0500 Body mass index (BMI) [Ratio] 14.1 kg/m2 Dr. Demetra Serrano Work Phone: [facility] 07-13-2023 05:59-0500 Body weight 42.[address] Demetra Serrano Work Phone: [facility] 05-02-2023 14:37-0400 Body height 170.[address] Demetra Serrano Work Phone: [facility] 05-02-2023 14:37-0400 Body mass index (BMI) [Ratio] 15.2 kg/m2 Dr. Demetra Serrano Work Phone: [facility] 05-02-2023 14:37-0400 Body temperature 98 [degF] Dr. Demetra Serrano Work Phone: [facility] 05-02-2023 14:37-0400 Body weight 44.[address] Demetra Serrano Work Phone: [facility] 05-02-2023 14:37-0400 Diastolic blood pressure 65 mm[Hg] Dr. Demetra Serrano Work Phone: [facility] 05-02-2023 14:37-0400 Heart rate 79 /min Dr. Demetra Serrano Work Phone: [facility] 05-02-2023 14:37-0400 Respiratory rate 16 /min Dr. Demetra Serrano Work Phone: [facility] 05-02-2023 14:37-0400 SaO2% (BldA) [Mass fraction] 95 % Dr. Demetra Serrano Work Phone: [facility] 05-02-2023 14:37-0400 Systolic blood pressure 89 mm[Hg] Dr. Demetra Serrano Work Phone: [facility] 04-22-2023 20:52-0400 Diastolic blood pressure 68 mm[Hg] Dr. Demetra Serrano Work Phone: [facility] 04-22-2023 20:52-0400 Heart rate 74 /min Dr. Demetra Serrano Work Phone: [facility] 04-22-2023 20:52-0400 Respiratory rate 16 /min Dr. Deemtra Serrano Work Phone: [facility] 04-22-2023 20:52-0400 SaO2% (BldA) [Mass fraction] 97 % Dr. Demetra Serrano Work Phone: [facility] 04-22-2023 20:52-0400 Systolic blood pressure 124 mm[Hg] Dr. Demetra Serrano Work Phone: [facility] 04-22-2023 15:18-0400 Body mass index (BMI) [Ratio] 16.5 kg/m2 Dr. Demetra Serrano Work Phone: [facility] 04-22-2023 15:18-0400 Body temperature 97.6 [degF] Dr. Demetra Serrano Work Phone: [facility] 04-22-2023 15:18-0400 Body weight 47.[address] Demetra Serrano Work Phone: [facility] 09-30-2022 04:24-0500 Diastolic blood pressure 69 mm[Hg] Dr. Demetra Serrano Work Phone: [facility] 09-30-2022 04:24-0500 Heart rate 68 /min Dr. Demetra Serrano Work Phone: [facility] 09-30-2022 04:24-0500 Respiratory rate 18 /min Dr. Demetra Serrano Work Phone: [facility] 09-30-2022 04:24-0500 SaO2% (BldA) [Mass fraction] 94 % Dr. Demetra Serrano Work Phone: [facility] 09-30-2022 04:24-0500 Systolic blood pressure 168 mm[Hg] Dr. Demetra Serrano Work Phone: [facility] 09-30-2022 02:03-0500 Body height 170.[address] Demetra Serrano Work Phone: [facility] 09-30-2022 02:03-0500 Body mass index (BMI) [Ratio] 15.5 kg/m2 Dr. Demetra Serrano Work Phone: [facility] 09-30-2022 02:03-0500 Body temperature 97 [degF] Dr. Demetra Serrano Work Phone: [facility] 09-30-2022 02:03-0500 Body weight [address] Demetra Serrano Work Phone: [facility] 09-04-2022 15:44-0500 Body height 170.[address] Demetra Serrano Work Phone: [facility] 09-04-2022 15:44-0500 Body mass index (BMI) [Ratio] 17.1 kg/m2 Dr. Demetra Serrano Work Phone: [facility] 09-04-2022 15:44-0500 Body temperature 97 [degF] Dr. Demetra Serrano Work Phone: [facility] 09-04-2022 15:44-0500 Body weight 49.[address] Demetra Serrano Work Phone: [facility] 09-04-2022 15:44-0500 Diastolic blood pressure 63 mm[Hg] Dr. Demetra Serrano Work Phone: [facility] 09-04-2022 15:44-0500 Heart rate 69 /min Dr. Demetra Serrano Work Phone: [facility] 09-04-2022 15:44-0500 Respiratory rate 14 /min Dr. Demetra Serrano Work Phone: [facility] 09-04-2022 15:44-0500 SaO2% (BldA) [Mass fraction] 99 % Dr. Demetra Serrano Work Phone: [facility] 09-04-2022 15:44-0500 Systolic blood pressure 159 mm[Hg] Dr. Demetra Serrano Work Phone: [facility] 08-17-2022 13:33-0500 Body height 170.[address] Demetra Serrano Work Phone: [facility] 08-17-2022 13:33-0500 Body mass index (BMI) [Ratio] 16 kg/m2 Dr. Demetra Serrano Work Phone: [facility] 08-17-2022 13:33-0500 Body weight 46.[address] Demetra Serrano Work Phone: [facility] 08-17-2022 13:33-0500 Diastolic blood pressure 77 mm[Hg] Dr. Demetra Serrano Work Phone: [facility] 08-17-2022 13:33-0500 Heart rate 63 /min Dr. Demetra Serrano Work Phone: [facility] 08-17-2022 13:33-0500 SaO2% (BldA) [Mass fraction] 98 % Dr. Demetra Serrano Work Phone: [facility] 08-17-2022 13:33-0500 Systolic blood pressure 136 mm[Hg] Dr. Demetra Serrano Work Phone: [facility] 07-11-2022 14:45-0500 Body temperature 97.6 [degF] Dr. Demetra Serrano Work Phone: [facility] 07-11-2022 14:45-0500 Diastolic blood pressure 57 mm[Hg] Dr. Demetra Serrano Work Phone: [facility] 07-11-2022 14:45-0500 Heart rate 52 /min Dr. Demetra Serrano Work Phone: [facility] 07-11-2022 14:45-0500 Respiratory rate 16 /min Dr. Demetra Serrano Work Phone: [facility] 07-11-2022 14:45-0500 SaO2% (BldA) [Mass fraction] 96 % Dr. Demetra Serrano Work Phone: [facility] 07-11-2022 14:45-0500 Systolic blood pressure 117 mm[Hg] Dr. Demetra Serrano Work Phone: [facility] 07-11-2022 13:43-0500 Body mass index (BMI) [Ratio] 15.7 kg/m2 Dr. Demetra Serrano Work Phone: [facility] 07-11-2022 13:43-0500 Body weight 45.[address] Demetra Serrano Work Phone: [facility] 05-04-2022 08:20-0400 Body height 172.[address] Demetra Serrano Work Phone: [facility] Work Phone: 05-04-2022 08:20-0400 Body mass index (BMI) [Ratio] 15 kg/m2 Dr. Demetra Serrano Work Phone: [facility] 05-04-2022 08:20-0400 Body weight 44.[address] Demetra Serrano Work Phone: [facility] 05-04-2022 08:20-0400 Diastolic blood pressure 77 mm[Hg] Dr. Demetra Serrano Work Phone: [facility] 05-04-2022 08:20-0400 Heart rate 65 /min Dr. Demetra Serrano Work Phone: [facility] 05-04-2022 08:20-0400 SaO2% (BldA) [Mass fraction] 96 % Dr. Demetra Serrano Work Phone: [facility] 05-04-2022 08:20-0400 Systolic blood pressure 131 mm[Hg] Dr. Demetra Serrano Work Phone: [facility] 04-19-2022 15:05-0400 Body temperature 98 [degF] Dr. Demetra Serrano Work Phone: [facility] 04-19-2022 15:05-0400 Body weight 45.[address] Demetra Serrano Work Phone: [facility] 04-19-2022 15:05-0400 Diastolic blood pressure 83 mm[Hg] Dr. Demetra Serrano Work Phone: [facility] 04-19-2022 15:05-0400 Heart rate 79 /min Dr. Demetra Serrano Work Phone: [facility] 04-19-2022 15:05-0400 Respiratory rate 16 /min Dr. Demetra Serrano Work Phone: [facility] 04-19-2022 15:05-0400 SaO2% (BldA) [Mass fraction] 95 % Dr. Demetra Serrano Work Phone: [facility] 04-19-2022 15:05-0400 Systolic blood pressure 143 mm[Hg] Dr. Demetra Serrano Work Phone: [facility] 03-24-2022 16:19-0400 Body mass index (BMI) [Ratio] 15.7 kg/m2 Dr. Demetra Serrano Work Phone: [facility] Work Phone: 03-24-2022 16:19-0400 Body temperature 96.8 [degF] Dr. Demetra Serrano Work Phone: [facility] Work Phone: 03-24-2022 16:19-0400 Body weight 47.[address] Demetra Serrano Work Phone: [facility] Work Phone: 03-24-2022 16:19-0400 Diastolic blood pressure 90 mm[Hg] Dr. Demetra Serrano Work Phone: [facility] Work Phone: 03-24-2022 16:19-0400 Heart rate 86 /min Dr. Demetra Serrano Work Phone: [facility] Work Phone: 03-24-2022 16:19-0400 Respiratory rate 22 /min Dr. Demetra Serrano Work Phone: [facility] Work Phone: 03-24-2022 16:19-0400 SaO2% (BldA) [Mass fraction] 96 % Dr. Demetra Serrano Work Phone: [facility] Work Phone: 03-24-2022 16:19-0400 Systolic blood pressure 140 mm[Hg] Dr. Demetra Serrano Work Phone: [facility] Work Phone: 03-16-2022 22:08-0400 Diastolic blood pressure 80 mm[Hg] Dr. Demetra Serrano Work Phone: [facility] Work Phone: 03-16-2022 22:08-0400 Heart rate 92 /min Dr. Demetra Serrano Work Phone: [facility] Work Phone: 03-16-2022 22:08-0400 Respiratory rate 15 /min Dr. Demetra Serrano Work Phone: [facility] Work Phone: 03-16-2022 22:08-0400 SaO2% (BldA) [Mass fraction] 98 % Dr. Demetra Serrano Work Phone: [facility] Work Phone: 03-16-2022 22:08-0400 Systolic blood pressure 169 mm[Hg] Dr. Demetra Serrano Work Phone: [facility] Work Phone: 03-16-2022 19:15-0400 Body temperature 98.4 [degF] Dr. Demetra Serrano Work Phone: [facility] Work Phone: 03-16-2022 18:13-0400 Body height 172.[address] Demetra Serrano Work Phone: [facility] Work Phone: 03-16-2022 18:13-0400 Body mass index (BMI) [Ratio] 14.8 kg/m2 Dr. Demetra Serrano Work Phone: [facility] Work Phone: 03-16-2022 18:13-0400 Body weight 44.[address] Demetra Serrano Work Phone: [facility] Work Phone: 03-16-2022 17:31-0400 Body mass index (BMI) [Ratio] 17.3 kg/m2 Dr. Demetra Serrano Work Phone: [facility] Work Phone: 03-16-2022 17:31-0400 Body temperature 98.4 [degF] Dr. Demetra Serrano Work Phone: [facility] Work Phone: 03-16-2022 17:31-0400 Body weight 47.[address] Demetra Serrano Work Phone: [facility] Work Phone: 03-16-2022 17:31-0400 Diastolic blood pressure 60 mm[Hg] Dr. Demetra Serrano Work Phone: [facility] Work Phone: 03-16-2022 17:31-0400 Heart rate 94 /min Dr. Demetra Serrano Work Phone: [facility] Work Phone: 03-16-2022 17:31-0400 Respiratory rate 14 /min Dr. Demetra Serrano Work Phone: [facility] Work Phone: 03-16-2022 17:31-0400 SaO2% (BldA) [Mass fraction] 95 % Dr. Demetra Serrano Work Phone: [facility] Work Phone: 03-16-2022 17:31-0400 Systolic blood pressure 100 mm[Hg] Dr. Demetra Serrano Work Phone: [facility] Work Phone: 03-08-2022 19:32-0400 Diastolic blood pressure 74 mm[Hg] Dr. Demetra Serrano Work Phone: [facility] Work Phone: 03-08-2022 19:32-0400 Heart rate 55 /min Dr. Demetra Serrano Work Phone: [facility] Work Phone: 03-08-2022 19:32-0400 Respiratory rate 17 /min Dr. Demetra Serrano Work Phone: [facility] Work Phone: 03-08-2022 19:32-0400 Systolic blood pressure 169 mm[Hg] Dr. Demetra Serrano Work Phone: [facility] Work Phone: 03-08-2022 18:00-0400 SaO2% (BldA) [Mass fraction] 99 % Dr. Demetra Serrano Work Phone: [facility] Work Phone: 03-08-2022 15:08-0400 Body height 165.[address] Demetra Serrano Work Phone: [facility] Work Phone: 03-08-2022 15:08-0400 Body mass index (BMI) [Ratio] 17.4 kg/m2 Dr. Demetra Serrano Work Phone: [facility] Work Phone: 03-08-2022 15:08-0400 Body temperature 97.8 [degF] Dr. Demetra Serrano Work Phone: [facility] Work Phone: 03-08-2022 15:08-0400 Body weight 47.[address] Demetra Serrano Work Phone: [facility] Work Phone: 01-24-2022 16:24-0400 Body mass index (BMI) [Ratio] 17.3 kg/m2 Dr. Demetra Serrano Work Phone: [facility] Work Phone: 01-24-2022 16:24-0400 Body temperature 97.5 [degF] Dr. Demetra Serrano Work Phone: [facility] Work Phone: 01-24-2022 16:24-0400 Body weight 47.[address] Demetra Serrano Work Phone: [facility] Work Phone: 01-24-2022 16:24-0400 Diastolic blood pressure 82 mm[Hg] Dr. Demetra Serrano Work Phone: [facility] Work Phone: 01-24-2022 16:24-0400 Heart rate 75 /min Dr. Demetra Serrano Work Phone: [facility] Work Phone: 01-24-2022 16:24-0400 Respiratory rate 18 /min Dr. Demetra Serrano Work Phone: [facility] Work Phone: 01-24-2022 16:24-0400 SaO2% (BldA) [Mass fraction] 98 % Dr. Demetra Serrano Work Phone: [facility] Work Phone: 01-24-2022 16:24-0400 Systolic blood pressure 136 mm[Hg] Dr. Demetra Serrano Work Phone: [facility] Work Phone: 11-14-2021 09:16-0400 Body mass index (BMI) [Ratio] 17.2 kg/m2 Dr. Demetra Serrano Work Phone: [facility] Work Phone: 11-14-2021 09:16-0400 Body weight 46.[address] Demetra Serrano Work Phone: [facility] Work Phone: 11-14-2021 09:16-0400 Diastolic blood pressure 70 mm[Hg] Dr. Demetra Serrano Work Phone: [facility] Work Phone: 11-14-2021 09:16-0400 Heart rate 82 /min Dr. Demetra Serrano Work Phone: [facility] Work Phone: 11-14-2021 09:16-0400 Respiratory rate 16 /min Dr. Demetra Serrano Work Phone: [facility] Work Phone: 11-14-2021 09:16-0400 SaO2% (BldA) [Mass fraction] 98 % Dr. Demetra Serrano Work Phone: [facility] Work Phone: 11-14-2021 09:16-0400 Systolic blood pressure 150 mm[Hg] Dr. Demetra Serrano Work Phone: [facility] Work Phone: Encounters Encounter Date Encounter Type Care Provider Facility Start: 06-11-2025 ambulatory Demetra Serrano Facility :[facility] Start: 06-09-2025 End: 06-09-2025 Emergency department patient visit Ed Physician Provider Facility:[facility] Start: 04-06-2025 End: 04-06-[address] Demetra Serrano MD -[facility] Work Phone: Start: 04-06-2025 End: 04-06-[address] Demetra Serrano MD Work Phone: -[facility] Start: 02-27-2025 End: 02-27-[address] Demetra Serrano MD Work Phone: -[facility] Start: 02-27-2025 End: 02-27-2025 Patient encounter procedure Ashley Jeong NP-C -[facility] Work Phone: Start: 02-27-2025 End: 02-27-2025 ambulatory Ashley Jeong NP Facility:[facility] Start: 01-28-2025 End: 01-28-[address] Demetra Serrano MD Work Phone: -[facility] Start: 01-28-2025 End: 01-28-[address] Silverio Reyes MD -[facility] Work Phone: Start: 01-28-2025 End: 01-28-2025 ambulatory Silverio Reyes Facility:[facility] Start: 12-23-2024 End: 12-23-2024 Patient encounter procedure Ashley Jeong NP-C -[facility] Work Phone: Start: 12-23-2024 End: 12-23-[address] Demetra Serrano MD Work Phone: [facility] Work Phone: Start: 12-05-2024 End: 12-05-2024 Emergency department patient visit Dr. Demetra Serrano MD Work Phone: -Emergency Department Work Phone: Start: 12-05-2024 End: 12-05-[address] Demetra Serrano MD Work Phone: [facility] Work Phone: Start: 12-05-2024 End: 12-05-2024 Patient encounter procedure Ashley Jeong PROCESS CONTROL ENGINEER-C -[facility], [facility] Work Phone: Start: 12-05-2024 End: 12-05-2024 ambulatory Ashley Jeong NP Facility:[facility] Start: 11-13-2024 End: 11-13-2024 Patient encounter procedure Ashley Jeong PROCESS CONTROL ENGINEER-C -[facility] Work Phone: Start: 11-13-2024 End: 11-13-2024 ambulatory Ashley Jeong NP Facility:[facility] Start: 11-11-2024 End: 11-11-[address] Demetra Serrano MD Work Phone: [facility] Work Phone: Start: 11-11-2024 End: 11-11-2024 Patient encounter procedure Ashley Jeong NP-C -[facility] Start: 11-11-2024 End: 11-11-2024 ambulatory Demetra Serrano Facility:[facility] Start: 10-24-2024 ambulatory Demetra Serrano Facility :[facility] Start: 10-20-2024 End: 10-20-2024 Patient encounter procedure Ashley Jeong PROCESS CONTROL ENGINEER-C -[facility] Work Phone: Start: 10-20-2024 End: 10-20-2024 ambulatory Demetra Serrano Facility:[facility] Start: 10-09-2024 End: 10-09-[address] Demetra Serrano MD Work Phone: [facility] Work Phone: Start: 10-09-2024 End: 10-09-[address] Demetra Serrano MD -[facility] Work Phone: Start: 10-08-2024 End: 10-08-[address] Demetra Serrano MD -[facility] Work Phone: Start: 10-08-2024 End: 10-09-2024 ambulatory Demetra Serrano Facility:[facility] Start: 07-07-2024 End: 07-07-[address] Demetra Serrano MD -[facility] Work Phone: Start: 07-07-2024 End: 07-07-2024 ambulatory Demetra Serrano Facility:[facility] Start: 07-13-2023 Non-patient / Non-visit Dr. Demetra Serrano Work Phone: [facility] Start: 07-13-2023 End: 07-13-2023 Admission to same day surgery center Dr. Demetra Serrano Work Phone: [facility] Work Phone: Start: 07-13-2023 End: 07-13-[address] Demetra Serrano Work Phone: [facility] Work Phone: Start: 05-28-2023 End: 05-28-[address] Demetra Serrano Work Phone: [facility] Work Phone: Start: 05-28-2023 End: 05-28-[address] Demetra Serrano Work Phone: [facility] Work Phone: Start: 05-02-2023 End: 05-02-[address] Demetra Serrano Work Phone: [facility] Work Phone: Start: 04-22-2023 End: 04-22-2023 Emergency department patient visit Dr. Demetra Serrano Work Phone: [facility] Work Phone: Start: 09-30-2022 End: 09-30-2022 Emergency department patient visit Dr. Demetra Serrano Work Phone: [facility] Start: 09-04-2022 End: 09-04-2022 Emergency department patient visit Dr. Demetra Serrano Work Phone: [facility] Start: 08-17-2022 End: 08-17-[address] Demetra Serrano Work Phone: [facility] Start: 08-09-2022 End: 08-09-[address] Demetra Serrano Work Phone: [facility] Work Phone: Start: 08-09-2022 End: 08-09-[address] Demetra Serrano Work Phone: [facility] Start: 08-04-2022 End: 08-04-[address] Demetra Serrano Work Phone: [facility] Work Phone: Start: 08-04-2022 End: 08-04-[address] Demetra Srerano Work Phone: [facility] Start: 07-11-2022 Non-patient / Non-visit Dr. Demetra Serrano Work Phone: [facility] Start: 07-11-2022 End: 07-11-2022 Admission to same day surgery center [facility] Start: 05-10-2022 End: 05-10-[address] Demetra Serrano Work Phone: [facility] Work Phone: Start: 05-10-2022 End: 05-10-[address] Demetra Serrano Work Phone: [facility] Start: 05-04-2022 End: 05-04-[address] Demetra Serrano Work Phone: [facility] Start: 04-19-2022 End: 04-19-[address] Demetra Serrano Work Phone: [facility] Start: 03-24-2022 End: 03-24-[address] Demetra Serrano Work Phone: [facility] Start: 03-16-2022 End: 03-16-2022 Emergency department patient visit Dr. Demetra Serrano Work Phone: [facility] Start: 03-16-2022 End: 03-16-[address] Demetra Serrano Work Phone: [facility] Start: 03-08-2022 End: 03-08-2022 Emergency department patient visit Dr. Demetra Serrano Work Phone: [facility] Start: 01-24-2022 End: 01-24-[address] Demetra Serrano Work Phone: [facility] Start: 11-14-2021 End: 11-14-[address] Demetra Serrano Work Phone: [facility] Start: 08-03-2017 End: 08-03-2017 Ambulatory [facility] Start: 08-02-2017 End: 08-02-2017 Ambulatory TIFFANY Guillen BOUBACAR) [facility] Start: 08-02-2017 End: 08-02-2017 Ambulatory REID SABILLON [facility] Start: 07-22-2017 End: 07-22-2017 Emergency department patient visit ILIA PIERSON [facility] Procedures Date Procedure Procedure Detail Performing Clinician Start: 02-27-2025 CT of chest without contrast Dr. Demetra Serrano MD Work Phone: Start: 01-28-[address] Shelley Serrano MD Work Phone: Start: 01-28-2025 Computed tomography of abdomen and pelvis with contrast Dr. Demetra Serrano MD Work Phone: Start: 12-05-2024 Plain chest X-ray Dr. Susan Serrano MD Work Phone: Start: 12-05-2024 Plain chest X-ray Dr. Susan Serrano MD Work Phone: Start: 12-05-[address] Demetra Serrano MD Work Phone: Start: 12-05-2024 Biopsy/Inj or Needle Placement Dr. Demetra Serrano MD Work Phone: Start: 11-11-2024 Positron emission to mography with computed tomography Dr. Demetra Serrano MD Work Phone: Start: 10-09-2024 D-dimer assay, quantitative Dr. Demetra Serrano MD Work Phone: Comment on above: D-Dimer ELEVATED (>0 .49): Additional studies and clinicalassessments are indicated to conclude diagnosis of:Deep Vein Thrombosis (DVT) or Pulmonary Embolism (PE) Start: 10-09-2024 Prostate specific an tigen measurement Dr. Demetra Serrano MD Work Phone: Comment on above: This test was perfor med using the [employer] tPSA method. Measured values of a patient sample can vary depending on the testing procedure used. PSA values determined on patient samples by different testing procedures cannot be used interchangeably. If there is a change in PSA assays while monitoring therapy, sequential testing should be performed to confirm baseline values. Start: 10-09-2024 Vitamin D, 25-hydrox y measurement Dr. Demetra Serrano MD Work Phone: Comment on above: Vitamin D StatusDefi ciency: <20 ng/mL (50nmol/L)Insufficiency: 20-30 ng/mL (50-75 nmol/L)Sufficiency: 30-100 ng/mL (75-250 nmol/L)Toxicity: >100 ng/mL (>250 nmol/L) Start: 10-09-2024 CT of chest without contrast Dr. Demetra Serrano MD Work Phone: Start: 07-13-[address] Demetra Serrano Work Phone: Start: 05-28-[address] Demetra Serrano Work Phone: Start: 09-30-2022 CT angiography of ch est with contrast Dr. Demetra Serrano Work Phone: Start: 08-09-2022 Radiography of thoracic spine Dr. Demetra Serrano Work Phone: Start: 08-04-[address] Demetra Serrano Work Phone: Start: 05-10-2022 Computed tomography of abdomen and pelvis with contrast Dr. Demetra Serrano Work Phone: Start: 03-16-2022 Plain chest X-ray Dr. Susan Serrano Work Phone: Start: 03-08-2022 Plain chest X-ray Dr. Susan Serrano Work Phone: Bacteria identified in Blood by Culture Dr. Demetra Serrano Work Phone: History of placement of stent for coronary artery disease History of coronary artery stent placement Dr. Demetra Serrano Work Phone: Comment on above: PCI-GABRIEL-Mid LAD w/ 2 .25 x 12 mm Xience Xpedition Rx Stent and Prox LAD w/ 3.0 x 12 mm Xience Xpedition Rx Stent 05/25/2014 History of placement of stent for coronary artery disease History of coronary artery stent placement Dr. Demetra Serrano MD Respiratory Panel (PCR) Dr. Demetra Serrano Work Phone: Urine culture Dr. Demetra Ferreira hner Work Phone: Plan of Treatment Date Care Activity Detail Author Start: 12-23-2024 Patient referral [facility] Work Phone: Start: 12-05-2024 CORE NDL BX LNG/MED PERQ CORE NDL BX LNG/MED PERQ [facility] Start: 12-05-2024 [facility] Start: 12-05-2024 [facility] Start: 12-05-2024 Following clinical pathway protocol [facility] Start: 12-05-2024 Catheterization of vein [facility] Start: 12-05-2024 Oxygen therapy [facility] Start: 12-05-2024 Patient discharge [facility] Start: 12-05-2024 Vital signs measurements [facility] Start: 07-13-2023 Patient discharge [facility] Start: 09-30-2022 [facility] Start: 07-11-2022 Egd insert guide wire dilator passage esophagus EGD GUIDE WIRE INSERTION [facility] Start: 07-11-2022 Egd transoral biopsy single/multiple EGD BIOPSY SINGLE/MULTIPLE [facility] Start: 07-11-2022 Egd transoral control bleeding any method EGD CONTROL BLEEDING ANY [facility] Start: 07-11-2022 Patient discharge [facility] Start: 05-10-2022 Cancer antigen 19-9 measurement [facility] Work Phone: Start: 05-10-2022 Gastrin [Mass/volume] in Serum or Plasma [facility] Work Phone: Start: 05-04-2022 Patient referral [facility] Work Phone: Start: 04-19-2022 Patient referral [facility] Work Phone: Start: 03-16-2022 End: 03-16-2022 [facility] Work Phone: Start: 03-16-2022 End: 03-16-2022 Blood culture [facility] Work Phone: Start: 03-16-2022 Viral nucleic acid assay [facility] Work Phone: Start: 03-16-2022 End: 03-16-2022 [facility] Work Phone: Start: 03-16-2022 [facility] Work Phone: Start: 03-08-2022 [facility] Work Phone: Bacteria identified in Blood by Culture Blood Culture [facility] Work Phone: Bacteria identified in Urine by Culture Urine Culture [facility] Work Phone: Blood culture [facility] Work Phone: Cancer antigen 19-9 measurement [facility] Work Phone: CBC W Auto Different ial panel - Blood [facility] Work Phone: CBC W Auto Different ial panel - Blood [facility] Colonoscopy [facility] Work Phone: Colonoscopy [facility] Comprehensive metabo lic 2000 panel - Serum or Plasma [facility] CT Chest [facility] Gastrin [Mass/volume ] in Serum or Plasma [facility] Work Phone: Hemoglobin A1c/Hemoglobin.total in Blood [facility] Work Phone: Lipid 1996 panel - S sergei or Plasma [facility] Magnesium measurement [facility] Partial thromboplast in time, activated [facility] Patient Education [facility] Work Phone: Patient referral [facility] Work Phone: Platelets [#/volume] in Blood [facility] Positron emission tomography with computed tomography [facility] Prostate specific an tigen measurement [facility] Work Phone: Prothrombin time [facility] Respiratory Panel (PCR) Respirat ory Panel (PCR) [facility] Work Phone: Respiratory pathogen s DNA and RNA 12b panel - Unspecified specimen by PINO with probe detection [facility] Work Phone: Thyroid stimulating hormone measurement [facility] Work Phone: Thyroid stimulating hormone measurement [facility] Vitamin B12 measurement [facility] Vitamin D, 25-hydrox y measurement [facility] Work Phone: Vitamin D, 25-hydrox y measurement [facility] Immunizations Immunization Date Immunization Notes Care Provider Fa cility 05-12-2016 influenza, injectabl e, quadrivalent, preservative free Dr. Demetra Serrano Work Phone: [facility] 05-12-2016 influenza, seasonal, injectable Dr. Demetra Serrano Work Phone: [facility] 05-10-[address] Demetra Serrano Work Phone: [facility] 01-30-[address] Vita Serrano Work Phone: [facility] Work Phone: 01-30-2001 pneumococcal vaccine , unspecified formulation Dr. Demetra Serrano Work Phone: [facility] Payers Date Payer Category Payer Self-pay [id number] 2024 Medicare [id number] 2021 [employer] ( and others) [id number] 2013 Unknown [id number] Medicare [id number] Unknown [id number] Unknown [id number] Unknown [id number] Unknown [id number] Unknown [id number] Unknown [id number] Unknown [id number] Unknown [id number] Unknown [id number] Unknown [id number] Unknown [id number] Unknown [id number] Unknown [id number] Unknown [id number] Unknown [id number] Social History Date Type Detail Facility Start: 03-08-2022 End: 07-09-2023 Tobacco smoking status NHIS Unknown if ever smoked [facility] Start: 09-08-[address] [facility] Start: 1950 Sex Assigned At Male W [facility] Start: 07-26-[address] [facility] Start: 07-26-2016 Spouse/ Signif icant Other [facility] Start: 07-09-2023 End: 12-05-2024 Tobacco smoking status NHIS Smokes tobacco daily (finding) [facility] Start: 02-05-2024 - - [facility] Start: 10-20-2024 End: 11-14-2024 Sex Male (finding) [facility] Medical Equipment Procedure Code Equipment Code Equipment Origin al Text Equipment Identifier Dates Insertion, spinal cord stimulator, permanent [employer]IS [employer] FDA Start: 09-13-2020 Insertion, spinal cord stimulator, permanent LEAD KIT FDA Start: 09-13-2020 Insertion, spinal cord stimulator, permanent lead kit FDA Start: 09-13-2020 Insertion, spinal cord stimulator, permanent INTELLIS ADAPTIVESTIM BATTERY FDA Start: 09-13-2020 Insertion, spinal cord stimulator, permanent LEAD KIT FDA Start: 09-13-2020 Insertion, spinal cord stimulator, permanent lead kit FDA Start: 09-13-2020 Insertion, spinal cord stimulator, permanent INTELLIS ADAPTIVESTIM BATTERY FDA Start: 09-13-2020 Insertion, spinal cord stimulator, permanent LEAD KIT FDA Start: 09-13-2020 Insertion, spinal cord stimulator, permanent lead kit FDA Start: 09-13-2020 Insertion, spinal cord stimulator, permanent INTELLIS ADAPTIVESTIM BATTER[employer] FDA Start: 09-13-2020 Insertion, spinal cord stimulator, permanent LEAD KIT FDA Start: 09-13-2020 Insertion, spinal cord stimulator, permanent lead kit FDA Start: 09-13-2020 Insertion, spinal cord stimulator, permanent INTELLIS ADAPTIVESTIM BATTERY FDA Start: 09-13-2020 Insertion, spinal cord stimulator, permanent LEAD KIT FDA Start: 09-13-2020 Insertion, spinal cord stimulator, permanent lead kit FDA Start: 09-13-2020 Insertion, spinal cord stimulator, permanent INTELLIS ADAPTIVESTIM BATTERY FDA Start: 09-13-2020 Insertion, spinal cord stimulator, permanent LEAD KIT FDA Start: 09-13-2020 Insertion, spinal cord stimulator, permanent lead kit FDA Start: 09-13-2020 Insertion, spinal cord stimulator, permanent INTE[employer]IS ADAPTIVESTIM BATTER[employer] FDA Start: 09-13-2020 Insertion, spinal cord stimulator, permanent LEAD KIT FDA Start: 09-13-2020 Insertion, spinal cord stimulator, permanent lead kit FDA Start: 09-13-2020 Insertion, spinal cord stimulator, permanent INTE[employer]IS [employer]TIVESTIM [employer] FDA Start: 09-13-2020 Insertion, spinal cord stimulator, permanent LEAD KIT FDA Start: 09-13-2020 Insertion, spinal cord stimulator, permanent lead kit FDA Start: 09-13-2020 Insertion, spinal cord stimulator, permanent INTE[employer]IS AD[employer]TIVESTIM [employer] FDA Start: 09-13-2020 Insertion, spinal cord stimulator, permanent LEAD KIT FDA Start: 09-13-2020 Insertion, spinal cord stimulator, permanent lead kit FDA Start: 09-13-2020 Insertion, spinal cord stimulator, permanent INTE[employer]IS AD[employer]TIVESTIM [employer] FDA Start: 09-13-2020 Insertion, spinal cord stimulator, permanent LEAD KIT FDA Start: 09-13-2020 Insertion, spinal cord stimulator, permanent lead kit FDA Start: 09-13-2020 Insertion, spinal cord stimulator, permanent INTE[employer]IS ADAPTIVESTIM BATTER[employer] FDA Start: 09-13-2020 Insertion, spinal cord stimulator, permanent LEAD KIT FDA Start: 09-13-2020 Insertion, spinal cord stimulator, permanent lead kit FDA Start: 09-13-2020 Insertion, spinal cord stimulator, permanent INTE[employer]IS [employer]TIVESTIM [employer]TER[employer] FDA Start: 09-13-2020 Insertion, spinal cord stimulator, permanent LEAD KIT FDA Start: 09-13-2020 Insertion, spinal cord stimulator, permanent lead kit FDA Start: 09-13-2020 Insertion, spinal cord stimulator, permanent INTE[employer]IS ADAPTIVESTIM [employer]TER[employer] FDA Start: 09-13-2020 Insertion, spinal cord stimulator, permanent LEAD KIT FDA Start: 09-13-2020 Insertion, spinal cord stimulator, permanent lead kit FDA Start: 09-13-2020 Insertion, spinal cord stimulator, permanent INTELLIS ADAPTIVESTIM BATTER[employer] FDA Start: 09-13-2020 Insertion, spinal cord stimulator, permanent LEAD KIT FDA Start: 09-13-2020 Insertion, spinal cord stimulator, permanent lead kit FDA Start: 09-13-2020 Insertion, spinal cord stimulator, permanent INTELLIS ADAPTIVESTIM BATTER[employer] FDA Start: 09-13-2020 Insertion, spinal cord stimulator, permanent LEAD KIT FDA Start: 09-13-2020 Insertion, spinal cord stimulator, permanent lead kit FDA Start: 09-13-2020 Insertion, spinal cord stimulator, permanent INTELLIS ADAPTIVESTIM BATTER[employer] FDA Start: 09-13-2020 Insertion, spinal cord stimulator, permanent LEAD KIT FDA Start: 09-13-2020 Insertion, spinal cord stimulator, permanent lead kit FDA Start: 09-13-2020 Insertion, spinal cord stimulator, permanent INTE[employer]IS AD[employer]TIVESTIM BATTER[employer] FDA Start: 09-13-2020 Insertion, spinal cord stimulator, permanent LEAD KIT FDA Start: 09-13-2020 Insertion, spinal cord stimulator, permanent lead kit FDA Start: 09-13-2020 Goals Date Patient Goal Desired Activity /State Mental Status Date Assessment Result Facility 12-05-2024 Cognitive function Drowsy [facility] Work Phone: 07-13-2023 Cognitive function Level Of Cons ciousness Appropriate;Drowsy [facility] Work Phone: 07-13-2023 Cognitive function Voice/Name [facility] Work Phone: 04-22-2023 Cognitive function Level Of Cons ciousness Awake;Alert;Appropriate;Follow s Commands [facility] Work Phone: 09-30-2022 Cognitive function Level Of Cons ciousness Awake;Alert;Appropriate;Follow s Commands [facility] Work Phone: 07-11-2022 Cognitive function Touch/Shaking [facility] Work Phone: Clinical Notes 05-25-2014 to 02-27-2025 Note Date & Type Note Facility 02-27-2025 Radiology Diagnostic study note [facility] [address], [place] [address] Chest without Contrast MR#: [id number] Acct: [id number] Name: CRISTINO RYAN Rep #: [id number] : 1950 M 74 From: Dakota Wilder MD PCP: Dr. Demetra Serrano MD Status: REG CLI Study:Chest without Contrast Date of Exam: 02/27/25 Exam# [id number] Ordering Dr: Michael Jeong PROCESS CONTROL ENGINEER PROCESS CONTROL ENGINEER-C PROCEDURE: CHEST WITHOUT CONTRAST 02/27/2025 REASON FOR EXAM: LUNG NODULES IN HIGH RISK PATIENT, SMOKER Patient has smoked 1 pack per day for 50+ years TECHNIQUE: Chest CT without contrast. Coronal and Sagittal reconstruction series were provided. One or more dose reduction techniques were used (e.g., Automated exposure control, adjustment of the mA and/or kV according to patient size, use of iterative reconstruction technique RADIATION DOSE SUMMARY: CTDlvol: 0 4 mGy DLP: 246.21 mGycm COMPARISON: Prior study dated October 09, 2024. FINDINGS: Hardware: None Lymph nodes: None Heart and Vasculature: The heart is not enlarged Coronary Artery Calcifications: Present Lungs and Airways: Mild emphysematous changes are present. Stable 1 cm linear density in the medial aspect of the left lung apex as well as a nodular density mid measuring 6.5 mm in the right minor fissure. The previously seen irregular infiltration at the right lung base has cleared. Minimal residual scarring is seen. Pleura: No pleural effusion. Upper Abdomen: Stable small cyst in the right lobe of the liver. Stable 2.4 cm cyst/hypodensity in the medial aspect of the upper pole of the left kidney. Bones: Degenerative changes of the thoracic spine. CT/Chest without Contrast IMPRESSION: Coronary artery calcification (CAC) is is present Interval resolution with residual scarring of the previously seen cavitated massin the right lower lobe. Reading Location: [id number] CC: PROCESS CONTROL ENGINEERPaul Jeong; Dr. Demetra Serrano MD ~ Analog Circuit Designer: Signed [facility] 01-29-2025 Radiology Diagnostic study note [facility] [address] [place] [id number] Abdomen/Pelvis WITH Contrast MR#: [id number] Acct: [id number] Name: CRISTINO RYAN Rep #: [id number] : 1950 M 74 From: Mg Vuong MD PCP: Dr. Demetra Serrano MD Status: REG CLI Study:Abdomen/Pelvis WITH Contrast Date of Ex am: 01/28/25 Exam# [id number] Ordering Dr: Theodore Reyes MD PROCEDURE: ABDOMEN/PELVIS WITH CONTRAST 01/28/2025 REASON FOR EXAM: BPH W/ URINARY SX TECHNIQUE: ABDOMEN/PELVIS WITH CONTRAST Coronal and Sagittal reconstruction series were provided. CONTRAST: Isovue 370 VOLUME: 100 mL One or more dose reduction techniques were used (e.g., Automated exposure control, adjustment of the mA and/or kV according to patient size, use of iterative reconstruction technique. RADIATION DOSE SUMMARY: CTDlvol: 25.07 mGy DLPS: 362.26 mGycm COMPARISON: 2021 FINDINGS: Lung bases: Chronic interstitial changes in the lung bases with underlying emphysema, no superimposed acute process Liver: Liver is unremarkable aside from a stable simple cyst. Gallbladder: Unremarkable Spleen: Normal size. Pancreas: Normal size without evidence of mass surrounding inflammation or ductal dilation. Adrenals: Unremarkable Kidneys: No obstructive uropathy or suspicious solid renal lesion, stable simplerenal cysts, stable punctate nonobstructing right renal stone. Bladder: Unremarkable Bowel: Nondistended fluid-filled small bowel loops are noted consistent with ileus this is likely due to retained stool throughout the colon which I suspect is impacted. There is retained stool notedin the sigmoid and distended rectum. Appendix: Not visualized No free intraperitoneal fluid, air, or suspicious adenopathy Dense atherosclerotic calcifications noted in the abdominal aorta and its branches without aneurysm. Bones: Bony structures show degenerative change CT/Abdomen/Pelvis WITH Contrast IMPRESSION: No suspicious solid organ abnormality, stable simple hepatic and renal cysts, nospecific follow-up needed Small-bowel ileus likely due to retained stool throughout the entirety of the colon which is likely impacted. Degenerative bony changes Dense atherosclerotic calcifications Reading Location: [id number] CC: Dr. Silverio Reyes MD; Dr. Demetra Serrano MD ~ Analog Circuit Designer: Signed [facility] 12-23-2024 Evaluation note Diagnosis Onset Date Resolution Abnormal positron emission tomography (PET) scan acute December 23, 2024 2 :34pm Lung nodules acute December 23 2:34pm COPD (chronic obstructive pulmonary disease) chronic December 23, 2024 2 :34pm Tobacco abuse chronic December 23 025 2:34pm [facility] Work Phone: 1(465) 148-977405-27-2025 Progress [facility] [place] [address] [place] [address] OFFICE VISIT Date of Service: 12/23/24 MR#: [id number] Acct: [id number] Name: AMORCRISTINO F Rep #: [id number] : 1950 Provider: NAZARIO Jeong Age/Sex: 74/M Location: [facility] Status: Signed Assessment and Plan Assessment and Plan (1) Lung nodules: Status: Acute Plan: Tissue pathology nondiagnostic. Continue to monitor by repeat imaging, obtaining a diagnostic CT ofthe chest in 3 months. Return to the office after test results are available for review. Contact the office with any new or worsening symptoms in the meantime. (2) COPD (chronic obstructive pulmonary disease): Status: Chronic Qualifiers: COPD type: emphysema Emphysema type: centrilobular Qualified Code(s): J43.2 - Centrilobular emphysema Comment: Trelegy Plan: He does not appear to be in exacerbation today. Continue triple therapy on Trelegy. Consider pulmonary function test for clarification and quantification. No indication for antibiotics or steroids today. (3) Tobacco abuse: Status: Chronic Plan: Complicates exam, plan, care and prognosis. Encourage smoking cessation. (4) Abnormal positron emission tomography (PET) scan: Status: Acute Comment: bladder positive Plan: Given that the lung biopsy was nondiagnostic, there was also a bladder lesion that was PET positive. Referral placed to a urologist for an evaluation and hopefully tissue pathology. Please note that the patient had a hypotensive and bradycardic episode followingtwilight biopsy resulting in transfer to the emergency department. He has reservations regarding receiving twilight for any additional biopsies. Orders: Orders Chest without Contrast 02/27/25 R91.8 - Other nonspecific abnormal finding of lung field Referrals Urology R94.8 - Abnormal results of function studies of other organs and systems Plan Details Additional Comments: This note was generated with [employer] dictation software. It may contain incorrectwords, spelling, and punctuation that were not noted in checking the note beforesigning. Follow Up: 3 Months HPI HPI Comments Details: This patient presents to the office today to discuss test results. He is ambulatory with use of a cane. He is currently on room air. He has not recently been seen in the ED or urgent care for any respiratory illness. He has not required any antibiotics or prednisone for any breathing problems. He is compliant with Trelegy 1 puff daily. He does report rinsing his mouth outafter each use. He denies any medication side effect such as sore throat or thrush. He has an albuterol rescue inhaler but has not felt the need for it. Hecontinues to smoke cigarettes. He is currently smoking 1/2 pack/day. He has some shortness of breath on exertion. He has a daily cough that is typically productive of clear-colored sputum. He denies any wheezing, chest congestion, chest pain or palpitations. He deniesany fever, chills or body aches. Test results personally reviewed with the patient: CT-guided right lung biopsy completed on December 05, 2024. 5 core specimens obtained. Pneumothorax occurred. Hypotension and bradycardia status post procedure, patient sent to the ER. Tissue pathology notdiagnostic. Intake Vital Signs 11/13/24 08:06 12/05/24 10:17 12/23/24 09:24 Height 5 ft 8 in 5 ft 7 in 5 ft 7 in Weight: 93 lb BMI 14.6 BP 166/87 H Blood Pressure Location Lt brachial Position Sitting Respiration 18 Pulse 68 Pulse Source NIBP Temp 97.1 F L Temperature Source Temporal Artery Pulse Oximetry (%) 97 Oxygen Delivery Method room air Intake Visit Reasons: 3 wk fu Chief Complaint: RT Rib Pain Patent Prosecution Paralegal Required: No DME Vendor: [id number] Accompanied by: Self Is patient in pain?: No Allergies Penicillins (PCN) Allergy (Verified 12/23/24 14:37) Hives typhoid vaccine (Typhoid Vaccine) Allergy (Verified 12/23/24 14:37) Other bupropion HCl (From Wellbutrin) Adverse Reaction (Verified 12/23/24 14:37) Other sildenafil (From Viagra) Adverse Reaction (Verified 12/23/24 14:37) Other Medications ?Medication ?Instructions ?Recorded ?Confirmed ?Type loratadine 10 mg tablet 10 mg PO DAILY ALLERGIES 12/1112/23/24 History acetaminophen 500 mg tablet 1,000 mg PO Q6H PRN Pain 0 03/16/22 12/23/24 History albuterol sulfate 2.5 mg/3 mL 2.5 mg (3 mL) inhalation Q6H PRN 10/30/22 12/23/24 Rx (0.083 %) solution for nebulization SOB #180 mL nebulizer tubing and masks 10/31/22 12/23/24 History lidocaine-prilocaine 2.5 %-2.5 % 1 applic topical ONCE #30 grams 11/13/22 12/23/24 Rx topical cream atorvastatin 80 mg tablet 80 mg PO QHS CHOLESTEROL #90 tabs 11/22/22 12/23/24 Rx metoprolol succinate 25 mg 25 mg PO DAILY #90 tabs 12/23/24 Rx tablet,extended release 24 hr ketoconazole 2 % shampoo 1 applic topical 07/07/24 History oxycodone-acetaminophen 5 mg-325 1 tab PO BID PRN pain 07/07/24 12/23/24 History mg tablet gabapentin 100 mg capsule 100 mg PO QHS #90 caps 08/1512/23/24 Rx citalopram 20 mg tablet 20 mg PO DAILY #90 tabs 10/2112/23/24 Rx fluticasone fur. 100 mcg-umeclid 1 inh inhalation CONTRERAS Y #120 ea 09/29/24 12/23/24 Rx 62.5 mcg-vilant 25 mcg inhalat.powder (Trelegy Ellipta) albuterol sulfate 90 mcg/actuation 1 - 2 puff inhalati on Q4H PRN PRN 10/08/24 12/23/24 Rx aerosol inhaler (Ventolin HFA) Wheezing #1 ea buspirone 15 mg tablet 15 mg PO BID #180 tabs 10/2712/23/24 Rx metformin 500 mg tablet 500 mg PO DAILY #90 tabs 12/23/24 Rx ramipril 5 mg capsule 5 mg PO QHS #90 caps 5 12/23/24 Rx pantoprazole 40 mg tablet,delayed 40 mg PO BID #180 ta bs 12/12/24 12/23/24 Rx release stool softener OTC PO PRN 12/23/24 History Have you fallen in the past year?: No PFSH Medical History (Reviewed 12/23/24 @ 14:56 by Ashley Jeong PROCESS CONTROL ENGINEER, PROCESS CONTROL ENGINEER-C) Left renal mass Right-sided chest pain Chronic back pain History of edema Loss of hearing Wears glasses Wears dentures Depression Anxiety Back pain Dietary restriction History of hiatal hernia Gastric reflux Smoker Hypertension History of echocardiogram History of stress test Cardiology follow-up encounter Pipe smoker COPD (chronic obstructive pulmonary disease) Osteoporosis Diabetes Seasonal allergies H/o blood transfusion Peripheral vascular occlusive disease History of non-ST elevation myocardial infarction (NSTEMI) (05/23/14) Onychomycosis Atherosclerosis of coronary artery of [place] heart without angina pectoris (05/25/14) Essential (primary) hypertension Gastroenteritis Acute bronchitis Scoliosis Knee pain Fatigue Hemorrhoids Weight loss Arthritis Anemia Orthostatic hypotension Pre-syncope Hyperlipidemia Diabetes mellitus, type II Depression with anxiety Atrial flutter, paroxysmal Surgical History (Reviewed 12/23/24 @ 14:56 by Ashley Jeong PROCESS CONTROL ENGINEER, PROCESS CONTROL ENGINEER-C) Hx of spinal surgery History of radiofrequency ablation (RFA) of nerve of cervical spine History of surgery on left wrist History of hernia repair History of open reduction and internal fixation (ORIF) procedure (2018) History of left heart catheterization History of coronary artery stent placement Family History Father Cancer Mother Kidney failure Other Kidney disease Social History household members: spouse housing: house Smoking Status: Current every day smoker tobacco type: pipe other: 1 q2hrs Tobacco: How many years used: 40 alcohol intake: never what type of physical activity do you participate in: other details: house work, and yard work. do you feel safe at home: Yes Review of Systems Resp Respiratory: Yes as per HPI Exam Const Constitutional: Positive conversant, cooperative, in no acute respiratory distress, well developed,good hygiene, frail appearing and thin Head Head: Yes normocephalic, Yes atraumatic and No cyanosis of lips/distal nose Eyes Eye: Positive clear conjunctiva; Negative nystagmus or scleral abnormality Ears Ear: Positive hard of hearing and external ears normal Nose Nose: Yes external nose normal Mouth Mouth: Positive oral mucosae normal and good dentition Neck Neck: Positive normal visual inspection, full ROM and trachea midline Chest Wall Chest: Positive normal inspection of the chest and symmetric chest movement; Negative increased A/P diameter Resp lung sounds: Positive diminished lung sounds, normal expiratory time and normal respiratory effort; Negative wheezes, rhonchi or rales Cardio Cardiac: Positive regular rate, regular rhythm, S1 normal and S2 normal; Negative murmur GI GI: Positive normal to inspection; Negative distended Genitourinary: Positive deferred Musc Musculoskeletal: Positive using an assistive device for ambulation and ROM normal; Negative kyphosis or scoliosis Skin Pulmonary Skin Exam: Positive intact; Negative lesion, rash or ulcers Extremities Extremities: No clubbing and No cyanosis Neuro Neurologic: Yes no focal neuro deficits, Yes conversant, Yes cooperative, Yes normal cognition, Yesnormal coordination, Yes normal concentration and Yes understands questions Psych Appearance: Positive grossly normal, eye contact and well kempt Mental Status: Positive mental status grossly normal Mood: Positive congruent mood Affect: Positive normal affect Coding Level of Care Code Off vis,est,level 4 Diagnoses Lung nodules R91.8 Centrilobular emphysema J43.2 COPD type: emphysema Emphysema type: centrilobular Tobacco abuse Z72.0 Abnormal positron emission tomography (PET) scan R94.8 Clinical Quality Measures Falls Risk Screening/Assistive Devices Have you fallen in the past year?: No 12/23/24 1524 ler JANELL PROCESS CONTROL ENGINEER-C> Date _ Ashley Jeong NP, NP-C Cosigner Signature: Date (if applicable) CC: Dr. Silverio Reyes MD; Dr. Demetra Serrano MD ~ [facility]05-27-2025 Progress note Author Ashley Jeong [facility] Note Date/Time December 23, 2024 3:24p m [facility] Pulmonary Medicine [address] [place] [address] OFFICE VISIT Date of Service: 12/23/24 MR#: [id number] Acct: [id number] Name: CRISTINO RYAN Rep #: [id number] : 1950 Provider: NAZARIO Jeong Age/Sex: 74/M Location: [facility] [place] Status: Signed Assessment and Plan Assessment and Plan (1) Lung nodules: Status: Acute Plan: Tissue pathology nondiagnostic. Continue to monitor by repeat imaging, obtaining a diagnostic CT of the chest in 3 months. Return to the office after test results are available for review. Contact the office with any new or worsening symptoms in the meantime. (2) COPD (chronic obstructive pulmonary disease): Status: Chronic Qualifiers: COPD type: emphysema Emphysema type: centrilobular Qualified Code(s): J43.2 - Centrilobular emphysema Comment: Trelegy Plan: He does not appear to be in exacerbation today. Continue triple therapy on Trelegy. Consider pulmonary function test for clarification and quantification. No indication for antibiotics or steroids today. (3) Tobacco abuse: Status: Chronic Plan: Complicates exam, plan, care and prognosis. Encourage smoking cessation. (4) Abnormal positron emission tomography (PET) scan: Status: Acute Comment: bladder positive Plan: Given that the lung biopsy was nondiagnostic, there was also a bladder lesion that was PET positive. Referral placed to a urologist for an evaluation and hopefully tissue pathology. Please note that the patient had a hypotensive and bradycardic episode followingtwilight biopsy resulting in transfer to the emergency department. He has reservations regarding receiving twilight for any additional biopsies. Orders: Orders Chest without Contrast 02/27/25 R91.8 - Other nonspecific abnormal finding of lung field Referrals Urology R94.8 - Abnormal results of function studies of other organs and systems Plan Details Additional Comments: This note was generated with [employer] dictation software. It may contain incorrectwords, spelling, and punctuation that were not noted in checking the note beforesigning. Follow Up: 3 Months HPI HPI Comments Details: This patient presents to the office today to discuss test results. He is ambulatory with use of a cane. He is currently on room air. He has not recently been seen in the ED or urgent care for any respiratory illness. He has not required any antibiotics or prednisone for any breathing problems. He is compliant with Trelegy 1 puff daily. He does report rinsing his mouth outafter each use. He denies any medication side effect such as sore throat or thrush. He has an albuterol rescue inhaler but has not felt the need for it. Hecontinues to smoke cigarettes. He is currently smoking 1/2 pack/day. He has some shortness of breath on exertion. He has a daily cough that is typically productive of clear-colored sputum. He denies any wheezing, chest congestion, chest pain or palpitations. He denies any fever, chills or body aches. Test results personally reviewed with the patient: CT-guided right lung biopsy completed on December 05, 2024. 5 core specimens obtained. Pneumothorax occurred. Hypotension and bradycardia status post procedure, patient sent to the ER. Tissue pathology not diagnostic. Intake Vital Signs 11/13/24 08:06 12/05/24 10:17 12/23/24 09:24 Height 5 ft 8 in 5 ft 7 in 5 ft 7 in Weight: 93 lb BMI 14.6 BP 166/87 H Blood Pressure Location Lt brachial Position Sitting Respiration 18 Pulse 68 Pulse Source NIBP Temp 97.1 F L Temperature Source Temporal Artery Pulse Oximetry (%) 97 Oxygen Delivery Method room air Intake Visit Reasons: 3 wk fu Chief Complaint: RT Rib Pain Patent Prosecution Paralegal Required: No DME Vendor: [id number] Accompanied by: Self Is patient in pain?: No Allergies Penicillins (PCN) Allergy (Verified 12/23/24 14:37) Hives typhoid vaccine (Typhoid Vaccine) Allergy (Verified 12/23/24 14:37) Other bupropion HCl (From Wellbutrin) Adverse Reaction (Verified 12/23/24 14:37) Other sildenafil (From Viagra) Adverse Reaction (Verified 12/23/24 14:37) Other Medications ?Medication ?Instructions ?Recorded ?Confirmed ?Type loratadine 10 mg tablet 10 mg PO DAILY ALLERGIES 12/1112/23/24 History acetaminophen 500 mg tablet 1,000 mg PO Q6H PRN Pain 0 03/16/22 12/23/24 History albuterol sulfate 2.5 mg/3 mL 2.5 mg (3 mL) inhalation Q6H PRN 10/30/22 12/23/24 Rx (0.083 %) solution for nebulization SOB #180 mL nebulizer tubing and masks 10/31/22 12/23/24 History lidocaine-prilocaine 2.5 %-2.5 % 1 applic topical ONCE #30 grams 11/13/22 12/23/24 Rx topical cream atorvastatin 80 mg tablet 80 mg PO QHS CHOLESTEROL #90 tabs 11/22/22 12/23/24 Rx metoprolol succinate 25 mg 25 mg PO DAILY #90 tabs 12/23/24 Rx tablet,extended release 24 hr ketoconazole 2 % shampoo 1 applic topical 07/07/24 History oxycodone-acetaminophen 5 mg-325 1 tab PO BID PRN pain 07/07/24 12/23/24 History mg tablet gabapentin 100 mg capsule 100 mg PO QHS #90 caps 08/1512/23/24 Rx citalopram 20 mg tablet 20 mg PO DAILY #90 tabs 0310/2112/23/24 Rx fluticasone fur. 100 mcg-umeclid 1 inh inhalation CONTRERAS Y #120 ea 09/29/24 12/23/24 Rx 62.5 mcg-vilant 25 mcg inhalat.powder (Trelegy Ellipta) albuterol sulfate 90 mcg/actuation 1 - 2 puff inhalati on Q4H PRN PRN 10/08/24 12/23/24 Rx aerosol inhaler (Ventolin HFA) Wheezing #1 ea buspirone 15 mg tablet 15 mg PO BID #180 tabs 10/2712/23/24 Rx metformin 500 mg tablet 500 mg PO DAILY #90 tabs 12/23/24 Rx ramipril 5 mg capsule 5 mg PO QHS #90 caps 5 12/23/24 Rx pantoprazole 40 mg tablet,delayed 40 mg PO BID #180 ta bs 12/12/24 12/23/24 Rx release stool softener OTC PO PRN 12/23/24 History Have you fallen in the past year?: No PFSH Medical History (Reviewed 12/23/24 @ 14:56 by Ashley Jeong PROCESS CONTROL ENGINEER, PROCESS CONTROL ENGINEER-C) Left renal mass Right-sided chest pain Chronic back pain History of edema Loss of hearing Wears glasses Wears dentures Depression Anxiety Back pain Dietary restriction History of hiatal hernia Gastric reflux Smoker Hypertension History of echocardiogram History of stress test Cardiology follow-up encounter Pipe smoker COPD (chronic obstructive pulmonary disease) Osteoporosis Diabetes Seasonal allergies H/o blood transfusion Peripheral vascular occlusive disease History of non-ST elevation myocardial infarction (NSTEMI) (05/23/14) Onychomycosis Atherosclerosis of coronary artery of [place] heart without angina pectoris (05/25/14) Essential (primary) hypertension Gastroenteritis Acute bronchitis Scoliosis Knee pain Fatigue Hemorrhoids Weight loss Arthritis Anemia Orthostatic hypotension Pre-syncope Hyperlipidemia Diabetes mellitus, type II Depression with anxiety Atrial flutter, paroxysmal Surgical History (Reviewed 12/23/24 @ 14:56 by Ashley Jeong PROCESS CONTROL ENGINEER, PROCESS CONTROL ENGINEER-C) Hx of spinal surgery History of radiofrequency ablation (RFA) of nerve of cervical spine History of surgery on left wrist History of hernia repair History of open reduction and internal fixation (ORIF) procedure (2018) History of left heart catheterization History of coronary artery stent placement Family History Father Cancer Mother Kidney failure Other Kidney disease Social History (Reviewed 12/23/24 @ 14:56 by Ashley Jeong PROCESS CONTROL ENGINEER, PROCESS CONTROL ENGINEER-C) household members: spouse housing: house Smoking Status: Current every day smoker tobacco type: pipe other: 1 q2hrs Tobacco: How many years used: 40 alcohol intake: never what type of physical activity do you participate in: other details: house work, and yard work. do you feel safe at home: Yes Review of Systems Resp Respiratory: Yes as per HPI Exam Const Constitutional: Positive conversant, cooperative, in no acute respiratory distress, well developed, good hygiene, frail appearing and thin Head Head: Yes normocephalic, Yes atraumatic and No cyanosis of lips/distal nose Eyes Eye: Positive clear conjunctiva; Negative nystagmus or scleral abnormality Ears Ear: Positive hard of hearing and external ears normal Nose Nose: Yes external nose normal Mouth Mouth: Positive oral mucosae normal and good dentition Neck Neck: Positive normal visual inspection, full ROM and trachea midline Chest Wall Chest: Positive normal inspection of the chest and symmetric chest movement; Negative increased A/P diameter Resp lung sounds: Positive diminished lung sounds, normal expiratory time and normal respiratory effort; Negative wheezes, rhonchi or rales Cardio Cardiac: Positive regular rate, regular rhythm, S1 normal and S2 normal; Negative murmur GI GI: Positive normal to inspection; Negative distended Genitourinary: Positive deferred Musc Musculoskeletal: Positive using an assistive device for ambulation and ROM normal; Negative kyphosis or scoliosis Skin Pulmonary Skin Exam: Positive intact; Negative lesion, rash or ulcers Extremities Extremities: No clubbing and No cyanosis Neuro Neurologic: Yes no focal neuro deficits, Yes conversant, Yes cooperative, Yes normal cognition, Yes normal coordination, Yes normal concentration and Yes understands questions Psych Appearance: Positive grossly normal, eye contact and well kempt Mental Status: Positive mental status grossly normal Mood: Positive congruent mood Affect: Positive normal affect Coding Level of Care Code Off vis,est,level 4 Diagnoses Lung nodules R91.8 Centrilobular emphysema J43.2 COPD type: emphysema Emphysema type: centrilobular Tobacco abuse Z72.0 Abnormal positron emission tomography (PET) scan R94.8 Clinical Quality Measures Falls Risk Screening/Assistive Devices Have you fallen in the past year?: No 12/23/24 1524 <Electronically signed by Ashley otero NP PROCESS CONTROL ENGINEER-C> Date _ Ashley Jeong NP PROCESS CONTROL ENGINEER-C Cosigner Signature: Date (if applicable) CC: Dr. Silverio Reyes MD; Dr. Demetra Serrano MD ~ [facility] Work Phone: 1(212) 935-810305-09-2025 Radiology Diagnostic study note [facility] Imaging Services [address] [place] [id number] Chest Insp/Exp 2 View MR#: [id number] Acct: [id number] Name: CRISTINO RYAN Rep #: [id number] : 1950 M 74 From: Salome Louis MD PCP: Dr. Demetra Serrano MD Status: REG ER Study:Chest Insp/Exp 2 View Date of Exam: 12/05/24 Exam# [id number] Ordering Dr: Michael Ortiz DO EXAM: XR Chest, 1 View CLINICAL INDICATION: POST PNEUMOTHORAX INSPIRATORY/EXPIRATORY TECHNIQUE: Frontal view of the chest was performed with and without inspiration. COMPARISON: No relevant prior studies available. FINDINGS: LUNGS AND PLEURAL SPACES: Unremarkable. No pneumothorax. HEART: Unremarkable. No cardiomegaly. MEDIASTINUM: Unremarkable. Normal mediastinal contour. BONES/JOINTS: Unremarkable. No acute fracture. RAD/Chest Insp/Exp 2 View IMPRESSION: No pneumothorax. Reading Location: [facility] CC: Dr. Brittney Ortiz DO; Dr. Demetra Serrano MD ~ Analog Circuit Designer: Signed [facility]05-09-2025 Radiology Diagnostic study note [facility] Imaging Services [address] [place], [place] [id number] Biopsy/Inj or Needle Placement MR#: [id number] Acct: [id number] Name: CRISTINO RYAN Rep #: [id number] : 1950 M 74 From: Jayden Wiley MD PCP: Dr. Demetra Serrano MD Status: REG CLI Study:Biopsy/Inj or Needle Placement Date of Exam: 12/05/24 Exam# [id number] Ordering Dr: Michael Jeong NP PROCESS CONTROL ENGINEER-C ADDENDUM by Dr. Adrian Wiley MD on 12/05/24 at 1202 Also, intravenous administration 1 mg Versed and 50 mcg fentanyl was used, as part of the conscioussedation protocol. Reading Location: [facility] 12/05/24 1203 Date cc: NAZARIO Jeong; Dr. Demetra Serrano MD ~* Signed PROCEDURE: BIOPSY/INJ OR NEEDLE PLACEMENT 12/05/2024 REASON FOR EXAM: MULTIPLE PET POSITIVE NODULES TECHNIQUE: Procedure: Following informed consent, and using standard sterile technique, a CT-guided biopsy a hypermetabolic superior segment right lower lobe nodule was performed. 2% lidocaine local anesthesia was followed by placement of a CorVocet 20 gauge 10 cm core biopsy set under CT guidance. 5 samples were then obtained. Postprocedure images show the presence of a small right pneumothorax. Following this, the patient developed hypotension and bradycardia, with heart rate as low as 40 noted. The patient was then transferred to the emergency department, for further evaluation and treatment. One or more dose reduction techniques were used (e.g., Automated exposure control, adjustment of the mA and/or kV according to patient size, use of iterative reconstruction technique). RADIATION DOSE SUMMARY: DLP: 1947.85 mGycm COMPARISON: PET-CT examination of 11/11/2024. CT/Biopsy/Inj or Needle Placement IMPRESSION: 1. Successful core biopsy a superior segment right lower lobe hypermetabolic nodule. 2. Small pneumothorax seen initially on the right. 3. Following the procedure, the patient developed hypotension and bradycardia, with heart rate as low as 40 noted. The patient was then transferred to the emergency department, for further evaluation and treatment. Reading Location: [place] [address] CC: NAZARIO Jeong; Dr. Demetra Serrano MD ~ Analog Circuit Designer: Signed [facility]05-09-2025 Radiology Diagnostic study note [facility] Imaging Services [address] [place] [address] [id number] Chest 1 View (Portable) MR#: [id number] Acct: [id number] Name: CRISTINO RYAN Rep #: [id number] : 1950 M 74 From: Jo Alvarado MD PCP: Dr. Demetra Serrano MD Status: [employer] Study:Chest 1 View (Portable) Date of Exam: 12/05/24 Exam# [id number] Ordering Dr: Michael Ortiz DO PROCEDURE: CHEST 1 VIEW (PORTABLE) 12/05/2024 REASON FOR EXAM: S/P LUNG BIOPSY TECHNIQUE: Frontal view of the chest. COMPARISON: 03/16/2022 FINDINGS: Lungs: A right lung pneumothorax of approximately 20%. Pleura: No pleural effusions, thickening, or pneumothorax. Heart: Normal in size and configuration. Mediastinum/Lisette: Unremarkable. Great vessels: Unremarkable. Bones/soft tissues: Unremarkable. RAD/Chest 1 View (Portable) IMPRESSION: Right lung pneumothorax of approximately 20%. Reading Location: [facility] CC: Dr. Brittney Ortiz DO; Dr. Demetra Serrano MD ~ Analog Circuit Designer: Signed [facility]04-17-2025 Evaluation note* Diagnosis Onset Date Resolution Status Admit Date Lung nodules acute November 13, 2024 2:03pm COPD (chronic obstructive pulmonary disease) chronic November 13, 025 2:03pm Tobacco abuse chronic November 13, 2024 2:03pm Abnormal positron emission tomography (PET) scan acute December 23, 2024 2:34pm Lung nodules acute December 23 2:34pm COPD (chronic obstructive pulmonary disease) chronic December 23 2:34pm Tobacco abuse chronic December 23, 025 2:34pm [facility] Work Phone: 1(676) 731-814003-13-2025 Radiology Diagnostic study note [facility] Imaging Services [address] [place] [address] Chest without Contrast MR#: [id number] Acct: [id number] Name: CRISTINO RYAN Rep #: [id number] : 1950 73 From: Dakota Wilder MD PCP: Dr. Demetra Serrano MD Status: REG CLI Study:Chest without Contrast Date of Exam: 10/09/24 Exam# [id number] Ordering Dr: Demetra Serrano MD PROCEDURE: CHEST WITHOUT CONTRAST REASON FOR EXAM: RIGHT SIDED LOWER LATERAL CHEST WALL PAIN TECHNIQUE: Chest CT without contrast. COMPARISON: Comparison is made with prior study dated September 30, 2022. FINDINGS: Hardware: None. Lymph nodes: Small mediastinal lymph nodes. Heart and Vasculature: Normal heart size. No pericardial effusion. Atherosclerotic calcifications of the thoracic aorta. Thoracic aorta and pulmonary arteries have normal contours; noncontrast technique limits evaluation. Coronary Artery Calcifications: Present Lungs and Airways: Mild emphysematous changes are present. There is a 2.5 cm x 1.8 cm irregular cavitated mass in the lateral aspect of the right lower lobe. A neoplastic process should be ruled out. There is also evidence ofscarring in the right lower lobe. Pleura: No pleural effusion. No pneumothorax. Upper Abdomen: There is a 1 cm cyst in the anterior aspect of the left lobe of the liver. Small cysts also seen in the inferior aspect of the right lobe of the liver. Bilateral renal cysts. Questionable 3.6cm 4.3 cm solid mass in the lateral aspect of the right kidney. Correlation with ultrasound recommended. Bones: Degenerative changes of the thoracic spine. CT/Chest without Contrast IMPRESSION: 2.5 cm x 1.8 cm irregular cavitated mass in the lateral aspect of the right lower lobe. A neoplastic process should be ruled out although an infectious process may have a similar appearance. Findings suggestive of a solid mass in the lateral aspect of the left kidney. Correlation with ultrasound recommended. One or more dose reduction techniques were used (e.g., Automated exposure control, adjustment of the mA and/or kV according to patient size, use of iterative reconstruction technique). Reading Location: [id number] CC: Dr. Demetra Serrano MD ~ Analog Circuit Designer: Signed [facility]03-12-2025 Evaluation note* Diagnosis Onset Date Resolution Status Admit Date Lung nodules acute October 08, 2024 1:57pm Right-sided chest pain acute [facility] 2024 1:57pm Anemia chronic October 08 1:57pm COPD (chronic obstructive pulmonary disease) October 08 025 1:57pm Left renal mass acute September 8:00am Lung nodules acute October 20, 2024 8:00am COPD (chronic obstructive pulmonary disease) chronic October 20, 2 025 8:00am Tobacco abuse chronic October 20, 2024 8:00am Lung nodules acute November 13, 2024 2:03pm COPD (chronic obstructive pulmonary disease) chronic November 13, 2 025 2:03pm Tobacco abuse chronic November 13, 2024 2:03pm [facility] Work Phone: 1(867) 460-268703-12-2025 Evaluation note* Diagnosis Onset Date Resolution Status Admit Date Lung nodules acute October 08, 2024 1:57pm Right-sided chest pain acute [facility] 2024 1:57pm Anemia chronic October 08 1:57pm COPD (chronic obstructive pulmonary disease) chronic October 08, 2 025 1:57pm Left renal mass acute September 8:00am Lung nodules acute October 20, 2024 8:00am COPD (chronic obstructive pulmonary disease) chronic October 20, 2 025 8:00am Tobacco abuse chronic October 20, 2024 8:00am Lung nodules acute November 13, 2024 2:03pm COPD (chronic obstructive pulmonary disease) chronic November 13, 2 025 2:03pm Tobacco abuse chronic November 13, 2024 2:03pm Abnormal positron emission tomography (PET) scan acute December 23, 2024 2:34pm Lung nodules acute December 23 2:34pm COPD (chronic obstructive pulmonary disease) chronic December 23 2:34pm Tobacco abuse chronic December 23, 2 025 2:34pm [facility] Work Phone: 1(294) 529-627912-09-2024 Evaluation note* Diagnosis Onset Date Resolution Status Admit Date Anemia chronic July 07, 2024 12:50pm Chronic back pain chronic Decembe r 2023 12:50pm COPD (chronic obstructive pulmonary disease) chronic July 07, 2024 12:50pm Depression with anxiety chronic D ecember 2023 12:50pm Diabetes mellitus, type II chronic July 07, 2024 12:50pm Essential (primary) hypertension chronic July 07 12:50pm History of coronary artery stent placement chronic July 07 12:50pm Hyperlipidemia chronic July 072023 12:50pm Lung nodules acute October 08, 2024 1:57pm Right-sided chest pain acute [facility] 2024 1:57pm Anemia chronic October 08 1:57pm COPD (chronic obstructive pulmonary disease) chronic October 08, 2 025 1:57pm Left renal mass acute September 8:00am Lung nodules acute October 20, 2024 8:00am COPD (chronic obstructive pulmonary disease) chronic October 20, 2 025 8:00am Tobacco abuse chronic October 20, 2024 8:00am [facility] Work Phone: 1(979) 341-484512-15-2023 Procedure [facility] 07-13-2023 Procedure [facility]12-15-2023 Procedure note [facility]12-15-2023 Procedure [facility] 09-30-[address] Valdez [facility] September 30, 2022 5:18am Note Date/Time September 30, 2022 2:12 am [facility] Medical Records Department [address] [place] [address] Emergency Department Summary 09/30/22 MR#: [id number] Acct: [id number] Name: CRISTINO RYAN Rep #:[id number] : 1950 71 From: Shawn Valdez MD PCP: Dr. Demetra Serrano MD Status:REG ER Location: ED HPI History of Present Illness Chief Complaint: Chest Pain Narrative Narrative: 71-year-old male past medical history of COPD, atrial flutter, depression, smokes a pipe, presents with left pleuritic chest pain that he has had for approximately 1 week. Was reported by EMS that his has been sick with COVID for the last 2 weeks. He complains of left-sided pleuritic chest pain that began approximately 1 week ago. He started not feeling well 2 weeks ago, about the same time that his became ill. He states he does not want to be tested for COVID. He presents to the emergency department today because he states he went with his to her breast examination yesterday morning. They came home and he went right to bed at around 2 PM. He slept for 8 hours until 10 PM and got up and his left-sided chest pain became worse. He denies any nausea or vomiting. No diaphoresis. He takes for his chronic pain. He presents because of the left-sided pleuritic chest pain because he feels like hecannot take a deep breath without it hurting. [facility] Medical History Acute bronchitis Anemia Anxiety Arthritis Atherosclerosis of coronary artery of [place] heart without angina pectoris (05/25/14) Atrial flutter, paroxysmal Back pain Cardiology follow-up encounter COPD (chronic obstructive pulmonary disease) Depression Depression with anxiety Diabetes Diabetes mellitus, type II Dietary restriction Essential (primary) hypertension Fatigue Gastric reflux Gastroenteritis H/o blood transfusion Hemorrhoids History of echocardiogram History of hiatal hernia History of non-ST elevation myocardial infarction (NSTEMI) (05/23/14) History of stress test Hyperlipidemia Hypertension Knee pain Loss of hearing Onychomycosis Orthostatic hypotension Osteoporosis Peripheral vascular occlusive disease Pipe smoker Pre-syncope Scoliosis Seasonal allergies Smoker Wears dentures Wears glasses Weight loss Home Medications loratadine 10 mg tablet 10 mg PO BID ALLERGIES 09/03/14 [History Last Taken 03/16/22] tramadol 50 mg tablet 50 mg PO Q6H PRN Pain Score 1-10 03/03/20 [History Last Taken 03/15/22] albuterol sulfate 90 mcg/actuation aerosol inhaler 2 puff inhalation Q6H PRN shortness of breath or wheezing #18 grams 11/09/20 [Rx Last Taken Unknown] metoprolol succinate 25 mg tablet,extended release 24 hr 25 mg PO DAILY #90 tabs10/05/21 [Rx Last Taken 07/11/22] tiotropium bromide 2.5 mcg/actuation mist for inhalation (Spiriva Respimat) 2 inh inhalation QAM #12 grams 01/10/22 [Rx Last Taken 03/15/22] acetaminophen 500 mg tablet 1,000 mg PO Q6H PRN Pain 03/16/22 [History Last Taken 03/15/22] atorvastatin 80 mg tablet 80 mg PO QHS CHOLESTEROL 03/16/22 [History Last Taken 03/15/22] benzonatate 200 mg capsule 200 mg PO TID PRN cough #60 caps 03/24/22 [Rx Last Taken Unknown] pantoprazole 40 mg tablet,delayed release 40 mg PO BID #180 tabs 04/10/22 [Rx Last Taken 07/11/22] gabapentin 100 mg capsule 100 mg PO QHS #90 caps 04/26/22 [Rx Last Taken Unknown] metformin 500 mg tablet 500 mg PO DAILY #90 tabs 04/26/22 [Rx Last Taken Unknown] albuterol sulfate 2.5 mg/3 mL (0.083 %) solution for nebulization 2.5 mg inhalation PRN PRN SOB 05/18/22 [History Last Taken Unknown] citalopram 20 mg tablet 20 mg PO DAILY #90 tabs 07/12/22 [Rx Last Taken Unknown] buspirone 15 mg tablet 15 mg PO BID #180 tabs 08/09/22 [Rx Last Taken Unknown] peg 3350-electrolytes 236 gram-22.74 gram-6.74 gram-5.86 gram solution (Golytely) 240 ml PO Q10M #4,000 mL 08/17/22 [Rx Last Taken Unknown] naloxegol 25 mg tablet (Movantik) 25 mg PO QAM #30 tabs 08/23/22 [Rx Last Taken Unknown] ramipril 5 mg capsule 5 mg PO DAILY #90 caps 09/08/22 [Rx Last Taken Unknown] albuterol sulfate 90 mcg/actuation aerosol inhaler (Ventolin HFA) 1 - 2 puff inhalation Q4H PRN PRN Wheezing #1 ea 09/30/22 [Rx Last Taken Unknown] levofloxacin 750 mg tablet 750 mg PO DAILY 7 days #7 tabs 09/30/22 [Rx Last Taken Unknown] Allergy/AdvReac Type Severity Reaction Status Date / Time Penicillins [PCN] Allergy Hives Verified 09/30/22 02:06 typhoid vaccine Allergy Other Verified 09/30/22 02:06 [Typhoid Vaccine] bupropion HCl AdvReac Other Verified 09/30/22 02:06 [From Wellbutrin] sildenafil [From Viagra] AdvReac Other Verified 09/30/22 02:06 Family History Father Cancer Mother Kidney failure Other Kidney disease Surgical History History of coronary artery stent placement History of hernia repair History of left heart catheterization History of open reduction and internal fixation (ORIF) procedure (2018) History of radiofrequency ablation (RFA) of nerve of cervical spine History of surgery on left wrist Hx of spinal surgery Social History household members: spouse housing: house Smoking Status: Current every day smoker tobacco type: pipe other: 1 q2hrs Tobacco: How many years used: 40 alcohol intake: never what type of physical activity do you participate in: other details: house work, and yard work. do you feel safe at home: Yes ROS ROS ED ROS Narrative Constitutional: No fever, no chills. HEENT: No sore throat. No neck pain. No loss of vision. No rhinorrhea. Cardiovascular: Left-sided, pleuritic chest pain. No palpitations. No pedal edema. Respiratory: Positive cough, no shortness of breath. Abdominal: No abdominal pain. No nausea. No vomiting. Genitourinary: No dysuria. No hematuria. Musculoskeletal: No myalgias. No arthralgias. Neurologic: No headaches. No dizziness. No lightheadedness. Skin: No rash. No change in color. Psychiatric: No depression. No anxiety. EXAM Physical Exam Narrative Exam Narrative: Afebrile. Vital signs noted. Mild cachexia. HEENT: Normocephalic. Atraumatic. PERRL, EOMI. Neck soft and supple. No pointtenderness or step off. Cardiovascular: Regular rate and rhythm. No murmurs, rubs, or gallops appreciated. Respiratory: No tachypnea. Occasional rhonchi lateral bases. Gastrointestinal: Abdomen soft, nontender, with normoactive bowel sounds. No rebound or guarding. Neurological: Awake. Alert. Nonfocal, nonlateralizing. Skin: No rash. Normal color. No pallor. Musculoskeletal: No pedal edema. Full range of motion extremities. Const Vital Signs: 09/30/22 02:02 09/30/22 02:03 09/30/22 02:26 Temperature 97.0 F L Temperature Source Temporal Pulse Rate 95 Respiratory Rate 18 Blood Pressure 180/90 H Blood Pressure Mean 120 Pulse Ox 97 97 99 Oxygen Delivery Method Room Air Room Air Room Air 09/30/22 04:24 Temperature Temperature Source Pulse Rate 68 Respiratory Rate 18 Blood Pressure 168/69 H Blood Pressure Mean 102 Pulse Ox 94 Oxygen Delivery Method Room Air Heart Score History: Slightly/Non-Suspicious ECG: Normal Age: >/= 65 years Risk Factors: 1 or 2 Risk Factors Score: 3 MDM MDM MDM Narrative Medical decision making narrative: Given his pleuritic chest pain, concern is for pulmonary embolism. Additionally, in the differential diagnosis is COVID-pneumonia versus pleurisy versus bacterial pneumonia. Patient refuses swab for COVID-19 currently. EKG was obtained and interpreted by myself. It demonstrates normal sinus rhythm with PVCs and occasional PACs at [address] changes. No STEMI. I reviewed his laboratory work. His initial high-sensitivity troponin is 11. In review of his other laboratory work, he has a normal white count of 6.4, hemoglobin stable at 12.2, hematocrit 36.7. Platelet count normal at 232. Sodium slightly low at 130 with chloride 96 consistent with mild dehydration. He was bolused normal saline 1 L intravenously. Potassium is normal at 4.4. Hehas a BUN of 15 and a normal creatinine of 1.06. Given his pleuritic chest pain, I reviewed his CTA results of his chest. I thought this would be a betteroption to rule out pulmonary embolism given his left pleuritic chest pain. He does have a left upper lobe pneumonia, and various pulmonary nodules in the leftlower lung lobe, the largest being 7 mm. There is no evidence of pulmonary embolism or aortic dissection. I will repeat his troponin to make sure that thedelta is not increasing. In discussion with the patient, he would like to be treated as an outpatient. I do feel that Levaquin would be a better choice thanazithromycin, and he does have a penicillin allergy that is severe (hives). He will continue his pain medications of Tylenol and tramadol. He does have a low curb 65 score. I had discussed admission with him, and he prefers outpatient treatment. However, he will be ambulated on pulse ox to ensure that he does notbecome hypoxic. He was able to pass his ambulatory pulse ox check. While he did dip down to 90%on room air, I do feel that this may be his baseline on exertion as he has past medical history of COPD and smokes a pipe. He was written a prescription for analbuterol inhaler to use 1 to 2 puffs every 4-6 hours as needed for shortness ofbreath, and additionally a prescription for Levaquin. He was warned of the riskof tendon rupture. He acknowledged an understanding. He will follow-up with his primary care physician regarding the pulmonary nodules. I feel he can be discharged safely home with follow-up. Return instructions to the emergency department were reviewed. I did review his repeat troponin and it is 14 for a delta less than 7. Disposition is discharged home in stable condition. History & Record Review Discussion w/independent historian: Patient Lab Data Attestation: I reviewed the patient's lab results. Labs: Laboratory Results - last 24 hr 09/30/22 09/30/22 09/30/22 02:20 02:20 04:50 WBC 6.4 RBC 3.75 L Hgb 12.2 L Hct 36.7 L MCV 97.9 H MCH 32.5 H MCHC 33.2 RDW Std Deviation 46.9 H RDW Coeff of Randa 13.0 Plt Count 232 MPV 9.0 Immature Gran % (Auto) 0.800 Neut % (Auto) 66.0 Lymph % (Auto) 14.8 L [place] % (Auto) 17.9 H Eos % (Auto) 0.3 Baso % (Auto) 0.2 Absolute Neuts (auto) 4.2 Absolute Lymphs (auto) 0.94 Nucleated RBC % 0 Sodium 130 L Potassium 4.4 Chloride 96 L Carbon Dioxide 26.0 Anion Gap 8 BUN 15 Creatinine 1.03 Estim Creat Clear Calc 42.48 Est GFR (MDRD) Af Amer 92 Est GFR (MDRD) Non-Af 76 BUN/Creatinine Ratio 14.6 Glucose 119 H Calcium 9.1 Troponin I High Sens 11 14 Radiography Diagnostic Testing: Clinical Impression(s) from Imaging Studies Chest CTA 09/30/22 02:07 IMPRESSION: Left upper lobe pneumonia. Nonspecific nodules in the left lung lower lobe, the largest measures 7 mm in the superior segment of the left lower lobe axial image #138, may represent metastatic lesion. No demonstrated pulmonary embolism or arterial dissection. Electronically Signed: Jigar Cleaning MD at 3:52 EST Reading Location ID and State: [facility] / [place] Tel , Service support , Discharge Plan Triage Chief Complaint: Chest Pain ED Provider: Shawn Vladez Dx/Rx/DC Orders Clinical Impression: Left upper lobe pneumonia, Pleuritic chest pain, Multiple pulmonary nodules, Dehydration Instructions: ED Chest Pain, Noncardiac, ED Dehydration (Adult), ED Pneumonia (Adult) Prescriptions: New albuterol sulfate [Ventolin HFA] 90 mcg/actuation HFA aerosol inhaler 1 - 2 puff inhalation Q4H PRN PRN (Reason: Wheezing) Qty: 1 0RF levofloxacin 750 mg tablet 750 mg PO DAILY 7 Days Qty: 7 0RF No Action tramadol 50 mg tablet 50 mg PO Q6H PRN (Reason: Pain Score 1-10) Label Comments: take 1 to 2 tablets by mouth every 6 hours if needed for pain benzonatate 200 mg capsule 200 mg PO TID PRN (Reason: cough) Qty: 60 1RF peg 3350-electrolytes [Golytely] 236-22.74-6.74 -5.86 gram recon soln 240 ml PO Q10M Qty: 4000 0RF Rx Instructions: until fecal effluent is clear loratadine 10 MG tablet 10 mg PO BID Label Comments: allergies acetaminophen 500 mg Tablet 1,000 mg PO Q6H PRN (Reason: Pain) atorvastatin 80 mg tablet 80 mg PO QHS albuterol sulfate 2.5 mg /3 mL (0.083 %) solution for nebulization 2.5 mg inhalation PRN PRN (Reason: SOB) Rx Instructions: Use q4 hours and PRN for wheezing albuterol sulfate 90 mcg/actuation HFA aerosol inhaler 2 puff INHALATION Q6H PRN (Reason: shortness of breath or wheezing) Qty: 18 1RF Rx Instructions: With spacer metoprolol succinate 25 mg tablet extended release 24 hr 25 mg PO DAILY Qty: 90 3RF Spiriva Respimat 2.5 mcg/actuation mist 2 inh INHALATION QAM Qty: 12 3RF Hold Instructions: Home Medication placed on hold at Doctor's office pantoprazole 40 mg tablet,delayed release (DR/EC) 40 mg PO BID Qty: 180 1RF gabapentin 100 mg capsule 100 mg PO QHS Qty: 90 3RF metformin 500 mg tablet 500 mg PO DAILY Qty: 90 3RF citalopram 20 mg tablet 20 mg PO DAILY Qty: 90 3RF buspirone 15 mg tablet 15 mg PO BID Qty: 180 1RF Movantik 25 mg tablet 25 mg PO QAM Qty: 30 5RF Rx Instructions: must be taken on empty stomach; no food 1 hr after or 2-3 hrs before dose ramipril 5 mg capsule 5 mg PO DAILY Qty: 90 1RF Primary Care Provider: Demetra Serrano Referrals: Demetra Serrano MD [Primary Care Provider] - 3-5 Days Activity Restrictions/Additional Instructions: Take your antibiotics as directed. Return with increased difficulty breathing, new or worsening symptoms. You did have an abnormal CT scan where there were pulmonary nodules found in the left lower lobe of your lung. You need to follow-up with your primary care physician regarding this for further work-up. Disposition Disposition: Home, Self Care What to do if you have Problems For any increased pain, shortness of breath, bleeding, nausea or vomiting, chestpain, or any unexpected problems, contact your Primary Care Provider. Call [employer] [facility] ([phone]) or report to the closest Emergency Room. Call 911 if necessary. 09/30/22 0518 <Electronically signed by Shawn Valdez MD> Cosigner Signature (if applicable): CC: Dr. 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 Diabetes mellitus, type II c hronic Essential (primary) hypertension chronic History of coronary artery stent placement chronic Hyperlipidemia chronic Peripheral vascular occlusive disease chronic Weight loss chronic Weight loss chronic Ear itching noneactive [facility] Work Phone: Chief complaint+Reason for visit Narrative* Chief Complaint FU ABD WEIGHT LOSS GERD ABD PAIN E ORDERS E ORDERS DYSPHAGIA - SCHED PRIOR TO SPEECH REFERRAL 2 WK FU Reason for Visit Pipe smoker Anemia COPD (chronic obstructive pulmonary disease) Depression with anxiety Diabetes mellitus, type II Essential (primary) hypertension Hyperlipidemia Peripheral vascular occlusive disease Weight loss Constipation Dysphagia Epigastric abdominal tenderness Chronic GERD Weight loss [facility] Work Phone: Chief complaint+Reason for visit Narrative* Chief Complaint ABD WEIGHT LOSS GERD ABD PAIN E ORDERS E ORDERS DYSPHAGIA - SCHED PRIOR TO SPEECH REFERRAL 2 WK FU Reason for Visit Dysphagia Epigastric abdominal tenderness Chronic GERD Constipation Weight loss Anemia Constipation [facility] Work Phone: Chief complaint+Reason for visit Narrative* Chief Complaint ABD PAIN E ORDERS E ORDERS DYSPHAGIA - SCHED PRIOR TO SPEECH REFERRAL 2 WK FU CAT BITE Reason for Visit Anemia Constipation [facility] Work Phone: Chief complaint+Reason for visit Narrative* Chief Complaint E ORDERS E ORDERS DYSPHAGIA - SCHED PRIOR TO SPEECH REFERRAL 2 WK FU CAT BITE cp Reason for Visit Anemia Constipation [facility] Work Phone: Evaluation note* Diagnosis Onset Date Resolution Status Weight loss chronic Ear itching noneactive COPD (chronic obstructive pulmonary disease) chronic URI (upper respiratory infection) noneactive Dyspnea noneactive [facility] Work Phone: Evaluation note* Diagnosis Onset Date Resolution Status Weight loss chronic Ear itching noneactive COPD (chronic obstructive pulmonary disease) chronic URI (upper respiratory infection) noneactive Dyspnea noneactive COPD (chronic obstructive pulmonary disease) chronic Thrush, oral noneactive URI (upper respiratory infection) noneactive Tobacco use noneactive Pipe smoker acute Anemia chronic COPD (chronic obstructive pulmonary disease) chronic 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 Diabetes mellitus, type II c hronic Essential (primary) hypertension chronic Hyperlipidemia chronic Peripheral vascular occlusive disease chronic Weight loss chronic Constipation acute Dysphagia acute Epigastric abdominal tenderness acute Chronic GERD chronic Weight loss chronic [facility] Work Phone: Evaluation note* Diagnosis Onset Date Resolution Status Pipe smoker acute Anemia chronic COPD (chronic obstructive pulmonary disease) chronic 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 Diabetes mellitus, type II c hronic Essential (primary) hypertension chronic Hyperlipidemia chronic Peripheral vascular occlusive disease chronic Weight loss chronic Constipation acute Dysphagia acute Epigastric abdominal tenderness acute Chronic GERD chronic Weight loss chronic [facility] Work Phone: Evaluation note* Diagnosis Onset Date Resolution Status Dysphagia acute Epigastric abdominal tenderness acute Chronic GERD chronic Constipation chronic Weight loss chronic Anemia chronic Constipation chronic [facility] Work Phone: Evaluation note* Diagnosis Onset Date Resolution Status Anemia chronic Constipation chronic [facility] Work Phone: Evaluation noteNo assessment information available [facility] Work Phone: History and physical note Author Freedom Friend [facility] July 13, 2023 6:44am Note Date/Time July 13, 2023 6:44am [facility] Medical Records Department [address] [place] [id number] History & Physical Exam 07/13/23 0644 MR#: [id number] Acct: [id number] Name: CRISTINO RYAN Rep #:[id number] : 1950 72 From: Freedom Leyva DO PCP: Dr. Demetra Serrano MD Status:[facility] Location: [place] [address] History and Physical Date of Admission: 07/13/23 71 M who presents to the office today for poor appetite, weight loss, acid reflux, dysphagia, constipation exacerbated by therapeutic opioid use, abdominaltenderness. He is here today to review EGD findings. Colonoscopy had to be rescheduled since prep was ineffective, it is scheduled for 09/25/2022. EGD revealed esophageal plaques consistent with candidiasis, treated with Diflucan. Benign-appearing esophageal stenosis was dilated, biopsies from the esophagus showed mild chronic inflammation. There was a single bleeding angiodysplastic lesion in the stomach which was treated with a heater probe. Flattened mucosa in the duodenum was suspicious for celiac disease, biopsies found no pathologic diagnosis. On 07/05/22 his celiac disease panel was negative. Constipation -- no relief with miralax. GERD --on twice daily dosing of PPI therapy since at least 2016. Anemia -- hgb in the 12 range, low ferritin, normal iron, negative celiac. Bleeding angiodysplastic lesion in the stomach was treated in June 2022. InFebruary 2022 he will be evaluated for any lower GI bleeding with colonoscopy. 04/2022 gastrin normal, Ca 19-9 negative I mean he was suffering was a cantankerous gianfranco it sounds like 08/04/2022 modified barium swallow study: Esophageal retention 05/10/2022 CT abd pel w/ oral and IV contrast: Small bowel ileus, fecal stasis He established with us on 05/04/2022 for unintentional weight loss--normal weightfor him is 130 lbs, weight at that visit was 99 pounds. He reports a poor appetite for over a year now.? He has to force himself to eat.? notes that he drinks coffee and smokes pipe all day.? It is not so much that he has early satiety, rather that he has no appetite.? He occasionally has some mild nausea, no vomiting.? He does have some acid reflux despite taking pantoprazole 40 mg twice daily.? He reports being on twice daily dose since having anemia several years ago.? Prior EGDs have shown gastritis.? He does have some difficulty swallowing.? He thinks he has adapted so that he cuts his food up small and chews it up very well. Pills have gotten stuck in his oropharynx--but noteshe doesn't drink any fluids when taking pills. No difficulty with swallowing liquids. He gets what he calls gas pains, but says he does not have actual abdominal pain (he is quite tender on exam). BM once every 2-3 days, some burning from hemorrhoids.? He is on tramadol for back pain.? No hematochezia or melena. Comorbidities include chronic back pain, COPD, depression, diabetes, hypertension, hyperlipidemia, peripheral vascular disease, atrial fibrillation, coronary artery disease, scoliosis, osteoporosis 07/11/22 EGD Impression: ? - Esophageal plaques were found, consistent ? with candidiasis. Biopsied. ? - Benign-appearing esophageal stenosis. Dilated. ? - A single bleeding angiodysplastic lesion in ? the stomach. Treated with a heater probe. ? - Flattened mucosa was found in the duodenum, ? suspicious for celiac disease. Biopsied. MICROSCOPIC DIAGNOSIS A. Duodenum, biopsy: Fragments of duodenal mucosa, no pathologic diagnosis. B. Esophagus, random biopsy: Fragments of benign squamous mucosa with mild chronic inflammation ROS Const Constitutional: Positive for fatigue, headache(s) and weight change ENT ENT: Positive for headache(s); No difficulty swallowing Gastro GI: Positive for bloating and excessive flatus; No abdominal pain, belching, change in bowel habits, change in stool character, coffee ground emesis, constipation, cramping, diarrhea, heartburn, difficulty swallowing, feeling full early, incontinent of stools, Vomiting blood/hematemesis, Blood in stool, loose stools, Black,tarry stools, nausea/dyspepsia, pain with swallowing, vomiting or other Musc Musculoskeletal: Positive for back pain; No joint pain Skin Skin: No yellowing of the eye or itchy eyes Neuro Neurology: Positive for headache(s) Psych Psychiatric: No anxiety and No depression Endo Endocrine: Positive for fatigue and weight change Aller/Imm Allergy/Immunologic: No itchy eyes Eric/Lymp Hematologic/Lymphatic: No easy bleeding or easy bruising Exam Const General: cooperative and no acute distress Nutritional Appearance: thin Orientation: alert, awake and oriented x3 Quality Reporting Tobacco Screening ([facility] 138) Smoking Status: Current every day smoker Assessment and Plan Assessment and Plan (1) Anemia: Status: Chronic Plan: We reviewed findings from his EGD. He was treated for candidiasis in the esophagus with Diflucan. There was a single bleeding angiodysplastic lesion in the stomach which was treated with heater probe. Flat mucosa in the duodenum was suspicious for celiac disease however biopsies were benign, and blood test was negative for celiac disease. Colon prep was ineffective therefore he has been rescheduled for colonoscopy with a different prep. He will have follow-up in the office after that to review results. (2) Constipation: Status: Chronic Plan: Exacerbated by chronic therapeutic opioid use. Samples today of Linzess 72 mcg QAM, may need higher dose or different prescription medication. Medications: New I have examined the patient and the H&P has been reviewed. There are no clinical changes since date of exam. 07/13/23 0644 <Electronically signed by Freedom Leyva DO> Cosigner Signature (if applicable): CC: Dr. Demetra Serrano MD; Freedom Leyva DO~ Signed [facility] Work Phone: Hospital Discharge instructions Additional Instructions Cardiac work-up negative today. Follow-up with your doctor for further testing as an outpatient. Return if any worsening symptoms.[facility] Work Phone: Hospital Discharge instructions Additional Instructions Take your antibiotics as directed. Return with increased difficulty breathing, new or worsening symptoms. You did have an abnormal CT scan where there were pulmonary nodules found in the left lower lobe of your lung. You need to follow-up with your primary care physician regarding this for further work-up.[facility] Work Phone: Hospital Discharge instructionsAmbulatory Orders* Urology Location: None Selected [facility] Work Phone: Reason for referral (narrative)No reason for referral information availableWCleveland Clinic [facility] Work Phone: Summary Purpose Family History No Family History Records Found Relationship Condition Age at Onset Recorded Date/T bonnie Not Specified Kidney disorder Unknown father Malignant neoplasm Unknown mother Renal failure Unknown Advance Directives No Advanced Directives Records Found Advance Directive Response Recorded Date/ Time Name of Medical Power of Semiconductor Packages Sealer Haider casarez March 08, 2022 3:51pm Advance Directives No October 06 4:38pm Living Will No March 08 3:51pm Power of Semicon[employer] Packages Sealer Yes March 08 3:51pm Advance Directive Response Recorded Date/ Time Name of Medical Power of [employer] Sealer Haider casarez March 08, 2022 3:51pm Name of Medical Power of [employer]icon[employer] Packages Sealer JERARDO FINN March 16, 2022 6:24pm Advance Directives No October 06 4:38pm Living Will Yes March 16 6:24pm Power of [employer]icon[employer] Sealer Yes March 16 6:24pm Advance Directive Response Recorded Date/ Time Advance Directives No March 24, 2022 9:09am Living Will Yes March 24 9:09am Power of [employer]icon[employer] Pack[employer] Sealer Yes March 24 9:09am Name of Medical Power of [employer]icon[employer] Sealer Haider Rodriguez r March 08, 2022 3:51pm Name of Medical Power of [employer]ages Sealer JERARDO FINN March 16, 2022 6:24pm Advance Directive Response Recorded Date/ Time Name of Medical Power of [employer]icon[employer] Packages Sealer July 10, 2022 12:26pm Advance Directives No March 24, 2022 8:09am Living Will Yes July 10 12:26pm Power of [employer] Yes July 10, 2022 12:26pm Advance Directive Response Recorded Date/ Time Name of Medical Power of [employer] July 10, 2022 12:26pm Advance Directives No March 24, 2022 8:09am Living Will No September 30, 2022 2:05am Power of [employer] Sealer No September 30 2:05am Advance Directive Response Recorded Date/ Time Advance Directives No March 24, 2022 9:09am Living Will No April 22, 2023 3:18pm Power of [employer]iconductor [employer]ages Sealer No March 3:18pm Advance Directive Response Recorded Date/ Time Name of Medical Power of [employer]iconductor Packages Sealer , JERARDO HYDE July 09, 2023 9:42am Advance Directives No March 24, 2022 8:09am Living Will Yes July 09 9:42am Power of [employer]ages Sealer Yes July 09, 2023 9:42am Advance Directive Response Recorded Date/ Time Advance Directives No March 24, 2022 9:09am Advance Directive Response Recorded Date/ Time Do you have a Healthcare Power of [employer]ages Sealer? Yes December 05, 2024 10:32am Name of Medical Power of [employer]iconductor Packages Sealer monster December 05, 2024 10:32am Advance Directives No March 24, 2022 9:09am Chief Complaint and Reason for Visit Chief Complaint WEIGHT LOSS, HEARING LOSS ACUTE - INNER EAR ITCHING CHEST PAIN Reason for Visit Pipe smoker Tinnitus Atherosclerosis of coronary artery of [place] heart without angina pectoris COPD (chronic obstructive pulmonary disease) Depression with anxiety Diabetes mellitus, type II Essential (primary) hypertension History of coronary artery stent placement Hyperlipidemia Peripheral vascular occlusive disease Weight loss Weight loss Ear itching Chief Complaint ACUTE - INNER EAR IT JUNIE CHEST PAIN BAD COUGH SOB Reason for Visit Weight loss Ear itching COPD (chronic obstructive pulmonary disease) URI (upper respiratory infection) Dyspnea Chief Complaint ACUTE - INNER EAR IT JUNIE CHEST PAIN BAD COUGH SOB ER FU - PRERNA FU ABD WEIGHT LOSS GERD ABD PAIN Reason for Visit Weight loss Ear itching COPD (chronic obstructive pulmonary disease) URI (upper respiratory infection) Dyspnea COPD (chronic obstructive pulmonary disease) Thrush, oral URI (upper respiratory infection) Tobacco use Pipe smoker Anemia COPD (chronic obstructive pulmonary disease) Depression with anxiety Diabetes mellitus, type II Essential (primary) hypertension Hyperlipidemia Peripheral vascular occlusive disease Weight loss Constipation Dysphagia Epigastric abdominal tenderness Chronic GERD Weight loss Chief Complaint WEAKNESS [facility] ER FU INT LABS Chief Complaint Admit Date Annual/Physical July 07, 2024 1 2:50pm RT Rib Pain October 08, 2024 1:5 7pm CHEST PAIN October 09, 2024 9:4 3am Lung Mass October 20, 2024 8:0 0am Reason for Visit Admit Date Anemia July 07, 2024 1 2:50pm Chronic back pain July 07, 2024 1 2:50pm COPD (chronic obstructive pulmonary dise ase) July 07, 2024 12:50pm Depression with anxiety July 07 12:50pm Diabetes mellitus, type II July 07, 2024 12:50pm Essential (primary) hypertension Decembe r 2023 12:50pm History of coronary artery stent placeme nt July 07, 2024 12:50pm Hyperlipidemia July 07, 2024 1 2:50pm Lung nodules October 08, 2024 1:5 7pm Right-sided chest pain October 08, 2024 1:57pm Anemia October 08, 2024 1:5 7pm COPD (chronic obstructive pulmonary dise ase) October 08, 2024 1:57pm Left renal mass October 20, 2024 8:0 0am Lung nodules October 20, 2024 8:0 0am COPD (chronic obstructive pulmonary dise ase) October 20, 2024 8:00am Tobacco abuse October 20, 2024 8:0 0am Chief Complaint Admit Date RT Rib Pain October 08, 2024 1:5 7pm CHEST PAIN October 09, 2024 9:4 3am Lung Mass October 20, 2024 8:0 0am CANCERS November 11, 2024 9:4 5am Follow up November 13, 2024 2:0 3pm Reason for Visit Admit Date Lung nodules October 08, 2024 1:5 7pm Right-sided chest pain October 08, 2024 1:57pm Anemia October 08, 2024 1:5 7pm COPD (chronic obstructive pulmonary dise ase) October 08, 2024 1:57pm Left renal mass October 20, 2024 8:0 0am Lung nodules October 20, 2024 8:0 0am COPD (chronic obstructive pulmonary dise ase) October 20, 2024 8:00am Tobacco abuse October 20, 2024 8:0 0am Lung nodules November 13, 2024 2:0 3pm COPD (chronic obstructive pulmonary dise ase) November 13, 2024 2:03pm Tobacco abuse November 13, 2024 2:0 3pm Chief Complaint Admit Date RT Rib Pain October 08, 2024 1:5 7pm CHEST PAIN October 09, 2024 9:4 3am Lung Mass October 20, 2024 8:0 0am CANCERS November 11, 2024 9:4 5am Follow up November 13, 2024 2:0 3pm MULTIPLE PET POSITIVE NODULES December 05, 2 025 7:51am bradycardia December 05, 2024 10:16a m Chief Complaint Admit Date RT Rib Pain October 08, 2024 1:5 7pm CHEST PAIN October 09, 2024 9:4 3am Lung Mass October 20, 2024 8:0 0am CANCERS November 11, 2024 9:4 5am Follow up November 13, 2024 2:0 3pm MULTIPLE PET POSITIVE NODULES December 05, 2 025 7:51am bradycardia December 05, 2024 10:16a m 3 wk fu December 23, 2024 2:34p m Reason for Visit Admit Date Lung nodules October 08, 2024 1:5 7pm Right-sided chest pain October 08, 2024 1:57pm Anemia October 08, 2024 1:5 7pm COPD (chronic obstructive pulmonary dise ase) October 08, 2024 1:57pm Left renal mass October 20, 2024 8:0 0am Lung nodules October 20, 2024 8:0 0am COPD (chronic obstructive pulmonary dise ase) October 20, 2024 8:00am Tobacco abuse October 20, 2024 8:0 0am Lung nodules November 13, 2024 2:0 3pm COPD (chronic obstructive pulmonary dise ase) November 13, 2024 2:03pm Tobacco abuse November 13, 2024 2:0 3pm Abnormal positron emission tomography (P ET) scan December 23, 2024 2:34pm Lung nodules December 23, 2024 2:34p m COPD (chronic obstructive pulmonary dise ase) December 23, 2024 2:34pm Tobacco abuse December 23, 2024 2:34p m Chief Complaint Admit Date RT Rib Pain October 08, 2024 1:5 7pm CHEST PAIN October 09, 2024 9:4 3am Lung Mass October 20, 2024 8:0 0am CANCERS November 11, 2024 9:4 5am Follow up November 13, 2024 2:0 3pm MULTIPLE PET POSITIVE NODULES December 05, 2 025 7:51am bradycardia December 05, 2024 10:16a m 3 wk fu December 23, 2024 2:34p m Pain January 28, 2025 3:18p m Chief Complaint Admit Date CANCERS November 11, 2024 9:4 5am Follow up November 13, 2024 2:0 3pm MULTIPLE PET POSITIVE NODULES December 05, 2 025 7:51am bradycardia December 05, 2024 10:16a m 3 wk fu December 23, 2024 2:34p m Pain January 28, 2025 3:18p m LUNG NODULES February 27, 2025 2:3 4pm Reason for Visit Admit Date Lung nodules November 13, 2024 2:0 3pm COPD (chronic obstructive pulmonary dise ase) November 13, 2024 2:03pm Tobacco abuse November 13, 2024 2:0 3pm Abnormal positron emission tomography (P ET) scan December 23, 2024 2:34pm Lung nodules December 23, 2024 2:34p m COPD (chronic obstructive pulmonary dise ase) December 23, 2024 2:34pm Tobacco abuse December 23, 2024 2:34p m Chief Complaint Admit Date 3 wk fu December 23, 2024 2:34p m Pain January 28, 2025 3:18p m LUNG NODULES February 27, 2025 2:3 4pm Dizziness April 06, 2025 9:20am Reason for Visit Admit Date Abnormal positron emission tomography (P ET) scan December 23, 2024 2:34pm Lung nodules December 23, 2024 2:34p m COPD (chronic obstructive pulmonary dise ase) December 23, 2024 2:34pm Tobacco abuse December 23, 2024 2:34p m Additional Source Comments (unrecognized sect ion and content) No Status Records FoundNo Status Records FoundNo Status Records Found INFORMATION SOURCE (unrecogn ized section and content) DATE CREATED AUTHOR 01/22/2018 [facility] DATE CREATED AUTHOR AUTHOR'S ORGANIZ ATION 01/02/2019 [facility] DATE CREATED AUTHOR AUTHOR'S ORGANIZ ATION 06/11/2025 [facility] Goals (unrecognized section and content) Goals may be documented in a n alternate sectionGoals may be documented in an alternate sectionGoals may be documented in an alternate sectionGoals may be documented in an alternate sectionGoals may be documented in an alternate sectionGoals may be documented in an alternate sectionGoals may be documented in an alternate sectionGoals may be documented in an alternate sectionGoals may be documented in an alternate sectionGoals may be documented in an alternate sectionGoals may be documented in an alternate sectionGoals may be documented in an alternate section Care Teams (unrecognized sec tion and content) Team Status: Active Member Role Status Dates Dr. Alycia Valencia MD Family Provider Active Dr. Demetra Serrano MD Primary Care Provider Active Team Status: Inactive Member Role Status Dates Dr. Demetra Serrano MD Primary Care Provider, [facility] Provider Active Team Status: Inactive Member Role Status Dates Dr. Demetra Serrano MD Primary Care Provider, Referri ng Provider Active Nadira Coto PROCESS CONTROL ENGINEER, PROCESS CONTROL ENGINEER-C Attending Provider Active Team Status: Active Member Role Status Dates Dr. Demetra Serrano MD Primary Care Provider Active Dr. Freedom Leyva DO Attending Provid er, Referring Provider, Other Provider Active Ndaira Coto PROCESS CONTROL ENGINEER, PROCESS CONTROL ENGINEER-C Other Provider Active Team Status: Inactive Member Role Status Dates Dr. Demetra Serrano MD Primary Care Provider Active Nadira Coto PROCESS CONTROL ENGINEER, PROCESS CONTROL ENGINEER-C Attending Provider Active Team Status: Inactive Member Role Status Dates Dr. Demetra Serrano MD Primary Care Provider Active Dr. Freedom Leyva DO Attending Provider, Referring Provider Active Nadiramoise Coto PROCESS CONTROL ENGINEER, PROCESS CONTROL ENGINEER-C Other Provider Active Team Status: Inactive Member Role Status Dates Dr. Demetra Serrano MD Primary Care Provider Active Nadira Coto PROCESS CONTROL ENGINEER, PROCESS CONTROL ENGINEER-C Attending Provider, Referrin g Provider Active Team Status: Active Member Role Status Dates Dr. Demetra Serrano MD Primary Care Provider Active Estrella Prebish PROCESS CONTROL ENGINEER, PROCESS CONTROL ENGINEER-C Attending Provider Active Team Status: Inactive Member Role Status Dates Dr. Demetra Serrano MD Primary Care Provider Active Estrella Prebish PROCESS CONTROL ENGINEER, PROCESS CONTROL ENGINEER-C Attending Provider Active Team Status: Inactive Member Role Status Dates Dr. Demetra Serrano MD Primary Care Provider Active Ed Physician Provider Emergency Provider Active Team Status: Inactive Member Role Status Dates Dr. Demetra Serrano MD Primary Care Provider Active Ed Physician Provider Attending Provider, Emergency Pr ovider Active Team Status: Inactive Member Role Status Dates Dr. Demetra Serrano MD Primary Care Provider Active Shawn Valdez MD Emergency Provider Active Team Status: Inactive Member Role Status Dates Dr. Demetra Serrano MD Primary Care Provider Active Dr. Wiliam Carmen MD Attending Provider, Emergency Pro vider Active Team Status: Inactive Member Role Status Dates Dr. Demetra Serrano MD Primary Care Pro vider, Attending Provider, Referring Provider Active Team Status: Active Member Role Status Dates Dr. Demetra Serrano MD Primary Care Provider Active Dr. Freedom Leyva DO Attending Provid er, Referring Provider, Other Provider Active Team Status: Inactive Member Role Status Dates Dr. Demetra Serrano MD Primary Care Provider Active Dr. Freedom Friend , DO Attending Provider, Referring Provider Active Team Status: Active Member Role Status Dates Dr. Demetra Serrano MD Primary Care Provider Active Team Status: Inactive Member Role Status Dates Dr. Demetra Serrano MD Primary Care Provider Active Start: July 07, 2024 End: July 07, 2024 Dr. Demetra Serrano MD Attending Provider Active Start: July 07, 2024 End: July 07, 2024 Team Status: Inactive Member Role Status Dates Dr. Demetra Serrano MD Primary Care Provider Active Start: October 08, 2024 End: October 08, 2024 Dr. Demetra Serrano MD Attending Provider Active Start: October 08, 2024 End: October 08, 2024 Team Status: Inactive Member Role Status Dates Dr. Demetra Serrano MD Primary Care Provider Active Start: October 09, 2024 End: October 09, 2024 Dr. Demetra Serrano MD Attending Provider Active Start: October 09, 2024 End: October 09, 2024 Dr. Demetra Serrano MD Referring Provider Active Start: October 09, 2024 End: October 09, 2024 Team Status: Inactive Member Role Status Dates Dr. Demetra Serrano MD Primary Care Provider Active Start: October 20, 2024 End: October 20, 2024 Dr. Demetra Serrano MD Referring Provider Active Start: October 20, 2024 End: October 20, 2024 Ashley Jeong PROCESS CONTROL ENGINEER, PROCESS CONTROL ENGINEER-C Attending Provider Active Start: October 20, 2024 End: October 20, 2024 Team Status: Inactive Member Role Status Dates Dr. Demetra Serrano MD Primary Care Provider Active Start: November 11, 2024 End: November 11, 2024 Ashley Jeong PROCESS CONTROL ENGINEER, PROCESS CONTROL ENGINEER-C Attending Provider Active Start: November 11, 2024 End: November 11, 2024 Ashley Jeong PROCESS CONTROL ENGINEER, PROCESS CONTROL ENGINEER-C Referring Provider Active Start: November 11, 2024 End: November 11, 2024 Team Status: Inactive Member Role Status Dates Dr. Demetra Serrano MD Primary Care Provider Active Start: November 13, 2024 End: November 13, 2024 Dr. Demetra Serrano MD Referring Provider Active Start: November 13, 2024 End: November 13, 2024 Ashley Jeong PROCESS CONTROL ENGINEER, PROCESS CONTROL ENGINEER-C Attending Provider Active Start: November 13, 2024 End: November 13, 2024 Team Status: Active Member Role Status Dates Dr. Demetra Serrano MD Primary Care Provider Active Start: December 05, 2024 Ashley Jeong PROCESS CONTROL ENGINEER, PROCESS CONTROL ENGINEER-C Attending Provider Active Start: December 05, 2024 Ashley Jeong PROCESS CONTROL ENGINEER, PROCESS CONTROL ENGINEER-C Referring Provider Active Start: December 05, 2024 Team Status: Inactive Member Role Status Dates Dr. Demetra Serrano MD Primary Care Provider Active Start: December 05, 2024 End: December 05, 2024 Dr. Brittney Ortiz DO Emergency Provider Active Start: December 05, 2024 End: December 05, 2024 Team Status: Inactive Member Role Status Dates Dr. Demetra Serrano MD Primary Care Provider Active Start: December 05, 2024 End: December 05, 2024 Ashley Jeong PROCESS CONTROL ENGINEER, PROCESS CONTROL ENGINEER-C Attending Provider Active Start: December 05, 2024 End: December 05, 2024 Ashley Jeong PROCESS CONTROL ENGINEER, PROCESS CONTROL ENGINEER-C Referring Provider Active Start: December 05, 2024 End: December 05, 2024 Team Status: Inactive Member Role Status Dates Dr. Demetra Serrano MD Primary Care Provider Active Start: December 05, 2024 End: December 05, 2024 Dr. Brittney Ortiz DO Attending Provider Active Start: December 05, 2024 End: December 05, 2024 Dr. Brittney Ortiz DO Emergency Provider Active Start: December 05, 2024 End: December 05, 2024 Team Status: Inactive Member Role Status Dates Dr. Demetra Serrano MD Primary Care Provider Active Start: December 23, 2024 End: December 23, 2024 Dr. Demetra Serrano MD Referring Provider Active Start: December 23, 2024 End: December 23, 2024 Ashley Jeong PROCESS CONTROL ENGINEER, PROCESS CONTROL ENGINEER-C Attending Provider Active Start: December 23, 2024 End: December 23, 2024 Team Status: Active Member Role/Relationship Status Dates Dr. Demetra Serrano MD Primary Care Provider Active Team Status: Inactive Member Role/Relationship Status Dates Dr. Demetra Serrano MD Primary Care Provider Active Start: October 08, 2024 End: October 08, 2024 Dr. Demetra Serrano MD Attending Provider Active Start: October 08, 2024 End: October 08, 2024 Team Status: Inactive Member Role/Relationship Status Dates Dr. Demetra Serrano MD Primary Care Provider Active Start: October 09, 2024 End: October 09, 2024 Dr. Demetra eSrrano MD Attending Provider Active Start: October 09, 2024 End: October 09, 2024 Dr. Demetra Serrano MD Referring Provider Active Start: October 09, 2024 End: October 09, 2024 Team Status: Inactive Member Role/Relationship Status Dates Dr. Demetra Serrano MD Primary Care Provider Active Start: October 20, 2024 End: October 20, 2024 Dr. Demetra Serrano MD Referring Provider Active Start: October 20, 2024 End: October 20, 2024 Ashley Jeong PROCESS CONTROL ENGINEER, PROCESS CONTROL ENGINEER-C Attending Provider Active Start: October 20, 2024 End: October 20, 2024 Team Status: Inactive Member Role/Relationship Status Dates Dr. Demetra Serrano MD Primary Care Provider Active Start: November 11, 2024 End: November 11, 2024 Ashley Jeong PROCESS CONTROL ENGINEER, PROCESS CONTROL ENGINEER-C Attending Provider Active Start: November 11, 2024 End: November 11, 2024 Ashley Jeong PROCESS CONTROL ENGINEER, PROCESS CONTROL ENGINEER-C Referring Provider Active Start: November 11, 2024 End: November 11, 2024 Team Status: Inactive Member Role/Relationship Status Dates Dr. Demetra Serrano MD Primary Care Provider Active Start: November 13, 2024 End: November 13, 2024 Dr. Demetra Serrano MD Referring Provider Active Start: November 13, 2024 End: November 13, 2024 Ashley Jeong PROCESS CONTROL ENGINEER, PROCESS CONTROL ENGINEER-C Attending Provider Active Start: November 13, 2024 End: November 13, 2024 Team Status: Inactive Member Role/Relationship Status Dates Dr. Demetra Serrano MD Primary Care Provider Active Start: December 05, 2024 End: December 05, 2024 Ashley Jeong PROCESS CONTROL ENGINEER, PROCESS CONTROL ENGINEER-C Attending Provider Active Start: December 05, 2024 End: December 05, 2024 Ashley Jeong PROCESS CONTROL ENGINEER, PROCESS CONTROL ENGINEER-C Referring Provider Active Start: December 05, 2024 End: December 05, 2024 Team Status: Inactive Member Role/Relationship Status Dates Dr. Demetra Serrano MD Primary Care Provider Active Start: December 05, 2024 End: December 05, 2024 Dr. Brittney Ortiz DO Attending Provider Active Start: December 05, 2024 End: December 05, 2024 Dr. Brittney Ortiz DO Emergency Provider Active Start: December 05, 2024 End: December 05, 2024 Team Status: Inactive Member Role/Relationship Status Dates Dr. Demetra Serrano MD Primary Care Provider Active Start: December 23, 2024 End: December 23, 2024 Dr. Demetra Serrano MD Referring Provider Active Start: December 23, 2024 End: December 23, 2024 Ashley Jeong PROCESS CONTROL ENGINEER, PROCESS CONTROL ENGINEER-C Attending Provider Active Start: December 23, 2024 End: December 23, 2024 Team Status: Inactive Member Role/Relationship Status Dates Dr. Demetra Serrano MD Primary Care Provider Active Start: January 28, 2025 End: January 28, 2025 Dr. Silverio Reyes MD Attending Provider Active Start: January 28, 2025 End: January 28, 2025 Dr. Silverio Reyes MD Referring Provider Active Start: January 28, 2025 End: January 28, 2025 Team Status: Inactive Member Role/Relationship Status Dates Dr. Demetra Serrano MD Primary Care Provider Active Start: November 11, 2024 End: November 11, 2024 Ashley Jeong PROCESS CONTROL ENGINEER, PROCESS CONTROL ENGINEER-C Attending Provider Active Start: November 11, 2024 End: November 11, 2024 Ashley Jeong PROCESS CONTROL ENGINEER, PROCESS CONTROL ENGINEER-C Referring Provider Active Start: November 11, 2024 End: November 11, 2024 Team Status: Inactive Member Role/Relationship Status Dates Dr. Demetra Serrano MD Primary Care Provider Active Start: November 13, 2024 End: November 13, 2024 Dr. Demetra Serrano MD Referring Provider Active Start: November 13, 2024 End: November 13, 2024 Ashley Jeong PROCESS CONTROL ENGINEER, PROCESS CONTROL ENGINEER-C Attending Provider Active Start: November 13, 2024 End: November 13, 2024 Team Status: Inactive Member Role/Relationship Status Dates Dr. Demetra Serrano MD Primary Care Provider Active Start: December 05, 2024 End: December 05, 2024 Ashley Jeong PROCESS CONTROL ENGINEER, PROCESS CONTROL ENGINEER-C Attending Provider Active Start: December 05, 2024 End: December 05, 2024 Ashley Jeong PROCESS CONTROL ENGINEER, PROCESS CONTROL ENGINEER-C Referring Provider Active Start: December 05, 2024 End: December 05, 2024 Team Status: Inactive Member Role/Relationship Status Dates Dr. Demetra Serrano MD Primary Care Provider Active Start: December 05, 2024 End: December 05, 2024 Dr. Brittney Ortiz DO Attending Provider Active Start: December 05, 2024 End: December 05, 2024 Dr. Brittney Ortiz DO Emergency Provider Active Start: December 05, 2024 End: December 05, 2024 Team Status: Inactive Member Role/Relationship Status Dates Dr. Demetra Serrano MD Primary Care Provider Active Start: December 23, 2024 End: December 23, 2024 Dr. Demetra Serrano MD Referring Provider Active Start: December 23, 2024 End: December 23, 2024 Ashley Jeong PROCESS CONTROL ENGINEER, PROCESS CONTROL ENGINEER-C Attending Provider Active Start: December 23, 2024 End: December 23, 2024 Team Status: Inactive Member Role/Relationship Status Dates Dr. Demetra Serrano MD Primary Care Provider Active Start: January 28, 2025 End: January 28, 2025 Dr. Silverio Reyes MD Attending Provider Active Start: January 28, 2025 End: January 28, 2025 Dr. Silverio Reyes MD Referring Provider Active Start: January 28, 2025 End: January 28, 2025 Team Status: Inactive Member Role/Relationship Status Dates Dr. Demetra Serrano MD Primary Care Provider Active Start: February 27, 2025 End: February 27, 2025 Ashley Jeong PROCESS CONTROL ENGINEER, PROCESS CONTROL ENGINEER-C Attending Provider Active Start: February 27, 2025 End: February 27, 2025 Ashley Jeong PROCESS CONTROL ENGINEER, PROCESS CONTROL ENGINEER-C Referring Provider Active Start: February 27, 2025 End: February 27, 2025 Team Status: Inactive Member Role/Relationship Status Dates Dr. Demetra Serrano MD Primary Care Provider Active Start: December 23, 2024 End: December 23, 2024 Dr. Demetra Serrano MD Referring Provider Active Start: December 23, 2024 End: December 23, 2024 Ashlye Jeong PROCESS CONTROL ENGINEER, PROCESS CONTROL ENGINEER-C Attending Provider Active Start: December 23, 2024 End: December 23, 2024 Team Status: Inactive Member Role/Relationship Status Dates Dr. Demetra Serrano MD Primary Care Provider Active Start: January 28, 2025 End: January 28, 2025 Dr. Silverio Reyes MD Attending Provider Active Start: January 28, 2025 End: January 28, 2025 Dr. Silverio Reyes MD Referring Provider Active Start: January 28, 2025 End: January 28, 2025 Team Status: Inactive Member Role/Relationship Status Dates Dr. Demetra Serrano MD Primary Care Provider Active Start: February 27, 2025 End: February 27, 2025 Ashley Jeong PROCESS CONTROL ENGINEER, PROCESS CONTROL ENGINEER-C Attending Provider Active Start: February 27, 2025 End: February 27, 2025 Ashley Jeong PROCESS CONTROL ENGINEER PROCESS CONTROL ENGINEER-C Referring Provider Active Start: February 27, 2025 End: February 27, 2025 Team Status: Inactive Member Role/Relationship Status Dates Dr. Demetra Serrano MD Primary Care Provider Active Start: April 06, 2025 End: April 06, 2025 Dr. Demetra Serrano MD Attending Provider Active Start: April 06, 2025 End: April 06, 2025 FOR RECORDS PERTAINING TO PATIENTS WHO ARE OR HAVE BEEN ENROLLED IN A CHEMICAL DEPENDENCY/SUBSTANCEABUSE PROGRAM, SOME INFORMATION MAY BE OMITTED. This clinical summary was aggregated from multiple sources. Caution should be exercised in using it in the provision of clinical care. This summary normalizes information from multiple sources, and as a consequence, information in this document may materially change the coding, format and clinical context of patient data. In addition, data may be omitted in some cases. CLINICAL DECISIONS SHOULD BE BASED ON THE PRIMARY CLINICAL RECORDS. [employer] provides no warranty or guarantee of the accuracy or completeness of information in this document.
== END 2025-07-07 07:29 | disposition home or self-care (01) ==
PROVIDERS: Emergency Provider Emergency Medicine; PCP Internal Medicine; Visit Provider Emergency Medicine
DX: M54.50 Low back pain, unspecified (principal); J44.9 Chronic obstructive pulmonary disease, unspecified; E11.9 Type 2 diabetes mellitus without complications; I25.10 Atherosclerotic heart disease of native coronary artery without angina pectoris; F17.210 Nicotine dependence, cigarettes, uncomplicated; I10 Essential (primary) hypertension; F41.8 Other specified anxiety disorders; Z96.82 Presence of neurostimulator; E78.5 Hyperlipidemia, unspecified; G89.29 Other chronic pain; Z95.5 Presence of coronary angioplasty implant and graft; I25.2 Old myocardial infarction
CPT/HCPCS: 99282